=== PATIENT | male | born 1980 | race Caucasian/White ===

== ENCOUNTER → 2017-09-03 | Outpatient (CLI) | payer OTHER ==
[~2017-09-03] MED LIST: FEXO1TAB46 PO; FIBE1CHW PO; FLUO10CA48 PO; FLUO20CA35 PO; FLUT0.15 NAE; MULT-506 PO; PRLSR20 PO; PROB1CAP41 PO
--- NOTE | 2017-09-03 11:32 | DIAGNOSTIC IMAGING REPORT ---
FUSION CT SINUSES W/O HISTORY: 37 years-old Male J32.9 Chronic -HYSH-SGV MALE STATUS POST ENDOSCOPIC S chronic sinusitis COMPARISON: None available TECHNIQUE: Multiple axial CT images of the paranasal sinuses were obtained without contrast. Axial Medtronic images were also obtained. A dose lowering technique was used consistent with the principals of LUCIA. FINDINGS: Imaged intracranial structures demonstrate no acute abnormality. Mastoid air cells and middle ear cavities are clear. Polypoid mucosal thickening involves the inferior left maxillary sinus measuring up to 2.0 cm. There is mild mucosal thickening of the inferior right maxillary sinus. The sphenoid and frontal sinuses are patent. There is mild mucosal thickening involving multiple ethmoid air cells bilaterally. The bilateral frontoethmoidal and sphenoethmoidal recesses are patent. The bilateral maxillary ostiomeatal units are patent. No Dav cell identified. Small bilateral patel bullosa. Mild mucosal thickening of the right nasal turbinates. Allyn baljinder appears to be within normal limits. No significant bowing of the nasal septum. No facial bone fracture or dislocation identified. The orbits and soft tissues appear unremarkable. IMPRESSION: 1. Polypoid mucosal thickening of the left maxillary sinus with mild right maxillary and bilateral ethmoid sinus disease. 2. Patency of the bilateral maxillary ostiomeatal units. 3. Small bilateral patel bullosa. The above report was generated using voice recognition software. It may contain grammatical, syntax or spelling errors. Electronically signed by: Bola Beaulieu M.D. 09/03/2017 11:31 AM Dictated Date/Time: 09/03/2017 11:26 AM
== END | disposition home or self-care (01) ==
LOC: C.CTS 11:03
DX: J32.9 Chronic sinusitis, unspecified (principal); J34.89 Other specified disorders of nose and nasal sinuses

== ENCOUNTER → 2017-09-17 | Outpatient (CLI) | payer OTHER ==
[~2017-09-17] MED LIST changes: +ASTN; +IBUP-1105 PO; +MONT1TAB3 PO
[2017-09-17 12:10] LABS: BASO % 0.4 %; BASO ABS # 0.02 K/uL (0-0.2); EOS % 1.8 %; HEMATOCRIT 45.2 % (42-52); HEMOGLOBIN 15.8 g/dL (14.0-18.0); IG# 0.01 K/uL (0.00-0.02); LYMPH % 23.8 %; LYMPH ABS # 1.31 K/uL (1.2-3.4); MEAN CELL VOLUME 86.9 fL (80-100); MEAN CORPUSCULAR HEMOGLOBIN 30.4 pg (25-34); MONO % 7.6 %; MONO ABS # 0.42 K/uL (0.11-0.59); NEUT % 66.2 %; NEUT ABS # 3.64 K/uL (1.4-6.5); PLATELET COUNT 223 K/uL (130-400); RED CELL DISTRIBUTION WIDTH CV 12.4 % (11.5-14.5); RED CELL DISTRIBUTION WIDTH SD 39.7 fL (36.4-46.3)
[2017-09-17 12:16] LABS: POTASSIUM 3.8 mmol/L (3.5-5.1)
[2017-09-17 12:18] LABS: PTT PATIENT 28.5 SECONDS (21.0-31.0)
== END | disposition home or self-care (01) ==
LOC: C.LAB 11:14
DX: Z01.818 Encounter for other preprocedural examination (principal)

== ENCOUNTER → 2017-10-11 | Day surgery (SDC) | payer OTHER ==
[2017-09-23 09:07] VITALS: Ht 172.7 cm; Wt 86.4 kg
[~2017-10-11] VITALS: Ht 172.7 cm; Wt 86.4 kg
[~2017-10-11] MED LIST changes: +ACETAMINOPHEN 1000 MG/100 ML IV IV ONE; +ACETAMINOPHEN 500 MG TAB PO PRN; +ATROPINE SULFATE 0.1 MG/ML 5ML SYR IV PRN; +CEFAZOLIN 2000MG IV PUSH 15 ML IV SCH; +DEXAMETHASONE SOD INJ 4 MG/ML VIAL ONE; +EpHEDrine SULFATE INJ 50 MG/ML AMP IV PRN; +EpINEphrine INJ 1MG/ML AMP 1 MG/ML AMP ONE; +FENTANYL CITRATE INJ 50 MCG/1 ML 2 ML VIAL IV PRN; +FENTANYL CITRATE INJ 50 MCG/1 ML 2 ML VIAL ONE; -FLUT0.15 NAE; +GLYCOPYRROLATE INJ 0.2 MG/ML VIAL ONE; +LACTATED RINGER'S 1000ML 1,000 ML IV SCH; +LIDOCAINE 4% MPF SOAK 5 ML = 1 DOSE TOP ONE; +LIDOCAINE HCL 2% 2 ML VIAL (20MG/ML) ONE; +LIDOCAINE HCL 4% TOP 50 ML VIAL EXT ONE; +LIDOCAINE/EPINEPHRINE 1% 20 ML VIAL ONE; +NEOSTIGMINE METHYLSULFATE 5 MG/5 ML SYR ONE; +ONDANSETRON INJ 2 MG/ML 2 ML VIAL IV PRN; +ONDANSETRON INJ 2 MG/ML 2 ML VIAL ONE; +OXYMETAZOLINE HCL 0.05% NA SPR 15 ML BTL PRN; +OXYMETAZOLINE HCL 0.05% NA SPR 15 ML BTL SCH; +PROPOFOL IV EMULSION 10 MG/ML 20 ML VIAL IV ONE; +ROCURONIUM BROMIDE 10 MG/ML 5 ML VIAL IV ONE
--- NOTE | 2017-10-11 10:37 | History and Physical: Surg Cnt ---
History & Physical Date Oct 11, 2017. Chief Complaint CHRONIC SINUSITIS History of Present Illness The patient is a 37 year old male with complaints of CHRONIC SINUSITIS WITH SYMPTOMS DESPITE MAXIMAL MEDICAL RX AND PREVIOUS B FESS BY ANOTHER ENT DOC. Past Medical/Surgical History Medical Problems: (1) Opioid withdrawal CRS, AR PSH: S/P B FESS, S/P T&A Additional History Hepatic Disease: No Endocrine Disorder: No Kidney Disease: No Hypertension: No Heart Disease: No Bleeding Tendencies: No Infectious Diseases: No Allergies Coded Allergies: No Known Allergies (Unverified , 10/11/17) Home Medications Scheduled Fexofenadine Hcl (Susie), 180 MG PO QAM Fiber (Fiber Select Gummies), 1 TAB PO DAILY Fluoxetine (Prozac), 20 MG PO HS Fluoxetine (Prozac), 10 MG PO HS Montelukast Sodium (Singulair), 10 MG PO HS Multivitamin (Multivitamin), 1 TAB PO DAILY Omeprazole (Prilosec), 20 MG PO QAM Probiotic Product (Probiotic Daily), 1 CAP PO DAILY Scheduled PRN Azelastine Hcl (Astelin Nasal [place]), 1-2 SPRAYS NA BID PRN for Seasonal Allergies Ibuprofen (Ibuprofen), 2-3 TABS PO Q4H PRN for Pain Physical Examination Skin: warm/dry, no rash Eyes: normal inspection, EOMI, sclerae normal ENT: + pertinent finding (B ITH AND MIDDLE MEATUS INFLAMMATION WITH B MTH WELL) Head: normocephalic, atraumatic Neck: supple, no adenopathy, trachea midline Respiratory/Chest: lungs clear, normal breath sounds, no respiratory distress Cardiovascular: regular rate, rhythm, no edema, no murmur Neurologic/Psych: no motor/sensory deficits, alert, normal reflexes, oriented x 3 Diagnosis CHRONIC SINUSITIS AND BILATERAL INFERIOR TURBINATE HYPERTROPHY Plan of Treatment REVISION IMAGE-GUIDED B FESS AND INF TURB REDUCTION
--- NOTE | 2017-10-11 11:56 | [facility] Operative Report ---
Operative Report Operative Date Oct 11, 2017. Pre-Operative Diagnosis CHRONIC SINUSITIS AND BILATERAL INFERIOR TURBINATE HYPERTROPHY Post-Operative Diagnosis SAME ABOVE Procedure(s) Performed IMAGE-GUIDED REVISION BILATERAL ENDOSCOPIC SINUS SURGERY AND BILATERAL INFERIOR TURBINATE REDUCTION Surgeon KARLA Estimated Blood Loss 25ML Findings 1. BILATERAL DRAKE BULLOSA 2. MILD BILATERAL MAXILLARY POLYPOID MUCOSAL THICKENING 3. MODERATE BILATERAL INFERIOR TURBINATE HYPERTROPHY 4.MILD RIGHT FRONTAL SINUS MUCOSAL THICKENING I attest to the content of the Intraoperative Record and any orders documented therein. Any exceptions are noted below.
--- NOTE | 2017-10-11 11:59 | Discharge Instructions ---
Discharge Instructions Date of Service Oct 11, 2017. Admission Reason for Admission: Chronic Sinusitis, Hypertrophy Of Both Inferior Na Discharge Discharge Diagnosis / Problem: SAME Discharge Goals Goal(s): Therapeutic intervention Activity Recommendations Activity Limitations: as noted below LIGHT ACTIVITY AND NO NOSE BLOWING FOR 2 WEEKS . Current Hospital Diet Patient's current hospital diet: Discharge Diet Recommended Diet: Regular Diet Procedures Procedures Performed: IMAGE-GUIDED REVISION BILATERAL ENDOSCOPIC SINUS SURGERY AND BILATERAL INFERIOR TURBINATE REDUCTION Pending Studies Studies pending at discharge: no Medical Emergencies . Who to Call and When: Medical Emergencies: If at any time you feel your situation is an emergency, please call 911 immediately. . Non-Emergent Contact Non-Emergency issues call your: Surgeon . . "Provider Documentation" section prepared by Kalia Sr. .
[2017-10-11 12:47] VITALS: TEMP 36.9
--- NOTE | 2017-10-11 13:07 | Anesthesia Progress Nt - [facility] ---
Anesthesia Post Op Note Date & Time Oct 11, 2017 at 13:07 Vital Signs Pain Intensity: 4 Vital Signs Past 12 Hours Date Time Temp Pulse Resp B/P (MAP) Pulse Ox O2 Delivery O2 Flow Rate FiO2 10/11/17 12:47 36.9 83 16 135/91 (106) 93 Room Air 10/11/17 12:41 132/67 10/11/17 12:39 85 15 95 10/11/17 12:39 86 15 10/11/17 12:38 72 22 92 10/11/17 12:38 72 22 10/11/17 12:37 36.8 66 14 138/88 95 Room Air 10/11/17 12:37 73 19 10/11/17 12:37 74 19 92 10/11/17 12:36 138/88 10/11/17 12:32 68 19 10/11/17 12:32 67 19 94 10/11/17 12:31 129/86 10/11/17 12:29 69 16 95 10/11/17 12:29 69 16 10/11/17 12:26 136/88 10/11/17 12:24 69 16 10/11/17 12:24 65 16 99 10/11/17 12:23 66 17 99 10/11/17 12:23 66 17 10/11/17 12:21 142/86 10/11/17 12:18 72 18 99 10/11/17 12:18 72 18 10/11/17 12:16 133/102 10/11/17 12:14 142/82 10/11/17 12:13 71 95 10/11/17 12:13 36.6 74 16 142/82 97 Mask 8 10/11/17 12:13 71 10/11/17 09:32 37.1 88 18 146/81 (102) 97 Room Air Notes Mental Status: alert / awake / arousable, participated in evaluation Pt Amnestic to Procedure: Yes Nausea / Vomiting: adequately controlled Pain: adequately controlled Airway Patency, RR, SpO2: stable & adequate BP & HR: stable & adequate Hydration State: stable & adequate Anesthetic Complications: no major complications apparent
[2017-10-11 13:25] VITALS: BP 121/84; PULSE 76; O2SAT 95
--- NOTE | 2017-10-11 13:33 | OPERATIVE REPORT ---
DATE OF OPERATION: 10/11/2017 PREOPERATIVE DIAGNOSES: 1. Chronic sinusitis. 2. Bilateral patel bullosa. 3. Bilateral inferior turbinate hypertrophy. POSTOPERATIVE DIAGNOSES: 1. Chronic sinusitis. 2. Bilateral patel bullosa. 3. Bilateral inferior turbinate hypertrophy. PROCEDURES: Revision image guided bilateral endoscopic sinus surgery consisting of: 1. Bilateral maxillary antrostomies. 2. Bilateral endoscopic patel bullosa resection. 3. Balloon sinuplasty assisted right frontal sinusotomy. 4. Bilateral inferior turbinate outfracture and turbinoplasties. SURGEON: Kalia rS MD ANESTHESIA: General endotracheal. ESTIMATED BLOOD LOSS: 25 mL. FINDINGS: 1. Bilateral patel bullosa. 2. Bilateral inferior turbinate hypertrophy. 3. Polypoid mucosal thickening involving the bilateral maxillary sinuses and right maxillary antrostomy and right frontal sinuses. SPECIMENS: None. COMPLICATIONS: None. INDICATIONS FOR THE PROCEDURE: The patient is a 37-year-old male with a history of chronic rhinosinusitis, who has undergone endoscopic sinus surgery by Dr. Abe Kirkpatrick in the past, which consisted of balloon sinuplasty of the maxillary sinuses bilaterally and bilateral complete ethmoidectomies. The patient had an excellent result from the bilateral ethmoidectomies, but continues to have problems with bilateral maxillary sinusitis and he has ostiomeatal complex obstruction on the CT scan with mild mucosal thickening involving the bilateral maxillary sinuses. He also has right frontal sinus mucosal thickening, bilateral patel bullosa, and bilateral inferior turbinate hypertrophy. He presents for the above-mentioned procedures on an outpatient elective basis. DESCRIPTION OF PROCEDURE: After informed consent had been obtained from the patient, the patient was wheeled to the operating room and placed on the operating table in the supine position. Monitors were placed. After induction of general endotracheal anesthesia, the patient was prepped in the usual fashion for image guided bilateral endoscopic sinus surgery. The Glow headset was placed over the forehead and was registered, calibrated, and verified and used throughout the case, but especially with the right frontal sinus portion of the procedure. Lidocaine and epinephrine pledgets were placed in the bilateral nasal cavities and pressure applied. The left-sided pledgets were first removed. 1% lidocaine with 1:100,000 epinephrine was used to inject the left middle turbinate and uncinate process. A freer elevator was used to medialize the middle turbinate and a lidocaine and epinephrine pledget was then placed in the left middle meatus. The right side was then addressed in a similar fashion. The left-sided pledget was removed. A sickle knife was used to incise the left middle turbinate longitudinally and the lateral half of the middle turbinate was removed using straight Kirt-Cut forceps and powered instrumentation in order to perform an endoscopic patel bullosa resection. A freer elevator, straight Kirt-Cut forceps, and powered instrumentation were then used to perform an uncinectomy. The natural ostia of the left maxillary sinus was identified and this was enlarged anteriorly, inferiorly, and posteriorly using backbiting forceps and powered instrumentation. The patient's previous ethmoid cavity was inspected and this was found to be widely patent with an excellent postoperative result. Lidocaine and epinephrine pledget was then placed in the left ethmoid sinus. The right side was then addressed. This was addressed in a similar fashion as depicted on the left hand side. In addition, a frontal sinus suction using image guidance was used to cannulate the right frontal sinus. This was removed. A #6 frontal sinus balloon was inserted and inflated to 12 atmospheres of pressure in 2 different locations to dilate the right frontal recess tract. Polypoid mucosal thickening was then removed using powered instrumentation. A Castro elevator was then used to infracture and subsequently outfracture the inferior turbinates bilaterally. These were injected with 1% lidocaine with 1:100,000 epinephrine. A 2.0-mm turbinate blade using powered instrumentation was then used to perform bilateral inferior turbinoplasties in a submucosal fashion. The sinonasal cavities and nasopharynx were then suctioned. Merogel was then placed in the bilateral ethmoid sinuses/middle meati. An orogastric tube was placed and the stomach was suctioned free of air and stomach contents. This marked the end of the case. The patient tolerated the procedure well. There were no apparent complications. The patient was extubated and transferred to the recovery room in stable condition. I attest to the content of the Intraoperative Record and any orders documented therein. Any exception s are noted below.
== END | disposition home or self-care (01) ==
LOC: X.SURG 09:12
DX: J32.9 Chronic sinusitis, unspecified (principal); J34.3 Hypertrophy of nasal turbinates; J34.89 Other specified disorders of nose and nasal sinuses; Z79.899 Other long term (current) drug therapy; Z90.89 Acquired absence of other organs; E66.9 Obesity, unspecified; Z68.29 Body mass index [BMI] 29.0-29.9, adult

== ENCOUNTER 2020-03-13 14:19 | Inpatient (IN) ==
[2020-03-13] MEDS ORDERED: PIPERACILL/TAZOBAC CONSULT ACTIVE PRN ×2 (14:48→16:57)
[2020-03-13] MEDS ORDERED: PIPERACILLIN/TAZOBACTAM 4.5 GM/120 ML BAG IV ONE (14:48)
[2020-03-13] MEDS ORDERED: SODIUM CHLORIDE 0.9% 1000ML 2,000 ML IV ONE (14:48)
--- NOTE | 2020-03-13 15:08 | Emergency Department Note ---
Impression & Plan Hypoxia, Aspiration pneumonia, Acute urinary retention, Drug abuse ED Provider Note NAME: JHON MARIN AGE: 39 SEX: M : 1980 ARRIVES VIA: Walk-In INFORMANT: Patient ED PROVIDER(S): Shamir Ronquillo DO CHIEF COMPLAINT: Shortness of breath and cough HPI: Patient is a 39-year-old male who presents the ER with a past medical history of drug abuse which includes cocaine. He notes that last night he was using cocaine and some benzos. He does not remember what kind of benzodiazepines he used. Following this he woke up in the morning with vomit covering his face. He believes he aspirated. He has been having a cough and shortness of breath since then. He denies any loss of taste or smell. No runny nose. No chest pain. He admits to some nausea. No dysuria urgency or frequency. No other exacerbating or remitting factors. No exposure to anyone with known COVID but his does work here. Denies any belly pain. ROS: See above HPI for pertinent positives & negatives. A total of 10 systems reviewed and were otherwise negative. PAST MEDICAL HISTORY:See Below PAST SURGICAL HISTORY:See Below FAMILY HISTORY:See Below SOCIAL HISTORY:See Below HOME MEDICATIONS:See Below ALLERGIES:See Below VITALS:See Below PHYSICAL EXAMINATION: GENERAL: Sitting up in bed, alert, ill-appearing, disheveled, moderate distress, diaphoretic EYE EXAM: normal conjunctiva. PERRL and EOM's grossly intact. OROPHARYNX: membranes are dry NECK: supple, no nuchal rigidity, no adenopathy, non-tender LUNGS: Clear to auscultation. Normal chest wall mechanics HEART: no murmurs, S1 normal and S2 normal ABDOMEN: abdomen soft, non-tender, normo-active bowel sounds, no masses, no rebound or guarding. BACK: Back is symmetrical on inspection and there is no deformity, no midline tenderness, no CVA tenderness. SKIN: no rashes and no bruising UPPER EXTREMITIES: upper extremities are grossly normal. LOWER EXTREMITIES: No pitting edema. NEURO EXAM: Normal sensorium, cranial nerves II-XII grossly intact, normal speech, no gross weakness of arms, no gross weakness of legs. MEDICAL DECISION MAKING: Patient is a 39-year-old male who presents to the ER for shortness of breath. He notes he was using cocaine last night in combination with benzos. He woke up with vomit around his face. He does believe that he aspirated. Since then he h as been very short of breath. Upon presentation he is found to be tachycardic with a heart rate in the 120s. He is found to be hypoxic with a pulse ox of 75% on room air. I evaluated him at bedside. Placed on nonrebreather. Labs show leukocytosis of 15,000. No significant anemia. INR unremarkable. BMP with a potassium of 3.0. He was given IV potassium x20 mEq. Creatinine at 1.7 off of baseline of 1. Lactate was elevated 2.2. Bilirubin LFTs and troponin was negative. Lipase was unremarkable. Alcohol was negative. Chest x-ray does support aspiration pneumonia. Due to fever this is the cause of his hypoxia and tachycardia. With this he was given IV Zosyn. He was COVID tested which came back negative. He does appear to be still under the influence of drugs as he is slightly groggy. He was removed from a nonrebreather and placed on oxygen mask. He started become more short of breath and was placed on high flow nasal cannula. He remained on high flow throughout the ER. He felt significantly better. He was unable to urinate and consequently a Brewer was placed. He was given IV fluids as well. was updated at bedside. He was discussed with the hospitalist as well. Did consider PE but he denied any recent trips or travel or history of clotting disorder and with his history and chest x-ray does appear to be consistent with aspiration causing hypoxia. Triage Nursing notes reviewed. Prior medical records reviewed Vital Signs: reviewed and remarkable for tachycardia and hypoxic Differential diagnosis: Differential diagnosis includes etiologies such as sepsis, UTI, pneumonia, metabolic, electrolyte abnormalities, cardiac sources, intracerebral event, toxicologic, neurological, as well as others were entertained. ER treatment provided: See below Diagnostics interpreted by me: ECG: Sinus tachycardia rate of 125 Normal axis No PVCs Normal QTC Cardiac Monitoring: An order was placed for continuous cardiac monitoring. The monitor shows a rate of 122 with sinus rhythm. Laboratory studies: As stated above and show below. Imaging studies: Portable AP upright 1 view of the chest shows large infiltrate at the right base with spotty infiltrates throughout entire chest Consultation(s): Discussed with Dr. Armin Solorzano for admission Discussed with Dr. Todd Acosta from the research quality assurance analyst ED COURSE: Procedures: none Critical Care: I have personally spent 78 minutes of critical care time in the direct management of this patient. This includes bedside care, interpretation of diagnostic studies, and testing, discussion with consultants, patient, and family members, and other required patient management activities. This 78 minutes is in excess of all separately billable procedures. Past Med/Surg History Medical History (Updated 03/13/20 @ 17:57 by Shamir Ronquillo DO) Abdominal pain, acute, right lower quadrant Allergic rhinitis Blood in stool Change in bowel habits Chronic sinusitis Depression GERD (gastroesophageal reflux disease) Hypertrophy of both inferior nasal turbinates Kidney stones Mucous in stools Surgical History History of adenoidectomy History of carpal tunnel release B/L History of endoscopic sinus surgery 2010 AND 2017 History of tonsillectomy Family History (Updated 06/10/19 @ 11:08 by Kate Grace) Father Allergies Mother Sinus disorder Other No family history of bleeding disorder Social History (Updated 06/10/19 @ 11:11 by Kate Grace) Smoking Status: Former smoker Cigarettes Per Day: PT QUIT TOBACCO SEVERAL YEARS AGO BUT OCC. 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 Feels Safe at Home: Yes Allergies Allergies Allergy/AdvReac Type Severity Reaction Status Date / Time grass pollen Allergy Severe CONGESTION-SINUS Verified 03/13/20 15:27 INFECTIONS, COUGH, SOB tree and shrub pollen Allergy Severe CONGESTION, Verified 03/13/20 15:27 COUGH, SOB weed pollen Allergy Severe CONGESTION, Verified 03/13/20 15:27 COUGH, SOB dog dander Allergy Intermediate SNEEZING, Verified 03/13/20 15:27 CONGESTION house dust mite Allergy Intermediate SNEEZING, Verified 03/13/20 15:27 CONGESTION, SINUS INFECTION, SOB Home Meds Home Medications Medication Instructions Recorded Confirmed fexofenadine 180 mg PO QAM 08/21/18 03/13/20 fluoxetine 20 mg PO QPM 08/21/18 03/13/20 multivitamin 1 cap PO QAM 08/21/18 03/13/20 omeprazole 20 mg PO QAM 08/21/18 03/13/20 epinephrine 0.3 mg/0.3 mL 0.3 mg IM .INJECT 0.3ML INTRAMU ea 10/20/19 03/13/20 injection, auto-injector azelastine 2 sprays INTRANASAL BID PRN 03/13/20 03/13/20 fluoxetine 40 mg PO QPM 03/13/20 03/13/20 Results & Data (ED) Vital Signs Vital Signs - 24 hr 03/13/20 14:27 03/13/20 14:55 03/13/20 15:02 Pulse Rate 130 H 128 H Pulse Rate [Apical] Pulse Rate from SpO2 Sensor 128 H Respiratory Rate 16 16 Respiratory Effort / Characteristics Blood Pressure Blood Pressure Mean Pulse Oximetry 86 L 97 97 Oxygen Delivery Method Room Air Non-rebreather Oxygen Flow Rate 15 Fraction of Inspired Oxygen Sepsis Recent Fever Within 48 Hours No Sepsis New/Unexplained Change in Mental Status No Sepsis Action Taken by Nursing No Action Required Oxygen Flow Rate - Titration Pulse Oximetry Post Tiitration 03/13/20 15:09 03/13/20 15:30 03/13/20 15:31 Pulse Rate 124 H 130 H 126 H Pulse Rate [Apical] Pulse Rate from SpO2 Sensor 125 H 129 H Respiratory Rate 23 16 20 Respiratory Effort / Characteristics Blood Pressure 123/86 150/110 H Blood Pressure Mean 104 122 Pulse Oximetry 97 97 Oxygen Delivery Method Oxygen Flow Rate Fraction of Inspired Oxygen Sepsis Recent Fever Within 48 Hours Sepsis New/Unexplained Change in Mental Status Sepsis Action Taken by Nursing Oxygen Flow Rate - Titration Pulse Oximetry Post Tiitration 03/13/20 15:49 03/13/20 15:56 03/13/20 16:00 Pulse Rate 130 H 125 H Pulse Rate [Apical] Pulse Rate from SpO2 Sensor 130 H 126 H Respiratory Rate 20 14 Respiratory Effort / Characteristics Blood Pressure 122/86 133/89 Blood Pressure Mean 93 98 Pulse Oximetry 93 98 92 Oxygen Delivery Method Oxymask Non-rebreather Oxygen Flow Rate 15 Fraction of Inspired Oxygen Sepsis Recent Fever Within 48 Hours Sepsis New/Unexplained Change in Mental Status Sepsis Action Taken by Nursing Oxygen Flow Rate - Titration 6 Pulse Oximetry Post Tiitration 93 03/13/20 16:17 Pulse Rate Pulse Rate [Apical] 128 H Pulse Rate from SpO2 Sensor Respiratory Rate 22 Respiratory Effort / Characteristics Spontaneous Blood Pressure Blood Pressure Mean Pulse Oximetry 94 Oxygen Delivery Method High Flow Nasal Cannula Oxygen Flow Rate 35 Fraction of Inspired Oxygen 60 Sepsis Recent Fever Within 48 Hours Sepsis New/Unexplained Change in Mental Status Sepsis Action Taken by Nursing Oxygen Flow Rate - Titration Pulse Oximetry Post Tiitration Laboratory Data Result diagrams: 03/13/20 14:50 03/13/20 14:50 Lab Results 03/13/20 03/13/20 03/13/20 Range/Units 14:50 14:50 14:50 WBC 15.33 H (4.8-10.8) K/uL RBC 4.72 (4.7-6.1) M/uL Hgb 14.8 (14.0-18.0) g/dL POC Hgb (14.0-18.0) g/dl Hct 42.0 (42-52) % POC Hct (42-52) % MCV 89.0 (80-100) fL MCH 31.4 (25-34) pg MCHC 35.2 (32-36) g/dL RDW Std Deviation 42.2 (36.4-46.3) fL RDW Coeff of Carlos 13.0 (11.5-14.5) % Plt Count 240 (130-400) K/uL MPV 10.6 H (7.4-10.4) fL Immature Gran % (Auto) 0.2 % Neut % (Auto) 94.0 % Lymph % (Auto) 2.2 % [place] % (Auto) 3.5 % Eos % (Auto) 0.1 % Baso % (Auto) 0.0 % Neut # (Auto) 14.43 H (1.4-6.5) K/uL Lymph # (Auto) 0.33 L (1.2-3.4) K/uL [place] # (Auto) 0.53 (0.11-0.59) K/uL Eos # (Auto) 0.01 (0-0.5) K/uL Baso # (Auto) 0.00 (0-0.2) K/uL Immature Gran # (Auto) 0.03 H (0.00-0.02) K/uL PT 11.4 (9.0-12.0) Seconds INR 1.1 (0.9-1.1) APTT 30.6 (21.0-31.0) Seconds PTT Ratio 1.1 POC Sodium (135-144) mmol/L Sodium 138 (136-145) mmol/L POC Potassium (3.3-5.0) mmol/L Potassium 3.0 L (3.5-5.1) mmol/L POC Chloride (101-112) mmol/L Chloride 100 (98-107) mmol/L Carbon Dioxide 28 (21-32) mmol/L POC Total CO2 (24-31) mmol/L Anion Gap 10.0 (3-11) POC Anion Gap (16-25) mmol/L POC BUN (7-18) mg/dl BUN 17 (7-18) mg/dl Creatinine 1.79 H (0.6-1.4) mg/dl POC Creatinine (0.6-1.3) mg/dl Est Cr Clr Drug Dosing 53.6 ml/min Est GFR ( Amer) 54.1 Est GFR (Non-Af Amer) 46.7 BUN/Creatinine Ratio 9.6 L (10-20) Glucose 83 (70-99) mg/dl POC Glucose (other) (70-99) mg/dl Lactate (0.4-2.0) mmol/L Calcium 9.3 (8.5-10.1) mg/dl POC Ioniz Calcium Debbi (1.12-1.32) mmol/l Magnesium 1.8 (1.8-2.4) mg/dl Total Bilirubin 0.8 (0.2-1) mg/dl AST 40 H (15-37) U/L ALT 26 (12-78) U/L Alkaline Phosphatase 91 (45-117) U/L Troponin I < 0.015 (0-0.045) ng/ml Total Protein 7.6 (6.4-8.2) gm/dl Albumin 3.5 (3.4-5.0) gm/dl Globulin 4.1 H (2.5-4.0) gm/dl Albumin/Globulin Ratio 0.9 (0.9-2) Lipase 77 (73-393) U/L Procalcitonin (0-0.5) ng/ml Ethyl Alcohol mg/dL (0-3) mg/dl COVID-19 Eval Order COVID-19 PCR (Negative) 03/13/20 03/13/20 03/13/20 Range/Units 14:50 14:50 14:50 WBC (4.8-10.8) K/uL RBC (4.7-6.1) M/uL Hgb (14.0-18.0) g/dL POC Hgb (14.0-18.0) g/dl Hct (42-52) % POC Hct (42-52) % MCV (80-100) fL MCH (25-34) pg MCHC (32-36) g/dL RDW Std Deviation (36.4-46.3) fL RDW Coeff of Carlos (11.5-14.5) % Plt Count (130-400) K/uL MPV (7.4-10.4) fL Immature Gran % (Auto) % Neut % (Auto) % Lymph % (Auto) % [place] % (Auto) % Eos % (Auto) % Baso % (Auto) % Neut # (Auto) (1.4-6.5) K/uL Lymph # (Auto) (1.2-3.4) K/uL [place] # (Auto) (0.11-0.59) K/uL Eos # (Auto) (0-0.5) K/uL Baso # (Auto) (0-0.2) K/uL Immature Gran # (Auto) (0.00-0.02) K/uL PT (9.0-12.0) Seconds INR (0.9-1.1) APTT (21.0-31.0) Seconds PTT Ratio POC Sodium (135-144) mmol/L Sodium (136-145) mmol/L POC Potassium (3.3-5.0) mmol/L Potassium (3.5-5.1) mmol/L POC Chloride (101-112) mmol/L Chloride (98-107) mmol/L Carbon Dioxide (21-32) mmol/L POC Total CO2 (24-31) mmol/L Anion Gap (3-11) POC Anion Gap (16-25) mmol/L POC BUN (7-18) mg/dl BUN (7-18) mg/dl Creatinine (0.6-1.4) mg/dl POC Creatinine (0.6-1.3) mg/dl Est Cr Clr Drug Dosing ml/min Est GFR ( Amer) Est GFR (Non-Af Amer) BUN/Creatinine Ratio (10-20) Glucose (70-99) mg/dl POC Glucose (other) (70-99) mg/dl Lactate (0.4-2.0) mmol/L Calcium (8.5-10.1) mg/dl POC Ioniz Calcium Debbi (1.12-1.32) mmol/l Magnesium (1.8-2.4) mg/dl Total Bilirubin (0.2-1) mg/dl AST (15-37) U/L ALT (12-78) U/L Alkaline Phosphatase (45-117) U/L Troponin I (0-0.045) ng/ml Total Protein (6.4-8.2) gm/dl Albumin (3.4-5.0) gm/dl Globulin (2.5-4.0) gm/dl Albumin/Globulin Ratio (0.9-2) Lipase (73-393) U/L Procalcitonin 31.93 H (0-0.5) ng/ml Ethyl Alcohol mg/dL (0-3) mg/dl COVID-19 Eval Order Covid19 Done at [facility] COVID-19 PCR NEGATIVE (Negative) 03/13/20 03/13/20 03/13/20 Range/Units 15:03 15:56 15:56 WBC (4.8-10.8) K/uL RBC (4.7-6.1) M/uL Hgb (14.0-18.0) g/dL POC Hgb 14.3 (14.0-18.0) g/dl Hct (42-52) % POC Hct 42 (42-52) % MCV (80-100) fL MCH (25-34) pg MCHC (32-36) g/dL RDW Std Deviation (36.4-46.3) fL RDW Coeff of Carlos (11.5-14.5) % Plt Count (130-400) K/uL MPV (7.4-10.4) fL Immature Gran % (Auto) % Neut % (Auto) % Lymph % (Auto) % [place] % (Auto) % Eos % (Auto) % Baso % (Auto) % Neut # (Auto) (1.4-6.5) K/uL Lymph # (Auto) (1.2-3.4) K/uL [place] # (Auto) (0.11-0.59) K/uL Eos # (Auto) (0-0.5) K/uL Baso # (Auto) (0-0.2) K/uL Immature Gran # (Auto) (0.00-0.02) K/uL PT (9.0-12.0) Seconds INR (0.9-1.1) APTT (21.0-31.0) Seconds PTT Ratio POC Sodium 137 (135-144) mmol/L Sodium (136-145) mmol/L POC Potassium 3.0 L (3.3-5.0) mmol/L Potassium (3.5-5.1) mmol/L POC Chloride 98 L (101-112) mmol/L Chloride (98-107) mmol/L Carbon Dioxide (21-32) mmol/L POC Total CO2 29 (24-31) mmol/L Anion Gap (3-11) POC Anion Gap 15.0 L (16-25) mmol/L POC BUN 17 (7-18) mg/dl BUN (7-18) mg/dl Creatinine (0.6-1.4) mg/dl POC Creatinine 1.6 H (0.6-1.3) mg/dl Est Cr Clr Drug Dosing ml/min Est GFR ( Amer) Est GFR (Non-Af Amer) BUN/Creatinine Ratio (10-20) Glucose (70-99) mg/dl POC Glucose (other) 87 (70-99) mg/dl Lactate 2.2 H* (0.4-2.0) mmol/L Calcium (8.5-10.1) mg/dl POC Ioniz Calcium Debbi 1.24 (1.12-1.32) mmol/l Magnesium (1.8-2.4) mg/dl Total Bilirubin (0.2-1) mg/dl AST (15-37) U/L ALT (12-78) U/L Alkaline Phosphatase (45-117) U/L Troponin I (0-0.045) ng/ml Total Protein (6.4-8.2) gm/dl Albumin (3.4-5.0) gm/dl Globulin (2.5-4.0) gm/dl Albumin/Globulin Ratio (0.9-2) Lipase (73-393) U/L Procalcitonin (0-0.5) ng/ml Ethyl Alcohol mg/dL < 3.0 (0-3) mg/dl COVID-19 Eval Order COVID-19 PCR (Negative) Administered Medications Potassium Chloride (K Man / Wtr) 10 meq in 100 mls @ 100 mls/hr IV Q1H GOLDIE Stop: 03/13/20 18:14 Last Admin: 03/13/20 16:30 Dose: 100 mls/hr Documented by: [id number] Discontinued Medications Piperacillin Sod/Tazobactam Sod (Zosyn) 4.5 gm in 120 mls @ 240 mls/hr IV NOW ONE Stop: 03/13/20 15:17 Last Infusion: 03/13/20 16:30 Dose: 0 mls/hr Documented by: [id number] Admin: 03/13/20 15:45 Dose: 240 mls/hr Documented by: [id number] Sodium Chloride (Nss 1000ml) 2,000 mls @ 999 mls/hr IV .Q2H1M ONE Stop: 03/13/20 16:48 Last Admin: 03/13/20 15:52 Dose: 999 mls/hr Documented by: [id number] Discharge Plan Visit Data Chief Complaint: Cough Stated Complaint: VOMITING,SOB,SWEATING, TEMP 99, COUGH ED Provider: Shamir Ronquillo Discharge Problem: Hypoxia, Aspiration pneumonia, Acute urinary retention, Drug abuse Forms Stand Alone Forms: [facility] Prescriptions Prescriptions: No Action epinephrine 0.3 mg/0.3 mL auto-injector 0.3 mg IM .INJECT 0.3ML INTRAMU RF: 0 fluoxetine 40 mg capsule 40 mg PO QPM RF: 0 azelastine 0.15 % (205.5 mcg) spray,non-aerosol 2 sprays INTRANASAL BID PRN (Reason: Congestion) RF: 0 fexofenadine 180 mg Tablet 180 mg PO QAM RF: 0 multivitamin Capsule 1 cap PO QAM RF: 0 fluoxetine 20 mg Capsule 20 mg PO QPM RF: 0 omeprazole 20 mg Tablet,Delayed Release (Dr/Ec) 20 mg PO QAM RF: 0 Discharge Problem: Aspiration pneumonia Qualifiers: Aspiration pneumonia type: unspecified Laterality: right Lung location: lower lobe of lung Qualified Code(s): J69.0 - Pneumonitis due to inhalation of food and vomit
[2020-03-13 15:22] LABS: Eosinophils # (auto) 0.01 K/uL (0-0.5); Eosinophils % (auto) 0.1 %; Hemoglobin 14.8 g/dL (14.0-18.0); Immature Granulocytes # (auto) 0.03 K/uL (0.00-0.02); Immature Granulocytes % (auto) 0.2 %; Lymphocytes # (auto) 0.33 K/uL (1.2-3.4); Lymphocytes % (auto) 2.2 %; Mean Corpuscular Hemoglobin 31.4 pg (25-34); Mean Corpuscular Hgb Conc 35.2 g/dL (32-36); Mean Platelet Volume 10.6 fL (7.4-10.4); Monocytes # (auto) 0.53 K/uL (0.11-0.59); Monocytes % (auto) 3.5 %; Neutrophils # (auto) 14.43 K/uL (1.4-6.5); Platelet Count 240 K/uL (130-400); RDW Standard Deviation 42.2 fL (36.4-46.3); Red Blood Count 4.72 M/uL (4.7-6.1); White Blood Count 15.33 K/uL (4.8-10.8)
[2020-03-13 15:28] LABS: iSTAT Creatinine 1.6 mg/dl (0.6-1.3); iSTAT Hemoglobin 14.3 g/dl (14.0-18.0); iSTAT Ionized Calcium 1.24 mmol/l (1.12-1.32)
[2020-03-13 15:31] LABS: INR 1.1 (0.9-1.1); Partial Thromboplastin Ratio 1.1; Partial Thromboplastin Time 30.6 Seconds (21.0-31.0); Prothrombin Time 11.4 Seconds (9.0-12.0)
--- NOTE | 2020-03-13 15:32 | XRay Report ---
XR chest 1V portable HISTORY: 39 years-old Male SEPSIS acute sepsis COMPARISON: Chest radiograph 08/17/2013 TECHNIQUE: Portable AP view of the chest FINDINGS: Patchy mixed interstitial and alveolar opacities of the right midlung and right lung base. Cardiac si lhouette is normal. Mild bilateral interstitial coarsening. No pneumothorax, or large pleural effusio n. Bones appear grossly intact. IMPRESSION: Mild diffuse interstitial coarsening with mixed right midlung and right lung base opaciti es suggestive of pneumonia. ACT 112: Negative or not required by law. The above report was generated using voice recognition software. It may contain grammatical, syntax o r spelling errors. Electronically signed by: Bola Beaulieu M.D. 03/13/2020 3:31 PM
[2020-03-13 15:39] LABS: Alanine Aminotransferase 26 U/L (12-78); Albumin Level 3.5 gm/dl (3.4-5.0); Aspartate Aminotransferase 40 U/L (15-37); BUN Creatinine Ratio 9.6 (10-20); Blood Urea Nitrogen 17 mg/dl (7-18); Calcium 9.3 mg/dl (8.5-10.1); Carbon Dioxide 28 mmol/L (21-32); Chloride 100 mmol/L (98-107); Creatinine Clr Calc Pharmacy 53.6 ml/min; Est GFR (African American) 54.1; Est GFR (Non-African American) 46.7; Glucose 83 mg/dl (70-99); Lipase 77 U/L (73-393); Magnesium 1.8 mg/dl (1.8-2.4); Sodium 138 mmol/L (136-145)
[2020-03-13 15:43] LABS: Albumin Globulin Ratio 0.9 (0.9-2); Alkaline Phosphatase 91 U/L (45-117); Bilirubin,Total 0.8 mg/dl (0.2-1); Globulin 4.1 gm/dl (2.5-4.0); Total Protein 7.6 gm/dl (6.4-8.2); Troponin I < 0.015 ng/ml (0-0.045)
[2020-03-13] MEDS: POTASSIUM CHLORIDE / WTR 10 MEQ/100 ML PLCT IV SCH ×2 (16:30→18:17)
--- NOTE | 2020-03-13 16:58 | History & Physical Report ---
Date of Service March 13, 2020 Assessment & Plan (1) Aspiration pneumonia: Acute Respiratory Failure with hypoxia -Patient has been living separately away from his for about 1 week in a hotel because of history of his drug use. Patient reports that his choice of drug is cocaine but he does not know what can be mixed into the cocaine. Patient's corroborates that when patient takes excessive amounts of uppers he would then try to balance with downers such as Benzodiazepines . When patient's called him at the hotel, he sounded short of breath and when he returned to the house, he had vomit stains smeared to side of his face, and his recognized signs of hypoxia and brought him to emergency room. Patient denied mixing alcohol with recreational drugs. -admission Chest X ray: Mild diffuse interstitial coarsening with mixed right midlung and right lung base opacities suggestive of pneumonia -In the emergency room, patient was started on high flow oxygen for the hypoxia. In the sign out to hospitalist medicine, emergency physician Dr. Ronquillo was c oncerned that patient may need to be intubated but upon further evaluation that he though patient's respiratory efforts improved and did not need to be intubated -Patient also has been tachycardic -Family History of cardiomyopathy -no bacteria in urine, drug toxicology pending -Hospitalist Discussed with patient and his the plan is to give IV antibiotics (Zosyn) for aspiration pneumonia, oxygen as needed, monitor on telemetry and give IV fluids and withdrawal protocol, and prn metoprolol for the heart rate -aspiration precautions, dsyphagia screening, if pass dysphagia screening then can advance to full liquid diet as tolerated, formal speech and swallow evaluation (2) Drug intoxication: -primarily to be treated with IV fluids to wash out toxic metabolites -hold off home dose Prozac for now, can resume in near future. 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 Patient's Radha is a advanced practice rn/dieticain at [facility]. Patient's can be updated with [phone] History of Present Illness -Patient has been living separately away from his for about 1 week in a hotel because of history of his drug use. Patient reports that his choice of drug is cocaine but he does not know what can be mixed into the cocaine. Patient's corroborates that when patient takes excessive amounts of uppers he would then try to balance with downers such as Benzodiazepines . When patient's called him at the hotel, he sounded short of breath and when he returned to the house, he had vomit stains smeared to side of his face, and his recognized signs of hypoxia and brought him to emergency room. Patient denied mixing alcohol with recreational drugs. -admission Chest X ray: Mild diffuse interstitial coarsening with mixed right midlung and right lung base opacities suggestive of pneumonia -In the emergency room, patient was started on high flow oxygen for the hypoxia. In the sign out to hospitalist medicine, emergency physician Dr. Ronquillo was concerned that patient may need to be intubated but upon further evaluation that he though patient's respiratory efforts improved and did not need to be intubated -Patient also has been tachycardic -Hospitalist Discussed with patient and his the plan is to give IV antibiotics (Zosyn) for aspiration pneumonia, oxygen as needed, monitor on telemetry and give IV fluids and withdrawal protocol, and prn metoprolol for the heart rate on review of systems, patient denied chest pain or abdominal pain or flank pain. he has been able to make urine and bowel movements. denies fevers. Family History of cardiomyopathy Primary Care Provider: Brandon Aguilar MD Allergies Allergy/AdvReac Type Severity Reaction Status Date / Time grass pollen Allergy Severe CONGESTION-SINUS Verified 03/13/20 15:27 INFECTIONS, COUGH, SOB tree and shrub pollen Allergy Severe CONGESTION, Verified 03/13/20 15:27 COUGH, SOB weed pollen Allergy Severe CONGESTION, Verified 03/13/20 15:27 COUGH, SOB dog dander Allergy Intermediate SNEEZING, Verified 03/13/20 15:27 CONGESTION house dust mite Allergy Intermediate SNEEZING, Verified 03/13/20 15:27 CONGESTION, SINUS INFECTION, SOB Home Medications Home Medications Medication Instructions Recorded Confirmed Type fexofenadine 180 mg PO QAM 08/21/18 03/13/20 History fluoxetine 20 mg PO QPM 08/21/18 03/13/20 History multivitamin 1 cap PO QAM 08/21/18 03/13/20 History omeprazole 20 mg PO QAM 08/21/18 03/13/20 History epinephrine 0.3 mg/0.3 mL 0.3 mg IM .INJECT 0.3ML INTRAMU ea 10/20/19 03/13/20 History injection, auto-injector azelastine 2 sprays INTRANASAL BID PRN 03/13/20 03/13/20 History fluoxetine 40 mg PO QPM 03/13/20 03/13/20 History Past Med/Surg History Medical History (Updated 03/13/20 @ 17:10 by Armin Solorzano MD) Abdominal pain, acute, right lower quadrant Allergic rhinitis Blood in stool Change in bowel habits Chronic sinusitis Depression GERD (gastroesophageal reflux disease) Hypertrophy of both inferior nasal turbinates Kidney stones Mucous in stools Surgical History History of adenoidectomy History of carpal tunnel release B/L History of endoscopic sinus surgery 2010 AND 2017 History of tonsillectomy Family History (Updated 06/10/19 @ 11:08 by Kate Grace) Father Allergies Mother Sinus disorder Other No family history of bleeding disorder Social History (Updated 06/10/19 @ 11:11 by Kate Grace) Smoking Status: Former smoker Cigarettes Per Day: PT QUIT TOBACCO SEVERAL YEARS AGO BUT OCC. 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 Feels Safe at Home: Yes Review of Systems Review of Systems: All systems reviewed & are unremarkable except as noted in Subjective Physical Exam Constitutional: cooperative Eyes: PERRL, conjunctivae normal, anicteric sclerae EOM intact bilaterally ENMT: external ear and nose normal, oropharynx normal Neck: trachea midline, no thyromegaly normal visual inspection Respiratory: normal respiratory effort, lungs clear to auscultation Patient with expectorated sputum Cardiovascular: Rate/Rhythm: + tachycardic Gastrointestinal (Abdomen): normal bowel sounds, soft, nontender, no hepatosplenomegaly Musculoskeletal: Head/Neck/Chest: normocephalic and head atraumatic Neurologic: PERRL, EOMI, accommodation nl, no face palsy, no dysarthria CN's II-XI intact bilaterally and moves all extremities Psychiatric: A+Ox3, euthymic affect Results & Data Results & Data ([facility]) Vital Signs (Past 12 Hours) Vital Signs Pulse Pulse Resp BP Pulse Ox 03/13/20 16:17 128 H 22 94 03/13/20 16:00 125 H 14 133/89 92 03/13/20 15:56 98 03/13/20 15:49 130 H 20 122/86 93 03/13/20 15:31 126 H 20 97 03/13/20 15:30 130 H 16 150/110 H 03/13/20 15:09 124 H 23 123/86 97 03/13/20 15:02 128 H 16 97 03/13/20 14:55 97 03/13/20 14:27 130 H 16 86 L
[2020-03-13] MEDS ORDERED: chlordiazePOXIDE HCl 25 MG CAP PO SCH ×2 (17:00→20:15)
[2020-03-13] MEDS ORDERED: chlordiazePOXIDE ALCOHOL WITHDRAWL 50MG PO STA (17:00)
[2020-03-13] MEDS ORDERED: MULTI-VITAMIN INFUSION 10 ML, THIAMINE HCL 100 MG, FOLIC ACID 1 MG in SODIUM CHLORIDE 0... IV ONE (17:30)
[2020-03-13 18:25] LABS: Appearance Urine Cloudy (Clear); Bacteria Urine Automated Negative (Negative); Bilirubin Urine Negative (Negative); Blood Urine 3+ (Negative); Color Urine Dark Yellow; Epithelial Cell Urine Auto >30 /lpf (0-5); Glucose Urine UA Negative (Negative); Ketones Urine Negative (Negative); Leukocyte Esterase Urine Trace (Negative); Nitrite Urine Negative (Negative); Protein Urine 2+ (Negative); Specific Gravity Urine 1.025 (1.000-1.030); Urobilinogen Urine Negative (Negative); WBC Urine Automated >30 /hpf (0-5)
[2020-03-13 18:35] LABS: Cast Urine Automated >30 /lpf (0-5)
[2020-03-13 18:36] LABS: Mucus Urine Present (None Prsent)
[2020-03-13] MEDS ORDERED: chlordiazePOXIDE HCl 25 MG CAP PO ONE (18:39)
[2020-03-13 18:49] LABS: Amphetamines+Metham, Urine Pos (Neg); Barbiturates, Urine Neg (Neg); Benzodiazepine, Urine Pos (Neg); Cocaine, Urine Pos (Neg); MDMA (Ecstacy), Urine Pos (Neg); Methadone, Urine Neg (Neg); Opiate, Urine Pos (Neg); Phencyclidine, Urine Neg (Neg)
[2020-03-13] MEDS ORDERED: SODIUM CHLORIDE 0.9% 1000ML 1,000 ML IV SCH (20:00)
[2020-03-13] MEDS ORDERED: METOPROLOL TARTRATE 1 MG/ML VIAL IV PRN (20:00)
[2020-03-13] MEDS: THIAMINE HCL 100 MG in SYRINGE 9 ML IV SCH (21:12)
[2020-03-13] MEDS: FOLIC ACID 1 MG in SYRINGE 9.8 ML IV SCH (21:12)
[2020-03-13] MEDS: PIPERACILLIN/TAZOBACTAM 3.375 GM in DEXTROSE 5% 100 ML IV SCH (21:12)
[2020-03-14] MEDS: chlordiazePOXIDE HCl 25 MG CAP PO SCH ×5 (00:15→22:59)
[2020-03-14] MEDS: PIPERACILLIN/TAZOBACTAM 3.375 GM in DEXTROSE 5% 100 ML IV SCH ×3 (03:23→19:24)
[2020-03-14] MEDS: LORazepam 1 MG/2 ML VIAL IV PRN ×2 (03:23→19:36)
--- NOTE | 2020-03-14 07:02 | Electrocardiogram Report ---
Test Reason : Blood Pressure : / mmHG Vent. Rate : 125 BPM Atrial Rate : 125 BPM P-R Int : 134 ms QRS Dur : 090 ms QT Int : 312 ms P-R-T Axes : 070 010 039 degrees QTc Int : 450 ms Sinus tachycardia Cannot rule out Inferior infarct , age undetermined Abnormal ECG When compared with ECG of 16-DEC-2018 01:16, Vent. rate has increased BY 57 BPM T wave inversion no longer evident in Inferior leads Confirmed by Mike Shore ([id number]) on 03/14/2020 7:02:21 AM Referred By: REFERRED SELF Confirmed By:Mike Shore
[2020-03-14] MEDS ORDERED: SODIUM CHLORIDE 0.9% 1000ML 1,000 ML IV SCH (08:00)
[2020-03-14 08:19] LABS: Basophils # (auto) 0.01 K/uL (0-0.2); Basophils % (auto) 0.1 %; Eosinophils # (auto) 0.78 K/uL (0-0.5); Eosinophils % (auto) 5.5 %; Hematocrit (blood only) 35.3 % (42-52); Immature Granulocytes # (auto) 0.08 K/uL (0.00-0.02); Immature Granulocytes % (auto) 0.6 %; Lymphocytes # (auto) 0.46 K/uL (1.2-3.4); Lymphocytes % (auto) 3.3 %; Mean Corpuscular Hemoglobin 30.2 pg (25-34); Mean Corpuscular Volume 88.9 fL (80-100); Mean Platelet Volume 10.5 fL (7.4-10.4); Monocytes # (auto) 0.39 K/uL (0.11-0.59); Monocytes % (auto) 2.8 %; Neutrophils # (auto) 12.42 K/uL (1.4-6.5); Neutrophils % (auto) 87.7 %; Platelet Count 175 K/uL (130-400); RDW Coefficient of Variation 13.2 % (11.5-14.5); RDW Standard Deviation 43.1 fL (36.4-46.3); Red Blood Count 3.97 M/uL (4.7-6.1); White Blood Count 14.14 K/uL (4.8-10.8)
[2020-03-14] MEDS: ACETAMINOPHEN 1,000 MG/100 ML VIAL IV PRN ×2 (08:22→16:26)
[2020-03-14] MEDS: FOLIC ACID 1 MG in SYRINGE 9.8 ML IV SCH (08:23)
[2020-03-14] MEDS: THIAMINE HCL 100 MG in SYRINGE 9 ML IV SCH (08:23)
[2020-03-14 08:48] LABS: Albumin Globulin Ratio 0.7 (0.9-2); Albumin Level 2.6 gm/dl (3.4-5.0); BUN Creatinine Ratio 20.1 (10-20); Bilirubin,Total 0.8 mg/dl (0.2-1); Calcium 8.6 mg/dl (8.5-10.1); Creatinine Clr Calc Pharmacy 141.1 ml/min; Est GFR (African American) 139.4; Est GFR (Non-African American) 120.3; Globulin 3.7 gm/dl (2.5-4.0); Magnesium 1.7 mg/dl (1.8-2.4); Potassium 3.3 mmol/L (3.5-5.1); Total Protein 6.3 gm/dl (6.4-8.2)
[2020-03-14] MEDS ORDERED: MAGNESIUM SULFATE / D5W 1 GM/100 ML BAG IV ONE (10:06)
[2020-03-14] MEDS: POTASSIUM CHLORIDE / WTR 10 MEQ/100 ML PLCT IV SCH ×2 (11:16→12:20)
[2020-03-14] MEDS: POTASSIUM CHLORIDE 20 MEQ in SODIUM CHLORIDE 0.9% 1000ML 1,000 ML IV SCH ×2 (11:17→19:24)
[2020-03-14] MEDS: PANTOprazole 40 MG in SYRINGE 0 ML IV SCH (11:17)
--- NOTE | 2020-03-14 17:52 | Hospitalist Progress Note ---
Date of Service March 14, 2020 Assessment & Plan (1) Drug abuse: hx of multi drug abuse -cocaine /prescription meds _BDZ admitted with concern for possible overdose leading to obtundation , aspiration penumonitis (2) Aspiration pneumonia: Acute Respiratory Failure with hypoxia Due to aspiration pneumonitis in setting of Drug abuse /drug intoxication was requiring high flow 02 on admission wean off 02 /transition to nasal canula keep 02 > 95% -Patient has been living separately away from his for about 1 week in a hotel because of history of his drug use. Patient reports that his choice of drug is cocaine but he does not know what can be mixed into the cocaine. -admission Chest X ray: Mild diffuse interstitial coarsening with mixed right midlung and right lung base opacities suggestive of pneumonia speech eval appreciated , no evidence of dysphagia noted possible aspiration due to vomiting while be intoxicated ordered regular diet with aspiration precuation -In the emergency room, patient was started on high flow oxygen for the hypoxia. wean down 02 on Zosyn for Aspiration pneumonitis -appreciate swallow evaluation (3) Drug intoxication: -as outlined above -hold off home dose Prozac for now, can resume in near future. Patient denies overdosing on home medications (4) Drug withdrawal: -monitor on telemetry, because of reported misuse of Benzodiazepines, started on Benzodiazepines protocol with scheduled Librium, also give prn Ativan as needed if more agitation -Case management consult for drug rehab after this hospital stay DVT prophylaxis: SCDs Full Code Disposition : pt will need referral to inpatient drug rehab when medically stable present at bedside , updated Admission and Anticipated Discharge Date Admission Date: March 13, 2020 Subjective remains sedated mumbling words , able to open eyes with voice , unable to have a conversation afebrile , no sign of respiratory distress will wean off High flow 02 transition to nasal canula , keep Spo2 > 95 Review of Systems Review of Systems: Unobtainable due to reduced consciousness Physical Exam Constitutional: + intoxicated appearing; no acute distress sedated Eyes: + anicteric sclerae ENMT: external ear and nose normal, oropharynx normal Neck: trachea midline, no thyromegaly Respiratory: normal respiratory effort; no respiratory distress Auscultation: + diminished lung sounds Cardiovascular: RRR, no murmur, no edema Rate/Rhythm: + tachycardic Gastrointestinal (Abdomen): Percussion/Palpation: abdomen soft; abdomen nontender Musculoskeletal: sedated , moving all extremities Neurologic: moves all extremities; no focal motor deficits Motor/Sensory: no tremor sedated , moving all extremities Psychiatric: Orientation: + not oriented x 3 sedated Results & Data Results & Data ([facility]) Vital Signs (Past 12 Hours) Vital Signs Temp Pulse Pulse Resp BP Pulse Ox Pulse Ox 03/14/20 16:00 106 H 95 03/14/20 15:31 107 H 16 98 03/14/20 15:03 37.0 C 105 H 23 137/93 99 03/14/20 12:00 95 03/14/20 11:05 100 H 18 98 03/14/20 11:02 36.8 C 102 H 24 131/82 97 03/14/20 08:02 37.3 C 107 H 22 133/87 96 03/14/20 08:00 107 H 96 03/14/20 07:11 108 H 26 H 97
[2020-03-15] MEDS: LORazepam 1 MG/2 ML VIAL IV PRN (00:21)
[2020-03-15] MEDS ORDERED: LORazepam 1 MG/2 ML VIAL IV PRN (02:08)
[2020-03-15] MEDS ORDERED: ATIVAN IV ALCOHOL WITHDRAWL IV PRN (02:08)
[2020-03-15] MEDS ORDERED: LORazepam 2 MG/4 ML VIAL IV PRN (02:08)
[2020-03-15] MEDS ORDERED: LORazepam 2 MG/4 ML VIAL IV STA (02:49)
[2020-03-15] MEDS: POTASSIUM CHLORIDE 20 MEQ in SODIUM CHLORIDE 0.9% 1000ML 1,000 ML IV SCH (02:56)
[2020-03-15] MEDS: LORazepam 3 MG/6 ML VIAL IV PRN ×4 (03:21→04:26)
[2020-03-15] MEDS: PIPERACILLIN/TAZOBACTAM 3.375 GM in DEXTROSE 5% 100 ML IV SCH ×3 (03:41→19:44)
[2020-03-15] MEDS ORDERED: LORazepam 3 MG/6 ML VIAL IV PRN (04:42)
[2020-03-15] MEDS ORDERED: RAPID SEQUENCE INDUCTION BAG ONE (04:47)
[2020-03-15] MEDS ORDERED: DEXMEDETOMIDINE HCL 200 MCG in SODIUM CHLORIDE 0.9% 48 ML IV SCH (05:00)
[2020-03-15] MEDS ORDERED: STAT IV Infusion **Titration per Protocol STA ×2 (05:00→05:29)
[2020-03-15 05:09] LABS: iSTAT Allen Test Pass; iSTAT Art Bld Gas pCO2 Correct 40 mmHg (35-46); iSTAT Arterial Blood Gas HCO3 26 meg/L (19-24); iSTAT Arterial Blood Gas pCO2 40 mmHg (35-46); iSTAT Arterial Blood Gas pH 7.41 (7.35-7.45); iSTAT Arterial Blood Gas pO2 58 mmHg (80-95); iSTAT Arterial Blood Gas pO2 C 58; iSTAT Carbon Dioxide 27 mmol/L (24-31); iSTAT Hematocrit 31 % (42-52); iSTAT Hemoglobin 10.5 g/dl (14.0-18.0); iSTAT Potassium 3.4 mmol/L (3.3-5.0); iSTAT Site R Radial; iSTAT Sodium 137 mmol/L (135-144)
[2020-03-15 05:10] LABS: Hematocrit (blood only) 34.2 % (42-52); Hemoglobin 11.8 g/dL (14.0-18.0); Mean Corpuscular Hemoglobin 30.7 pg (25-34); Mean Corpuscular Hgb Conc 34.5 g/dL (32-36); Mean Corpuscular Volume 89.1 fL (80-100); Mean Platelet Volume 10.6 fL (7.4-10.4); Platelet Count 179 K/uL (130-400); RDW Standard Deviation 42.3 fL (36.4-46.3); Red Blood Count 3.84 M/uL (4.7-6.1); White Blood Count 13.96 K/uL (4.8-10.8)
--- NOTE | 2020-03-15 05:39 | Critical Care Consultation ---
Date of Consultation March 15, 2020 Assessment & Plan (1) Admitted to intensive care unit: Reason Critically Ill: 39-year-old male with worsening agitation and suspicion of withdrawal from drugs as well as acute aspiration pneumonia with worsening tachypnea and hypoxia requiring emergent endotracheal intubation. NEURO - * CAM ICU: Positive * Sedation: Propofol * Pain: Fentanyl * Agitation: * Requiring escalating doses of Ativan for agitation on the floor. * No focal neurological deficits on limited exam. * Likely secondary to combination of acute of illness as well as substance abuse and withdrawal of current concoction of medications. CARDIAC/VASCULAR - * Tachycardic: * Multifactorial in the setting of demand with moderate hypoxia. Also in the setting of substance abuse withdrawal. * Monitor closely with addition of sedation medications. * Monitor on telemetry. RESPIRATORY - * Respiratory distress: * Secondary to aspiration pneumonia. * Initially on high flow. Patient did not tolerate well secondary to altered mental status and agitation. * Did attempt Precedex and positive pressure ventilatory techniques without success. * Emergent endotracheal intubation required. * Coarse breath sounds with mild wheezing appreciated. Will add nebulizer treatments. GI/NUTRITION - * N.p.o. * Prophylaxis: Protonix RENAL/LYTES - * Hypokalemia: * Replace appropriately. * IVF: NSS w/ 20K @ 125mL/hr - * Initially with urinary retention on presentation. * Question if this is related to any additional substance use? * Brewer in place - Strict I&Os. ENDO - * No h/o DM or Thyroid Dz * BSGs per unit protocol. ISS --> gtt per unit policy. HEME - * Stable H&H ID - * Aspiration Pneumonia: * Currently on Zosyn. Agree with continuing. * PCT initially greater than 30. * Blood cultures negative. * Will recheck Lactate in the setting of worsening hypoxia, tachycardia, etc. LINES/IV ACCESS - * PIVs x2 * ET Tube * Brewer * RIGHT Radial Art Line DVT PROPHYLAXIS - * Heparin * SCDs I have personally spent 45 minutes of critical care time in the direct management of this patient. This is a life/limb threatening event. This includes time spent evaluating patient, direct bedside care, chart review, placing orders, interpretation of diagnostic studies, discussion with consultants, patient, and family members, as well as other required patient management activities. This time is exclusive of all separately billable procedures, and teaching time and separate from and in addition to any other critical care service time. Thank you for allowing us to participate in the care of this patient. Please refer to my attending physician's documentation for any further recommendations. (2) Respiratory distress: (3) Aspiration pneumonia: (4) Drug abuse: (5) Acute urinary retention: (6) Hypoxia: (7) Drug withdrawal: (8) Delirium: (9) Agitation: History of Present Illness Attending Physician: Shamika Lopez MD History of Present Illness Patient is a 39-year-old male with what appears to be a significant past medical history of kidney stones and multiple allergies as well as significant history of drug abuse who initially presented to the emergency department on 03/13 with complaints of shortness of breath and possible aspiration pneumonia. Per records, the patient is living in a hotel separate from his secondary to his drug abuse. He admits to using cocaine as well as benzodiazepines. He did present to his 's dwelling and she noted that he had vomit on his face and was appearing short of breath. Upon arrival in the emergency department, the patient was found to be moderately hypoxic. He was placed on high flow. COVID testing was negative. Chest x-ray concerning for multifocal pneumonia. The patient has been placed on Zosyn as well as Ativan for agitation. Throughout the night, the patient had increasing agitation as well as persistent tachypnea. Patient had escalating doses of Ativan totaling approximately 26 mg of Ativan throughout the night. Patient did have an episode where his heart rate went from the consistent 120s and dropped precipitously into the 70s. A code purple was called. Patient became increasingly agitated and subsequently was transferred to the ICU for further evaluation and management Allergies Allergy/AdvReac Type Severity Reaction Status Date / Time grass pollen Allergy Severe CONGESTION-SINUS Verified 03/13/20 15:27 INFECTIONS, COUGH, SOB tree and shrub pollen Allergy Severe CONGESTION, Verified 03/13/20 15:27 COUGH, SOB weed pollen Allergy Severe CONGESTION, Verified 03/13/20 15:27 COUGH, SOB dog dander Allergy Intermediate SNEEZING, Verified 03/13/20 15:27 CONGESTION house dust mite Allergy Intermediate SNEEZING, Verified 03/13/20 15:27 CONGESTION, SINUS INFECTION, SOB Home Medications Home Medications Medication Instructions Recorded Confirmed Type fexofenadine 180 mg PO QAM 08/21/18 03/13/20 History fluoxetine 20 mg PO QPM 08/21/18 03/13/20 History multivitamin 1 cap PO QAM 08/21/18 03/13/20 History omeprazole 20 mg PO QAM 08/21/18 03/13/20 History epinephrine 0.3 mg/0.3 mL 0.3 mg IM .INJECT 0.3ML INTRAMU ea 10/20/19 03/13/20 History injection, auto-injector azelastine 2 sprays INTRANASAL BID PRN 03/13/20 03/13/20 History fluoxetine 40 mg PO QPM 03/13/20 03/13/20 History Patient History Medical History Abdominal pain, acute, right lower quadrant Allergic rhinitis Blood in stool Change in bowel habits Chronic sinusitis Depression GERD (gastroesophageal reflux disease) Hypertrophy of both inferior nasal turbinates Kidney stones Mucous in stools Surgical History History of adenoidectomy History of carpal tunnel release B/L History of endoscopic sinus surgery 2010 AND 2017 History of tonsillectomy Family History Father Allergies Mother Sinus disorder Other No family history of bleeding disorder Social History Smoking Status: Former smoker Cigarettes Per Day: PT QUIT TOBACCO SEVERAL YEARS AGO BUT OCC. 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 GENERAL - 39-year-old male appearing older than his stated age who is in no acute distress. Agitated. Diaphoretic. Comative. SKIN - Without rashes. Diaphoretic. HEAD - NC/AT. EYES - PERRL with EOMI bilaterally. Sclera anicteric. Palpebral conjunctiva pink and moist with no injection noted. EARS - No deformities of external structures noted on gross examination bilaterally. NOSE - Midline and without cyanosis. No epistaxis or purulent drainage noted. MOUTH/OROPHARYNX - Without perioral cyanosis. Buccal mucosa pink and moist and without leukoplakia. Poor dentition noted. NECK - Neck with FROM. Supple to palpation. No nuchal rigidity. LUNGS - Chest wall symmetric without accessory muscle use, intercostals retractions, or central cyanosis. Normal vesicular breath sounds CTA B/L. No wheezes, rales, or rhonchi appreciated. CARDIAC - RRR with S1/S2. No murmur, rubs, or gallops appreciated. ABDOMEN - Abdominal contour flat without pulsations or visible masses. BS normoactive all four quadrants. No tenderness, palpable masses, hepatosplenomegaly, or ascites noted. EXTREMITIES - No clubbing or peripheral cyanosis. No pretibial edema present. +3/5 radial and dorsalis pedis pulses palpated throughout. +5/5 strength noted in UE/LE bilaterally. NEUROLOGIC -no focal neurological deficits appreciated. Unable to fully assess secondary to patient's mental status. PSYCH -increasingly aggressive and agitated towards staff. Fighting staff and attempting to pull medical equipment and injure other staff. Nonsensical. Diaphoretic and tachycardic. Results & Data Results & Data ([facility]) Vital Signs (Past 12 Hours) Vital Signs Temp Pulse Pulse Resp BP BP Pulse Ox 03/15/20 04:02 120 H 56 H 145/101 H 92 03/15/20 03:17 118 H 28 H 93 03/15/20 03:00 37.1 C 113 H 26 H 117/74 93 03/14/20 23:20 37.2 C 114 H 28 H 144/93 H 95 03/14/20 23:14 116 H 03/14/20 23:07 120 H 30 H 95 03/14/20 19:25 37.7 C H 108 H 32 H 125/86 95 03/14/20 18:44 107 H 30 H 96 Coding Level of Care Code Critical Care 1st 30-74 mins Diagnoses Admitted to intensive care unit Z78.9 Respiratory distress R06.03 Aspiration pneumonia J69.0 Aspiration pneumonia type: unspecified Laterality: right Lung location: lower lobe of lung Drug abuse F19.10 Acute urinary retention R33.8 Hypoxia R09.02 Drug withdrawal F19.239 Delirium R41.0 Agitation R45.1 Time Spent (min) 45 (1) Aspiration pneumonia Aspiration pneumonia type: unspecified Laterality: right Lung location: lower lobe of lung Qualified Code(s): J69.0 - Pneumonitis due to inhalation of food and vomit
[2020-03-15] MEDS: propofoL 1,000 MG/100 ML VIAL IV SCH ×3 (05:52→19:24)
[2020-03-15] MEDS: fentaNYL DRIP 1,250 MCG/250 ML BAG IV PRN ×2 (05:53→19:37)
--- NOTE | 2020-03-15 06:06 | Hospitalist Progress Note ---
Date of Service March 15, 2020 Assessment & Plan Admission and Anticipated Discharge Date Admission Date: March 13, 2020 Subjective Patient is withdrawing from cocaine. code purple was called as patient was having worsening tachyapnea. Requiring high doses of iv ativan for his agitation. Transferred to ICU. S/p intubation. Started on precedex drip. Notified . Results & Data Results & Data ([facility]) Vital Signs (Past 12 Hours) Vital Signs Temp Pulse Pulse Resp BP BP Pulse Ox 03/15/20 04:02 120 H 56 H 145/101 H 92 03/15/20 03:17 118 H 28 H 93 03/15/20 03:00 37.1 C 113 H 26 H 117/74 93 03/14/20 23:20 37.2 C 114 H 28 H 144/93 H 95 03/14/20 23:14 116 H 03/14/20 23:07 120 H 30 H 95 03/14/20 19:25 37.7 C H 108 H 32 H 125/86 95 03/14/20 18:44 107 H 30 H 96
--- NOTE | 2020-03-15 06:14 | Procedure Note ---
Procedure Note Date of Service March 15, 2020 Procedure: Arterial Line Placement Attending: Dr. Frazier APC: Jason Black PA-C Indication: Monitoring on Pressors Anesthesia: None Emergent consent implied in the setting of respiratory failure requiring endotracheal division with need for serial ABGs and close blood pressure monitoring. A time-out was completed verifying correct patient, procedure, site, positioning, and implant(s) or special equipment if applicable. Allens test was performed to ensure adequate perfusion. Patients RIGHT wrist was prepped and draped in the usual sterile fashion. Ultrasound guidance was used to aid needle placement. A 20g Arrow arterial line was introduced into the RIGHT radial artery. Catheter was threaded, and the needle was removed with appropriate blood return. Good waveform was observed. The patient tolerated the procedure well. Confirmation of placement with ultrasound. Blood Loss: Minimal Complications: None Procedural Ultrasound Guidance: Procedure Date: 03/15/2020 Indication: ABGs, Frequent labs Attending: Dr. Frazier APC: Jason Black PA-C Artery Identified: YES Line confirmed in Artery with ultrasound: YES Complications: NONE Patient tolerated procedure: WELL Coding CPT Codes Tubes, Drains, and Vasc Access - Tubes, Drains, and Vasc Access: [id number] Place Catheter In Artery ([id number]) [facility] Procedure Codes (Charges) Tubes, Drains, and Vasc Access Procedure 1: Tubes, Drains, and Vasc Access: [id number] Place Catheter In Artery
--- NOTE | 2020-03-15 06:15 | Procedure Note ---
Procedure Note Date of Service March 15, 2020 PROCEDURE NOTE - Endotracheal Intubation PROCEDURE NOTE: Informed consent was not obtained by the patient due to altered mental status. Verify Correct Patient: yes Procedure: Endotracheal intubation Indication: Altered mental status and respiratory distress with concern for impending respiratory failure The procedure was done emergently. Description of the Procedure: The patient was seen and properly identified. The patient was pre-oxygenated and intubated after rapid sequence induction with meds: Etomidate and succinylcholine. Patient had already been given 2 doses of Ativan. Intubation was performed using a video laryngoscopy with glide scope and a 8.0 cuffed endotracheal tube. The tube was visualized going through the cords and secured with the 24 cm ramon at the lips. The patient had good bilateral breath sounds in the axillae with good chest rise. Proper ET tube placement was also confirmed by end tidal CO2 detector. The patient tolerated the procedure well. Postprocedure chest x-ray ordered by the ICU PA. Patient had already been started on a Precedex drip. Coding
[2020-03-15 06:24] LABS: BUN Creatinine Ratio 13.5 (10-20); Blood Urea Nitrogen 7 mg/dl (7-18); Calcium 8.4 mg/dl (8.5-10.1); Carbon Dioxide 26 mmol/L (21-32); Chloride 106 mmol/L (98-107); Creatinine Clr Calc Pharmacy 184.5 ml/min; Est GFR (African American) > 150.0; Est GFR (Non-African American) 134.3; Glucose 97 mg/dl (70-99); Potassium 3.4 mmol/L (3.5-5.1); Sodium 138 mmol/L (136-145)
[2020-03-15 06:24] LABS: iSTAT Art Bld Gas pCO2 Correct 37 mmHg (35-46); iSTAT Arterial Blood Gas HCO3 24 meg/L (19-24); iSTAT Arterial Blood Gas pCO2 35 mmHg (35-46); iSTAT Arterial Blood Gas pH 7.45 (7.35-7.45); iSTAT Arterial Blood Gas pO2 88 mmHg (80-95); iSTAT Arterial Blood Gas pO2 C 94; iSTAT Carbon Dioxide 25 mmol/L (24-31); iSTAT FiO2 40 %; iSTAT Hematocrit 29 % (42-52); iSTAT Hemoglobin 9.9 g/dl (14.0-18.0); iSTAT Potassium 3.2 mmol/L (3.3-5.0); iSTAT Site Art Line; iSTAT Sodium 137 mmol/L (135-144)
[2020-03-15] MEDS ORDERED: MIDAZOLAM HCL 5 MG/ML VIAL IV ONE (07:13)
[2020-03-15] MEDS ORDERED: SUCCINYLCHOLINE CHLORIDE 20 MG/ML 10 ML VIAL IV ONE (07:13)
[2020-03-15] MEDS ORDERED: fentaNYL citrate 100 MCG/2 ML VIAL IV ONE (07:13)
[2020-03-15] MEDS ORDERED: LORazepam 2 MG/ML VIAL IV ONE (07:13)
[2020-03-15] MEDS ORDERED: ETOMIDATE 2 MG/ML 20 ML VIAL IV ONE (07:13)
[2020-03-15] MEDS: POTASSIUM CHLORIDE / WTR 10 MEQ/100 ML PLCT IV SCH ×3 (07:43→09:57)
[2020-03-15] MEDS ORDERED: POTASSIUM PHOS 3 MMOL/1 ML INFUSION IV STA (08:04)
--- NOTE | 2020-03-15 08:08 | XRay Report ---
XR chest 1V portable HISTORY: Status post intubation. COMPARISON: Chest 03/13/2020. FINDINGS: Endotracheal tube terminates 5 cm of the solange. Nasogastric tube terminates in the body th e stomach. Perihilar interstitial thickening and a right basilar airspace opacity persists. No pleura l effusions. No pneumothorax. IMPRESSION: 1. Status post support line placement. 2. No change in the interstitial thickening and right basilar airspace opacity. ACT 112: Negative or not required by law. Electronically signed by: Dewayne Pratt M.D. 03/15/2020 8:06 AM
[2020-03-15] MEDS: FOLIC ACID 1 MG in SYRINGE 9.8 ML IV SCH (08:23)
[2020-03-15] MEDS: THIAMINE HCL 100 MG in SYRINGE 9 ML IV SCH (08:23)
[2020-03-15] MEDS: HEPARIN SOD 5,000 UNIT/0.5 ML VIAL SQ SCH ×2 (08:23→19:45)
[2020-03-15] MEDS ORDERED: POTASSIUM PHOSPHATE 30 MMOL in SODIUM CHLORIDE 0.9% 500 ML IV ONE (08:30)
[2020-03-15 08:57] LABS: iSTAT Arterial Blood Gas HCO3 25 meg/L (19-24); iSTAT Arterial Blood Gas pCO2 40 mmHg (35-46); iSTAT Arterial Blood Gas pH 7.41 (7.35-7.45); iSTAT Arterial Blood Gas pO2 99 mmHg (80-95); iSTAT Carbon Dioxide 26 mmol/L (24-31); iSTAT FiO2 40 %; iSTAT Site R Radial
[2020-03-15] MEDS: chlordiazePOXIDE HCl 25 MG CAP PO SCH (09:09)
--- NOTE | 2020-03-15 09:09 | Communication Note ---
Date of Service: March 15, 2020 Critical care addendum: Patient seen and examined at bedside. Patient's is also bedside present. Patient was on propofol 20 and fentanyl 100 at the time of examination. Respiratory rate on the vent was 28 and patient was breathing at 28. Patient RASS was -2/-3. Patient was a bit alkalotic on the ABG. Went down on respiratory rate to 20 and repeated an ABG which showed a pH of 7.41. Patient's procalcitonin is 38 most likely aspiration pneumonia multi lobar involving the right lung. Continue with antibiotics to cover for Pseudomonas and anaerobes. Nasal MRSA has been ordered if that is positive we will add MRSA coverage. Patient's UDS was positive for opioids, cocaine, ecstasy. Patient was actively withdrawing as well that is 1 of the reason that he was intubated. Continue to keep the patient RASS -1/-2. Patient's blood pressure is a bit on the higher side mildly because of withdrawal likely patient has very high threshold to fentanyl. Discontinue chlordiazepoxide while the patient is on propofol. Give Ativan as needed 2 mg every 4 hours on top of propofol and fentanyl which he is on. Continue with folic acid and thiamine. Start patient on feeding. Advance ET tube by 2 cm as it is 6 cm above the solange. I have personally spent additional 27 minutes of critical care time in the direct management of this patient. This is a life/limb threatening event. This includes time spent evaluating patient, direct bedside care, chart review, placing orders, interpretation of diagnostic studies, discussion with consultants, patient, and family members, as well as other required patient management activities. This time is exclusive of all separately billable procedures, and teaching time and separate from and in addition to any other critical care service time. Please note the above document was generated using voice recognition software. It may contain grammatical, syntax or spelling errors. Coding Level of Care Code Critical Care thai kramert'l 30 min Time Spent (min) 27
[2020-03-15 12:24] LABS: iSTAT FiO2 0 %
[2020-03-15] MEDS: PANTOprazole 40 MG in SYRINGE 0 ML IV SCH (12:30)
[2020-03-15] MEDS: NSS + 20MEQ KCL 20 MEQ/1,000 ML BAG IV SCH ×2 (12:43→19:38)
[2020-03-15] MEDS: LORazepam 2 MG/4 ML VIAL IV PRN (14:48)
[2020-03-15] MEDS: ACETAMINOPHEN 1,000 MG/100 ML VIAL IV PRN ×2 (14:58→23:25)
--- NOTE | 2020-03-15 18:17 | Electrocardiogram Report ---
Test Reason : Blood Pressure : / mmHG Vent. Rate : 104 BPM Atrial Rate : 104 BPM P-R Int : 124 ms QRS Dur : 092 ms QT Int : 344 ms P-R-T Axes : 032 026 046 degrees QTc Int : 452 ms Sinus tachycardia Otherwise normal ECG When compared with ECG of 13-MAR-2020 15:01, No significant change was found Confirmed by Williams Vargas ([id number]) on 03/15/2020 6:17:43 PM Referred By: REFERRED SELF Confirmed By:Jose Carlos Vargas
--- NOTE | 2020-03-15 18:25 | Hospitalist Progress Note ---
Date of Service March 15, 2020 Assessment & Plan (1) Drug abuse: hx of multi drug abuse -cocaine /prescription meds _BDZ admitted with concern for possible overdose leading to obtundation , aspiration penumonitis Urine tox screen positive for opiates, meth amphetamine, ecstasy, benzodiazepine -Patient has been living separately away from his for about 1 week in a hotel because of history of his drug use. Patient reports that his choice of drug is cocaine but he does not know what can be mixed into the cocaine. (2) Aspiration pneumonia: Acute Respiratory Failure with hypoxia Due to severe drug withdrawal, aspiration pneumonitis /patient vomited while intoxicated -admission Chest X ray: Mild diffuse interstitial coarsening with mixed right midlung and right lung base opacities suggestive of pneumonia On admission patient was hypoxic requiring high flow oxygen Patient became severely agitated worsening respiratory distress due to withdrawal, transferred to ICU /debated for airway protection Appreciate input from rental car deliverer, noy Bhatt (3) Drug intoxication: Long-term history of drug abuse, Patient will benefit with inpatient drug rehab when medically stable (4) Drug withdrawal: Developed severe withdrawal symptoms, currently in ICU intubated requiring high dose of sedative DVT prophylaxis: SCDs Full Code Disposition : Continue monitor in ICU Admission and Anticipated Discharge Date Admission Date: March 13, 2020 Subjective Patient developed severe drug withdrawal: Agitation , respiratory failure Was transferred to ICU, intubated for airway protection Requiring large amount of sedation, present at bedside, update given, Review of Systems Review of Systems: Unobtainable due to reduced consciousness (Sedated on ventilator) Physical Exam Constitutional: WD/WN, vitals as above Unresponsive on vent Eyes: Point people ENMT: ET tube present Respiratory: Auscultation: + crackles Right side On mechanical ventilation Cardiovascular: Rate/Rhythm: regular rate and + tachycardic Extremities: no edema Gastrointestinal (Abdomen): Percussion/Palpation: abdomen soft Neurologic: On sedation for drug withdrawal on mechanical ventilation Results & Data Results & Data ([facility]) Vital Signs (Past 12 Hours) Vital Signs Temp Temp Pulse Pulse Resp BP BP 03/15/20 17:18 38.2 C H 104 H 26 H 113/51 L 03/15/20 17:17 38.2 C H 03/15/20 16:43 38.8 C H 106 H 32 H 104/72 03/15/20 16:30 119 H 26 H 09/08/20 16:27 121 H 104/71 03/15/20 16:00 38.8 C H 121 H 102 H 20 03/15/20 15:33 37.9 C H 03/15/20 15:30 118 H 03/15/20 15:27 119 H 100/69 03/15/20 15:21 38.9 C H 03/15/20 15:00 39.1 C H 115 H 03/15/20 14:30 118 H 03/15/20 14:27 117 H 121/72 03/15/20 14:00 117 H 03/15/20 13:42 115 H 28 H 03/15/20 13:30 114 H 03/15/20 13:27 114 H 115/70 03/15/20 13:01 115 H 03/15/20 12:31 106 H 03/15/20 12:27 105 H 116/72 03/15/20 12:01 36.7 C 105 H 03/15/20 12:00 36.6 C 03/15/20 11:31 105 H 03/15/20 11:27 107 H 121/74 03/15/20 11:26 108 H 119/77 03/15/20 11:01 106 H 03/15/20 10:30 104 H 03/15/20 10:27 104 H 114/77 03/15/20 10:18 105 H 29 H 03/15/20 10:00 36.9 C 103 H 03/15/20 09:30 105 H 03/15/20 09:27 106 H 122/79 03/15/20 09:00 107 H 03/15/20 08:30 105 H 03/15/20 08:27 101 H 122/81 03/15/20 08:15 20 03/15/20 08:00 97 H 03/15/20 07:30 97 H 03/15/20 07:27 96 H 129/89 03/15/20 07:00 36.6 C 97 H 96 H 18 109/72 03/15/20 06:30 100 H 03/15/20 06:27 101 H 109/71 03/15/20 06:26 94 H 29 H 03/15/20 06:24 101 H 113/70 03/15/20 06:22 101 H 116/70 03/15/20 06:19 103 H 113/69 BP Pulse Ox Pulse Ox 03/15/20 17:18 104/71 96 03/15/20 17:17 03/15/20 16:43 104/53 L 96 03/15/20 16:30 96 03/15/20 16:27 96 03/15/20 16:00 108/52 L 97 96 03/15/20 15:33 03/15/20 15:30 97 03/15/20 15:27 97 03/15/20 15:21 03/15/20 15:00 100 03/15/20 14:30 100 03/15/20 14:27 100 03/15/20 14:00 100 03/15/20 13:42 100 03/15/20 13:30 100 03/15/20 13:27 100 03/15/20 13:01 100 03/15/20 12:31 100 03/15/20 12:27 100 03/15/20 12:01 100 03/15/20 12:00 95 03/15/20 11:31 100 03/15/20 11:27 99 03/15/20 11:26 99 03/15/20 11:01 100 03/15/20 10:30 100 03/15/20 10:27 100 03/15/20 10:18 100 03/15/20 10:00 100 03/15/20 09:30 100 03/15/20 09:27 100 03/15/20 09:00 100 03/15/20 08:30 100 03/15/20 08:27 100 03/15/20 08:15 03/15/20 08:00 100 95 03/15/20 07:30 100 03/15/20 07:27 100 03/15/20 07:00 151/79 H 100 03/15/20 06:30 100 03/15/20 06:27 100 03/15/20 06:26 100 03/15/20 06:24 100 03/15/20 06:22 100 03/15/20 06:19 99
[2020-03-15] MEDS: ALBUT/IPRATROP 3MG/0.5MG NEB 3 ML VIAL NEB PRN ×2 (19:55→22:36)
[2020-03-15] MEDS: PROPOFOL BOLUS FROM BAG IV PRN (22:40)
[2020-03-15] MEDS: FENTANYL BOLUS FROM BAG IV PRN (22:41)
[2020-03-16] MEDS: propofoL 1,000 MG/100 ML VIAL IV SCH ×5 (00:43→20:09)
[2020-03-16] MEDS: ALBUT/IPRATROP 3MG/0.5MG NEB 3 ML VIAL NEB PRN ×2 (02:20→05:12)
[2020-03-16] MEDS: FENTANYL BOLUS FROM BAG IV PRN (02:53)
[2020-03-16] MEDS: NSS + 20MEQ KCL 20 MEQ/1,000 ML BAG IV SCH ×2 (04:00→09:49)
[2020-03-16] MEDS: PIPERACILLIN/TAZOBACTAM 3.375 GM in DEXTROSE 5% 100 ML IV SCH ×3 (04:00→20:10)
[2020-03-16] MEDS: fentaNYL DRIP 1,250 MCG/250 ML BAG IV PRN ×3 (04:01→21:25)
[2020-03-16 05:32] LABS: iSTAT Allen Test Pass; iSTAT Art Bld Gas pCO2 Correct 55 mmHg (35-46); iSTAT Arterial Blood Gas HCO3 25 meg/L (19-24); iSTAT Arterial Blood Gas pCO2 50 mmHg (35-46); iSTAT Arterial Blood Gas pO2 78 mmHg (80-95); iSTAT Arterial Blood Gas pO2 C 89; iSTAT Carbon Dioxide 26 mmol/L (24-31); iSTAT FiO2 40 %; iSTAT Hematocrit 33 % (42-52); iSTAT Hemoglobin 11.2 g/dl (14.0-18.0); iSTAT Potassium 3.6 mmol/L (3.3-5.0); iSTAT Site Art Line; iSTAT Sodium 140 mmol/L (135-144)
[2020-03-16 05:40] LABS: Hematocrit (blood only) 34.8 % (42-52); Hemoglobin 11.8 g/dL (14.0-18.0); Mean Corpuscular Hemoglobin 30.2 pg (25-34); Mean Corpuscular Hgb Conc 33.9 g/dL (32-36); Mean Platelet Volume 10.4 fL (7.4-10.4); Platelet Count 209 K/uL (130-400); RDW Coefficient of Variation 13.5 % (11.5-14.5); RDW Standard Deviation 43.7 fL (36.4-46.3); Red Blood Count 3.91 M/uL (4.7-6.1); White Blood Count 11.97 K/uL (4.8-10.8)
[2020-03-16 06:10] LABS: BUN Creatinine Ratio 14.4 (10-20); Blood Urea Nitrogen 6 mg/dl (7-18); Calcium 8.1 mg/dl (8.5-10.1); Carbon Dioxide 24 mmol/L (21-32); Chloride 109 mmol/L (98-107); Est GFR (African American) > 150.0; Est GFR (Non-African American) 148.1; Glucose 78 mg/dl (70-99); Magnesium 2.2 mg/dl (1.8-2.4); Potassium 3.5 mmol/L (3.5-5.1); Sodium 140 mmol/L (136-145)
[2020-03-16 06:18] LABS: Phosphorus 2.9 mg/dl (2.5-4.9)
[2020-03-16] MEDS ORDERED: chlordiazePOXIDE HCl 25 MG CAP PO SCH (07:00)
[2020-03-16] MEDS: LORazepam 2 MG/4 ML VIAL IV PRN (07:10)
[2020-03-16] MEDS ORDERED: FUROSEMIDE 20 MG in SYRINGE 0 ML IV ONE ×2 (07:45→20:30)
[2020-03-16] MEDS: FOLIC ACID 1 MG in SYRINGE 9.8 ML IV SCH (07:50)
[2020-03-16] MEDS: THIAMINE HCL 100 MG in SYRINGE 9 ML IV SCH (07:50)
--- NOTE | 2020-03-16 08:06 | XRay Report ---
XR chest 1V portable HISTORY: Intubation. Shortness of breath. Follow-up. COMPARISON: Chest 03/15/2020. FINDINGS: Endotracheal tube terminates impression 1.5 cm from the solange. Nasogastric tube terminates below the diaphragm. The tip is not included on this study. Mild diffuse interstitial thickening and patchy bibasilar airspace opacities, right greater than left have slightly progressed. The heart is normal in size. No pleural effusions. No pneumothorax. IMPRESSION: 1. Endotracheal tube terminates 1.5 cm from the solange. This could be retracted by approximately 1 cm . 2. Bilateral airspace opacities have slightly progressed. ACT 112: Negative or not required by law. Electronically signed by: Dewayne Pratt M.D. 03/16/2020 8:05 AM
[2020-03-16] MEDS: ACETAMINOPHEN 1,000 MG/100 ML VIAL IV PRN (08:31)
[2020-03-16] MEDS ORDERED: STAT IV Infusion **Titration per Protocol STA (08:33)
[2020-03-16] MEDS: MIDAZOLAM HCL 125 MG/250 ML BAG IV PRN (09:29)
[2020-03-16] MEDS: MIDAZOLAM BOLUS FROM BAG IV PRN (09:30)
[2020-03-16] MEDS: HEPARIN SOD 5,000 UNIT/0.5 ML VIAL SQ SCH ×2 (09:51→20:12)
--- NOTE | 2020-03-16 10:21 | Critical Care Progress Note ---
Date of Service March 16, 2020 Assessment & Plan (1) Admitted to intensive care unit: -- VDRF Likely secondary to withdrawal leading to right-sided aspiration pneumonia Continue with ventilatory support Daily sedation holidays and SBT's Chlorhexidine mouthwash Given the patient a significant history of opioid abuse he needs high sedation. Keep RASS -1 --Sepsis Secondary to above Continue with broad-spectrum antibiotics Follow-up septic work-up Procalcitonin is trending down Nasal MRSA was negative. --Multiple drug abuse UDS was positive for cocaine, opioids, ecstasy, benzodiazepines. This is 1 of the etiology the patient is very hard to sedate. --Prophylaxis VTE: Heparin GI: Protonix Lines: Peripheral Diet: NGT feedings Plan: In/out: +2560, urine output 2528 Currently on PRVC. ABG from today showed pH of 7.3 with PCO2 of 50 Chest x-ray from today shows worsening of the infiltrate this could be secondary to a component of volume overload as well. We will give 1 dose of Lasix 20 mg to keep the patient euvolemic to negative balance. Patient is actively wheezing and double triggering the vent. For bucking the vent I will start the patient on midazolam on top of propofol and fentanyl given he is very hard to sedate from the history of abuse. Keep an eye on patient's blood pressure as the patient will be on high doses of sedative medications. Will think about restarting patient's fluoxetine to go down on sedation. DuoNebs every 4 hours [id number]. If the patient is still having active wheezing and the peak pressures are high we will start the patient on Solu- Medrol 40 mg on a daily basis. Start feeding today. I have personally spent 42 minutes of critical care time in the direct management of this patient. This is a life/limb threatening event. This includes time spent evaluating patient, direct bedside care, chart review, placing orders, interpretation of diagnostic studies, discussion with consultants, patient, and family members, as well as other required patient management activities. This time is exclusive of all separately billable procedures, and teaching time and separate from and in addition to any other critical care service time. Please note the above document was generated using voice recognition software. It may contain grammatical, syntax or spelling errors. (2) Respiratory distress: (3) Aspiration pneumonia: (4) Drug abuse: (5) Acute urinary retention: (6) Hypoxia: (7) Drug withdrawal: (8) Delirium: (9) Agitation: Admission and Anticipated Discharge Date Admission Date: March 13, 2020 Subjective Patient seen and examined at bedside. No acute distress. Patient still spiking fever. T-max of 38.8 in the last 24 hours. Patient was on 150 of fentanyl and 40 of propofol at the time of examination. He was still bucking the vent. He got 2 mg of Ativan in the morning today. Thick secretions are still appreciated from the ETT Review of Systems Review of Systems: Unobtainable due to endotracheal tube Physical Exam Physical Exam: Constitutional: No acute distress HEENT: PERRLA, pupils are constricted but they are responsive to light, positive ETT Respiratory system: Decreased air entry bilaterally, positive crackles bilateral lower lobes more on the right side, diffuse expiratory wheeze CVS: S1-S2 positive, no murmurs or gallops Abdomen: Soft, nontender, nondistended, positive bowel sounds x4 Extremities: +2 pulses bilaterally radialis/ dorsalis pedis, no cyanosis, no edema Neuro: Unable to assess Psych: Unable to assess G/U: Positive Brewer Skin: no rashes, warm and dry Lymphatic: no cervical or axillary lymphadenopathy Results & Data Results & Data ([facility]) Vital Signs (Past 12 Hours) Vital Signs Temp Temp Pulse Pulse Resp BP BP 03/16/20 08:10 38.4 C H 03/16/20 08:00 38.5 C H 03/16/20 07:24 111 H 31 H 03/16/20 07:00 37.4 C 84 32 H 119/91 03/16/20 06:27 37.6 C H 119 H 03/16/20 05:50 27 H 03/16/20 05:27 122 H 147/103 H 03/16/20 05:13 113 H 28 H 03/16/20 05:02 118 H 27 H 03/16/20 04:28 38.1 C H 121 H 132/80 03/16/20 03:28 37.4 C 104 H 120/81 03/16/20 02:28 36.9 C 101 H 135/97 03/16/20 02:20 98 H 25 H 03/16/20 01:33 37.0 C 102 H 03/16/20 00:27 38.6 C H 98 H 140/100 03/16/20 00:00 03/15/20 23:28 111 H 141/81 H 03/15/20 22:37 101 H 30 H 03/15/20 22:36 101 H 30 H 03/15/20 22:27 100 H 121/80 BP Pulse Ox Pulse Ox Pulse Ox 03/16/20 08:10 03/16/20 08:00 100 100 03/16/20 07:24 99 03/16/20 07:00 142/74 H 97 03/16/20 06:27 97 03/16/20 05:50 96 03/16/20 05:27 98 03/16/20 05:13 95 03/16/20 05:02 96 03/16/20 04:28 93 03/16/20 03:28 99 03/16/20 02:28 99 03/16/20 02:20 98 03/16/20 01:33 95 03/16/20 00:27 100 03/16/20 00:00 100 03/15/20 23:28 99 03/15/20 22:37 100 03/15/20 22:36 100 03/15/20 22:27 100 03/16/20 04:43 03/16/20 04:43 Coding Level of Care Code Critical Care 1st 30-74 mins Diagnoses Admitted to intensive care unit Z78.9 Respiratory distress R06.03 Aspiration pneumonia J69.0 Aspiration pneumonia type: unspecified Laterality: right Lung location: lower lobe of lung Drug abuse F19.10 Acute urinary retention R33.8 Hypoxia R09.02 Drug withdrawal F19.239 Delirium R41.0 Agitation R45.1 Time Spent (min) 42 (1) Aspiration pneumonia Aspiration pneumonia type: unspecified Laterality: right Lung location: lower lobe of lung Qualified Code(s): J69.0 - Pneumonitis due to inhalation of food and vomit
[2020-03-16] MEDS: ALBUT/IPRATROP 3MG/0.5MG NEB 3 ML VIAL NEB SCH ×4 (10:50→22:43)
[2020-03-16] MEDS: PANTOprazole 40 MG in SYRINGE 0 ML IV SCH (11:42)
[2020-03-16] MEDS: PEPTAMEN INTENSE VHP 1.0 CAL 1,000 ML BAG OG SCH (14:25)
[2020-03-16 14:38] LABS: iSTAT Allen Test Pass; iSTAT Art Bld Gas pCO2 Correct 45 mmHg (35-46); iSTAT Art Bld Gas pH Corrected 7.386 (7.35-7.45); iSTAT Arterial Blood Gas HCO3 27 meg/L (19-24); iSTAT Arterial Blood Gas pCO2 44 mmHg (35-46); iSTAT Arterial Blood Gas pH 7.39 (7.35-7.45); iSTAT Arterial Blood Gas pO2 94 mmHg (80-95); iSTAT Arterial Blood Gas pO2 C 98; iSTAT Carbon Dioxide 28 mmol/L (24-31); iSTAT FiO2 40 %; iSTAT Hematocrit 31 % (42-52); iSTAT Hemoglobin 10.5 g/dl (14.0-18.0); iSTAT Potassium 3.2 mmol/L (3.3-5.0); iSTAT Site Art Line; iSTAT Sodium 139 mmol/L (135-144)
[2020-03-16] MEDS ORDERED: POTASSIUM PHOS 3 MMOL/1 ML INFUSION IV STA ×2 (16:55→17:54)
[2020-03-16] MEDS ORDERED: POTASSIUM PHOSPHATE 40 MMOL in SODIUM CHLORIDE 0.9% 1000ML 1,000 ML IV ONE (17:15)
[2020-03-16] MEDS ORDERED: MAGNESIUM SULFATE / D5W 1 GM/100 ML BAG IV ONE (17:54)
--- NOTE | 2020-03-16 18:47 | Hospitalist Progress Note ---
Date of Service March 16, 2020 Assessment & Plan (1) Acute respiratory failure with hypoxia: opioid and other drugs he was withdrawing from, likely had aspiration with subsequent R-sided aspiration pneumonia. Intubated in the ICU with increased sedation after some dyssynchrony with the ventilator 2/2 agitation. Improved now and appears calm. Cont Zosyn. Component of fluid overload present s/p Lasix 40mg IV which allowed him to diurese 2L. (2) Aspiration pneumonia: Zosyn as above (3) Acute urinary retention: Brewer in place. (4) Drug withdrawal: Cont sedation, thiamine, Folate daily. Cont supportive care. Would restart his fluoxetine now that OGT in place and tolerating trickle feeds to keep him from withdrawing from additional agents. Defer to ICU team to restart this. (5) Depression: restart home SSRI as above as soon as able. (6) DVT prophylaxis: Heparin Full Code Dispo-ICU Aline Knight DO [facility] Hospitalist Admission and Anticipated Discharge Date Admission Date: March 13, 2020 Subjective intubated and sedated, cannot obtain ROS Spoke with at bedside Per nurse, required more sedation today as he was agitated and bucking the vent. Currently on propofol, fentanyl and midazalam with improvement. Also was fairly swollen with some worsening infiltrates on CXR this morning. Gave 40mg Lasix with 2L off throughout the day. No SBT this morning. Review of Systems Review of Systems: Unobtainable due to endotracheal tube Physical Exam Physical Exam: CONSTITUTIONAL: WNWD, vitals as above, intubated and sedated. EYES: PERRL, normal conjunctivae, no scleral icterus ENT: external ear and nose normal, ETT in place, OGT in place at tickle feed 10cc/hr NECK: trachea midline RESPIRATORY: vented, some crackles at the bases, but mostly clear throughout CARDIOVASCULAR: regular rate and rhythm, S1 and 2 heard without murmurs, gallops or rubs, no JVD, no peripheral edema GASTROINTESTINAL: normal bowel sounds, soft, nondistended, no guarding MUSCULOSKELETAL: cannot be assess as intubated and sedated. SKIN: warm and dry NEUROLOGIC: intubated and sedated so cannot assess. Results & Data Results & Data ([facility]) Vital Signs (Past 12 Hours) Vital Signs Temp Temp Pulse Pulse Resp BP BP 03/16/20 18:01 37.8 C H 93 H 03/16/20 17:58 111 H 20 03/16/20 17:30 92 H 03/16/20 17:27 94 H 109/71 03/16/20 17:00 37.7 C H 92 H 03/16/20 16:30 92 H 03/16/20 16:27 92 H 104/69 03/16/20 16:00 37.5 C 94 H 03/16/20 15:30 96 H 03/16/20 15:28 94 H 109/62 03/16/20 15:00 37.5 C 96 H 03/16/20 14:30 97 H 106 H 20 03/16/20 14:29 104 H 20 03/16/20 14:27 96 H 119/65 03/16/20 14:00 96 H 03/16/20 13:30 37.6 C H 101 H 03/16/20 13:27 102 H 106/72 03/16/20 13:00 101 H 03/16/20 12:30 98 H 03/16/20 12:27 97 H 108/76 03/16/20 12:01 99 H 03/16/20 12:00 37.2 C 99 H 03/16/20 11:31 100 H 03/16/20 11:27 99 H 112/70 03/16/20 11:01 98 H 03/16/20 10:51 106 H 20 03/16/20 10:37 108 H 20 03/16/20 10:31 92 H 03/16/20 10:27 89 120/81 03/16/20 10:01 96 H 03/16/20 10:00 36.8 C 03/16/20 09:30 101 H 03/16/20 09:28 101 H 109/70 03/16/20 09:00 102 H 03/16/20 08:30 107 H 03/16/20 08:28 107 H 136/98 03/16/20 08:10 38.4 C H 03/16/20 08:00 38.5 C H 106 H 03/16/20 07:30 108 H 03/16/20 07:27 109 H 152/103 H 03/16/20 07:24 111 H 31 H 03/16/20 07:14 113 H 119/91 03/16/20 07:00 37.4 C 112 H 84 32 H 119/91 BP Pulse Ox Pulse Ox Pulse Ox 03/16/20 18:01 97 03/16/20 17:58 100 03/16/20 17:30 98 03/16/20 17:27 99 03/16/20 17:00 99 03/16/20 16:30 99 03/16/20 16:27 99 03/16/20 16:00 98 100 100 03/16/20 15:30 98 03/16/20 15:28 98 03/16/20 15:00 99 03/16/20 14:30 99 03/16/20 14:29 100 03/16/20 14:27 97 03/16/20 14:00 100 03/16/20 13:30 100 03/16/20 13:27 100 03/16/20 13:00 100 03/16/20 12:30 98 03/16/20 12:27 99 03/16/20 12:01 99 03/16/20 12:00 03/16/20 11:31 99 03/16/20 11:27 100 03/16/20 11:01 100 03/16/20 10:51 100 03/16/20 10:37 99 03/16/20 10:31 100 03/16/20 10:27 100 03/16/20 10:01 100 03/16/20 10:00 03/16/20 09:30 99 03/16/20 09:28 99 03/16/20 09:00 100 03/16/20 08:30 99 03/16/20 08:28 100 03/16/20 08:10 03/16/20 08:00 100 100 100 03/16/20 07:30 99 03/16/20 07:27 98 03/16/20 07:24 99 03/16/20 07:14 98 03/16/20 07:00 142/74 H 98 Laboratory Results Short CBC 03/16/20 Range/Units 04:43 WBC 11.97 H (4.8-10.8) K/uL Hgb 11.8 L (14.0-18.0) g/dL Hct 34.8 L (42-52) % Plt Count 209 (130-400) K/uL BMP 03/16/20 04:43 Sodium 140 Potassium 3.5 Chloride 109 H Carbon Dioxide 24 BUN 6 L Creatinine 0.41 L Glucose 78 Calcium 8.1 L Diagnostic Findings XR chest 1V portable HISTORY: Intubation. Shortness of breath. Follow-up. COMPARISON: Chest 03/15/2020. FINDINGS: Endotracheal tube terminates impression 1.5 cm from the solange. Nasogastric tube terminates below the diaphragm. The tip is not included on this study. Mild diffuse interstitial thickening and patchy bibasilar airspace opacities, right greater than left have slightly progressed. The heart is normal in size. No pleural effusions. No pneumothorax. IMPRESSION: 1. Endotracheal tube terminates 1.5 cm from the solange. This could be retracted by approximately 1 cm. 2. Bilateral airspace opacities have slightly progressed. Medications Administered Current Inpatient Medications Albuterol (Albut/Ipratrop 3mg/0.5mg Neb 3 Ml Vial) 3 ml NEB Q2R PRN PRN Reason: Wheezing Stop: 04/14/20 06:13 Last Admin: 03/16/20 05:12 Dose: 3 ml Documented by: Albuterol (Albut/Ipratrop 3mg/0.5mg Neb 3 Ml Vial) 3 ml NEB Q4R GOLDIE Stop: 04/15/20 10:59 Last Admin: 03/16/20 14:31 Dose: 3 ml Documented by: Docusate Sodium (Docusate Sodium Syrup 100 Mg/10 Ml Udc) 100 mg NG BID GOLDIE Stop: 04/15/20 20:59 Fentanyl Citrate (Fentanyl Bolus From Bag) 50 mcg IV Q60M PRN PRN Reason: Pain or Agitation Stop: 03/29/20 05:28 Last Admin: 03/16/20 02:53 Dose: 50 mcg Documented by: Heparin Sodium (Porcine) (Heparin Sod 5,000 Unit/0.5 Ml Vial) 5,000 units SQ Q12 GOLDIE Stop: 04/14/20 08:59 Last Admin: 03/16/20 09:51 Dose: 5,000 units Documented by: Piperacillin Sod/Tazobactam (Sod 3.375 gm/ Dextrose) 115 mls @ 28.75 mls/hr IV Q8H GOLDIE; Protocol Stop: 03/20/20 19:59 Last Infusion: 03/16/20 15:43 Dose: Infused Documented by: Folic Acid 1 mg/ Syringe 10 mls @ 5 mls/min IV QAM [facility] Stop: 04/12/20 20:14 Last Admin: 03/16/20 07:50 Dose: 5 mls/min Documented by: Pantoprazole Sodium 40 mg/ (Syringe) 10 mls @ 5 mls/min IV DAILY@1100 [facility] Stop: 04/13/20 10:59 Last Admin: 03/16/20 11:42 Dose: 5 mls/min Documented by: Acetaminophen (Ofirmev) 1,000 mg in 100 mls @ 400 mls/hr IV Q8H PRN PRN Reason: Pain or Fever Stop: 03/16/20 19:59 Last Infusion: 03/16/20 09:08 Dose: Infused Documented by: Potassium Chloride/Sodium Chloride (Normal Saline W/20 Meq Kcl) 20 meq in 1,000 mls @ 75 mls/hr IV .[id number] [facility] Stop: 04/14/20 10:44 Last Infusion: 03/16/20 09:50 Dose: 75 mls/hr Documented by: Propofol (Diprivan) 1,000 mg in 100 mls @ 16.485 mls/hr IV .Q6H4M [facility]; Protocol Stop: 03/18/20 05:29 Last Titration: 03/16/20 17:13 Dose: 35 mcg/kg/min, 16.5 mls/hr Documented by: Fentanyl Citrate (Fentanyl Drip) 1,250 mcg in 250 mls @ 25 mls/hr IV .Q10H PRN; Protocol PRN Reason: Pain Stop: 03/29/20 05:28 Last Titration: 03/16/20 18:26 Dose: 125 mcg/hr, 25 mls/hr Documented by: Midazolam HCl (Versed) 125 mg in 250 mls @ 2 mls/hr IV .Q96H PRN; Protocol PRN Reason: Agitation Stop: 04/15/20 08:44 Last Admin: 03/16/20 09:29 Dose: 1 mg/hr, 2 mls/hr Documented by: Thiamine HCl 100 mg/ Syringe 10 mls @ 2 mls/min IV BID [facility] Stop: 04/15/20 20:59 Potassium Phosphate 40 mmol/ (Sodium Chloride) 1,013.3333 mls @ 100 mls/hr IV ONE ONE Stop: 03/17/20 03:22 Last Admin: 03/16/20 17:14 Dose: 100 mls/hr Documented by: Magnesium Sulfate/Dextrose (Magnesium Sulfate / D5w) 1 gm in 100 mls @ 50 mls/hr IV ONE ONE Stop: 03/16/20 19:53 Last Admin: 03/16/20 18:24 Dose: 50 mls/hr Documented by: Midazolam HCl (Midazolam Bolus From Bag) 2 mg IV Q60M PRN PRN Reason: Sedation Stop: 04/15/20 08:44 Last Admin: 03/16/20 09:30 Dose: 2 mg Documented by: Miscellaneous Information (Piperacill/Tazobac Consult Active) 1 ea N/A UD PRN PRN Reason: Consult Stop: 04/12/20 16:56 Nutritional Formula (Peptamen Intense Vhp 1.0 [place] 1,000 Ml Bag) 1,000 ml OG UD [facility]; Protocol Stop: 04/15/20 13:29 Last Admin: 03/16/20 14:25 Dose: 1,000 ml Documented by: Propofol (Propofol Bolus From Bag) 20 mg IV Q5M PRN PRN Reason: Sedation Stop: 03/18/20 05:28 Last Admin: 03/15/20 22:40 Dose: 20 mg Documented by: Sennosides (Sennosides 8.8 Mg/5 Ml Udc) 8.8 mg GT QAM [facility] Stop: 04/16/20 08:59 (1) Aspiration pneumonia Aspiration pneumonia type: unspecified Laterality: right Lung location: lower lobe of lung Qualified Code(s): J69.0 - Pneumonitis due to inhalation of food and vomit
[2020-03-16] MEDS: DOCUSATE SODIUM SYRUP 100 MG/10 ML UDC NG SCH (20:11)
[2020-03-16] MEDS ORDERED: THIAMINE HCL 100 MG in SYRINGE 9 ML IV SCH (21:00)
[2020-03-17] MEDS: propofoL 1,000 MG/100 ML VIAL IV SCH ×7 (03:15→19:35)
[2020-03-17] MEDS: PIPERACILLIN/TAZOBACTAM 3.375 GM in DEXTROSE 5% 100 ML IV SCH ×3 (03:19→20:12)
[2020-03-17] MEDS: ALBUT/IPRATROP 3MG/0.5MG NEB 3 ML VIAL NEB SCH ×6 (03:26→22:57)
[2020-03-17 05:02] LABS: Basophils # (auto) 0.01 K/uL (0-0.2); Basophils % (auto) 0.1 %; Eosinophils # (auto) 0.53 K/uL (0-0.5); Eosinophils % (auto) 7.7 %; Hematocrit (blood only) 33.2 % (42-52); Hemoglobin 11.2 g/dL (14.0-18.0); Immature Granulocytes # (auto) 0.05 K/uL (0.00-0.02); Immature Granulocytes % (auto) 0.7 %; Lymphocytes # (auto) 0.62 K/uL (1.2-3.4); Mean Corpuscular Hemoglobin 29.9 pg (25-34); Mean Corpuscular Hgb Conc 33.7 g/dL (32-36); Mean Corpuscular Volume 88.5 fL (80-100); Mean Platelet Volume 9.8 fL (7.4-10.4); Monocytes # (auto) 0.76 K/uL (0.11-0.59); Neutrophils # (auto) 4.95 K/uL (1.4-6.5); Neutrophils % (auto) 71.5 %; Platelet Count 221 K/uL (130-400); RDW Coefficient of Variation 13.6 % (11.5-14.5); RDW Standard Deviation 44.6 fL (36.4-46.3); Red Blood Count 3.75 M/uL (4.7-6.1); White Blood Count 6.92 K/uL (4.8-10.8)
[2020-03-17 05:15] LABS: Alanine Aminotransferase 14 U/L (12-78); Albumin Level 1.8 gm/dl (3.4-5.0); Aspartate Aminotransferase 14 U/L (15-37); BUN Creatinine Ratio 13.7 (10-20); Blood Urea Nitrogen 6 mg/dl (7-18); Calcium 8.5 mg/dl (8.5-10.1); Carbon Dioxide 26 mmol/L (21-32); Chloride 105 mmol/L (98-107); Creatinine Clr Calc Pharmacy 239.9 ml/min; Est GFR (African American) > 150.0; Est GFR (Non-African American) 149.6; Glucose 91 mg/dl (70-99); Magnesium 2.1 mg/dl (1.8-2.4); Sodium 140 mmol/L (136-145)
[2020-03-17 05:29] LABS: Albumin Globulin Ratio 0.4 (0.9-2); Alkaline Phosphatase 112 U/L (45-117); Bilirubin,Total 0.7 mg/dl (0.2-1); Globulin 4.4 gm/dl (2.5-4.0); Phosphorus 2.8 mg/dl (2.5-4.9); Total Protein 6.2 gm/dl (6.4-8.2)
[2020-03-17 05:32] LABS: iSTAT Art Bld Gas pCO2 Correct 48 mmHg (35-46); iSTAT Art Bld Gas pH Corrected 7.384 (7.35-7.45); iSTAT Arterial Blood Gas HCO3 28 meg/L (19-24); iSTAT Arterial Blood Gas pCO2 47 mmHg (35-46); iSTAT Arterial Blood Gas pH 7.39 (7.35-7.45); iSTAT Arterial Blood Gas pO2 62 mmHg (80-95); iSTAT Arterial Blood Gas pO2 C 64; iSTAT Carbon Dioxide 30 mmol/L (24-31); iSTAT Hematocrit 33 % (42-52); iSTAT Hemoglobin 11.2 g/dl (14.0-18.0); iSTAT Potassium 3.2 mmol/L (3.3-5.0); iSTAT Site Art Line; iSTAT Sodium 139 mmol/L (135-144)
[2020-03-17] MEDS: POTASSIUM CHLORIDE / WTR 10 MEQ/100 ML PLCT IV SCH ×4 (06:13→09:40)
[2020-03-17] MEDS ORDERED: POTASSIUM CHLORIDE 20 MEQ TABCR PO STA (07:38)
[2020-03-17] MEDS: PROPOFOL BOLUS FROM BAG IV PRN (07:50)
[2020-03-17] MEDS: FOLIC ACID 1 MG TAB PO SCH (08:09)
[2020-03-17] MEDS: THIAMINE HCL 100 MG TAB PO SCH (08:09)
[2020-03-17] MEDS: HEPARIN SOD 5,000 UNIT/0.5 ML VIAL SQ SCH ×2 (08:09→20:11)
[2020-03-17] MEDS: DOCUSATE SODIUM SYRUP 100 MG/10 ML UDC NG SCH ×2 (08:13→20:11)
[2020-03-17] MEDS: SENNOSIDES 8.8 MG/5 ML UDC GT SCH (08:13)
[2020-03-17] MEDS: fentaNYL DRIP 1,250 MCG/250 ML BAG IV PRN ×2 (08:48→19:36)
--- NOTE | 2020-03-17 08:55 | XRay Report ---
XR chest 1V portable CLINICAL HISTORY: f/u COMPARISON STUDY: Chest radiograph March 16, 2020. FINDINGS: Tip of endotracheal tube 2.4 cm above the solange. There is no pneumothorax. No pleural effu lillian is noted. Bilateral airspace opacities have slightly improved. Cardiomediastinal silhouette is s table. Tip of nasogastric tube is below the lower aspect of this image but at least within the proxim al stomach. IMPRESSION: 1. Tip of endotracheal tube 2.4 cm above the solange. 2. Slight improvement in bilateral airspace opacities which favor pneumonia. ACT 112: Negative or not required by law. Electronically signed by: Sanya Mckeon M.D. 03/17/2020 8:54 AM
--- NOTE | 2020-03-17 09:11 | Critical Care Progress Note ---
Date of Service March 17, 2020 Assessment & Plan (1) Admitted to intensive care unit: -- VDRF Likely secondary to withdrawal leading to right-sided aspiration pneumonia Continue with ventilatory support Daily sedation holidays and SBT's Chlorhexidine mouthwash Given the patient a significant history of opioid abuse he needs high sedation. Keep RASS -1 --Sepsis Secondary to above Continue with broad-spectrum antibiotics Septic work-up negative to date Procalcitonin is trending down Nasal MRSA was negative. --Multiple drug abuse UDS was positive for cocaine, opioids, ecstasy, benzodiazepines. This is 1 of the etiology the patient is very hard to sedate. --Prophylaxis VTE: Heparin GI: Protonix --Hypokalemia Being replaced Lines: Peripheral Diet: NGT feedings Plan: In/out: -928, urine output 5.2 L ABG 01/15/2020: 7.39/47/62 on 40% FiO2 and PEEP of 5 Chest x-ray from today shows improvement compared to yesterday. Continue with antibiotics. Continue with diuresis to keep the patient euvolemic to negative balance. Patient is getting 40 mEq IV followed by 40 mEq p.o. of potassium. WBC is trending down. Repeat BMP mag Phos later today I have personally spent 32 minutes of critical care time in the direct managemen t of this patient. This is a life/limb threatening event. This includes time spent evaluating patie nt, direct bedside care, chart review, placing orders, interpretation of diagnostic studies, discussion with consultants, patient, and family members, as well as other required patient management activities. This time is exclusive of all separately billable procedures, and teaching time and separate from and in addition to any other critical care service time. Please note the above document was generated using voice recognition software. It may contain grammatical, syntax or spelling errors. (2) Respiratory distress: (3) Aspiration pneumonia: (4) Drug abuse: (5) Acute urinary retention: (6) Hypoxia: (7) Drug withdrawal: (8) Delirium: (9) Agitation: Admission and Anticipated Discharge Date Admission Date: March 13, 2020 Subjective Patient seen and examined at bedside. On fentanyl 100, propofol 15, midazolam 1 Patient is breathing over the vent. He opens his eyes but does not follow commands. T-max of 38 on cooling blanket currently. Review of Systems Review of Systems: Unobtainable due to endotracheal tube Physical Exam Physical Exam: Constitutional: No acute distress HEENT: PERRLA, positive ETT Respiratory system: Decreased air entry bilaterally, positive crackles bilateral lower lobes more on the right side, no wheeze, no rhonchi CVS: S1-S2 positive, no murmurs or gallops Abdomen: Soft, nontender, nondistended, positive bowel sounds x4 Extremities: +2 pulses bilaterally radialis/ dorsalis pedis, no cyanosis, no edema Neuro: Unable to assess, breathing over the vent, positive gag, positive corneal, positive pupillary Psych: Unable to assess G/U: Positive Brewer Skin: no rashes, warm and dry Lymphatic: no cervical or axillary lymphadenopathy Results & Data Results & Data ([facility]) Vital Signs (Past 12 Hours) Vital Signs Temp Pulse Pulse Resp BP Pulse Ox 03/17/20 07:09 107 H 23 95 03/17/20 06:28 101 H 122/80 100 03/17/20 05:29 37.3 C 109 H 25 H 149/97 H 97 03/17/20 05:04 103 H 23 94 03/17/20 04:28 38.2 C H 102 H 25 H 127/83 95 03/17/20 03:28 108 H 24 136/90 94 03/17/20 03:26 107 H 23 95 03/17/20 02:28 37.8 C H 95 H 20 127/88 95 03/17/20 01:28 37.8 C H 103 H 21 122/86 95 03/17/20 01:23 98 H 20 96 03/17/20 00:28 94 H 22 125/84 98 03/16/20 23:28 37.8 C H 104 H 142/92 H 97 03/16/20 22:44 97 H 23 96 03/16/20 22:28 96 H 142/96 H 97 03/16/20 22:17 38.3 C H 93 H 124/80 99 03/16/20 21:28 105 H 121/72 96 03/17/20 04:37 03/17/20 04:37 Coding Level of Care Code Critical Care 1st 30-74 mins Diagnoses Admitted to intensive care unit Z78.9 Respiratory distress R06.03 Aspiration pneumonia J69.0 Aspiration pneumonia type: unspecified Laterality: right Lung location: lower lobe of lung Drug abuse F19.10 Acute urinary retention R33.8 Hypoxia R09.02 Drug withdrawal F19.239 Delirium R41.0 Agitation R45.1 Time Spent (min) 32 (1) Aspiration pneumonia Aspiration pneumonia type: unspecified Laterality: right Lung location: lower lobe of lung Qualified Code(s): J69.0 - Pneumonitis due to inhalation of food and vomit
[2020-03-17] MEDS: ACETAMINOPHEN 1,000 MG/100 ML VIAL IV PRN ×2 (09:47→19:36)
[2020-03-17] MEDS ORDERED: LACTULOSE SYRUP 10 GM/15 ML BTL 960 ML PO ONE ×2 (09:59→20:00)
[2020-03-17] MEDS ORDERED: NURSING ICU ELECTROLYTE ORDER ONE (10:01)
[2020-03-17] MEDS ORDERED: ICU ELECTROLYTE REPLACEMENT PROTOCOL PRN (10:19)
[2020-03-17] MEDS: FLUOXETINE HCL 20 MG/5 ML PO SCH (10:40)
[2020-03-17] MEDS: PANTOprazole 40 MG in SYRINGE 0 ML IV SCH (12:55)
[2020-03-17] MEDS: NICOTINE 21 MG/24 HR TDSY TD SCH (14:04)
--- NOTE | 2020-03-17 14:07 | Hospitalist Progress Note ---
Date of Service March 17, 2020 Assessment & Plan (1) Acute respiratory failure with hypoxia: opioid and other drugs he was withdrawing from, likely had aspiration with subsequent R-sided aspiration pneumonia. Intubated in the ICU with increased sedation after some dyssynchrony with the ventilator 2/2 agitation. Improved now and appears calm. Cont Zosyn. (2) Aspiration pneumonia: Zosyn as above (3) Acute urinary retention: Brewer in place. (4) Drug withdrawal: Cont sedation, thiamine, Folate daily. Cont supportive care. Fluoxetine per home regimen restarted now that OGT in place and tolerating trickle feeds to keep him from withdrawing from additional agents. (5) Depression: restart home SSRI as above (6) DVT prophylaxis: Heparin Full Code [facility] Admission and Anticipated Discharge Date Admission Date: March 13, 2020 Subjective intubated and sedated. Review of Systems Review of Systems: Unobtainable due to endotracheal tube Physical Exam Physical Exam: CONSTITUTIONAL: WNWD, vitals as above, intubated and sedated. EYES: normal conjunctivae, no scleral icterus ENT: external ear and nose normal, ETT in place, OGT in place at trickle feed NECK: trachea midline RESPIRATORY: vented, some crackles at the bases, but mostly clear throughout CARDIOVASCULAR: regular rate and rhythm, S1 and 2 heard without murmurs, gallops or rubs, no JVD, no peripheral edema GASTROINTESTINAL: normal bowel sounds, soft, nondistended, no guarding MUSCULOSKELETAL: cannot be assess as intubated and sedated. SKIN: warm and dry NEUROLOGIC: intubated and sedated so cannot assess. Results & Data Results & Data ([facility]) Vital Signs (Past 12 Hours) Vital Signs Temp Pulse Pulse Resp BP Pulse Ox 03/17/20 13:33 106 H 20 94 03/17/20 11:28 37.3 C 101 H 114/67 95 03/17/20 10:28 37 C 106 H 141/90 H 99 03/17/20 10:14 100 H 25 H 98 03/17/20 09:33 20 03/17/20 09:28 106 H 165/94 H 95 03/17/20 08:28 38 C H 115 H 165/98 H 94 03/17/20 08:00 101 H 03/17/20 07:28 38 C H 111 H 158/105 H 95 03/17/20 07:09 107 H 23 95 03/17/20 06:28 101 H 122/80 100 03/17/20 05:29 37.3 C 109 H 25 H 149/97 H 97 03/17/20 05:04 103 H 23 94 03/17/20 04:28 38.2 C H 102 H 25 H 127/83 95 03/17/20 03:28 108 H 24 136/90 94 03/17/20 03:26 107 H 23 95 03/17/20 02:28 37.8 C H 95 H 20 127/88 95 Laboratory Results Short CBC 03/17/20 Range/Units 04:37 WBC 6.92 (4.8-10.8) K/uL Hgb 11.2 L (14.0-18.0) g/dL Hct 33.2 L (42-52) % Plt Count 221 (130-400) K/uL BMP 03/17/20 04:37 Sodium 140 Potassium 3.0 L Chloride 105 Carbon Dioxide 26 BUN 6 L Creatinine 0.40 L Glucose 91 Calcium 8.5 Liver Function 03/17/20 Range/Units 04:37 Total Bilirubin 0.7 (0.2-1) mg/dl AST 14 L (15-37) U/L ALT 14 (12-78) U/L Alkaline Phosphatase 112 (45-117) U/L Albumin 1.8 L (3.4-5.0) gm/dl Diagnostic Findings XR chest 1V portable CLINICAL HISTORY: f/u COMPARISON STUDY: Chest radiograph March 16, 2020. FINDINGS: Tip of endotracheal tube 2.4 cm above the solange. There is no pneumothorax. No pleural effusion is noted. Bilateral airspace opacities have slightly improved. Cardiomediastinal silhouette is stable. Tip of nasogastric tube is below the lower aspect of this image but at least within the proximal stomach. IMPRESSION: 1. Tip of endotracheal tube 2.4 cm above the solange. 2. Slight improvement in bilateral airspace opacities which favor pneumonia. Medications Administered Current Inpatient Medications Albuterol (Albut/Ipratrop 3mg/0.5mg Neb 3 Ml Vial) 3 ml NEB Q2R PRN PRN Reason: Wheezing Stop: 04/14/20 06:13 Last Admin: 03/16/20 05:12 Dose: 3 ml Documented by: Albuterol (Albut/Ipratrop 3mg/0.5mg Neb 3 Ml Vial) 3 ml NEB Q4R [facility] Stop: 04/15/20 10:59 Last Admin: 03/17/20 10:14 Dose: 3 ml Documented by: Docusate Sodium (Docusate Sodium Syrup 100 Mg/10 Ml Udc) 100 mg NG BID [facility] Stop: 04/15/20 20:59 Last Admin: 03/17/20 08:13 Dose: 100 mg Documented by: Fentanyl Citrate (Fentanyl Bolus From Bag) 50 mcg IV Q60M PRN PRN Reason: Pain or Agitation Stop: 03/29/20 05:28 Last Admin: 03/16/20 02:53 Dose: 50 mcg Documented by: Fluoxetine HCl (Fluoxetine Hcl 20 Mg/5 Ml) 60 mg PO QAM [facility] Stop: 04/16/20 09:59 Last Admin: 03/17/20 10:40 Dose: 60 mg Documented by: Folic Acid (Folic Acid 1 Mg Tab) 1 mg PO QAM [facility] Stop: 04/16/20 08:59 Last Admin: 03/17/20 08:09 Dose: 1 mg Documented by: Heparin Sodium (Porcine) (Heparin Sod 5,000 Unit/0.5 Ml Vial) 5,000 units SQ Q12 [facility] Stop: 04/14/20 08:59 Last Admin: 03/17/20 08:09 Dose: 5,000 units Documented by: Piperacillin Sod/Tazobactam (Sod 3.375 gm/ Dextrose) 115 mls @ 28.75 mls/hr IV Q8H [facility]; Protocol Stop: 03/20/20 19:59 Last Admin: 03/17/20 12:54 Dose: 30 mls/hr Documented by: Pantoprazole Sodium 40 mg/ (Syringe) 10 mls @ 5 mls/min IV DAILY@1100 [facility] Stop: 04/13/20 10:59 Last Admin: 03/17/20 12:55 Dose: 5 mls/min Documented by: Propofol (Diprivan) 1,000 mg in 100 mls @ 14.083 mls/hr IV .Q7H7M [facility]; Protocol Stop: 03/18/20 05:29 Last Titration: 03/17/20 13:41 Dose: 25 mcg/kg/min, 11.8 mls/hr Documented by: Fentanyl Citrate (Fentanyl Drip) 1,250 mcg in 250 mls @ 25 mls/hr IV .Q10H PRN; Protocol PRN Reason: Pain Stop: 03/29/20 05:28 Last Titration: 03/17/20 13:41 Dose: 100 mcg/hr, 20 mls/hr Documented by: Midazolam HCl (Versed) 125 mg in 250 mls @ 5 mls/hr IV .Q50H PRN; Protocol PRN Reason: Agitation Stop: 04/15/20 08:44 Last Titration: 03/17/20 13:42 Dose: 2 mg/hr, 4 mls/hr Documented by: Acetaminophen (Ofirmev) 1,000 mg in 100 mls @ 400 mls/hr IV Q8H PRN PRN Reason: Fever Stop: 03/20/20 02:30 Last Infusion: 03/17/20 10:03 Dose: Infused Documented by: Midazolam HCl (Midazolam Bolus From Bag) 2 mg IV Q60M PRN PRN Reason: Sedation Stop: 04/15/20 08:44 Last Admin: 03/16/20 09:30 Dose: 2 mg Documented by: Miscellaneous (Icu Electrolyte Replacement Protocol) 1 ea N/A UD PRN PRN Reason: for e-lyte repletion Stop: 03/24/20 10:18 Miscellaneous (Remove Nicoderm Patch) 1 ea N/A DAILY@0859 [facility] Stop: 04/17/20 08:58 Miscellaneous Information (Piperacill/Tazobac Consult Active) 1 ea N/A UD PRN PRN Reason: Consult Stop: 04/12/20 16:56 Nicotine (Nicotine 21 Mg/24 Hr Tdsy) 21 mg TD QAM [facility] Stop: 04/16/20 13:29 Last Admin: 03/17/20 14:04 Dose: 21 mg Documented by: Nutritional Formula (Peptamen Intense Vhp 1.0 [place] 1,000 Ml Bag) 1,000 ml OG UD [facility]; Protocol Stop: 04/15/20 13:29 Last Admin: 03/16/20 14:25 Dose: 1,000 ml Documented by: Propofol (Propofol Bolus From Bag) 20 mg IV Q5M PRN PRN Reason: Sedation Stop: 03/18/20 05:28 Last Admin: 03/17/20 07:50 Dose: 20 mg Documented by: Sennosides (Sennosides 8.8 Mg/5 Ml Udc) 8.8 mg GT [facility] Stop: 04/16/20 08:59 Last Admin: 03/17/20 08:13 Dose: 8.8 mg Documented by: Thiamine HCl (Thiamine Hcl 100 Mg Tab) [facility] [place] Stop: 04/16/20 08:59 Last Admin: 03/17/20 08:09 Dose: 100 mg Documented by: (1) Aspiration pneumonia Aspiration pneumonia type: unspecified Laterality: right Lung location: lower lobe of lung Qualified Code(s): J69.0 - Pneumonitis due to inhalation of food and vomit
[2020-03-17 14:27] LABS: BUN Creatinine Ratio 13.9 (10-20); Blood Urea Nitrogen 5 mg/dl (7-18); Calcium 8.6 mg/dl (8.5-10.1); Carbon Dioxide 26 mmol/L (21-32); Chloride 105 mmol/L (98-107); Creatinine Clr Calc Pharmacy 252.5 ml/min; Est GFR (African American) > 150.0; Est GFR (Non-African American) > 150.0; Glucose 94 mg/dl (70-99); Magnesium 2.2 mg/dl (1.8-2.4); Potassium 3.4 mmol/L (3.5-5.1); Sodium 141 mmol/L (136-145)
[2020-03-17 14:28] LABS: Phosphorus 2.6 mg/dl (2.5-4.9)
[2020-03-17] MEDS ORDERED: POTASSIUM CHLORIDE 20 MEQ/15 ML UDC PO STA (14:50)
[2020-03-17] MEDS ORDERED: POTASSIUM PHOS 3 MMOL/1 ML INFUSION IV STA (15:51)
[2020-03-17] MEDS ORDERED: FUROSEMIDE 40 MG in SYRINGE 0 ML IV ONE (16:15)
[2020-03-17] MEDS ORDERED: POTASSIUM PHOSPHATE 30 MMOL in SODIUM CHLORIDE 0.9% 500 ML IV ONE (16:15)
--- NOTE | 2020-03-17 19:05 | Electrocardiogram Report ---
Test Reason : Blood Pressure : / mmHG Vent. Rate : 096 BPM Atrial Rate : 096 BPM P-R Int : 130 ms QRS Dur : 094 ms QT Int : 364 ms P-R-T Axes : 057 024 023 degrees QTc Int : 459 ms Normal sinus rhythm Normal ECG When compared with ECG of 15-MAR-2020 12:19, No significant change was found Confirmed by Williams Vargas ([id number]) on 03/17/2020 7:04:48 PM Referred By: REFERRED SELF Confirmed By:Jose Carlos Vargas
[2020-03-18] MEDS: ALBUT/IPRATROP 3MG/0.5MG NEB 3 ML VIAL NEB SCH ×6 (02:02→22:57)
[2020-03-18] MEDS: PIPERACILLIN/TAZOBACTAM 3.375 GM in DEXTROSE 5% 100 ML IV SCH ×3 (03:34→20:39)
[2020-03-18] MEDS ORDERED: STAT IV Infusion **Titration per Protocol STA (04:52)
[2020-03-18] MEDS ORDERED: PROPOFOL BOLUS FROM BAG IV PRN (04:52)
[2020-03-18 04:53] LABS: Basophils # (auto) 0.01 K/uL (0-0.2); Basophils % (auto) 0.1 %; Eosinophils # (auto) 0.72 K/uL (0-0.5); Eosinophils % (auto) 9.1 %; Hematocrit (blood only) 34.9 % (42-52); Hemoglobin 11.5 g/dL (14.0-18.0); Immature Granulocytes # (auto) 0.09 K/uL (0.00-0.02); Immature Granulocytes % (auto) 1.1 %; Lymphocytes # (auto) 0.79 K/uL (1.2-3.4); Lymphocytes % (auto) 9.9 %; Mean Corpuscular Hemoglobin 29.7 pg (25-34); Mean Corpuscular Volume 90.2 fL (80-100); Mean Platelet Volume 9.2 fL (7.4-10.4); Monocytes # (auto) 0.65 K/uL (0.11-0.59); Monocytes % (auto) 8.2 %; Neutrophils # (auto) 5.69 K/uL (1.4-6.5); Neutrophils % (auto) 71.6 %; Platelet Count 261 K/uL (130-400); RDW Standard Deviation 46.2 fL (36.4-46.3); Red Blood Count 3.87 M/uL (4.7-6.1); White Blood Count 7.95 K/uL (4.8-10.8)
[2020-03-18] MEDS ORDERED: propofoL 1,000 MG/100 ML VIAL IV SCH (05:00)
[2020-03-18] MEDS: propofoL 1,000 MG/100 ML VIAL IV SCH ×7 (05:02→17:41)
[2020-03-18 05:18] LABS: Alanine Aminotransferase 17 U/L (12-78); Albumin Level 1.9 gm/dl (3.4-5.0); BUN Creatinine Ratio 17.5 (10-20); Blood Urea Nitrogen 7 mg/dl (7-18); Calcium 8.7 mg/dl (8.5-10.1); Carbon Dioxide 30 mmol/L (21-32); Chloride 104 mmol/L (98-107); Creatinine Clr Calc Pharmacy 239.9 ml/min; Est GFR (African American) > 150.0; Est GFR (Non-African American) 149.6; Glucose 94 mg/dl (70-99); Potassium 3.6 mmol/L (3.5-5.1); Sodium 139 mmol/L (136-145)
[2020-03-18 05:21] LABS: Albumin Globulin Ratio 0.4 (0.9-2); Alkaline Phosphatase 159 U/L (45-117); Aspartate Aminotransferase 17 U/L (15-37); Bilirubin,Total 0.7 mg/dl (0.2-1); Globulin 4.7 gm/dl (2.5-4.0); Phosphorus 3.1 mg/dl (2.5-4.9); Total Protein 6.6 gm/dl (6.4-8.2)
[2020-03-18 05:26] LABS: iSTAT Art Bld Gas pCO2 Correct 48 mmHg (35-46); iSTAT Art Bld Gas pH Corrected 7.412 (7.35-7.45); iSTAT Arterial Blood Gas HCO3 30 meg/L (19-24); iSTAT Arterial Blood Gas pCO2 46 mmHg (35-46); iSTAT Arterial Blood Gas pH 7.43 (7.35-7.45); iSTAT Arterial Blood Gas pO2 79 mmHg (80-95); iSTAT Arterial Blood Gas pO2 C 84; iSTAT Carbon Dioxide 31 mmol/L (24-31); iSTAT Hematocrit 32 % (42-52); iSTAT Hemoglobin 10.9 g/dl (14.0-18.0); iSTAT Potassium 3.5 mmol/L (3.3-5.0); iSTAT Site Art Line; iSTAT Sodium 139 mmol/L (135-144)
[2020-03-18] MEDS: fentaNYL DRIP 1,250 MCG/250 ML BAG IV PRN ×2 (06:17→16:35)
[2020-03-18] MEDS: MAGNESIUM OXIDE 400 MG TAB PO SCH ×2 (07:37→11:17)
[2020-03-18] MEDS: POTASSIUM CHLORIDE 20 MEQ/15 ML UDC PO SCH ×4 (07:38→20:48)
[2020-03-18] MEDS: NICOTINE 21 MG/24 HR TDSY TD SCH (07:40)
[2020-03-18] MEDS: FLUOXETINE HCL 20 MG/5 ML PO SCH (07:44)
[2020-03-18] MEDS: SENNOSIDES 8.8 MG/5 ML UDC GT SCH (07:44)
[2020-03-18] MEDS: DOCUSATE SODIUM SYRUP 100 MG/10 ML UDC NG SCH ×2 (07:44→20:41)
[2020-03-18] MEDS: THIAMINE HCL 100 MG TAB PO SCH (07:45)
[2020-03-18] MEDS: FOLIC ACID 1 MG TAB PO SCH (07:45)
[2020-03-18] MEDS: PROPOFOL BOLUS FROM BAG IV PRN ×4 (07:46→23:00)
[2020-03-18] MEDS: HEPARIN SOD 5,000 UNIT/0.5 ML VIAL SQ SCH ×2 (07:58→20:41)
--- NOTE | 2020-03-18 09:32 | XRay Report ---
XR chest 1V portable HISTORY: Respiratory failure. Pneumonia. COMPARISON: Chest 03/17/2020. FINDINGS: The endotracheal tube terminates approximately 1.4 cm from the solange. Nasogastric tube ter minates below the diaphragm. The tip is not included on this study. No pneumothorax. No pleural effus ions. The heart is stable in size. Patchy right lower lobe airspace opacities and diffuse interstitia l thickening persists. IMPRESSION: 1. The endotracheal tube terminates 1.4 cm from the solange. This should be pulled back by approximate ly 1 to 2 cm. 2. Nasogastric tube terminates below the diaphragm. 3. Right lower lobe airspace opacities and diffuse interstitial thickening is not significantly merchant ed. This favors a pneumonia. ACT 112: Negative or not required by law. Electronically signed by: Dewayne Pratt M.D. 03/18/2020 9:31 AM
[2020-03-18] MEDS: MIDAZOLAM BOLUS FROM BAG IV PRN (10:11)
[2020-03-18] MEDS: PEPTAMEN INTENSE VHP 1.0 CAL 1,000 ML BAG OG SCH (10:11)
[2020-03-18] MEDS: PANTOprazole 40 MG in SYRINGE 0 ML IV SCH (10:28)
--- NOTE | 2020-03-18 10:48 | Critical Care Progress Note ---
Date of Service March 18, 2020 Assessment & Plan (1) Admitted to intensive care unit: -- VDRF Likely secondary to withdrawal leading to right-sided aspiration pneumonia Continue with ventilatory support Daily sedation holidays and SBT's Chlorhexidine mouthwash Given the patient a significant history of opioid abuse he needs high sedation. Keep RASS -1 --Sepsis Secondary to above Continue with antibiotics Septic work-up negative to date Procalcitonin is trending down Nasal MRSA was negative. --Multiple drug abuse UDS was positive for cocaine, opioids, ecstasy, benzodiazepines. This is 1 of the etiology the patient is very hard to sedate. --Prophylaxis VTE: Heparin GI: Protonix --Hypokalemia Being replaced Lines: Peripheral Diet: NGT feedings Plan: In/out: - 518 mL, urine output 3.4 L ABG 01/16/2020: 7.43/46/79 on 40% FiO2 and PEEP of 5 Chest x-ray from today is an expiratory film. Right lower lobe opacities still persistent. Retract ETT by 1.5 cm Continue with antibiotics. Potassium being replaced. Repeat BMP later today. We will discontinue Brewer catheter today. The main issue with the patient is his mentation. His oxygenation requirement is not bad but he gets really agitated when the sedation is titrated down and he starts bucking the vent. His mentation is also an issue as he is not following commands and he is not tracking. We will see how he is doing in the next couple of days and will give a trial of extubation while on Precedex. Given his mental status there is high likelihood of reintubation. Patient's who visits him on a daily basis is being updated every day. I spoke with her 03/17/2020 at bedside in the evening. I have personally spent 33 minutes of critical care time in the direct management of this patient. This is a life/limb threatening event. This includes time spent evaluating patient, direct bedside care, chart review, placing orders, interpretation of diagnostic studies, discussion with consultants, patient, and family members, as well as other required patient management activities. This time is exclusive of all separately billable procedures, and teaching time and separate from and in addition to any other critical care service time. Please note the above document was generated using voice recognition software. It may contain grammatical, syntax or spelling errors. (2) Respiratory distress: (3) Aspiration pneumonia: (4) Drug abuse: (5) Acute urinary retention: (6) Hypoxia: (7) Drug withdrawal: (8) Delirium: (9) Agitation: Admission and Anticipated Discharge Date Admission Date: March 13, 2020 Subjective Patient seen and examined at bedside. On propofol 25, fentanyl 125, midazolam 2 at the time of examination. Patient is breathing over the vent. Patient was little bit restless he was moving all his extremities. He opens his eyes but he does not track still. Thick secretions are still appreciated on suctioning him. Patient is still spiking fever T-max 38 Review of Systems Review of Systems: Unobtainable due to cognitive status and Unobtainable due to endotracheal tube Physical Exam Physical Exam: Constitutional: No acute distress HEENT: PERRLA, positive ETT Respiratory system: Decreased air entry bilaterally, positive crackles bilateral lower lobes more on the right side, no wheeze, no rhonchi CVS: S1-S2 positive, no murmurs or gallops Abdomen: Soft, nontender, nondistended, positive bowel sounds x4 Extremities: +2 pulses bilaterally radialis/ dorsalis pedis, no cyanosis, no edema Neuro: Unable to assess, breathing over the vent, positive gag, positive corneal, positive pupillary Psych: Unable to assess G/U: Positive Brewer Skin: no rashes, warm and dry Lymphatic: no cervical or axillary lymphadenopathy Results & Data Results & Data ([facility]) Vital Signs (Past 12 Hours) Vital Signs Temp Pulse Resp BP Pulse Ox 03/18/20 10:16 108 H 24 96 03/18/20 08:31 106 H 142/86 H 94 03/18/20 08:01 112 H 133/80 91 03/18/20 08:00 99 H 03/18/20 07:39 117 H 24 93 03/18/20 07:31 37.9 C H 112 H 149/95 H 95 03/18/20 07:00 103 H 133/101 H 96 03/18/20 05:31 101 H 20 122/78 93 03/18/20 05:10 103 H 24 98 03/18/20 05:01 102 H 20 144/94 H 99 03/18/20 04:31 104 H 20 144/97 H 95 03/18/20 04:01 37.5 C 103 H 20 139/96 98 03/18/20 03:31 115 H 20 148/92 H 100 03/18/20 03:01 102 H 132/80 98 03/18/20 02:30 100 H 131/88 97 03/18/20 02:02 98 H 20 97 03/18/20 02:00 37.5 C 99 H 127/79 96 03/18/20 01:30 100 H 111/65 96 03/18/20 01:00 100 H 20 113/60 94 03/18/20 00:57 105 H 20 127/66 95 03/18/20 00:30 112 H 20 110/66 95 03/18/20 00:00 37.8 C H 110 H 20 109/63 94 03/17/20 23:30 107 H 20 101/63 93 03/17/20 23:00 110 H 25 H 106/70 96 03/17/20 22:57 105 H 21 93 03/18/20 04:41 03/18/20 04:41 Coding Level of Care Code Critical Care 1st 30-74 mins Diagnoses Admitted to intensive care unit Z78.9 Respiratory distress R06.03 Aspiration pneumonia J69.0 Aspiration pneumonia type: unspecified Laterality: right Lung location: lower lobe of lung Drug abuse F19.10 Acute urinary retention R33.8 Hypoxia R09.02 Drug withdrawal F19.239 Delirium R41.0 Agitation R45.1 Time Spent (min) 33 (1) Aspiration pneumonia Aspiration pneumonia type: unspecified Laterality: right Lung location: lower lobe of lung Qualified Code(s): J69.0 - Pneumonitis due to inhalation of food and vomit
[2020-03-18] MEDS: LACTULOSE SYRUP 30 GM/45 ML UDP PO SCH ×3 (10:56→20:40)
[2020-03-18] MEDS: ACETAMINOPHEN 1,000 MG/100 ML VIAL IV PRN (11:25)
--- NOTE | 2020-03-18 12:47 | Electrocardiogram Report ---
Test Reason : Blood Pressure : / mmHG Vent. Rate : 113 BPM Atrial Rate : 113 BPM P-R Int : 116 ms QRS Dur : 090 ms QT Int : 328 ms P-R-T Axes : 071 031 049 degrees QTc Int : 449 ms Sinus tachycardia Incomplete right bundle branch block Otherwise normal ECG When compared with ECG of 17-MAR-2020 12:12, No significant change was found Confirmed by Williams Vargas ([id number]) on 03/18/2020 12:47:11 PM Referred By: REFERRED SELF Confirmed By:Jose Carlos Vargas
--- NOTE | 2020-03-18 13:32 | XRay Report ---
KUB CLINICAL HISTORY: r/o impaction COMPARISON STUDY: CT of the abdomen and pelvis March 29, 2019. FINDINGS: Tip of nasogastric tube projects over the pylorus. Bilateral renal calculi are noted. The l argest is an 8 mm left renal calculus. Rectal probe is in place. There is moderate gaseous distention of the ascending colon and transverse colon. Transverse colon measures up to 7.9 cm in caliber. Ther e is a moderate amount of stool within the distal descending colon, sigmoid colon and rectum. IMPRESSION: 1. Moderate gaseous distention of the ascending colon and transverse colon which may be related to a moderate amount stool within the distal colon and rectum. This could reflect a low-grade colonic obs truction. If persistent symptoms, short-term radiographic is recommended. 2. Bilateral nephrolithiasis. ACT 112: Negative or not required by law. Electronically signed by: Sanya Mckeon M.D. 03/18/2020 1:31 PM
--- NOTE | 2020-03-18 13:40 | Hospitalist Progress Note ---
Date of Service March 18, 2020 Assessment & Plan (1) Acute respiratory failure with hypoxia: opioid and other drugs he was withdrawing from, likely had aspiration with subsequent R-sided aspiration pneumonia. Intubated in the ICU with increased sedation after some dyssynchrony with the ventilator 2/2 agitation. Improved now and appears calm on high doses of sedation. Cont Zosyn. Possible SBT trial in am on Precedex but noted high risk of reintubation. Defer to algebra teacher. (2) Aspiration pneumonia: Zosyn as above (3) Abdominal distension: New as of today-possible etiology includes but not limited to constipation but also could be something more sinister. Per ICU plan, will try to get bowels moving, however, if not successful overnight will consider CT scan of the abdomen with oral contrast in am. Suppository ordered now. (4) Acute urinary retention: Brewer removed. Cont to monitor for spontaneous voiding. (5) Drug withdrawal: Cont sedation, thiamine, Folate daily. Cont supportive care. (6) Depression: fluoxetine per home regimen. (7) DVT prophylaxis: Heparin Full Code [facility] Admission and Anticipated Discharge Date Admission Date: March 13, 2020 Subjective intubated and sedated abdominal distension concern from regarding stool retention lactose and enema tried today without success Agreed to try glycerin suppository. Review of Systems Review of Systems: All systems reviewed & are unremarkable except as noted in Subjective Physical Exam Physical Exam: CONSTITUTIONAL: WNWD, vitals as above, intubated and sedated. EYES: PERRL, normal conjunctivae, no scleral icterus ENT: external ear and nose normal, ETT in place, OGT in place at tickle feed 10cc/hr NECK: trachea midline RESPIRATORY: vented, some crackles at the bases CARDIOVASCULAR: regular rate and rhythm, S1 and 2 heard without murmurs, gallops or rubs, no JVD, no peripheral edema GASTROINTESTINAL: normal bowel sounds, soft, more distended today. no guarding MUSCULOSKELETAL: cannot be assess as intubated and sedated. SKIN: warm and dry NEUROLOGIC: intubated and sedated so cannot assess. Results & Data Results & Data ([facility]) Vital Signs (Past 12 Hours) Vital Signs Temp Pulse Resp BP Pulse Ox 03/18/20 13:19 100 H 20 93 03/18/20 12:01 102 H 123/75 92 03/18/20 12:00 37.1 C 103 H 92 03/18/20 11:31 97 H 148/84 H 95 03/18/20 11:01 103 H 158/99 H 97 03/18/20 11:00 37.8 C H 100 H 97 03/18/20 10:31 112 H 143/85 H 92 03/18/20 10:16 108 H 24 96 03/18/20 10:01 109 H 160/104 H 93 03/18/20 09:31 99 H 141/90 H 95 03/18/20 09:01 105 H 136/84 96 03/18/20 08:31 106 H 142/86 H 94 03/18/20 08:01 112 H 133/80 91 03/18/20 08:00 99 H 03/18/20 07:39 117 H 24 93 03/18/20 07:31 37.9 C H 112 H 149/95 H 95 03/18/20 07:00 103 H 133/101 H 96 03/18/20 05:31 101 H 20 122/78 93 03/18/20 05:10 103 H 24 98 03/18/20 05:01 102 H 20 144/94 H 99 03/18/20 04:31 104 H 20 144/97 H 95 03/18/20 04:01 37.5 C 103 H 20 139/96 98 03/18/20 03:31 115 H 20 148/92 H 100 03/18/20 03:01 102 H 132/80 98 03/18/20 02:30 100 H 131/88 97 03/18/20 02:02 98 H 20 97 03/18/20 02:00 37.5 C 99 H 127/79 96 Laboratory Results Short CBC 03/18/20 Range/Units 04:41 WBC 7.95 (4.8-10.8) K/uL Hgb 11.5 L (14.0-18.0) g/dL Hct 34.9 L (42-52) % Plt Count 261 (130-400) K/uL BMP 03/17/20 03/18/20 13:56 04:41 Sodium 141 139 Potassium 3.4 L 3.6 Chloride 105 104 Carbon Dioxide 26 30 BUN 5 L 7 Creatinine 0.38 L 0.40 L Glucose 94 94 Calcium 8.6 8.7 Liver Function 03/18/20 Range/Units 04:41 Total Bilirubin 0.7 (0.2-1) mg/dl AST 17 (15-37) U/L ALT 17 (12-78) U/L Alkaline Phosphatase 159 H (45-117) U/L Albumin 1.9 L (3.4-5.0) gm/dl Medications Administered Current Inpatient Medications Albuterol (Albut/Ipratrop 3mg/0.5mg Neb 3 Ml Vial) 3 ml NEB Q2R PRN PRN Reason: Wheezing Stop: 04/14/20 06:13 Last Admin: 03/16/20 05:12 Dose: 3 ml Documented by: Albuterol (Albut/Ipratrop 3mg/0.5mg Neb 3 Ml Vial) 3 ml NEB Q4R [facility] Stop: 04/15/20 10:59 Last Admin: 03/18/20 10:09 Dose: 3 ml Documented by: Docusate Sodium (Docusate Sodium Syrup 100 Mg/10 Ml Udc) 100 mg NG BID [facility] Stop: 04/15/20 20:59 Last Admin: 03/18/20 07:44 Dose: 100 mg Documented by: Fentanyl Citrate (Fentanyl Bolus From Bag) 50 mcg IV Q60M PRN PRN Reason: Pain or Agitation Stop: 03/29/20 05:28 Last Admin: 03/16/20 02:53 Dose: 50 mcg Documented by: Fluoxetine HCl (Fluoxetine Hcl 20 Mg/5 Ml) 60 mg PO QAM [facility] Stop: 04/16/20 09:59 Last Admin: 03/18/20 07:44 Dose: 60 mg Documented by: Folic Acid (Folic Acid 1 Mg Tab) 1 mg PO QAM [facility] Stop: 04/16/20 08:59 Last Admin: 03/18/20 07:45 Dose: 1 mg Documented by: Heparin Sodium (Porcine) (Heparin Sod 5,000 Unit/0.5 Ml Vial) 5,000 units SQ Q12 [facility] Stop: 04/14/20 08:59 Last Admin: 03/18/20 07:58 Dose: 5,000 units Documented by: Piperacillin Sod/Tazobactam (Sod 3.375 gm/ Dextrose) 115 mls @ 28.75 mls/hr IV Q8H [facility]; Protocol Stop: 03/20/20 19:59 Last Admin: 03/18/20 11:03 Dose: 28.8 mls/hr Documented by: Pantoprazole Sodium 40 mg/ (Syringe) 10 mls @ 5 mls/min IV DAILY@1100 [facility] Stop: 04/13/20 10:59 Last Admin: 03/18/20 10:28 Dose: 5 mls/min Documented by: Propofol (Diprivan) 1,000 mg in 100 mls @ 14.13 mls/hr IV .Q7H5M [facility]; Protocol Stop: 03/21/20 05:29 Last Admin: 03/18/20 10:24 Dose: 30 mcg/kg/min, 14.1 mls/hr Documented by: Fentanyl Citrate (Fentanyl Drip) 1,250 mcg in 250 mls @ 25 mls/hr IV .Q10H PRN; Protocol PRN Reason: Pain Stop: 03/29/20 05:28 Last Titration: 03/18/20 06:51 Dose: 125 mcg/hr, 25 mls/hr Documented by: Midazolam HCl (Versed) 125 mg in 250 mls @ 6 mls/hr IV .[id number] PRN; Protocol PRN Reason: Agitation Stop: 04/15/20 08:44 Last Titration: 03/18/20 11:16 Dose: 3 mg/hr, 6 mls/hr Documented by: Acetaminophen (Ofirmev) 1,000 mg in 100 mls @ 400 mls/hr IV Q8H PRN PRN Reason: Fever Stop: 03/20/20 02:30 Last Infusion: 03/18/20 11:42 Dose: Infused Documented by: Lactulose (Lactulose Syrup 30 Gm/45 Ml Udp) 30 gm PO BID [facility] Stop: 04/17/20 09:59 Last Admin: 03/18/20 10:56 Dose: 30 gm Documented by: Midazolam HCl (Midazolam Bolus From Bag) 2 mg IV Q60M PRN PRN Reason: Sedation Stop: 04/15/20 08:44 Last Admin: 03/18/20 10:11 Dose: 2 mg Documented by: Miscellaneous (Icu Electrolyte Replacement Protocol) 1 ea N/A UD PRN PRN Reason: for e-lyte repletion Stop: 03/24/20 10:18 Miscellaneous (Remove Nicoderm Patch) 1 ea N/A DAILY@0859 [facility] Stop: 04/17/20 08:58 Last Admin: 03/18/20 07:38 Dose: 1 ea Documented by: Miscellaneous Information (Piperacill/Tazobac Consult Active) 1 ea N/A UD PRN PRN Reason: Consult Stop: 04/12/20 16:56 Nicotine (Nicotine 21 Mg/24 Hr Tdsy) [facility] Stop: 04/16/20 13:29 Last Admin: 03/18/20 07:40 Dose: 21 mg Documented by: Nutritional Formula (Peptamen Intense Vhp 1.0 [place] 1,000 Ml Bag) 1,000 ml [facility]; Protocol Stop: 04/15/20 13:29 Last Admin: 03/18/20 10:11 Dose: 1,000 ml Documented by: Propofol (Propofol Bolus From Bag) 20 mg IV Q5M PRN PRN Reason: Sedation Stop: 03/21/20 05:28 Last Admin: 03/18/20 11:45 Dose: 20 mg Documented by: Sennosides (Sennosides 8.8 Mg/5 Ml Udc) 8.8 mg GT [facility] Stop: 04/16/20 08:59 Last Admin: 03/18/20 07:44 Dose: 8.8 mg Documented by: Thiamine HCl (Thiamine Hcl 100 Mg Tab) [facility] Stop: 04/16/20 08:59 Last Admin: 03/18/20 07:45 Dose: 100 mg Documented by: (1) Aspiration pneumonia Aspiration pneumonia type: unspecified Laterality: right Lung location: lower lobe of lung Qualified Code(s): J69.0 - Pneumonitis due to inhalation of food and vomit
[2020-03-18] MEDS ORDERED: LACTULOSE SYRUP 30 GM/45 ML UDP PO SCH (15:00)
[2020-03-18 15:25] LABS: BUN Creatinine Ratio 21.4 (10-20); Blood Urea Nitrogen 8 mg/dl (7-18); Calcium 9.5 mg/dl (8.5-10.1); Carbon Dioxide 29 mmol/L (21-32); Chloride 103 mmol/L (98-107); Creatinine Clr Calc Pharmacy 266.5 ml/min; Est GFR (African American) > 150.0; Est GFR (Non-African American) > 150.0; Glucose 100 mg/dl (70-99); Magnesium 2.1 mg/dl (1.8-2.4); Potassium 3.7 mmol/L (3.5-5.1); Sodium 138 mmol/L (136-145)
[2020-03-18 15:26] LABS: Phosphorus 3.1 mg/dl (2.5-4.9); Triglycerides 340 mg/dl (0-150)
[2020-03-18] MEDS ORDERED: SOD PHOSPHATE/SOD BIPHOSPHATE ENEMA 132 ML BTL PR STA (15:35)
[2020-03-18] MEDS: MIDAZOLAM HCL 125 MG/250 ML BAG IV PRN (15:42)
[2020-03-18 16:36] LABS: 7-Aminoclonaz, Confirm NEGATIVE ng/mL (<25); Amphetamine Urine, Confirm >15000 ng/mL (<250); Cocaine, Urine >15000 ng/mL (<100); Codeine Urine 555 ng/mL (<50); Hydro-Alp Ur, GC/MS NEGATIVE ng/mL (<25); Hydrocodone Urine NEGATIVE ng/mL (<50); Hydromor Urine NEGATIVE ng/mL (<50); Hydroxyethylflurazepam, Conf NEGATIVE ng/mL (<50); Hydroxymidazolam Ur, GC/MS NEGATIVE ng/mL (<50); Hydroxytriazolam NEGATIVE ng/mL (<50); Lorazepam, Ur GC/MS NEGATIVE ng/mL (<50); MDA negative; MDEA negative; MDMA (Ecstasy) Urine, Confirm negative; Methamphetamine, Ur Confirm >15000 ng/mL (<250); Morphine Urine >10000 ng/mL (<50); Nordiazepam, Confirm NEGATIVE ng/mL (<50); Norhydrocodone Conf Ur NEGATIVE ng/mL (<50); Noroxycodone Urine NEGATIVE ng/mL (<50); Oxazepam Ur, GC/MS NEGATIVE ng/mL (<50); Oxycodone Urine NEGATIVE ng/mL (<50); Oxymorph Urine NEGATIVE ng/mL (<50); Temazepam, Confirm NEGATIVE ng/mL (<50)
[2020-03-18] MEDS ORDERED: GLYCERIN ADULT 12 SUPP/BOX SUPP PR ONE (20:32)
[2020-03-19] MEDS ORDERED: SOD PHOSPHATE/SOD BIPHOSPHATE ENEMA 132 ML BTL PR STA (00:08)
[2020-03-19] MEDS ORDERED: SOD PHOSPHATE/SOD BIPHOSPHATE ENEMA 132 ML BTL PR ONE (00:14)
[2020-03-19] MEDS: FENTANYL BOLUS FROM BAG IV PRN (01:56)
[2020-03-19] MEDS: ALBUT/IPRATROP 3MG/0.5MG NEB 3 ML VIAL NEB SCH ×6 (02:01→22:29)
[2020-03-19] MEDS: propofoL 1,000 MG/100 ML VIAL IV SCH ×3 (03:45→17:30)
[2020-03-19] MEDS: PROPOFOL BOLUS FROM BAG IV PRN (04:00)
[2020-03-19] MEDS: fentaNYL DRIP 1,250 MCG/250 ML BAG IV PRN ×2 (04:00→13:25)
[2020-03-19] MEDS: PIPERACILLIN/TAZOBACTAM 3.375 GM in DEXTROSE 5% 100 ML IV SCH ×3 (04:50→20:10)
[2020-03-19 05:02] LABS: Basophils # (auto) 0.02 K/uL (0-0.2); Basophils % (auto) 0.2 %; Eosinophils # (auto) 0.06 K/uL (0-0.5); Eosinophils % (auto) 0.6 %; Hematocrit (blood only) 37.1 % (42-52); Hemoglobin 12.6 g/dL (14.0-18.0); Immature Granulocytes # (auto) 0.12 K/uL (0.00-0.02); Immature Granulocytes % (auto) 1.1 %; Lymphocytes # (auto) 0.76 K/uL (1.2-3.4); Lymphocytes % (auto) 7.2 %; Mean Corpuscular Hemoglobin 30.6 pg (25-34); Mean Platelet Volume 9.3 fL (7.4-10.4); Monocytes % (auto) 4.7 %; Neutrophils # (auto) 9.16 K/uL (1.4-6.5); Neutrophils % (auto) 86.2 %; Platelet Count 323 K/uL (130-400); RDW Coefficient of Variation 13.6 % (11.5-14.5); RDW Standard Deviation 45.2 fL (36.4-46.3); Red Blood Count 4.12 M/uL (4.7-6.1); White Blood Count 10.62 K/uL (4.8-10.8)
[2020-03-19 05:20] LABS: iSTAT Arterial Blood Gas HCO3 29 meg/L (19-24); iSTAT Arterial Blood Gas pCO2 41 mmHg (35-46); iSTAT Arterial Blood Gas pH 7.45 (7.35-7.45); iSTAT Arterial Blood Gas pO2 68 mmHg (80-95); iSTAT Carbon Dioxide 30 mmol/L (24-31); iSTAT Site Art Line
[2020-03-19] MEDS ORDERED: ONDANSETRON INJ 2 MG/ML 2 ML VIAL ONE (05:20)
[2020-03-19] MEDS: ONDANSETRON INJ 2 MG/ML 2 ML VIAL IV PRN (05:25)
[2020-03-19 05:28] LABS: BUN Creatinine Ratio 25.8 (10-20); Blood Urea Nitrogen 10 mg/dl (7-18); Carbon Dioxide 28 mmol/L (21-32); Chloride 103 mmol/L (98-107); Creatinine Clr Calc Pharmacy 239.9 ml/min; Est GFR (African American) > 150.0; Est GFR (Non-African American) 149.6; Glucose 112 mg/dl (70-99); Magnesium 2.4 mg/dl (1.8-2.4); Potassium 3.6 mmol/L (3.5-5.1); Sodium 139 mmol/L (136-145)
[2020-03-19 05:34] LABS: Phosphorus 4.2 mg/dl (2.5-4.9)
[2020-03-19] MEDS: POTASSIUM CHLORIDE / WTR 10 MEQ/100 ML PLCT IV SCH ×2 (07:39→08:35)
[2020-03-19] MEDS: LACTULOSE SYRUP 30 GM/45 ML UDP PO SCH ×2 (07:44→20:11)
[2020-03-19] MEDS: FOLIC ACID 1 MG TAB PO SCH (07:45)
[2020-03-19] MEDS: DOCUSATE SODIUM SYRUP 100 MG/10 ML UDC NG SCH ×2 (07:45→20:11)
[2020-03-19] MEDS: SENNOSIDES 8.8 MG/5 ML UDC GT SCH (07:46)
[2020-03-19] MEDS: NICOTINE 21 MG/24 HR TDSY TD SCH (07:46)
[2020-03-19] MEDS: HEPARIN SOD 5,000 UNIT/0.5 ML VIAL SQ SCH ×2 (07:46→20:12)
[2020-03-19] MEDS: FLUOXETINE HCL 20 MG/5 ML PO SCH (07:47)
[2020-03-19] MEDS: THIAMINE HCL 100 MG TAB PO SCH (07:47)
--- NOTE | 2020-03-19 08:13 | XRay Report ---
XR chest 1V portable CLINICAL HISTORY: Pneumonia. Respiratory failure. COMPARISON STUDY: 03/18/2020 FINDINGS: There is an endotracheal tube 4 cm above the solange. There is a nasogastric tube which pass es into the stomach. There is mild gaseous prominence of the visualized bowel loops. There are persis tent right lower lung zone airspace opacities. There is diffuse interstitial thickening. There are no significant pleural effusions. IMPRESSION: 1. Persistent right lower lung zone airspace opacity suspicious for pneumonia 2. Persistent diffuse interstitial thickening ACT 112: Negative or not required by law. Electronically signed by: Blas Abdullahi M.D. 03/19/2020 8:12 AM
--- NOTE | 2020-03-19 09:08 | CT Scan Report ---
CT OF THE ABDOMEN AND PELVIS WITHOUT CONTRAST CLINICAL HISTORY: colonic obstruction COMPARISON STUDY: KUB March 18, 2020. CT of the abdomen and pelvis March 29, 2019. TECHNIQUE: Axial images of the abdomen and pelvis were obtained without IV contrast. Images were revi ewed in the axial, sagittal, and coronal planes. Automated exposure control was utilized for the savage dy. A dose lowering technique was utilized adhering to the principles of ALARA. FINDINGS: Imaged portions of the lower chest demonstrate extensive bilateral airspace opacities, grea ter within the right middle and right lower lobes. Lungs are suboptimally assessed given respiratory motion. Tip of nasogastric tube is within the distal stomach. No pneumatosis, free air or portal veno us gas is present. Evaluation of the abdomen and pelvis is suboptimal on this unenhanced examination. The liver, spleen, adrenal glands and pancreas are unremarkable. Bilateral renal calculi measure up to 8 mm. There are no ureteral calculi. There is no hydronephrosis. The colon and small bowel are mod erately dilated and fluid-filled. There is no transition point. There is trace ascites. There is no a bscess. Brewer balloon within the bladder is noted. There are no suspicious osseous lesions. No biliar y or pancreatic ductal dilatation is noted. There is no peripancreatic or pericholecystic infiltratio n. IMPRESSION: 1. Fluid-filled and moderately dilated small and large bowel with no transition point identified. The se findings favor an ileus. Trace ascites. 2. Extensive airspace opacities within the lower lungs which favor multifocal pneumonia. 3. Bilateral nephrolithiasis. ACT 112: Negative or not required by law. Electronically signed by: Sanya Mckeon M.D. 03/19/2020 9:07 AM
--- NOTE | 2020-03-19 10:23 | Critical Care Progress Note ---
Date of Service March 19, 2020 Assessment & Plan (1) Admitted to intensive care unit: -- VDRF Likely secondary to withdrawal leading to right-sided aspiration pneumonia Continue with ventilatory support Daily sedation holidays and SBT's Chlorhexidine mouthwash Given the patient a significant history of opioid abuse he needs high sedation. Keep RASS -1 --Sepsis Secondary to above Continue with antibiotics Septic work-up negative to date Procalcitonin is trending down Nasal MRSA was negative. --Multiple drug abuse UDS was positive for cocaine, opioids, ecstasy, benzodiazepines. This is 1 of the etiology the patient is very hard to sedate. --Prophylaxis VTE: Heparin GI: Protonix Lines: Peripheral Diet: NGT feedings Plan: In/out: Positive 297, urine output 1.5 L ABG 01/17/2020: 7.45/41/68 on 40% FiO2 and PEEP of 5 CT abdomen pelvis without contrast done 03/19/2020 showed fluid-filled moderately dilated small and large bowel with no transition point. Likely representing ileus For ileus replacing electrolytes and keeping him optimal. Bilateral lower lobe infiltrate appreciated from the pneumonia that the patient has. Patient with 20 of KCl IV today. Give a dose of Lasix. Discontinue Brewer today. Patient's sister was present at bedside at time of examination. Current status of the patient and prognosis explained to the patient and sister. I have personally spent 33 minutes of critical care time in the direct management of this patient. This is a life/limb threatening event. This includes time spent evaluating patient, direct bedside care, chart review, placing orders, interpretation of diagnostic studies, discussion with consultants, patient, and family members, as well as other required patient management activities. This time is exclusive of all separately billable procedures, and teaching time and separate from and in addition to any other critical care service time. Please note the above document was generated using voice recognition software. It may contain grammatical, syntax or spelling errors. (2) Respiratory distress: (3) Aspiration pneumonia: (4) Drug abuse: (5) Acute urinary retention: (6) Hypoxia: (7) Drug withdrawal: (8) Delirium: (9) Agitation: Admission and Anticipated Discharge Date Admission Date: March 13, 2020 Subjective Patient seen and examined at bedside. On midazolam 6, fentanyl 125, propofol 25 the time of examination Patient opens his eyes to voice but does not track. Does not follow commands. Patient had 2 very small liquid stools this is after patient was given lactulose 30 g 3 times daily as well as enema. Patient did throw up once in his feedings has been home since yesterday afternoon. KUB showed distention of the colon 03/18/2020 T-max 37.9 C Review of Systems Review of Systems: Unobtainable due to endotracheal tube Physical Exam Physical Exam: Constitutional: No acute distress HEENT: PERRLA, positive ETT Respiratory system: Decreased air entry bilaterally, positive crackles bilateral lower lobes more on the right side, no wheeze, no rhonchi CVS: S1-S2 positive, no murmurs or gallops Abdomen: Soft, nontender, nondistended, positive bowel sounds x4 Extremities: +2 pulses bilaterally radialis/ dorsalis pedis, no cyanosis, no edema Neuro: Unable to assess, breathing over the vent, positive gag, positive corneal, positive pupillary Psych: Unable to assess G/U: Positive Brewer Skin: no rashes, warm and dry Lymphatic: no cervical or axillary lymphadenopathy Results & Data Results & Data ([facility]) Vital Signs (Past 12 Hours) Vital Signs Temp Pulse Pulse Resp BP Pulse Ox 03/19/20 07:18 118 H 20 96 03/19/20 07:16 118 H 21 96 03/19/20 05:24 36.9 C 120 H 140/85 90 03/19/20 05:00 112 H 21 92 03/19/20 04:24 36.9 C 112 H 130/80 92 03/19/20 04:00 108 H 129/72 03/19/20 03:24 115 H 131/76 90 03/19/20 02:24 36.9 C 119 H 132/80 90 03/19/20 02:01 112 H 22 92 03/19/20 01:24 113 H 124/74 91 03/19/20 00:24 37.4 C 113 H 129/80 92 03/19/20 00:00 117 H 134/79 03/18/20 23:24 117 H 120/74 92 03/18/20 23:00 110 H 25 H 91 03/18/20 22:24 115 H 128/70 92 03/19/20 04:41 03/19/20 04:41 Coding Level of Care Code Critical Care 1st 30-74 mins Diagnoses Admitted to intensive care unit Z78.9 Respiratory distress R06.03 Aspiration pneumonia J69.0 Aspiration pneumonia type: unspecified Laterality: right Lung location: lower lobe of lung Drug abuse F19.10 Acute urinary retention R33.8 Hypoxia R09.02 Drug withdrawal F19.239 Delirium R41.0 Agitation R45.1 Time Spent (min) 33 (1) Aspiration pneumonia Aspiration pneumonia type: unspecified Laterality: right Lung location: lower lobe of lung Qualified Code(s): J69.0 - Pneumonitis due to inhalation of food and vomit
[2020-03-19] MEDS ORDERED: FUROSEMIDE 40 MG in SYRINGE 0 ML IV ONE (10:30)
[2020-03-19] MEDS: PANTOprazole 40 MG in SYRINGE 0 ML IV SCH (11:19)
--- NOTE | 2020-03-19 13:32 | Hospitalist Progress Note ---
Date of Service March 19, 2020 Assessment & Plan (1) Acute respiratory failure with hypoxia: opioid and other drugs he was withdrawing from, likely had aspiration with subsequent R-sided aspiration pneumonia. Intubated in the ICU with increased sedation after some dyssynchrony with the ventilator 2/2 agitation. [employer] another aspiration event overnight, poss 2/2 ileus with abdominal distention. Cont Zosyn. Possible SBT trial in am on Precedex but noted high risk of reintubation. Defer to customer account representative. (2) Aspiration pneumonia: Zosyn as above (3) Abdominal distension: Likely 2/2 Ileus-two BMs today. CT findings as above. Abdomen still distended. Holding PO feeds. (4) Acute urinary retention: Brewer removed. (5) Drug withdrawal: Cont sedation, thiamine, Folate daily. Cont supportive care. (6) Depression: fluoxetine per home regimen. Held while not receiving PO feeds. (7) DVT prophylaxis: Heparin Full Code Dispo-ICU [facility] and Anticipated Discharge Date Admission Date: March 13, 2020 Subjective abdominal distension overnight ?ileus vomiting with aspiration event overnight vent settings increased to titrate new support needs Lasix given today at bedside-concerned about dehydration currently holding tube feeds, likley 2/2/ ileus pt sedated and intubated. Unable to obtain a history from him Review of Systems Review of Systems: Unobtainable due to endotracheal tube Physical Exam Physical Exam: CONSTITUTIONAL: WNWD, vitals as above, intubated and sedated. EYES: eyes are open but patient is still sedated, pupils are equal and round bilaterally, normal conjunctivae, no scleral icterus ENT: external ear and nose normal, ETT in place, OG feeds are off NECK: trachea midline RESPIRATORY: vented, bases sound more clear but hear some coarse rhonchi in anterior lung trivedi. CARDIOVASCULAR: regular rate and rhythm, S1 and 2 heard without murmurs, gallops or rubs, no JVD, no peripheral edema GASTROINTESTINAL: normal bowel sounds, soft, persistent distention MUSCULOSKELETAL: cannot be assess as intubated and sedated. SKIN: warm and dry NEUROLOGIC: intubated and sedated so cannot assess. Results & Data Results & Data ([facility]) Vital Signs (Past 12 Hours) Vital Signs Temp Pulse Pulse Resp BP Pulse Ox 03/19/20 13:29 107 H 25 H 94 03/19/20 11:15 107 H 20 92 03/19/20 11:14 107 H 20 92 03/19/20 07:18 118 H 20 96 03/19/20 07:16 118 H 21 96 03/19/20 05:24 36.9 C 120 H 140/85 90 03/19/20 05:00 112 H 21 92 03/19/20 04:24 36.9 C 112 H 130/80 92 03/19/20 04:00 108 H 129/72 03/19/20 03:24 115 H 131/76 90 03/19/20 02:24 36.9 C 119 H 132/80 90 03/19/20 02:01 112 H 22 92 Laboratory Results Short CBC 03/19/20 Range/Units 04:41 WBC 10.62 (4.8-10.8) K/uL Hgb 12.6 L (14.0-18.0) g/dL Hct 37.1 L (42-52) % Plt Count 323 (130-400) K/uL [facility] 03/18/20 03/19/20 14:55 04:41 Sodium 138 139 Potassium 3.7 3.6 Chloride 103 103 Carbon Dioxide 29 28 BUN 8 10 Creatinine 0.36 L 0.40 L Glucose 100 H 112 H Calcium 9.5 9.0 Medications Administered Current Inpatient Medications Albuterol (Albut/Ipratrop 3mg/0.5mg Neb 3 Ml Vial) 3 ml NEB Q2R PRN PRN Reason: Wheezing Stop: 04/14/20 06:13 Last Admin: 03/16/20 05:12 Dose: 3 ml Documented by: Albuterol (Albut/Ipratrop 3mg/0.5mg Neb 3 Ml Vial) 3 ml NEB Q4R [facility] Stop: 04/15/20 10:59 Last Admin: 03/19/20 11:17 Dose: 3 ml Documented by: Docusate Sodium (Docusate Sodium Syrup 100 Mg/10 Ml Udc) 100 mg NG BID [facility] Stop: 04/15/20 20:59 Last Admin: 03/19/20 07:45 Dose: 100 mg Documented by: Fentanyl Citrate (Fentanyl Bolus From Bag) 50 mcg IV Q60M PRN PRN Reason: Pain or Agitation Stop: 03/29/20 05:28 Last Admin: 03/19/20 01:56 Dose: 50 mcg Documented by: Fluoxetine HCl (Fluoxetine Hcl 20 Mg/5 Ml) 60 mg PO QAM [facility] Stop: 04/16/20 09:59 Last Admin: 03/19/20 07:47 Dose: 60 mg Documented by: Folic Acid (Folic Acid 1 Mg Tab) 1 mg PO QAM [facility] Stop: 04/16/20 08:59 Last Admin: 03/19/20 07:45 Dose: 1 mg Documented by: Heparin Sodium (Porcine) (Heparin Sod 5,000 Unit/0.5 Ml Vial) 5,000 units SQ Q12 [facility] Stop: 04/14/20 08:59 Last Admin: 03/19/20 07:46 Dose: 5,000 units Documented by: Piperacillin Sod/Tazobactam (Sod 3.375 gm/ Dextrose) 115 mls @ 28.75 mls/hr IV Q8H [facility]; Protocol Stop: 03/20/20 19:59 Last Admin: 03/19/20 11:19 Dose: 28.8 mls/hr Documented by: Pantoprazole Sodium 40 mg/ (Syringe) 10 mls @ 5 mls/min IV DAILY@1100 [facility] Stop: 04/13/20 10:59 Last Admin: 03/19/20 11:19 Dose: 5 mls/min Documented by: Propofol (Diprivan) 1,000 mg in 100 mls @ 11.775 mls/hr IV .Q8H30M [facility]; Protocol Stop: 03/21/20 05:29 Last Admin: 03/19/20 11:14 Dose: 25 mcg/kg/min, 11.8 mls/hr Documented by: Fentanyl Citrate (Fentanyl Drip) 1,250 mcg in 250 mls @ 25 mls/hr IV .Q10H PRN; Protocol PRN Reason: Pain Stop: 03/29/20 05:28 Last Admin: 03/19/20 13:25 Dose: 125 mcg/hr, 25 mls/hr Documented by: Midazolam HCl (Versed) 125 mg in 250 mls @ 10 mls/hr IV .Q25H PRN; Protocol PRN Reason: Agitation Stop: 04/15/20 08:44 Last Titration: 03/19/20 11:41 Dose: 5 mg/hr, 10 mls/hr Documented by: Acetaminophen (Ofirmev) 1,000 mg in 100 mls @ 400 mls/hr IV Q8H PRN PRN Reason: Fever Stop: 03/20/20 02:30 Last Infusion: 03/18/20 11:42 Dose: Infused Documented by: Lactulose (Lactulose Syrup 30 Gm/45 Ml Udp) 30 gm PO BID [facility] Stop: 04/17/20 09:59 Last Admin: 03/19/20 07:44 Dose: 30 gm Documented by: Midazolam HCl (Midazolam Bolus From Bag) 2 mg IV Q60M PRN PRN Reason: Sedation Stop: 04/15/20 08:44 Last Admin: 03/18/20 10:11 Dose: 2 mg Documented by: Miscellaneous (Icu Electrolyte Replacement Protocol) 1 ea N/A UD PRN PRN Reason: for e-lyte repletion Stop: 03/24/20 10:18 Miscellaneous (Remove Nicoderm Patch) 1 ea N/A DAILY@0859 [facility] Stop: 04/17/20 08:58 Last Admin: 03/19/20 07:40 Dose: 1 ea Documented by: Miscellaneous Information (Piperacill/Tazobac Consult Active) 1 ea N/A UD PRN PRN Reason: Consult Stop: 04/12/20 16:56 Nicotine (Nicotine 21 Mg/24 Hr Tdsy) 21 mg TD QAM [facility] Stop: 04/16/20 13:29 Last Admin: 03/19/20 07:46 Dose: 21 mg Documented by: Nutritional Formula (Peptamen Intense Vhp 1.0 [place] 1,000 Ml Bag) 1,000 ml OG UD [facility]; Protocol Stop: 04/15/20 13:29 Last Admin: 03/18/20 10:11 Dose: 1,000 ml Documented by: Ondansetron HCl (Ondansetron Inj 2 Mg/Ml 2 Ml Vial) 4 mg IV Q4H PRN PRN Reason: Nausea Stop: 04/18/20 05:07 Last Admin: 03/19/20 05:25 Dose: 4 mg Documented by: Propofol (Propofol Bolus From Bag) 20 mg IV Q5M PRN PRN Reason: Sedation Stop: 03/21/20 05:28 Last Admin: 03/19/20 04:00 Dose: 20 mg Documented by: Sennosides (Sennosides 8.8 Mg/5 Ml Udc) 8.8 mg GT QAM [facility] Stop: 04/16/20 08:59 Last Admin: 03/19/20 07:46 Dose: 8.8 mg Documented by: Thiamine HCl (Thiamine Hcl 100 Mg Tab) 100 mg PO QAM [facility] Stop: 04/16/20 08:59 Last Admin: 03/19/20 07:47 Dose: 100 mg Documented by: (1) Aspiration pneumonia Aspiration pneumonia type: unspecified Laterality: right Lung location: lower lobe of lung Qualified Code(s): J69.0 - Pneumonitis due to inhalation of food and vomit
[2020-03-19 15:30] LABS: BUN Creatinine Ratio 19.4 (10-20); Calcium 9.3 mg/dl (8.5-10.1); Creatinine Clr Calc Pharmacy 152.3 ml/min; Est GFR (African American) 143.9; Est GFR (Non-African American) 124.1; Magnesium 2.4 mg/dl (1.8-2.4); Potassium 3.5 mmol/L (3.5-5.1)
[2020-03-19 15:41] LABS: Phosphorus 3.2 mg/dl (2.5-4.9)
[2020-03-19] MEDS ORDERED: Nursing to Pharmacy Communication SCH (16:15)
[2020-03-19] MEDS ORDERED: POTASSIUM PHOSPHATE 30 MMOL in SODIUM CHLORIDE 0.9% 500 ML IV ONE (16:45)
[2020-03-19] MEDS: MIDAZOLAM HCL 125 MG/250 ML BAG IV PRN (17:30)
[2020-03-19] MEDS: PEPTAMEN INTENSE VHP 1.0 CAL 1,000 ML BAG OG SCH (20:10)
[2020-03-20] MEDS: fentaNYL DRIP 1,250 MCG/250 ML BAG IV PRN (00:02)
[2020-03-20] MEDS: ALBUT/IPRATROP 3MG/0.5MG NEB 3 ML VIAL NEB SCH ×6 (02:06→23:28)
[2020-03-20] MEDS: propofoL 1,000 MG/100 ML VIAL IV SCH ×2 (03:52→20:31)
[2020-03-20] MEDS: PIPERACILLIN/TAZOBACTAM 3.375 GM in DEXTROSE 5% 100 ML IV SCH (04:01)
[2020-03-20 04:57] LABS: Basophils # (auto) 0.02 K/uL (0-0.2); Basophils % (auto) 0.2 %; Eosinophils # (auto) 0.33 K/uL (0-0.5); Eosinophils % (auto) 2.8 %; Hematocrit (blood only) 38.7 % (42-52); Hemoglobin 12.6 g/dL (14.0-18.0); Immature Granulocytes # (auto) 0.16 K/uL (0.00-0.02); Immature Granulocytes % (auto) 1.4 %; Lymphocytes # (auto) 1.39 K/uL (1.2-3.4); Lymphocytes % (auto) 11.8 %; Mean Corpuscular Hemoglobin 30.1 pg (25-34); Mean Corpuscular Hgb Conc 32.6 g/dL (32-36); Mean Corpuscular Volume 92.4 fL (80-100); Mean Platelet Volume 9.1 fL (7.4-10.4); Monocytes # (auto) 0.69 K/uL (0.11-0.59); Monocytes % (auto) 5.8 %; Neutrophils # (auto) 9.21 K/uL (1.4-6.5); Platelet Count 410 K/uL (130-400); RDW Standard Deviation 47.4 fL (36.4-46.3); Red Blood Count 4.19 M/uL (4.7-6.1)
[2020-03-20 05:12] LABS: iSTAT Art Bld Gas pCO2 Correct 49 mmHg (35-46); iSTAT Arterial Blood Gas HCO3 33 meg/L (19-24); iSTAT Arterial Blood Gas pCO2 46 mmHg (35-46); iSTAT Arterial Blood Gas pH 7.46 (7.35-7.45); iSTAT Arterial Blood Gas pO2 69 mmHg (80-95); iSTAT Arterial Blood Gas pO2 C 75; iSTAT Carbon Dioxide 34 mmol/L (24-31); iSTAT Hematocrit 37 % (42-52); iSTAT Hemoglobin 12.6 g/dl (14.0-18.0); iSTAT Potassium 3.8 mmol/L (3.3-5.0); iSTAT Site Art Line; iSTAT Sodium 140 mmol/L (135-144)
[2020-03-20 05:48] LABS: BUN Creatinine Ratio 21.2 (10-20); Calcium 9.7 mg/dl (8.5-10.1); Creatinine Clr Calc Pharmacy 147.6 ml/min; Est GFR (Non-African American) 122.6; Magnesium 2.3 mg/dl (1.8-2.4); Phosphorus 2.9 mg/dl (2.5-4.9); Potassium 3.6 mmol/L (3.5-5.1)
[2020-03-20] MEDS: POTASSIUM CHLORIDE / WTR 10 MEQ/100 ML PLCT IV SCH ×2 (06:20→07:31)
--- NOTE | 2020-03-20 07:17 | XRay Report ---
XR chest 1V portable CLINICAL HISTORY: Respiratory failure. COMPARISON STUDY: Chest radiograph March 19, 2020. FINDINGS: Tip of endotracheal tube is 4.4 cm above sol[place]. Tip of nasogastric tube is within the michael elaina antrum. There is no pneumothorax or pleural effusion. Lung volumes are mildly diminished. Reticul onodular interstitial thickening persists. Right lower lung airspace opacity persists. This has sligh tly improved. Gaseous distention of visualized portions of the colon appears similar. IMPRESSION: 1. Persistent but slightly improved right lower lung airspace opacity which favors pneumonia. Persist ent reticulonodular interstitial thickening also suggestive of pneumonia. 2. Tip of endotracheal tube 4.4 cm above the solange. 3. Redemonstration of gaseous distention of the colon, partially imaged on this exam. Visualized port ions similar to prior study. ACT 112: Negative or not required by law. Electronically signed by: Sanya Mckeon M.D. 03/20/2020 7:15 AM
[2020-03-20] MEDS: HEPARIN SOD 5,000 UNIT/0.5 ML VIAL SQ SCH ×2 (07:45→20:36)
[2020-03-20] MEDS: DOCUSATE SODIUM SYRUP 100 MG/10 ML UDC NG SCH ×2 (07:45→20:36)
[2020-03-20] MEDS: SENNOSIDES 8.8 MG/5 ML UDC GT SCH (07:46)
[2020-03-20] MEDS: THIAMINE HCL 100 MG TAB PO SCH (07:46)
[2020-03-20] MEDS: FLUOXETINE HCL 20 MG/5 ML PO SCH (07:46)
[2020-03-20] MEDS: FOLIC ACID 1 MG TAB PO SCH (07:46)
[2020-03-20] MEDS: NICOTINE 21 MG/24 HR TDSY TD SCH (07:46)
[2020-03-20] MEDS: LACTULOSE SYRUP 30 GM/45 ML UDP PO SCH (07:49)
[2020-03-20] MEDS ORDERED: Nursing to Pharmacy Communication SCH ×4 (08:15→12:45)
[2020-03-20] MEDS: ACETAMINOPHEN 1,000 MG/100 ML VIAL IV PRN (08:40)
--- NOTE | 2020-03-20 09:45 | Critical Care Progress Note ---
Date of Service March 20, 2020 Assessment & Plan (1) Admitted to intensive care unit: -- VDRF Likely secondary to withdrawal leading to right-sided aspiration pneumonia Continue with ventilatory support Daily sedation holidays and SBT's Chlorhexidine mouthwash Given the patient a significant history of opioid abuse he needs high sedation. Keep RASS -1 --Sepsis Secondary to above Continue with antibiotics Septic work-up negative to date Procalcitonin is trending down Nasal MRSA was negative. 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 Keep electrolytes at the optimal level and replace as needed. --Multiple drug abuse UDS was positive for cocaine, opioids, ecstasy, benzodiazepines. This is 1 of the etiology the patient is very hard to sedate. --Prophylaxis VTE: Heparin GI: Protonix Lines: Peripheral, Brewer discontinued 03/19/2020, NGT Diet: NGT feedings on hold today. Plan: In/out: +1363, urine output 1051 ABG 01/18/2020: 7.46/46/69 on 40% FiO2 and PEEP of 5 At the time of examination patient was on pressure support 8/6 getting tidal volume 650-700. Patient was following simple commands and he was tracking today for the first time with me. Trial of extubation today. I will DC all the sedation. Will think about adding Precedex if the patient is still withdrawing/agitated. Will need very close monitoring after extubation given the patient did not have good mental status. Electrolytes are being replaced. WBC went up a little bit compared to yesterday. Patient is spiking fever up to 39.3 Celsius. I will repeat blood cultures today. Brewer has already been removed and patient has only peripheral lines. I have personally spent 39 minutes of critical care time in the direct management of this patient. This is a life/limb threatening event. This includes time spent evaluating patient, direct bedside care, chart review, placing orders, interpretation of diagnostic studies, discussion with consultants, patient, and family members, as well as other required patient management activities. This time is exclusive of all separately billable procedures, and teaching time and separate from and in addition to any other critical care service time. Please note the above document was generated using voice recognition software. It may contain grammatical, syntax or spelling errors. (2) Respiratory distress: (3) Aspiration pneumonia: (4) Drug abuse: (5) Acute urinary retention: (6) Hypoxia: (7) Drug withdrawal: (8) Delirium: (9) Agitation: Admission and Anticipated Discharge Date Admission Date: March 13, 2020 Subjective Patient seen and examined at bedside. No acute distress. Patient is still spiking fever T-max of 39.3 Chest x-ray from today did not show any significant change in the infiltrates. Patient's belly is still distended but it is soft. Patient had 2 bowel movements early in the morning just after the CAT scan was done. Patient has bowel movements appreciated in all 4 quadrants today. Patient was on propofol 25, fentanyl 125, midazolam 6 at the time of examination He was tracking today and following commands. Review of Systems Review of Systems: All systems reviewed & are unremarkable except as noted in Subjective Physical Exam Physical Exam: Constitutional: No acute distress HEENT: PERRLA, positive ETT Respiratory system: Decreased air entry bilaterally, positive crackles bilateral lower lobes more on the right side, no wheeze, no rhonchi CVS: S1-S2 positive, no murmurs or gallops Abdomen: Soft, nontender, nondistended, positive bowel sounds x4 Extremities: +2 pulses bilaterally radialis/ dorsalis pedis, no cyanosis, no edema Neuro: Unable to assess, breathing over the vent, positive gag, positive co rneal, positive pupillary Psych: Unable to assess 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 Skin: no rashes, warm and dry Lymphatic: no cervical or axillary lymphadenopathy Results & Data Results & Data ([facility]) Vital Signs (Past 12 Hours) Vital Signs Temp Pulse Pulse Resp BP Pulse Ox 03/20/20 07:39 103 H 17 93 03/20/20 07:34 103 H 17 93 03/20/20 05:24 117 H 124/76 93 03/20/20 04:55 119 H 23 92 03/20/20 04:26 38.4 C H 126 H 134/126 H 93 03/20/20 04:00 115 H 102/64 03/20/20 03:24 118 H 113/70 92 03/20/20 02:24 38.2 C H 121 H 133/64 92 03/20/20 02:06 110 H 22 03/20/20 01:24 113 H 115/66 92 03/20/20 00:24 38 C H 114 H 117/67 93 03/20/20 00:00 116 H 135/57 L 03/19/20 23:24 38 C H 119 H 121/68 91 03/19/20 22:29 109 H 21 91 03/19/20 22:24 37.6 C H 110 H 113/67 92 03/20/20 04:39 03/20/20 04:39 Coding Level of Care Code Critical Care 1st 30-74 mins Diagnoses Admitted to intensive care unit Z78.9 Respiratory distress R06.03 Aspiration pneumonia J69.0 Aspiration pneumonia type: unspecified Laterality: right Lung location: lower lobe of lung Drug abuse F19.10 Acute urinary retention R33.8 Hypoxia R09.02 Drug withdrawal F19.239 Delirium R41.0 Agitation R45.1 Time Spent (min) 39 (1) Aspiration pneumonia Aspiration pneumonia type: unspecified Laterality: right Lung location: lower lobe of lung Qualified Code(s): J69.0 - Pneumonitis due to inhalation of food and vomit
[2020-03-20] MEDS: ONDANSETRON INJ 2 MG/ML 2 ML VIAL IV PRN (09:52)
--- NOTE | 2020-03-20 11:01 | Hospitalist Progress Note ---
Date of Service March 20, 2020 Assessment & Plan (1) Acute respiratory failure with hypoxia: polypharmacy drug withdrawal causing aspiration pneumonia and subsequent respiratory failure requiring ventilation for several days. Extubated today and doing well on facemask. No increased respiratory effort. (2) Aspiration pneumonia: Zosyn, bronchodilators scheduled (3) Abdominal distension: Likely 2/2 Ileus-Ogilve's syndrome in the differential. NG tube in place. KUB with persistent ileus this morning. Abdomen still distended and he remains NPO. All opiates off. Dignishield in place. Cont supportive care. (4) Drug withdrawal: resolved. (5) Depression: fluoxetine per home regimen. 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 currently on supportive care including no opiates and bowel rest and doing well denies pain mentating well dignishield in place. Review of Systems Review of Systems: All systems reviewed & are unremarkable except as noted in Subjective Physical Exam Physical Exam: CONSTITUTIONAL: WNWD, vitals as above, NAD EYES: pupils are equal and round bilaterally, normal conjunctivae, no scleral icterus ENT: external ear and nose normal, oxymask in place, extubated. MMM NECK: trachea midline RESPIRATORY: coarse rhonchi throughout all lung trivedi. No increased respiratory effort. CARDIOVASCULAR: regular rate and rhythm, S1 and 2 heard without murmurs, gallops or rubs, no JVD, no peripheral edema GASTROINTESTINAL: normal bowel sounds, soft, persistent distention MUSCULOSKELETAL: 5/5 throughout, can sit up in bed on his own. SKIN: warm and dry NEUROLOGIC: appears to have no gross focal deficits after recently coming off sedation this morning. Results & Data Results & Data ([facility]) Vital Signs (Past 12 Hours) Vital Signs Temp Pulse Pulse Resp BP Pulse Ox 03/20/20 09:30 104 H 03/20/20 09:24 116 H 151/90 H 03/20/20 09:01 119 H 03/20/20 08:31 118 H 03/20/20 08:24 118 H 138/75 03/20/20 08:01 39.3 C H 116 H 92 0913/20 07:39 103 H 17 93 03/20/20 07:34 103 H 17 93 03/20/20 07:31 115 H 93 03/20/20 07:24 117 H 128/73 93 03/20/20 07:01 117 H 92 03/20/20 05:24 117 H 124/76 93 03/20/20 04:55 119 H 23 92 03/20/20 04:26 38.4 C H 126 H 134/126 H 93 03/20/20 04:00 115 H 102/64 03/20/20 03:24 118 H 113/70 92 03/20/20 02:24 38.2 C H 121 H 133/64 92 03/20/20 02:06 110 H 22 93 03/20/20 01:24 113 H 115/66 92 03/20/20 00:24 38 C H 114 H 117/67 93 03/20/20 00:00 116 H 135/57 L 03/19/20 23:24 38 C H 119 H 121/68 91 Laboratory Results Short CBC 03/20/20 Range/Units 04:39 WBC 11.80 H (4.8-10.8) K/uL Hgb 12.6 L (14.0-18.0) g/dL Hct 38.7 L (42-52) % Plt Count 410 H (130-400) K/uL BMP 03/19/20 03/20/20 15:02 04:39 Sodium 140 141 Potassium 3.5 3.6 Chloride 102 103 Carbon Dioxide 31 29 BUN 12 14 Creatinine 0.63 0.65 Glucose 108 H 110 H Calcium 9.3 9.7 Medications Administered Current Inpatient Medications Albuterol (Albut/Ipratrop 3mg/0.5mg Neb 3 Ml Vial) 3 ml NEB Q2R PRN PRN Reason: Wheezing Stop: 04/14/20 06:13 Last Admin: 03/16/20 05:12 Dose: 3 ml Documented by: Albuterol (Albut/Ipratrop 3mg/0.5mg Neb 3 Ml Vial) 3 ml NEB Q4R GOLDIE Stop: 04/15/20 10:59 Last Admin: 03/20/20 07:39 Dose: 3 ml Documented by: Docusate Sodium (Docusate Sodium Syrup 100 Mg/10 Ml Udc) 100 mg NG BID GOLDIE Stop: 04/15/20 20:59 Last Admin: 03/20/20 07:45 Dose: 100 mg Documented by: Fentanyl Citrate (Fentanyl Bolus From Bag) 50 mcg IV Q60M PRN PRN Reason: Pain or Agitation Stop: 03/29/20 05:28 Last Admin: 03/19/20 01:56 Dose: 50 mcg Documented by: Fluoxetine HCl (Fluoxetine Hcl 20 Mg/5 Ml) 60 mg PO QAM [facility] Stop: 04/16/20 09:59 Last Admin: 03/20/20 07:46 Dose: 60 mg Documented by: Folic Acid (Folic Acid 1 Mg Tab) 1 mg PO QAM [facility] Stop: 04/16/20 08:59 Last Admin: 03/20/20 07:46 Dose: 1 mg Documented by: Heparin Sodium (Porcine) (Heparin Sod 5,000 Unit/0.5 Ml Vial) 5,000 units SQ Q12 [facility] Stop: 04/14/20 08:59 Last Admin: 03/20/20 07:45 Dose: 5,000 units Documented by: Piperacillin Sod/Tazobactam (Sod 3.375 gm/ Dextrose) 115 mls @ 28.75 mls/hr IV Q8H [facility]; Protocol Stop: 03/20/20 19:59 Last Infusion: 03/20/20 08:35 Dose: Infused Documented by: Pantoprazole Sodium 40 mg/ (Syringe) 10 mls @ 5 mls/min IV DAILY@1100 [facility]IE Stop: 04/13/20 10:59 Last Admin: 03/19/20 11:19 Dose: 5 mls/min Documented by: Propofol (Diprivan) 1,000 mg in 100 mls @ 11.775 mls/hr IV .Q8H30M [facility]; Protocol Stop: 03/21/20 05:29 Last Titration: 03/20/20 07:03 Dose: 25 mcg/kg/min, 11.8 mls/hr Documented by: Fentanyl Citrate (Fentanyl Drip) 1,250 mcg in 250 mls @ 25 mls/hr IV .Q10H PRN; Protocol PRN Reason: Pain Stop: 03/29/20 05:28 Last Titration: 03/20/20 07:03 Dose: 125 mcg/hr, 25 mls/hr Documented by: Midazolam HCl (Versed) 125 mg in 250 mls @ 12 mls/hr IV .[id number] PRN; Protocol PRN Reason: Agitation Stop: 04/15/20 08:44 Last Titration: 03/20/20 07:03 Dose: 6 mg/hr, 12 mls/hr Documented by: Acetaminophen ([facility]) 1,000 mg in 100 mls @ 400 mls/hr IV Q8H PRN; Protocol PRN Reason: PAIN OR FEVER Stop: 03/23/20 08:14 Last Admin: 03/20/20 08:40 Dose: 400 mls/hr Documented by: Lactulose (Lactulose Syrup 30 Gm/45 Ml Udp) 30 gm PO BID [facility] Stop: 04/17/20 09:59 Last Admin: 03/20/20 07:49 Dose: 30 gm Documented by: Midazolam HCl (Midazolam Bolus From Bag) 2 mg IV Q60M PRN PRN Reason: Sedation Stop: 04/15/20 08:44 Last Admin: 03/18/20 10:11 Dose: 2 mg Documented by: Miscellaneous (Icu Electrolyte Replacement Protocol) 1 ea N/A UD PRN PRN Reason: for e-lyte repletion Stop: 03/24/20 10:18 Miscellaneous (Remove Nicoderm Patch) 1 ea N/A DAILY@0859 [facility] Stop: 04/17/20 08:58 Last Admin: 03/20/20 07:50 Dose: 1 ea Documented by: Miscellaneous Information (Piperacill/Tazobac Consult Active) 1 ea N/A UD PRN PRN Reason: Consult Stop: 04/12/20 16:56 Nicotine (Nicotine 21 Mg/24 Hr Tdsy) 21 mg TD QAM [facility] Stop: 04/16/20 13:29 Last Admin: 03/20/20 07:46 Dose: 21 mg Documented by: Nutritional Formula (Peptamen Intense Vhp 1.0 [place] 1,000 Ml Bag) 1,000 ml OG UD [facility]; Protocol Stop: 04/15/20 13:29 Last Admin: 03/19/20 20:10 Dose: 1,000 ml Documented by: Ondansetron HCl (Ondansetron Inj 2 Mg/Ml 2 Ml Vial) 4 mg IV Q4H PRN PRN Reason: Nausea Stop: 04/18/20 05:07 Last Admin: 03/20/20 09:52 Dose: 4 mg Documented by: Propofol (Propofol Bolus From Bag) 20 mg IV Q5M PRN PRN Reason: Sedation Stop: 03/21/20 05:28 Last Admin: 03/19/20 04:00 Dose: 20 mg Documented by: Sennosides (Sennosides 8.8 Mg/5 Ml Udc) [facility]8 [facility] Stop: 04/16/20 08:59 Last Admin: 03/20/20 07:46 Dose: 8.8 mg Documented by: Thiamine HCl (Thiamine Hcl 100 Mg Tab) 100 mg PO QAM [facility] Stop: 04/16/20 08:59 Last Admin: 03/20/20 07:46 Dose: 100 mg Documented by: (1) Aspiration pneumonia Aspiration pneumonia type: unspecified Laterality: right Lung location: lower lobe of lung Qualified Code(s): J69.0 - Pneumonitis due to inhalation of food and vomit
[2020-03-20] MEDS ORDERED: METOCLOPRAMIDE HCL INJ 5 MG/ML 2 ML VIAL ONE (11:39)
--- NOTE | 2020-03-20 11:57 | XRay Report ---
XR chest 1V portable CLINICAL HISTORY: chest x ray COMPARISON STUDY: Chest radiograph March 20, 2020 at 6:45 AM. FINDINGS: Endotracheal tube has been removed. Nasogastric tube is coiled within the stomach. Tip proj ects over the gastric cardia. There is no pneumothorax or pleural effusion. Cardiomediastinal silhoue tte is unremarkable. Interstitial thickening and right basilar opacity is noted. Findings have slight ly improved since prior exam although this could be due to improved inspiration. IMPRESSION: 1. Interval removal of the endotracheal tube. 2. Reticulonodular interstitial thickening and right basilar opacity suggestive of pneumonia. Apparen t improvement since prior exam although, in part, this could be due to improved inspiration. ACT 112: Negative or not required by law. Electronically signed by: Sanya Mckeon M.D. 03/20/2020 11:55 AM
[2020-03-20] MEDS: PANTOprazole 40 MG in SYRINGE 0 ML IV SCH (11:59)
--- NOTE | 2020-03-20 11:59 | XRay Report ---
KUB CLINICAL HISTORY: vomiting COMPARISON STUDY: KUB March 18, 2020. CT of the abdomen and pelvis March 19, 2020. FINDINGS: Moderate gaseous distention of small and large bowel has mildly increased since CT of [facility] 2019. Transverse colon measures up to 8.5 cm in caliber. Small bowel measures up to 3.8 cm i n caliber. Nasogastric tube is coiled within the stomach. Tip projects over the gastric cardia. Bilat eral renal calculi are again noted. Right pelvic calcification reflects a phlebolith. IMPRESSION: 1. Mild increase in moderate gaseous distention of large and small bowel since CT of March 19. The appearance favors a persistent ileus. 2. Bilateral nephrolithiasis. ACT 112: Negative or not required by law. Electronically signed by: Sanya Mckeon M.D. 03/20/2020 11:58 AM
[2020-03-20] MEDS ORDERED: METOCLOPRAMIDE HCL INJ 5 MG/ML 2 ML VIAL IV ONE (12:00)
[2020-03-20] MEDS: PIPERACILLIN/TAZOBACTAM 4.5 GM in DEXTROSE 5% 100 ML IV SCH ×2 (12:09→20:35)
[2020-03-20] MEDS ORDERED: KETOROLAC 30 MG/ML VIAL ONE (12:27)
[2020-03-20] MEDS ORDERED: POTASSIUM PHOSPHATE 15 MMOL in SODIUM CHLORIDE 0.9% 250 ML IV ONE (13:15)
[2020-03-20] MEDS ORDERED: ACETAMINOPHEN 1,000 MG/100 ML VIAL IV STA (15:00)
--- NOTE | 2020-03-20 15:15 | Communication Note ---
Date of Service: March 20, 2020 Critical CARE addendum: Patient has been extubated. He is doing well on facemask. He still had multiple episodes of vomiting even though his NGT was on suction. Is usually bilious. Patient still has abdominal distention. KUB showed again colonic and small bowel distention most likely going towards ileus. Patient had CT abdomen pelvis yesterday which did not show any signs of obstruction. He had multiple bowel movements yesterday morning as well as today after extubation. 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 Patient electrolyte have been replaced and they are optimal. He has an NGT to decompress. We will put a rectal tube in. We will not give any opioids for the abdominal pain that the patient has been complaining of we will give him ketorolac 30 mg every 8 hours and Tylenol 1000 mg every 8 hours. If there is no improvement we will give neostigmine 1.5 mg slowly and see how he responds. If there is no response I will give him Methyl-naltrexone. Patient does have abdominal bowel sounds. His belly is distended not tense. It is tender to touch no rebound. Continue with IV fluids D5 half NS at 80 mL an hour If the above measures there is no improvement then surgery will be consulted as a last resort for decompression. Coding Level of Care Code Critical Care thai calvin'rell 30 min Time Spent (min) 20
[2020-03-20] MEDS: D5W AND 1/2NSS 1,000 ML IV SCH (15:27)
[2020-03-20] MEDS: KETOROLAC 30 MG/ML VIAL IV SCH (20:35)
[2020-03-21] MEDS: ALBUT/IPRATROP 3MG/0.5MG NEB 3 ML VIAL NEB SCH ×3 (03:01→11:35)
[2020-03-21] MEDS: PIPERACILLIN/TAZOBACTAM 4.5 GM in DEXTROSE 5% 100 ML IV SCH ×3 (04:11→19:58)
[2020-03-21] MEDS: D5W AND 1/2NSS 1,000 ML IV SCH (04:13)
[2020-03-21] MEDS: KETOROLAC 30 MG/ML VIAL IV SCH ×2 (04:14→12:12)
[2020-03-21] MEDS: propofoL 1,000 MG/100 ML VIAL IV SCH (04:14)
[2020-03-21 04:33] LABS: Basophils # (auto) 0.01 K/uL (0-0.2); Basophils % (auto) 0.1 %; Eosinophils # (auto) 0.06 K/uL (0-0.5); Eosinophils % (auto) 0.8 %; Hematocrit (blood only) 31.1 % (42-52); Hemoglobin 10.6 g/dL (14.0-18.0); Immature Granulocytes % (auto) 1.4 %; Lymphocytes # (auto) 0.97 K/uL (1.2-3.4); Lymphocytes % (auto) 13.3 %; Mean Corpuscular Hemoglobin 30.9 pg (25-34); Mean Corpuscular Hgb Conc 34.1 g/dL (32-36); Mean Corpuscular Volume 90.7 fL (80-100); Mean Platelet Volume 8.8 fL (7.4-10.4); Monocytes # (auto) 0.49 K/uL (0.11-0.59); Monocytes % (auto) 6.7 %; Neutrophils # (auto) 5.68 K/uL (1.4-6.5); Neutrophils % (auto) 77.7 %; Platelet Count 314 K/uL (130-400); RDW Coefficient of Variation 13.2 % (11.5-14.5); RDW Standard Deviation 43.8 fL (36.4-46.3); Red Blood Count 3.43 M/uL (4.7-6.1); White Blood Count 7.31 K/uL (4.8-10.8)
[2020-03-21 04:54] LABS: BUN Creatinine Ratio 41.7 (10-20); Blood Urea Nitrogen 19 mg/dl (7-18); Calcium 8.5 mg/dl (8.5-10.1); Carbon Dioxide 30 mmol/L (21-32); Chloride 105 mmol/L (98-107); Creatinine Clr Calc Pharmacy 218.1 ml/min; Est GFR (African American) > 150.0; Est GFR (Non-African American) 143.9; Glucose 104 mg/dl (70-99); Magnesium 2.1 mg/dl (1.8-2.4); Potassium 3.1 mmol/L (3.5-5.1); Sodium 140 mmol/L (136-145)
[2020-03-21 05:01] LABS: Phosphorus 1.9 mg/dl (2.5-4.9)
[2020-03-21] MEDS ORDERED: POTASSIUM PHOS 3 MMOL/1 ML INFUSION IV STA (06:01)
[2020-03-21] MEDS ORDERED: POTASSIUM PHOSPHATE 21 MMOL in SODIUM CHLORIDE 0.9% 500 ML IV STA (06:05)
[2020-03-21] MEDS: POTASSIUM CHLORIDE / WTR 10 MEQ/100 ML PLCT IV SCH ×6 (06:14→15:10)
--- NOTE | 2020-03-21 07:22 | XRay Report ---
KUB HISTORY: Acute generalized abdominal pain with ileus ileus COMPARISON: KUB 03/20/2020, CT abdomen pelvis 03/19/2020 FINDINGS: Distal tip of enteric tube projects over the abdominal left upper quadrant within the spect rum location of the mid gastric body. Bilateral nephrolithiasis. Air-filled loops of large and small bowel redemonstrated and appear stable slightly decreased from comparison. No renal calculi. No uret eral calculi. No pneumoperitoneum or pneumatosis. No fracture. IMPRESSION: 1. Stable to slightly decreased large and small bowel distention suggestive of ongoing ileus. 2. Distal tip of the enteric tube projects over the expected mid gastric body. 3. Bilateral nephrolithiasis. ACT 112: Negative or not required by law. The above report was generated using voice recognition software. It may contain grammatical, syntax o r spelling errors. Electronically signed by: Bola Beaulieu M.D. 03/21/2020 7:20 AM
[2020-03-21] MEDS ORDERED: VANCOMYCIN CONSULT ACTIVE PRN (08:25)
[2020-03-21] MEDS ORDERED: VANCOMYCIN HCL 1,500 MG in SODIUM CHLORIDE 0.9% 500 ML IV STA (08:28)
--- NOTE | 2020-03-21 09:17 | Critical Care Progress Note ---
Date of Service March 21, 2020 Assessment & Plan (1) Admitted to intensive care unit: -- VDRF: Resolved Likely secondary to withdrawal leading to right-sided aspiration pneumonia Extubated yesterday History of polysubstance abuse -Avoid narcotic medication --Sepsis: Resolved Single blood culture was positive, DNA probe negative not MRSA Zosyn day 9 Nasal MRSA was negative. --Ileus No clear signs of SBO Single dose of methyl naltrexone Converted anti-nausea medication to Reglan Keep electrolytes at the optimal level and replace as needed. --Multiple drug abuse UDS was positive for cocaine, opioids, ecstasy, benzodiazepines. This is 1 of the etiology the patient is very hard to sedate. --Prophylaxis VTE: Lovenox GI: Protonix Lines: Peripheral, Brewer discontinued 03/19/2020, NGT: Clamp today low output overnight will recheck in about 4 hours to see if there is any significant residual otherwise we will strongly consider discontinuation of the NG tube today. Diet: N.p.o. with sips and chips able to take meds Disposition: Patient stable for downgrade out of ICU (2) Respiratory distress: (3) Aspiration pneumonia: (4) Drug abuse: (5) Acute urinary retention: (6) Hypoxia: (7) Drug withdrawal: (8) Delirium: (9) Agitation: Admission and Anticipated Discharge Date Admission Date: March 13, 2020 Subjective States abdominal pain slightly improved, less distended today, reports 3 small stools overnight Review of Systems Review of Systems: All systems reviewed & are unremarkable except as noted in HPI & below Physical Exam Physical Exam: General: Alert. nontoxic. Skin: Warm, dry, Head: Atraumatic Ears, nose, mouth and throat: airway patent Cardiovascular: Normal peripheral perfusion Respiratory: no respiratory distress Gastrointestinal: Mild distention mild tympany non-tender does not represent ac [place] surgical abdomen. Musculoskeletal: No deformity Results & Data Results & Data ([facility]) Vital Signs (Past 12 Hours) Vital Signs Temp Pulse Pulse Resp BP Pulse Ox 03/21/20 06:25 36.5 C 88 28 H 117/64 95 03/21/20 05:25 90 16 116/71 96 03/21/20 04:25 36.5 C 93 H 20 117/62 89 L 03/21/20 04:00 88 154/58 H 03/21/20 03:25 99 H 23 92/50 L 96 03/21/20 03:03 91 H 16 95 03/21/20 02:25 37.2 C 78 18 132/69 98 03/21/20 01:25 37.2 C 91 H 20 115/70 97 03/21/20 00:25 37.1 C 88 19 115/62 95 03/21/20 00:00 95 H 138/58 L 03/20/20 23:31 90 18 95 03/20/20 23:25 84 23 116/73 93 03/20/20 22:24 36.7 C 87 24 124/75 96 03/20/20 21:25 90 22 121/73 94 Coding Level of Care Code 51521 Subseq Hosp Care Lvl 3 Diagnoses Admitted to intensive care unit Z78.9 Respiratory distress R06.03 Aspiration pneumonia J69.0 Aspiration pneumonia type: unspecified Laterality: right Lung location: lower lobe of lung Drug abuse F19.10 Acute urinary retention R33.8 Hypoxia R09.02 Drug withdrawal F19.239 Delirium R41.0 Agitation R45.1 (1) Aspiration pneumonia Aspiration pneumonia type: unspecified Laterality: right Lung location: lower lobe of lung Qualified Code(s): J69.0 - Pneumonitis due to inhalation of food and vomit
[2020-03-21] MEDS ORDERED: METOCLOPRAMIDE HCL INJ 5 MG/ML 2 ML VIAL IV PRN (10:18)
[2020-03-21] MEDS ORDERED: METHYLNALTREXONE BROMIDE 12 MG/0.6 ML VIAL SQ ONE (10:45)
[2020-03-21] MEDS ORDERED: NORMOSOL-R 500 ML IV ONE (10:45)
[2020-03-21] MEDS: FLUOXETINE HCL 20 MG/5 ML PO SCH (10:59)
[2020-03-21] MEDS: SENNOSIDES 8.8 MG/5 ML UDC GT SCH (10:59)
[2020-03-21] MEDS: DOCUSATE SODIUM SYRUP 100 MG/10 ML UDC NG SCH (10:59)
[2020-03-21] MEDS: HEPARIN SOD 5,000 UNIT/0.5 ML VIAL SQ SCH (10:59)
[2020-03-21] MEDS: THIAMINE HCL 100 MG TAB PO SCH (11:01)
[2020-03-21] MEDS: FLUOXETINE HCL 20 MG CAP PO SCH (11:02)
[2020-03-21] MEDS: ENOXAPARIN INJ 40 MG/0.4 ML SYR SQ SCH (11:02)
[2020-03-21] MEDS: FOLIC ACID 1 MG TAB PO SCH (11:02)
[2020-03-21] MEDS: NICOTINE 21 MG/24 HR TDSY TD SCH (11:02)
[2020-03-21] MEDS: PANTOprazole 40 MG in SYRINGE 0 ML IV SCH (11:04)
[2020-03-21 11:05] LABS: Reticulocyte % 1.7 % (0.5-2.0); Reticulocytes # 0.06 10^6/uL (0.02-0.10)
[2020-03-21 11:28] LABS: BUN Creatinine Ratio 37.2 (10-20); Blood Urea Nitrogen 16 mg/dl (7-18); Calcium 8.4 mg/dl (8.5-10.1); Carbon Dioxide 28 mmol/L (21-32); Chloride 105 mmol/L (98-107); Creatinine Clr Calc Pharmacy 218.1 ml/min; Est GFR (African American) > 150.0; Est GFR (Non-African American) 143.9; Glucose 101 mg/dl (70-99); Phosphorus 2.9 mg/dl (2.5-4.9); Potassium 3.1 mmol/L (3.5-5.1); Sodium 139 mmol/L (136-145)
[2020-03-21] MEDS: POTASSIUM CHLORIDE 40 MEQ in D5W AND 1/2NSS 1,000 ML IV SCH (11:28)
[2020-03-21] MEDS ORDERED: KETOROLAC TROMETHAMINE 10 MG TABLET PO PRN (12:15)
--- NOTE | 2020-03-21 12:33 | Ultrasound Report ---
ULTRASOUND BILATERAL LOWER EXTREMITY VENOUS CLINICAL HISTORY: Prolonged immobilization. COMPARISON STUDY: No priors. TECHNIQUE: Real-time, grayscale, and color Doppler sonography of the deep veins of the right and left lower extremity was performed from the inguinal crease to the calf. Compression and augmentation wer e utilized. FINDINGS: There is no sonographic evidence of deep venous thrombosis identified in the right or left lower extremity. The common femoral, superficial femoral, and popliteal veins are patent and normally compressible bilaterally. The greater saphenous vein and the profunda femoris vein at the junction w ith the common femoral vein are clear in both legs. The visualized calf veins are patent bilaterally. IMPRESSION: There is no sonographic evidence of deep venous thrombosis identified in the right or lef t lower extremity. ACT 112: Negative or not required by law. Electronically signed by: Juan Ortega M.D. 03/21/2020 12:31 PM
[2020-03-21 12:52] LABS: Adenovirus PCR Not Detected (NotDetected); Bordetella parapertussis PCR Not Detected (NotDetected); Bordetella pertussis PCR Not Detected (NotDetected); Chlamydia pneumoniae PCR Not Detected (NotDetected); Coronavirus 229E PCR Not Detected (NotDetected); Coronavirus CoV-2 (COVID19)PCR Not Detected (NotDetected); Coronavirus HKU1 PCR Not Detected (NotDetected); Coronavirus NL63 PCR Not Detected (NotDetected); Coronavirus OC43PCR Not Detected (NotDetected); Human Metapneumovirus PCR Not Detected (NotDetected); Influenza A PCR Not Detected (NotDetected); Influenza B PCR Not Detected (NotDetected); Mycoplasma pneumoniae PCR Not Detected (NotDetected); Parainfluenza Virus 1 PCR Not Detected (NotDetected); Parainfluenza Virus 2 PCR Not Detected (NotDetected); Parainfluenza Virus 3 PCR Not Detected (NotDetected); Parainfluenza Virus 4 PCR Not Detected (NotDetected); Respiratory Syncytial VirusPCR Not Detected (NotDetected); Rhinovirus/Enterovirus PCR Not Detected (NotDetected)
[2020-03-21 13:07] LABS: Appearance Urine Turbid (Clear); Bacteria Urine Automated Negative (Negative); Bilirubin Urine Negative (Negative); Blood Urine Negative (Negative); Color Urine Dark Yellow; Epithelial Cell Urine Auto >30 /lpf (0-5); Glucose Urine UA Negative (Negative); Ketones Urine 1+ (Negative); Leukocyte Esterase Urine Negative (Negative); Nitrite Urine Negative (Negative); Urobilinogen Urine Negative (Negative); pH Urine 8.5 (4.5-7.5)
[2020-03-21 13:25] LABS: Protein Urine Negative (Negative); Sulfosalicylic Acid Urine Negative (Negative)
[2020-03-21 13:29] LABS: Amorphous Sediment Urine Present (None Prsent)
--- NOTE | 2020-03-21 13:43 | Hospitalist Progress Note ---
Date of Service March 21, 2020 Assessment & Plan (1) Acute respiratory failure with hypoxia: polypharmacy drug withdrawal causing aspiration pneumonia and subsequent respiratory failure requiring ventilation for several days. Extubated 03/20 and doing well. Currently off supplemental oxygen. No increased respiratory effort. (2) Aspiration pneumonia: Zosyn, bronchodilators scheduled (3) Abdominal distension: Likely 2/2 Ileus-Ogilve's syndrome in the differential. NG tube in place. KUB with persistent ileus this morning, maybe slightly improved. Abdomen still distended and he remains NPO. All opiates off. rectal tube out ovenight. Cont supportive care. Minimize anything PO at this time, including excess pills and ice chips and water. (4) Drug withdrawal: resolved. (5) Anemia: Multifactorial. Developed just since admission, likely secondary to frequent phlebotomy, acute illness that was severe, and dilution 2/2 fluids. No overt blood loss. (6) Depression: fluoxetine per home regimen. (7) DVT prophylaxis: Lovenox Full Code Dispo-ICU Aline Knight DO [facility] Hospitalist Admission and Anticipated Discharge Date Admission Date: March 13, 2020 Subjective doing well today extubated yesterday breathing is better lungs are more clear and off oxygen support. abdominal distension with severe ileus still present patient pooped out his rectal tube overnight NG tube in place denies pain Still NPO Review of Systems Review of Systems: All systems reviewed & are unremarkable except as noted in Subjective Physical Exam Physical Exam: CONSTITUTIONAL: WNWD, vitals as above, NAD EYES: pupils are equal and round bilaterally, normal conjunctivae, no scleral icterus ENT: external ear and nose normal, MMM. NG tube in place. No supplemental oxygen. NECK: trachea midline RESPIRATORY: coarse rhonchi throughout all lung trivedi which has significantly improved and there are areas of clear air movement. No increased respiratory effort. CARDIOVASCULAR: regular rate and rhythm, S1 and 2 heard without murmurs, gallops or rubs, no JVD, no peripheral edema GASTROINTESTINAL: normal bowel sounds, soft, persistent distention MUSCULOSKELETAL: 5/5 throughout, can sit up in bed on his own. SKIN: warm and dry NEUROLOGIC: appears to have no gross focal deficits. Results & Data Results & Data ([facility]) Vital Signs (Past 12 Hours) Vital Signs Temp Pulse Pulse Resp BP Pulse Ox 03/21/20 11:35 80 16 92 03/21/20 06:25 36.5 C 88 28 H 117/64 95 03/21/20 05:25 90 16 116/71 96 03/21/20 04:25 36.5 C 93 H 20 117/62 89 L 03/21/20 04:00 88 154/58 H 03/21/20 03:25 99 H 23 92/50 L 96 03/21/20 03:03 91 H 16 95 03/21/20 02:25 37.2 C 78 18 132/69 98 Laboratory Results Short CBC 03/21/20 Range/Units 04:20 WBC 7.31 (4.8-10.8) K/uL Hgb 10.6 L (14.0-18.0) g/dL Hct 31.1 L (42-52) % Plt Count 314 (130-400) K/uL BMP 03/21/20 03/21/20 04:20 10:54 Sodium 140 139 Potassium 3.1 L 3.1 L Chloride 105 105 Carbon Dioxide 30 28 BUN 19 H 16 Creatinine 0.44 L 0.44 L Glucose 104 H 101 H Calcium 8.5 8.4 L Urine 03/21/20 Range/Units 12:55 Urine Color Dark Yellow Urine Appearance Turbid A (Clear) Urine pH 8.5 H (4.5-7.5) Ur Specific [place] 1.030 (1.000-1.030) Urine Protein Negative (Negative) Urine Glucose (UA) Negative (Negative) Diagnostic Findings ULTRASOUND BILATERAL LOWER EXTREMITY VENOUS CLINICAL HISTORY: Prolonged immobilization. COMPARISON STUDY: No priors. TECHNIQUE: Real-time, grayscale, and color Doppler sonography of the deep veins of the right and left lower extremity was performed from the inguinal crease to the calf. Compression and augmentation were utilized. FINDINGS: There is no sonographic evidence of deep venous thrombosis identified in the right or left lower extremity. The common femoral, superficial femoral, and popliteal veins are patent and normally compressible bilaterally. The greater saphenous vein and the profunda femoris vein at the junction with the common femoral vein are clear in both legs. The visualized calf veins are patent bilaterally. IMPRESSION: There is no sonographic evidence of deep venous thrombosis identified in the right or left lower extremity. CT ANGIOGRAM OF THE CHEST CLINICAL HISTORY: Shortness of breath. Possible pulmonary embolism COMPARISON STUDY: Chest x-ray dated 03/20/2020 TECHNIQUE: Following the IV administration of 120 mL of Optiray-320, CT angiogram of the thorax was performed from the thoracic inlet to the lung bases utilizing the pulmonary embolus protocol. Images are reviewed in the axial, sagittal, and coronal planes. IV contrast was administered without complication. MIP imaging was performed. A dose lowering technique was utilized adhering to the principles of ALARA. CT DOSE: 429.40 mGy.cm FINDINGS: Hilar lymph nodes are the upper limits of normal in size. There is an AP window lymph node the upper limits of normal in size. There was no evidence of thoracic aortic dilatation. There were no pulmonary artery filling defects to indicate acute pulmonary embolism. No pleural effusions are visualized. There is diffuse bilateral parenchymal micronodule area. Within the upper lobes, there are multifocal groundglass opacities. There is also an 8 mm solid nodule within the right upper lobe. Within the right lower lobe, there are multiple irregular pulmonary nodules measuring up to 19 mm in diameter. There is a 14 mm rounded multilocular cystic lesion likely representing focal bronchiectatic change. The lung findings are nonspecific. One month follow-up chest CT is recommended. There is a nasogastric tube which passes into the stomach. IMPRESSION: 1. No evidence of acute pulmonary embolism 2. Diffuse bilateral miliary pulmonary nodules 3. Multifocal upper lobe groundglass pulmonary opacities 4. Multiple solid pulmonary nodules, most prevalent within the right lower lobe measuring up to 19 mm in diameter. 5. While nonspecific, the above-mentioned findings are likely infectious/inflammatory. Atypical infections must be considered. A one month follow-up CT scan is recommended. ----- KUB HISTORY: Acute generalized abdominal pain with ileus ileus COMPARISON: KUB 03/20/2020, CT abdomen pelvis 03/19/2020 FINDINGS: Distal tip of enteric tube projects over the abdominal left upper quadrant within the spectrum location of the mid gastric body. Bilateral nep hrolithiasis. Air-filled loops of large and small bowel redemonstrated and appear stable slightly decreased from comparison. No renal calculi. No ureteral calculi. No pneumoperitoneum or pneumatosis. No fracture. IMPRESSION: 1. Stable to slightly decreased large and small bowel distention suggestive of ongoing ileus. 2. Distal tip of the enteric tube projects over the expected mid gastric body. 3. Bilateral nephrolithiasis. Medications Administered Current Inpatient Medications Albuterol (Albut/Ipratrop 3mg/0.5mg Neb 3 Ml Vial) 3 ml NEB Q2R PRN PRN Reason: Wheezing Stop: 04/14/20 06:13 Last Admin: 03/16/20 05:12 Dose: 3 ml Documented by: Enoxaparin Sodium (Enoxaparin Inj 40 Mg/0.4 Ml Syr) 40 mg SQ [facility] Stop: 04/20/20 10:59 Last Admin: 03/21/20 11:02 Dose: 40 mg Documented by: Fluoxetine HCl (Fluoxetine Hcl 20 Mg Cap) 60 mg PO [facility] Stop: 04/20/20 10:29 Last Admin: 03/21/20 11:02 Dose: 60 mg Documented by: Folic Acid (Folic Acid 1 Mg Tab) [facility] Stop: 04/16/20 08:59 Last Admin: 03/21/20 11:02 Dose: 1 mg Documented by: Pantoprazole Sodium 40 mg/ (Syringe) 10 mls @ 5 mls/min IV DAILY@1100 [facility] Stop: 04/13/20 10:59 Last Admin: 03/21/20 11:04 Dose: 5 mls/min Documented by: Acetaminophen (Ofirmev) 1,000 mg in 100 mls @ 400 mls/hr IV Q8H PRN; Protocol PRN Reason: PAIN OR FEVER Stop: 03/23/20 08:14 Last Infusion: 03/20/20 12:28 Dose: Infused Documented by: Piperacillin Sod/Tazobactam (Sod 4.5 gm/ Dextrose) 120 mls @ 30 mls/hr IV Q8H [facility]; Protocol Stop: 03/27/20 11:59 Last Admin: 03/21/20 12:11 Dose: 28.8 mls/hr Documented by: Potassium Chloride (K Man / Wtr) 10 meq in 100 mls @ 100 mls/hr IV Q1H [facility] Stop: 04/20/20 06:14 Last Admin: 03/21/20 12:58 Dose: 100 mls/hr Documented by: Potassium Chloride 40 meq/ (Dextrose/Sodium Chloride) 1,020 mls @ 80 mls/hr IV .[id number] [facility] Stop: 04/20/20 11:14 Last Admin: 03/21/20 11:28 Dose: 80 mls/hr Documented by: Ketorolac Tromethamine (Ketorolac Tromethamine 10 Mg Tablet) 10 mg PO Q8H PRN PRN Reason: Pain Stop: 03/26/20 12:14 Metoclopramide HCl (Metoclopramide Hcl Inj 5 Mg/Ml 2 Ml Vial) 10 mg IV Q6H PRN PRN Reason: Nausea Stop: 04/20/20 10:17 Miscellaneous (Icu Electrolyte Replacement Protocol) 1 ea N/A UD PRN PRN Reason: for e-lyte repletion Stop: 03/24/20 10:18 Miscellaneous (Remove Nicoderm Patch) 1 ea N/A DAILY@0859 [facility] Stop: 04/17/20 08:58 Last Admin: 03/21/20 11:01 Dose: 1 ea Documented by: Miscellaneous Information (Piperacill/Tazobac Consult Active) 1 ea N/A UD PRN PRN Reason: Consult Stop: 04/12/20 16:56 Nicotine (Nicotine 21 Mg/24 Hr Tdsy) 21 mg TD QAM [facility] Stop: 04/16/20 13:29 Last Admin: 03/21/20 11:02 Dose: 21 mg Documented by: Thiamine HCl (Thiamine Hcl 100 Mg Tab) 100 mg PO QAM [facility] Stop: 04/16/20 08:59 Last Admin: 03/21/20 11:01 Dose: 100 mg Documented by: (1) Aspiration pneumonia Aspiration pneumonia type: unspecified Laterality: right Lung location: lower lobe of lung Qualified Code(s): J69.0 - Pneumonitis due to inhalation of food and vomit
[2020-03-21] MEDS ORDERED: OPTIRAY 320 125ml IV ONE ×2 (15:10→15:12)
--- NOTE | 2020-03-21 15:30 | CT Scan Report ---
CT ANGIOGRAM OF THE CHEST CLINICAL HISTORY: Shortness of breath. Possible pulmonary embolism COMPARISON STUDY: Chest x-ray dated 03/20/2020 TECHNIQUE: Following the IV administration of 120 mL of Optiray-320, CT angiogram of the thorax was p erformed from the thoracic inlet to the lung bases utilizing the pulmonary embolus protocol. Images a re reviewed in the axial, sagittal, and coronal planes. IV contrast was administered without complica tion. MIP imaging was performed. A dose lowering technique was utilized adhering to the principles o f ALARA. CT DOSE: 429.40 mGy.cm FINDINGS: Hilar lymph nodes are the upper limits of normal in size. There is an AP window lymph node the upper limits of normal in size. There was no evidence of thoracic aortic dilatation. There were no pulmonary artery filling defects to indicate acute pulmonary embolism. No pleural effusions are visualized. There is diffuse bilateral parenchymal micronodule area. Within the upper lobes, there are multifocal groundglass opacities. There is also an 8 mm solid nodule within the right upper lobe. Within the ri ght lower lobe, there are multiple irregular pulmonary nodules measuring up to 19 mm in diameter. The re is a 14 mm rounded multilocular cystic lesion likely representing focal bronchiectatic change. The lung findings are nonspecific. One month follow-up chest CT is recommended. There is a nasogastric tube which passes into the stomach. IMPRESSION: 1. No evidence of acute pulmonary embolism 2. Diffuse bilateral miliary pulmonary nodules 3. Multifocal upper lobe groundglass pulmonary opacities 4. Multiple solid pulmonary nodules, most prevalent within the right lower lobe measuring up to 19 mm in diameter. 5. While nonspecific, the above-mentioned findings are likely infectious/inflammatory. Atypical infec tions must be considered. A one month follow-up CT scan is recommended. ACT 112: Negative or not required by law. Electronically signed by: Blas Abdullahi M.D. 03/21/2020 3:29 PM
[2020-03-21 20:14] LABS: BUN Creatinine Ratio 30.3 (10-20); Blood Urea Nitrogen 12 mg/dl (7-18); Calcium 8.6 mg/dl (8.5-10.1); Carbon Dioxide 23 mmol/L (21-32); Chloride 106 mmol/L (98-107); Creatinine Clr Calc Pharmacy 239.9 ml/min; Est GFR (African American) > 150.0; Est GFR (Non-African American) 149.6; Glucose 92 mg/dl (70-99); Potassium 3.4 mmol/L (3.5-5.1); Sodium 137 mmol/L (136-145)
[2020-03-22] MEDS: ACETAMINOPHEN 1,000 MG/100 ML VIAL IV PRN (01:56)
[2020-03-22 04:28] LABS: Basophils # (auto) 0.01 K/uL (0-0.2); Basophils % (auto) 0.1 %; Eosinophils % (auto) 1.2 %; Hematocrit (blood only) 32.8 % (42-52); Hemoglobin 11.1 g/dL (14.0-18.0); Immature Granulocytes # (auto) 0.14 K/uL (0.00-0.02); Immature Granulocytes % (auto) 1.7 %; Lymphocytes # (auto) 0.91 K/uL (1.2-3.4); Mean Corpuscular Hemoglobin 29.8 pg (25-34); Mean Corpuscular Hgb Conc 33.8 g/dL (32-36); Mean Corpuscular Volume 88.2 fL (80-100); Monocytes # (auto) 0.55 K/uL (0.11-0.59); Monocytes % (auto) 6.7 %; Neutrophils # (auto) 6.56 K/uL (1.4-6.5); Neutrophils % (auto) 79.3 %; Platelet Count 384 K/uL (130-400); RDW Coefficient of Variation 12.8 % (11.5-14.5); RDW Standard Deviation 41.1 fL (36.4-46.3); Red Blood Count 3.72 M/uL (4.7-6.1); White Blood Count 8.27 K/uL (4.8-10.8)
[2020-03-22] MEDS: PIPERACILLIN/TAZOBACTAM 4.5 GM in DEXTROSE 5% 100 ML IV SCH ×3 (04:29→20:46)
[2020-03-22] MEDS: POTASSIUM CHLORIDE 40 MEQ in D5W AND 1/2NSS 1,000 ML IV SCH ×2 (04:29→17:16)
[2020-03-22 04:46] LABS: BUN Creatinine Ratio 28.4 (10-20); Blood Urea Nitrogen 13 mg/dl (7-18); Calcium 8.1 mg/dl (8.5-10.1); Carbon Dioxide 23 mmol/L (21-32); Chloride 106 mmol/L (98-107); Creatinine Clr Calc Pharmacy 208.6 ml/min; Est GFR (African American) > 150.0; Est GFR (Non-African American) 141.3; Glucose 111 mg/dl (70-99); Magnesium 1.8 mg/dl (1.8-2.4); Potassium 3.5 mmol/L (3.5-5.1); Sodium 136 mmol/L (136-145)
[2020-03-22 04:47] LABS: Phosphorus 1.8 mg/dl (2.5-4.9)
[2020-03-22] MEDS: NICOTINE 21 MG/24 HR TDSY TD SCH (08:01)
[2020-03-22] MEDS: ENOXAPARIN INJ 40 MG/0.4 ML SYR SQ SCH (08:01)
[2020-03-22] MEDS: THIAMINE HCL 100 MG in SYRINGE 9 ML IV SCH (08:01)
[2020-03-22] MEDS: FOLIC ACID 1 MG in SYRINGE 9.8 ML IV SCH (08:01)
[2020-03-22] MEDS: FLUOXETINE HCL 20 MG CAP PO SCH (08:01)
--- NOTE | 2020-03-22 08:31 | XRay Report ---
XR KUB/Abdomen 1 view CLINICAL HISTORY: ileus COMPARISON STUDY: 03/21/2020, CT scan dated 03/19/2020 FINDINGS: The nasogastric tube has been removed. There are multiple dilated small bowel loops measuri ng up to 6.3 cm in diameter. There is a relative paucity of colonic gas. While the findings are suspi cious for obstruction, the recent CT scan performed 03/19/2020 reveal no evidence of small bowel obstr uction. Bilateral nephrolithiasis IMPRESSION: 1. Nonspecific bowel gas pattern with multiple dilated small bowel loops. 2. Bilateral nephrolithiasis ACT 112: Negative or not required by law. Electronically signed by: Blas Abdullahi M.D. 03/22/2020 8:30 AM
[2020-03-22] MEDS ORDERED: POTASSIUM PHOS 3 MMOL/1 ML INFUSION IV STA (09:21)
[2020-03-22] MEDS ORDERED: POTASSIUM PHOSPHATE 30 MMOL in SODIUM CHLORIDE 0.9% 500 ML IV ONE (09:30)
--- NOTE | 2020-03-22 09:51 | Hospitalist Progress Note ---
Date of Service March 22, 2020 Assessment & Plan (1) Acute respiratory failure with hypoxia: polypharmacy drug withdrawal causing aspiration pneumonia and subsequent respiratory failure requiring ventilation for several days. Extubated 03/20 and doing well. Currently off supplemental oxygen. No increased respiratory effort. Resolved. (2) Aspiration pneumonia: Zosyn, bronchodilators scheduled. Azithro added today. May stop it per ID if Legionella Ag is negative. See ID recommendations. Per coordinator integrated marketing there may be some drug-induced lung injury and he may want to perform a bronch. (3) Ileus: Resolved and tolerateing clears. Advance diet very slowly. (4) Drug withdrawal: resolved. (5) Anemia: Multifactorial. Developed just since admission, likely secondary to frequent phlebotomy, acute illness that was severe, and dilution 2/2 fluids. No overt blood loss. (6) Depression: fluoxetine per home regimen. (7) DVT prophylaxis: Lovenox Full Code Dispo-transferred to PCU. When tolerating solids reliably he can return home. [facility] and Anticipated Discharge Date Admission Date: March 13, 2020 Subjective Transferred out of ICU. NGT out yesterday GI saw patient Ileus appears resolved on KUB this am Started a trial of clears with success Continues to have multiple BMs C-diff pending. Review of Systems Review of Systems: All systems reviewed & are unremarkable except as noted in Subjective Physical Exam Physical Exam: CONSTITUTIONAL: WNWD, vitals as above, NAD EYES: pupils are equal and round bilaterally, normal conjunctivae, no scleral icterus ENT: external ear and nose normal, MMM. No supplemental oxygen. NECK: trachea midline RESPIRATORY: CTAB. No increased respiratory effort. CARDIOVASCULAR: regular rate and rhythm, S1 and 2 heard without murmurs, gallops or rubs, no JVD, no peripheral edema GASTROINTESTINAL: normal bowel sounds, soft, distension is greatly improved and abdomen is much softer. nontender. MUSCULOSKELETAL: 5/5 throughout, can sit up in bed on his own. Ambulates independently. SKIN: warm and dry NEUROLOGIC: appears to have no gross focal deficits. Results & Data Results & Data ([facility]) Vital Signs (Past 12 Hours) Vital Signs Temp Pulse Pulse Resp BP BP Pulse Ox 03/22/20 09:00 36.5 C 97 H 15 94 03/22/20 08:25 96 H 24 146/84 H 03/22/20 08:00 76 33 H 91 03/22/20 07:25 75 24 131/97 94 03/22/20 07:01 87 27 H 93 03/22/20 06:46 81 28 H 95 03/22/20 05:25 76 24 139/84 92 03/22/20 04:25 36.9 C 78 22 135/89 94 03/22/20 03:25 73 18 130/80 94 03/22/20 02:25 80 24 131/83 93 03/22/20 01:25 71 23 117/63 93 03/22/20 00:25 87 21 132/79 92 03/22/20 00:00 36.9 C 85 20 130/81 96 Laboratory Results Short CBC 03/22/20 Range/Units 04:08 WBC 8.27 (4.8-10.8) K/uL Hgb 11.1 L (14.0-18.0) g/dL Hct 32.8 L (42-52) % Plt Count 384 (130-400) K/uL BMP 03/21/20 03/21/20 03/22/20 10:54 19:07 04:08 Sodium 139 137 136 Potassium 3.1 L 3.4 L 3.5 Chloride 105 106 106 Carbon Dioxide 28 23 23 BUN 16 12 13 Creatinine 0.44 L 0.40 L 0.46 L Glucose 101 H 92 111 H Calcium 8.4 L 8.6 8.1 L Urine 03/21/20 Range/Units 12:55 Urine Color Dark Yellow Urine Appearance Turbid A (Clear) Urine pH 8.5 H (4.5-7.5) Ur Specific [place] 1.030 (1.000-1.030) Urine Protein Negative (Negative) Urine Glucose (UA) Negative (Negative) Medications Administered Current Inpatient Medications Albuterol (Albut/Ipratrop 3mg/0.5mg Neb 3 Ml Vial) 3 ml NEB Q2R PRN PRN Reason: Wheezing Stop: 04/14/20 06:13 Last Admin: 03/16/20 05:12 Dose: 3 ml Documented by: Enoxaparin Sodium (Enoxaparin Inj 40 Mg/0.4 Ml Syr) 40 mg SQ QAM [facility] Stop: 04/20/20 10:59 Last Admin: 03/22/20 08:01 Dose: 40 mg Documented by: Fluoxetine HCl (Fluoxetine Hcl 20 Mg Cap) 60 mg PO QAM [facility] Stop: 04/20/20 10:29 Last Admin: 03/22/20 08:01 Dose: 60 mg Documented by: Pantoprazole Sodium 40 mg/ (Syringe) 10 mls @ 5 mls/min IV DAILY@1100 [facility] Stop: 04/13/20 10:59 Last Admin: 03/21/20 11:04 Dose: 5 mls/min Documented by: Acetaminophen (Ofirmev) 1,000 mg in 100 mls @ 400 mls/hr IV Q8H PRN; Protocol PRN Reason: PAIN OR FEVER Stop: 03/23/20 08:14 Last Infusion: 03/22/20 02:15 Dose: Infused Documented by: Piperacillin Sod/Tazobactam (Sod 4.5 gm/ Dextrose) 120 mls @ 30 mls/hr IV Q8H [facility]; Protocol Stop: 03/27/20 11:59 Last Infusion: 03/22/20 09:02 Dose: Infused Documented by: Potassium Chloride 40 meq/ (Dextrose/Sodium Chloride) 1,020 mls @ 80 mls/hr IV .[id number] [facility] Stop: 04/20/20 11:14 Last Admin: 03/22/20 04:29 Dose: 80 mls/hr Documented by: Folic Acid 1 mg/ Syringe 10 mls @ 5 mls[facility] Stop: 04/21/20 08:59 Last Admin: 03/22/20 08:01 Dose: 5 mls/min Documented by: Thiamine HCl 100 mg/ Syringe 10 mls @ 2 mls/min IV [facility] Stop: 04/21/20 08:59 Last Admin: 03/22/20 08:01 Dose: 2 mls/min Documented by: Magnesium Sulfate/Dextrose (Magnesium Sulfate / D5w) 1 gm in 100 mls @ 50 mls/hr IV Q2H [facility] Stop: 03/22/20 13:59 Potassium Phosphate 30 mmol/ (Sodium Chloride) 510 mls @ 102 mls/hr IV ONE ONE Stop: 03/22/20 14:29 Ketorolac Tromethamine (Ketorolac Tromethamine 10 Mg Tablet) 10 mg PO Q8H PRN PRN Reason: Pain Stop: 03/26/20 12:14 Metoclopramide HCl (Metoclopramide Hcl Inj 5 Mg/Ml 2 Ml Vial) 10 mg IV Q6H PRN PRN Reason: Nausea Stop: 04/20/20 10:17 Miscellaneous (Remove Nicoderm Patch) 1 ea N/A DAILY@0859 [facility] Stop: 04/17/20 08:58 Last Admin: 03/22/20 08:02 Dose: 1 ea Documented by: Miscellaneous Information (Piperacill/Tazobac Consult Active) 1 ea N/A UD PRN PRN Reason: Consult Stop: 04/12/20 16:56 Nicotine (Nicotine 21 Mg/24 Hr Tdsy) 21 mg TD QAM [facility] Stop: 04/16/20 13:29 Last Admin: 03/22/20 08:01 Dose: 21 mg Documented by: (1) Aspiration pneumonia Aspiration pneumonia type: unspecified Laterality: right Lung location: lower lobe of lung Qualified Code(s): J69.0 - Pneumonitis due to inhalation of food and vomit
[2020-03-22] MEDS: MAGNESIUM SULFATE / D5W 1 GM/100 ML BAG IV SCH ×2 (10:08→11:08)
--- NOTE | 2020-03-22 10:15 | Critical Care Progress Note ---
Date of Service March 22, 2020 Assessment & Plan (1) Admitted to intensive care unit: -- VDRF Patient extubated and doing well at this time. Saturating well on room air. --Sepsis due to pneumonia and possible GI source CT chest yesterday with evidence of diffuse groundglass and bronchiolitis. Respiratory viral panel and COVID-19 testing negative. Possible inhalational injury from crack/cocaine or amphetamines. We will hold on steroids at this time. Started azithromycin today for atypical coverage. Should be completing course of Zosyn for abdominal source of infection. Checking a C. difficile today. --Ileus No clear signs of SBO Consulting GI. Obtaining C. difficile for evaluation. His belly is still distended but not tense. Keep electrolytes at the optimal level and replace as needed. --Multiple drug abuse UDS was positive for cocaine, opioids, ecstasy, benzodiazepines. --Prophylaxis VTE: Heparin GI: Protonix Lines: Peripheral, Brewer discontinued 03/19/2020, NGT Diet: N.p.o. for now until GI sees him. Might try clear liquid diet later today. I think he is stable to be transferred to floor with telemetry at this point. Pulmonary will continue to follow on the floor. Please keep him n.p.o. over midnight for possible bronchoscopy tomorrow. (2) Respiratory distress: (3) Aspiration pneumonia: (4) Drug abuse: (5) Acute urinary retention: (6) Hypoxia: (7) Drug withdrawal: (8) Delirium: (9) Agitation: Admission and Anticipated Discharge Date Admission Date: March 13, 2020 Subjective Patient seen and examined today. He is doing much better today he is sitting up in a chair. He notes that he has been ambulating. He has numerous small liquid bowel movements with mucus. Abdominal pain has improved substantially. He still has not had any food to eat. Denies any nausea or vomiting. No significant shortness of breath. Review of Systems Review of Systems: All systems reviewed & are unremarkable except as noted in HPI & below Physical Exam Physical Exam: General: Alert. nontoxic. Skin: Warm, dry, Head: Atraumatic Ears, nose, mouth and throat: airway patent Cardiovascular: Normal peripheral perfusion Respiratory: no respiratory distress Gastrointestinal: Mild distention mild tympany non-tender does not represent ac nikolai surgical abdomen. Musculoskeletal: No deformity Results & Data Results & Data ([facility]) Vital Signs (Past 12 Hours) Vital Signs Temp Pulse Pulse Resp BP BP Pulse Ox 03/22/20 09:00 97.7 F 97 H 15 94 03/22/20 08:25 96 H 24 146/84 H 03/22/20 08:00 76 33 H 91 03/22/20 07:25 75 24 131/97 94 03/22/20 07:01 87 27 H 93 03/22/20 06:46 81 28 H 95 03/22/20 05:25 76 24 139/84 92 03/22/20 04:25 98.4 F 78 22 135/89 94 03/22/20 03:25 73 18 130/80 94 03/22/20 02:25 80 24 131/83 93 03/22/20 01:25 71 23 117/63 93 03/22/20 00:25 87 21 132/79 92 03/22/20 00:00 98.4 F 85 20 130/81 96 I reviewed vital signs, labs and imaging Coding Level of Care Code 64460 Subseq Hosp Care Lvl 3 Diagnoses Admitted to intensive care unit Z78.9 Respiratory distress R06.03 Aspiration pneumonia J69.0 Aspiration pneumonia type: unspecified Laterality: right Lung location: lower lobe of lung Drug abuse F19.10 Acute urinary retention R33.8 Hypoxia R09.02 Drug withdrawal F19.239 Delirium R41.0 Agitation R45.1 (1) Aspiration pneumonia Aspiration pneumonia type: unspecified Laterality: right Lung location: lower lobe of lung Qualified Code(s): J69.0 - Pneumonitis due to inhalation of food and vomit
[2020-03-22] MEDS ORDERED: AZITHROMYCIN 500 MG in DEXTROSE 5% 250 ML IV SCH (11:00)
--- NOTE | 2020-03-22 11:00 | Gastrointestinal Consultation ---
Date of Consultation March 22, 2020 Assessment & Plan (1) Ileus: KUB from this morning demonstrated improved small bowel wall dilation without clear evidence of an obstruction. NG has been removed. 1. Recommend reinsertion of NG if patient starting vomiting. 2. Otherwise, can advance to clear liquids if tolerated as no abdominal pain or vomiting at this time. 3. Continue antibiotics as prescribed. 4. Await C Diff testing as ordered and input from ID in regard to coag neg staph bacteremia. 5. Continue supportive care. 6. May consider outpatient colonoscopy if clinically indicated. Thank you for allowing us to participate in the care of this patient. If you have any questions or concerns, do not hesitate to contact us. Supervising Physician Co-Signing Physician Notes I personally evaluated the patient and agree with the findings as documented by TIERRA Meng Exam: abd: soft, nt, mild distention improving, having multiple liquid bms today. will need colonoscopy in the near future to further evaluate, likely as an outpatient. History of Present Illness Reason for Consultation: Pseudoobstruction Requesting Physician: Dr. Rodriguez Attending Physician: Aline Knight DO History of Present Illness Patient is a 39 year-old male with a history of polysubstance abuse admitted to the ICU with hypoxia and suspected aspiration pneumonia in the setting of acute withdrawal requiring intubation. He was admitted to the hospital on 03/13/2020. He has since been extubated and has been maintaining his 02 saturations. GI has been consulted in regard to abdominal distention and abnormal x ray imaging suggestive of ileus with multiple dilated small bowel loops. Today's KUB, however, demonstrated improvement from previous imaging which was obtained on previous days. He did have an NG for decompression, this has since been removed. The patient is lethargic and not able to provide much history but denies any abdominal pain. Denies any passage of stool. Unclear if he is passing flatus. He did undergo a normal colonoscopy (with the exception of internal hemorrhoids) last year by Dr. Eisenberg which was ordered after a GI consult with Shonda Albert PA-C for rectal bleeding. He became lost to follow up after the procedure. Laboratory testing from today reviewed. No leukocytosis, hemoglobin 11.1, hematocrit 32.8%, platelets 384, sodium 136, potassium 3.5, BUN 12 and creatinine 0.46. He did have a positive blood culture with coag neg staph and ID evaluation is pending in this regard. A C Diff has been ordered but not collected. He is being covered with Azithromycin in addition to Zosyn. Allergies Allergy/AdvReac Type Severity Reaction Status Date / Time grass pollen Allergy Severe CONGESTION-SINUS Verified 03/13/20 15:27 INFECTIONS, COUGH, SOB tree and shrub pollen Allergy Severe CONGESTION, Verified 03/13/20 15:27 COUGH, SOB weed pollen Allergy Severe CONGESTION, Verified 03/13/20 15:27 COUGH, SOB dog dander Allergy Intermediate SNEEZING, Verified 03/13/20 15:27 CONGESTION house dust mite Allergy Intermediate SNEEZING, Verified 03/13/20 15:27 CONGESTION, SINUS INFECTION, SOB Home Medications Home Medications Medication Instructions Recorded Confirmed Type fexofenadine 180 mg PO QAM 08/21/18 03/13/20 History fluoxetine 20 mg PO QPM 08/21/18 03/13/20 History multivitamin 1 cap PO QAM 08/21/18 03/13/20 History omeprazole 20 mg PO QAM 08/21/18 03/13/20 History epinephrine 0.3 mg/0.3 mL 0.3 mg IM .INJECT 0.3ML INTRAMU ea 10/20/19 03/13/20 History injection, auto-injector azelastine 2 sprays INTRANASAL BID PRN 03/13/20 03/13/20 History fluoxetine 40 mg PO QPM 03/13/20 03/13/20 History Patient History Medical History Abdominal pain, acute, right lower quadrant Allergic rhinitis Blood in stool Change in bowel habits Chronic sinusitis Depression GERD (gastroesophageal reflux disease) Hypertrophy of both inferior nasal turbinates Kidney stones Mucous in stools Surgical History History of adenoidectomy History of carpal tunnel release B/L History of endoscopic sinus surgery 2010 AND 2017 History of tonsillectomy Family History Father Allergies Mother Sinus disorder Other No family history of bleeding disorder Social History Smoking Status: Former smoker Cigarettes Per Day: PT QUIT TOBACCO SEVERAL YEARS AGO BUT OCC. 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 Other Information That Helps Us Care for You: No Feels Safe at Home: Yes Review of Systems Review of Systems: Unobtainable due to cognitive status Physical Exam Constitutional: WD/WN, vitals as above no acute distress Eyes: EOM intact bilaterally Neck: normal visual inspection Respiratory: normal respiratory effort, lungs clear to auscultation Cardiovascular: Rate/Rhythm: regular rate and regular rhythm Heart Sounds: no murmur Gastrointestinal (Abdomen): Inspection/Auscultation: + abdomen distended and + hypoactive bowel sounds Percussion/Palpation: abdomen soft; abdomen nontender, no guarding and abdomen not rigid Musculoskeletal: Extremities: extremities normal to inspection Skin: no rashes, warm and dry Neurologic: Speech / Cognition: + abnormal speech Psychiatric: Orientation: oriented to person Eye Contact: + poor eye contact Results & Data ([facility]) Vital Signs (Past 12 Hours) Vital Signs Temp Pulse Pulse Resp BP BP Pulse Ox 03/22/20 09:00 36.5 C 97 H 15 94 03/22/20 08:25 96 H 24 146/84 H 03/22/20 08:00 76 33 H 91 03/22/20 07:25 75 24 131/97 94 03/22/20 07:01 87 27 H 93 03/22/20 06:46 81 28 H 95 03/22/20 05:25 76 24 139/84 92 03/22/20 04:25 36.9 C 78 22 135/89 94 03/22/20 03:25 73 18 130/80 94 03/22/20 02:25 80 24 131/83 93 03/22/20 01:25 71 23 117/63 93 03/22/20 00:25 87 21 132/79 92 03/22/20 00:00 36.9 C 85 20 130/81 96 Laboratory Results Abnormal lab results 09/14/20 09/14/20 09/14/20 Range/Units 10:54 12:55 19:07 RBC (4.7-6.1) M/uL Hgb (14.0-18.0) g/dL Hct (42-52) % Neut # (Auto) (1.4-6.5) K/uL Lymph # (Auto) (1.2-3.4) K/uL Immature Gran # (Auto) (0.00-0.02) K/uL Potassium 3.1 L 3.4 L (3.5-5.1) mmol/L Creatinine 0.44 L 0.40 L (0.6-1.4) mg/dl BUN/Creatinine Ratio 37.2 H 30.3 H (10-20) Glucose 101 H (70-99) mg/dl Calcium 8.4 L (8.5-10.1) mg/dl Phosphorus 2.0 L (2.5-4.9) mg/dl Urine Appearance Turbid A (Clear) Urine pH 8.5 H (4.5-7.5) Urine Ketones 1+ H (Negative) Urine RBC (Auto) 5-10 H (0-4) /hpf U Epithel Cells (Auto) >30 H (0-5) /lpf Amorphous Sediment Present A (None Prsent) 03/22/20 03/22/20 Range/Units 04:08 04:08 RBC 3.72 L (4.7-6.1) M/uL Hgb 11.1 L (14.0-18.0) g/dL Hct 32.8 L (42-52) % Neut # (Auto) 6.56 H (1.4-6.5) K/uL Lymph # (Auto) 0.91 L (1.2-3.4) K/uL Immature Gran # (Auto) 0.14 H (0.00-0.02) K/uL Potassium (3.5-5.1) mmol/L Creatinine 0.46 L (0.6-1.4) mg/dl BUN/Creatinine Ratio 28.4 H (10-20) Glucose 111 H (70-99) mg/dl Calcium 8.1 L (8.5-10.1) mg/dl Phosphorus 1.8 L (2.5-4.9) mg/dl Urine Appearance (Clear) Urine pH (4.5-7.5) Urine Ketones (Negative) Urine RBC (Auto) (0-4) /hpf U Epithel Cells (Auto) (0-5) /lpf Amorphous Sediment (None Prsent) PG Care Time/CCT Total # of Minutes Spent Total Time Spent with Patient: Total time spent is greater than 50% in coordination of care (as documented) at patient's floor/unit and/or counseling patient: Coding Level of Care Code 52864 Office/OBS Consult Lvl 4 Diagnoses Ileus K56.7
[2020-03-22] MEDS: PANTOprazole 40 MG in SYRINGE 0 ML IV SCH (11:08)
[2020-03-22] MEDS ORDERED: ACETAMINOPHEN 325 MG TAB PO PRN (17:11)
[2020-03-23] MEDS: PIPERACILLIN/TAZOBACTAM 4.5 GM in DEXTROSE 5% 100 ML IV SCH (04:49)
[2020-03-23 06:02] LABS: Hematocrit (blood only) 35.3 % (42-52); Hemoglobin 12.3 g/dL (14.0-18.0); Mean Corpuscular Hemoglobin 30.4 pg (25-34); Mean Corpuscular Hgb Conc 34.8 g/dL (32-36); Mean Corpuscular Volume 87.4 fL (80-100); Mean Platelet Volume 9.2 fL (7.4-10.4); Platelet Count 508 K/uL (130-400); RDW Coefficient of Variation 12.7 % (11.5-14.5); RDW Standard Deviation 40.7 fL (36.4-46.3); Red Blood Count 4.04 M/uL (4.7-6.1); White Blood Count 9.35 K/uL (4.8-10.8)
[2020-03-23 06:47] LABS: BUN Creatinine Ratio 11.2 (10-20); Blood Urea Nitrogen 6 mg/dl (7-18); Calcium 8.9 mg/dl (8.5-10.1); Carbon Dioxide 24 mmol/L (21-32); Chloride 105 mmol/L (98-107); Creatinine Clr Calc Pharmacy 184.5 ml/min; Est GFR (African American) > 150.0; Est GFR (Non-African American) 134.3; Glucose 86 mg/dl (70-99); Magnesium 2.1 mg/dl (1.8-2.4); Phosphorus 2.5 mg/dl (2.5-4.9); Potassium 4.1 mmol/L (3.5-5.1); Sodium 136 mmol/L (136-145)
--- NOTE | 2020-03-23 08:02 | XRay Report ---
KUB HISTORY: ileus COMPARISON: KUB 03/22/2020. FINDINGS: Mildly dilated gas-filled loops of large and small bowel are again seen throughout the abdo men. This has slightly improved in the interval. Stable bilateral nephrolithiasis. No ureteral calcu li. Calcifications in the deep pelvis likely represent phleboliths. No pneumoperitoneum or pneumatosi s. IMPRESSION: 1. Interval improvement in the mildly dilated gas-filled loops of large and small bowel. This favors a resolving ileus. 2. Stable bilateral nephrolithiasis. ACT 112: Negative or not required by law. Electronically signed by: Dewayne Pratt M.D. 03/23/2020 8:01 AM
[2020-03-23] MEDS: FOLIC ACID 1 MG in SYRINGE 9.8 ML IV SCH (08:35)
[2020-03-23] MEDS: MULTIVITAMINS W/MINERALS LIQUID PO SCH (08:35)
[2020-03-23] MEDS: THIAMINE HCL 100 MG in SYRINGE 9 ML IV SCH (08:35)
[2020-03-23] MEDS: FLUOXETINE HCL 20 MG CAP PO SCH (08:36)
[2020-03-23] MEDS: NICOTINE 21 MG/24 HR TDSY TD SCH (08:38)
[2020-03-23] MEDS: ENOXAPARIN INJ 40 MG/0.4 ML SYR SQ SCH (08:38)
[2020-03-23] MEDS ORDERED: MULTI VIT W/MINERALS LIQUID 15 ML UDP PO SCH (09:00)
--- NOTE | 2020-03-23 09:13 | Pulmonology Progress Note ---
Date of Service March 23, 2020 Assessment & Plan (1) Abnormal CT scan of lung: Impression: 39-year-old male admitted to ICU with hypoxemic respiratory failure, alcohol withdrawal, cocaine intoxication, obstruction versus ileus with possible aspiration pneumonia. Pulmonary continues to follow for an abnormal CT scan. Patient is doing well clinically and completing a course of antibiotics. His CT scan appears mildly improved compared to lung windows on a CT of the abdomen and pelvis performed on . Recommendations: 1. Abnormal CT scan: The differential is broad and would include inflammatory lung nodules due to inhalation cocaine, playful. Bronchiolitis due to aspiration, or other potential infectious or inflammatory etiologies affecting the patient's CT of the lung bases on a CT abdomen performed back in December was normal would suggest this is an acute finding. He is clinically better on antibiotics and I would favor continued antimicrobial therapy and resolving his bowel obstruction prior to consideration for any invasive procedures. Would recommend a follow-up CT scan performed in about 4 weeks. If the multiple nodules and airspace opacities show progression or fail to resolve, we could consider bronchoscopy at that point in time. He is currently day #4 Zosyn and day #2 azithromycin. Okay to transition azithromycin to PO at this point if felt to be appropriate for oral antibiotics based on his GI pathology. Zosyn can also be escalated to Unasyn or Augmentin depending on patient's ability to take oral agents. Should the patient's respiratory status change, would consider more timely reevaluation 2. Hypoxemic respiratory failure: Resolved. He is now on room air. Management of the patient's other medical issues is deferred to his primary service. Available to see if needed. Will follow peripherally until dismissed from the hospital. We will be happy to see him back in pulmonary clinic with follow-up imaging (2) Aspiration pneumonia: (3) Acute respiratory failure with hypoxia: Admission and Anticipated Discharge Date Admission Date: March 13, 2020 Subjective Patient seen and examined. He is up or walking to the restroom. He feels he is better. He is coughing or expectorating clear phlegm. He has had any hemoptysis. He denies fevers chills or night sweats. He is tolerating clear liquids. His abdomen feels better. He has been afebrile Review of Systems Review of Systems: All systems reviewed & are unremarkable except as noted in HPI & below Physical Exam Constitutional: WD/WN, vitals as above Neck: trachea midline, no thyromegaly Respiratory: normal respiratory effort, lungs clear to auscultation Cardiovascular: RRR, no murmur, no edema Gastrointestinal (Abdomen): normal bowel sounds, soft, nontender, no hepatosplenomegaly Musculoskeletal: Extremities: extremities normal to inspection Skin: no rashes, warm and dry Neurologic: Nonfocal exam Lymphatic: no cervical lymphadenopathy Results & Data Results & Data ([facility]) Vital Signs (Past 12 Hours) Vital Signs Temp Pulse Pulse Resp BP Pulse Ox 03/23/20 07:05 37.3 C 75 18 128/77 94 03/23/20 00:00 85 03/22/20 23:25 37.0 C 81 18 134/78 96 Laboratory Results 03/23/20 05:40 03/23/20 05:40 Diagnostic Findings KUB demonstrated a resolving ileus versus bowel obstruction PG Care Time/CCT Total # of Minutes Spent Total Time Spent with Patient: Total time spent is greater than 50% in coordination of care (as documented) at patient's floor/unit and/or counseling patient: Coding Level of Care Code 55119 Subseq Hosp Care Lvl [address] scan of lung R91.8 Aspiration pneumonia J69.0 Acute respiratory failure with hypoxia J96.01
[2020-03-23] MEDS ORDERED: AZITHROMYCIN 250 MG TAB PO SCH (10:00)
--- NOTE | 2020-03-23 10:13 | Gastroenterology Progress Note ---
Date of Service March 23, 2020 Assessment & Plan (1) Ileus: KUB from this morning demonstrated continued improvement in small bowel wall dilation and patient is clinically improved. Discussed with Dr. Lopez: 1. Okay to advance diet as tolerated. 2. C Diff was negative. 3. Continue supportive care. 4. Will sign off at that time. Admission and Anticipated Discharge Date Admission Date: March 13, 2020 Subjective Patient is more alert today. He has been having bowel movements and tolerating clear liquid diet. Denies any n/v or abdominal pain. Review of Systems Review of Systems: All systems reviewed & are unremarkable except as noted in HPI & below Physical Exam Constitutional: WD/WN, vitals as above well developed and well nourished Eyes: EOM intact bilaterally Neck: normal visual inspection Respiratory: normal respiratory effort, lungs clear to auscultation Cardiovascular: RRR, no murmur, no edema Gastrointestinal (Abdomen): normal bowel sounds, soft, nontender, no hepatosplenomegaly Musculoskeletal: Extremities: extremities normal to inspection Skin: no rashes, warm and dry Psychiatric: A+Ox3, euthymic affect Results & Data Results & Data ([facility]) Vital Signs (Past 12 Hours) Vital Signs Temp Pulse Pulse Resp BP Pulse Ox 03/23/20 08:00 78 03/23/20 07:05 37.3 C 75 18 128/77 94 03/23/20 00:00 85 03/22/20 23:25 37.0 C 81 18 134/78 96 PG Care Time/CCT Total # of Minutes Spent Total Time Spent with Patient: Total time spent is greater than 50% in coordination of care (as documented) at patient's floor/unit and/or counseling patient: Coding Level of Care Code 11677 Subseq Hosp Care Lvl 3 Diagnoses Ileus K56.7
[2020-03-23 10:55] LABS: Hepatitis B Surface Antigen Neg (Neg)
[2020-03-23 11:24] LABS: Hepatitis C IgG 13Yrs+Old_Rflx Neg (Neg)
[2020-03-23] MEDS: ALBUT/IPRATROP 3MG/0.5MG NEB 3 ML VIAL NEB PRN (16:32)
--- NOTE | 2020-03-23 17:09 | Hospitalist Progress Note ---
Date of Service March 23, 2020 Assessment & Plan (1) Acute respiratory failure with hypoxia: polypharmacy drug withdrawal causing aspiration pneumonia and subsequent respiratory failure requiring ventilation for several days. 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 No overt blood loss. (6) Depression: fluoxetine per home regimen. (7) DVT prophylaxis: Lovenox Full Code Dispo-t possible discharge home in next 1 to 2 days if remains medically stable Carmen given update over phone Admission and Anticipated Discharge Date Admission Date: March 13, 2020 Subjective Awake and alert, communicating well, no evidence of intoxication confusion Had multiple bowel movements this a.m., no nausea vomiting no abdominal pain NG tube discontinued 24 hours ago Requests to advance a diet to solids, has been tolerating clears. X-ray of KUB this morning shows resolution of her ileus Ordered for low residue diet, advance as tolerated Had extensive discussion with patient regarding option for inpatient rehab versus discharge home with continue with outpatient follow-ups, Patient been in inpatient drug and alcohol rehab in the past, he feels confident that he can do better as an outpatient with his counselor, Knows that he can seek help to get admitted in inpatient rehab anytime whenever outpatient therapy is not effective Review of Systems Review of Systems: All systems reviewed & are unremarkable except as noted in HPI & below Physical Exam 2 Constitutional: WD/WN, vitals as above + ill appearing; no acute distress Eyes: PERRL, conjunctivae normal, anicteric sclerae ENMT: external ear and nose normal, oropharynx normal Neck: trachea midline, no thyromegaly Respiratory: + cough Auscultation: no rales, no rhonchi and no wheezes Cardiovascular: RRR, no murmur, no edema Gastrointestinal (Abdomen): Inspection/Auscultation: normal bowel sounds Percussion/Palpation: abdomen soft; abdomen nontender Musculoskeletal: no cyanosis or clubbing, extremities motor strength 5/5 Skin: no rashes, warm and dry Neurologic: PERRL, EOMI, accommodation nl, no face palsy, no dysarthria Psychiatric: A+Ox3, euthymic affect Results & Data Results & Data ([facility]) Vital Signs (Past 12 Hours) Vital Signs Temp Pulse Pulse Pulse Resp BP Pulse Ox 03/23/20 16:32 75 14 95 03/23/20 15:12 37.0 C 81 16 146/76 H 94 03/23/20 13:00 36.1 C L 97 H 20 123/77 92 03/23/20 08:00 78 03/23/20 07:05 37.3 C 75 18 128/77 94 (1) Aspiration pneumonia Aspiration pneumonia type: unspecified Laterality: right Lung location: lower lobe of lung Qualified Code(s): J69.0 - Pneumonitis due to inhalation of food and vomit
[2020-03-24 03:41] LABS: Hepatitis A Antibody IgM NON-REACTIVE (NON-REACTIVE); Hepatitis B Core Antibody IgM NON-REACTIVE (NON-REACTIVE)
[2020-03-24] MEDS: FLUOXETINE HCL 20 MG CAP PO SCH (08:27)
[2020-03-24] MEDS: NICOTINE 21 MG/24 HR TDSY TD SCH (08:28)
[2020-03-24] MEDS: ENOXAPARIN INJ 40 MG/0.4 ML SYR SQ SCH (08:28)
[2020-03-24] MEDS ORDERED: PANTOprazole 40 MG TAB PO SCH (09:00)
[2020-03-24] MEDS: MULTIVITAMINS W/MINERALS LIQUID PO SCH (09:40)
--- NOTE | 2020-03-25 12:39 | Discharge Summary ---
Date of Service March 25, 2020 Admission HPI Per Admitting Provider History of Present Illness -Patient has been living separately away from his for about 1 week in a hotel because of history of his drug use. Patient reports that his choice of drug is cocaine but he does not know what can be mixed into the cocaine. Patient's corroborates that when patient takes excessive amounts of uppers he would then try to balance with downers such as Benzodiazepines . When patient's called him at the hotel, he sounded short of breath and when he returned to the house, he had vomit stains smeared to side of his face, and his recognized signs of hypoxia and brought him to emergency room. Patient denied mixing alcohol with recreational drugs. -admission Chest X ray: Mild diffuse interstitial coarsening with mixed right midlung and right lung base opacities suggestive of pneumonia -In the emergency room, patient was started on high flow oxygen for the hypoxia. In the sign out to hospitalist medicine, emergency physician Dr. Ronquillo was concerned that patient may need to be intubated but upon further evaluation that he though patient's respiratory efforts improved and did not need to be intubated -Patient also has been tachycardic -Hospitalist Discussed with patient and his the plan is to give IV antibiotics (Zosyn) for aspiration pneumonia, oxygen as needed, monitor on telemetry and give IV fluids and withdrawal protocol, and prn metoprolol for the heart rate on review of systems, patient denied chest pain or abdominal pain or flank pain. he has been able to make urine and bowel movements. denies fevers. Family History of cardiomyopathy Primary Care Provider: Brandon Aguilar MD Principal Diagnosis Multiple drug abuse-cocaine, methadone Severe drug withdrawal Aspiration pneumonia Lung injury secondary to inhalation drug abuse Lung nodule Discharge Exam Constitutional WD/WN, vitals as above + ill appearing and + intoxicated appearing; no acute distress Eyes PERRL, conjunctivae normal, anicteric sclerae + anicteric sclerae ENMT external ear and nose normal, oropharynx normal Neck trachea midline, no thyromegaly Respiratory normal respiratory effort and + cough; no respiratory distress Auscultation: + diminished lung sounds and + crackles; no rales, no rhonchi and no wheezes Cardiovascular RRR, no murmur, no edema Rate/Rhythm: regular rate and + tachycardic Extremities: no edema Gastrointestinal (Abdomen) Inspection/Auscultation: normal bowel sounds Percussion/Palpation: abdomen soft; abdomen nontender Musculoskeletal no cyanosis or clubbing, extremities motor strength 5/5 Skin no rashes, warm and dry Neurologic PERRL, EOMI, accommodation nl, no face palsy, no dysarthria moves all extremities; no focal motor deficits Motor/Sensory: no tremor Psychiatric A+Ox3, euthymic affect Orientation: + not oriented x 3 Discharge Data Allergies Allergy/AdvReac Type Severity Reaction Status Date / Time grass pollen Allergy Severe CONGESTION-SINUS Verified 03/13/20 15:27 INFECTIONS, COUGH, SOB tree and shrub pollen Allergy Severe CONGESTION, Verified 03/13/20 15:27 COUGH, SOB weed pollen Allergy Severe CONGESTION, Verified 03/13/20 15:27 COUGH, SOB dog dander Allergy Intermediate SNEEZING, Verified 03/13/20 15:27 CONGESTION house dust mite Allergy Intermediate SNEEZING, Verified 03/13/20 15:27 CONGESTION, SINUS INFECTION, SOB Consultations 03/13/20 16:05 ED Decision to Admit Stat 03/13/20 17:13 Consult Case Management - Discharge Planning Routine 03/15/20 05:49 Consult Vp Of Product Routine 03/22/20 09:23 Consult Gastroenterology Routine 03/22/20 10:19 Consult Infectious Diseases Routine Ordered Studies 03/19/20 05:26 CT abd pelvis wo con Routine 03/21/20 10:29 CT angio chest PE protocol Stat 03/21/20 10:33 US venous doppler LE Routine Hospital Course (1) Acute respiratory failure with hypoxia: polypharmacy drug withdrawal causing aspiration pneumonia and subsequent respiratory failure requiring ventilation for several days. Extubated in 03/20 and doing well Remains in room air Patient input from pulmonology, CT chest shows bibasilar groundglass opacity, multiple bilateral small lung nodule Palm recommends continue with pulmonary toilet, repeat CT chest in 4-6 weeks, if evidence of persistent lung infiltrate, lung nodule noted on imaging, patient will need bronchoscopy, patient understands and agreeable with the plan (2) Aspiration pneumonia: Received IV Zosyn #day 9 Zithromax added for Legionella pneumonitis Patient input from [facility] infectious disease Legionella Ag negative, Zithromax discontinued Patient will not need to continue with any antibiotics on discharge Per manager community development there may be some drug-induced lung injury -patient reports of taking for past several months Patient follow-up with pulmonology bronchoscopy indicated (3) Ileus: Resolved Diet advanced to solid/low residue having normal bowel movement No abdominal pain no nausea vomiting Recommended to continue bowel regimen even at outpatient, increase activity Multiple time counseling provided not to use illicit drugs (4) Drug withdrawal: Admitted severe drug withdrawal requiring long complicated hospital stay, mechanical ventilation required for respiratory failure Patient needs to quit using illicit drugs and vaping, verbalized understanding Patient will be followed up with his counselor at drug alcohol rehab on discharge (5) Anemia: Multifactorial. No overt blood loss. (6) Depression: fluoxetine per home regimen. (7) DVT prophylaxis: Lovenox Full Code Dispo patient is discharged home today Carmen present during discharge, questions answered, Total Time Total Time Spent Total Time Spent (In Minutes): 35 minutes Total Time Includes: Examination of the Patient, Discharge Planning and Medication Reconciliation Discharge Plan Discharge Items Patient Disposition: Home - Self-Care Reason For Visit: ASPIRATION PNEUMONIA,DRUG INTOXICATION AND WITHDRA Discharge Diagnosis: Multiple drug abuse-cocaine, methadone Severe drug withdrawal Aspiration pneumonia Lung injury secondary to inhalation drug abuse Lung nodule Activity: Resume your previous activity Non-emergency contact: Primary Care Provider Call non-emergency contact if: you have any medication questions Follow-up/Referrals: Tiago Mcmahon MD [Physician] - (Follow-up with lung specialist in 4-6 weeks Please call to schedule an appointment) Brandon Aguilar MD [Primary Care Provider] - 03/28/20 2:00 pm (Date & Time 03/28/2020 2:00 PM Provider Brandon Aguilar III, MD [facility] ) Diet: Regular Addtl Attending Provider Instructions: You had a life-threatening drug withdrawal symptoms during this hospital stay Your lung shows evidence of damage from drug inhalation/vaping Please follow-up with drug and alcohol rehab, continuing use of illicit drugs is a high risk for multiorgan failure, leading to Also due to history of smoking, incidental finding of lung nodules need to be monitored Need to have CT chest with contrast in 4 weeks-to assess disappearance of lung tissue damage, nodule as infectious process should be resolved. For persistent evidence of lung tissue damage, nodules: He will need a bronchoscopy evaluation with biopsy Lung specialist/pulmonology Dr. Mcmahon office will be able to schedule you for follow-ups and procedures as needed Pending Studies at Discharge: Yes Studies:: CT chest with contrast in 4 weeks Stand-Alone Forms: My [facility], Smoking Cessation Medications and DC Order Prescriptions: Continued epinephrine 0.3 mg/0.3 mL auto-injector 0.3 mg IM .INJECT 0.3ML INTRAMU RF: 0 fluoxetine 40 mg capsule 40 mg PO QPM RF: 0 azelastine 0.15 % (205.5 mcg) spray,non-aerosol 2 sprays INTRANASAL BID PRN (Reason: Congestion) RF: 0 fexofenadine 180 mg Tablet 180 mg PO QAM RF: 0 multivitamin Capsule 1 cap PO QAM RF: 0 fluoxetine 20 mg Capsule 20 mg PO QPM RF: 0 omeprazole 20 mg Tablet,Delayed Release (Dr/Ec) 20 mg PO QAM RF: 0 Discharge Orders: Discharge Order (Routine); Ordered 03/24/20 Ordered By: Shamika Diaz/Other Patient Handouts: Treating Drug Abuse and Addiction Admission Data Admit Date/Time: 03/13/20 17:03 Attending Provider: Shamika Lopez Admit Provider: Armin Solorzano Primary Care Provider: Brandon Aguilar Other Providers: Armin Solorzano ; Tiago Mcmahon ; Rufino Wu ; Raf Alvarez ; Alia Polanco ; Rom Ashley I. ; Mika Montes II ; Sandy Goodwin ; Neri Jonas Other Interventions: Discharge Summary Assessment (RN) Last Done: 03/24/20 13:57
== END 2020-03-24 15:24 | disposition home or self-care (01) | DRG 896 ==
LOC: ED 14:19 → 2E 17:03 → SUATTDRO 17:03 → 2E 18:52 → 1E 03-15 04:54 → 2S 03-22 14:30 → 3W 03-23 12:49

== ENCOUNTER 2021-12-20 23:19 | Inpatient (IN) ==
[2021-12-21 00:29] LABS: Hematocrit (blood only) 40.7 % (42-52); Hemoglobin 14.8 g/dL (14.0-18.0); Mean Corpuscular Hgb Conc 36.4 g/dL (32-36); Mean Corpuscular Volume 85.3 fL (80-100); Mean Platelet Volume 9.7 fL (7.4-10.4); Platelet Count 217 K/uL (130-400); RDW Coefficient of Variation 12.4 % (11.5-14.5); RDW Standard Deviation 38.8 fL (36.4-46.3); Red Blood Count 4.77 M/uL (4.7-6.1); White Blood Count 10.55 K/uL (4.8-10.8)
[2021-12-21 00:52] LABS: Alanine Aminotransferase 22 U/L (7-52); Albumin Globulin Ratio 1.6 (0.9-2); Albumin Level 4.6 gm/dl (3.4-5.0); Alkaline Phosphatase 64 U/L (34-104); Anion Gap 6 (3-11); Aspartate Aminotransferase 20 U/L (13-39); BUN Creatinine Ratio 17.6 (10-20); Bilirubin,Total 0.5 mg/dl (0.2-1.0); Blood Urea Nitrogen 13 mg/dl (6-23); Calcium 9.3 mg/dl (8.5-10.1); Carbon Dioxide 33 mmol/L (21-32); Chloride 97 mmol/L (98-107); Creatinine Clr Calc Pharmacy 127.1 ml/min; Est GFR (African American) 132.8 ml/min; Est GFR (Non-African American) 114.6 ml/min; Globulin 2.8 gm/dl (2.5-4.0); Glucose 115 mg/dl (70-99(Fasting)); Magnesium 2.1 mg/dl (1.7-2.4); Potassium 3.5 mmol/L (3.5-5.1); Sodium 136 mmol/L (136-145); Total Protein 7.4 gm/dl (6.0-8.3)
[2021-12-21 00:53] LABS: Troponin I High Sensitivity < 2.3 pg/ml (0-20)
[2021-12-21 01:34] LABS: Basophils # (auto) 0.02 K/uL (0-0.2); Basophils % (auto) 0.2 %; Eosinophils % (auto) 1.9 %; Immature Granulocytes # (auto) 0.02 K/uL (0.00-0.02); Immature Granulocytes % (auto) 0.2 %; Lymphocytes # (auto) 0.88 K/uL (1.2-3.4); Lymphocytes % (auto) 8.3 %; Monocytes # (auto) 0.49 K/uL (0.11-0.59); Monocytes % (auto) 4.6 %; Neutrophils # (auto) 8.94 K/uL (1.4-6.5); Neutrophils % (auto) 84.8 %; RBC Morphology Unremarkable
--- NOTE | 2021-12-21 01:45 | Emergency Department Note ---
Impression & Plan SOB (shortness of breath), Hypoxia, COVID-19 ED Provider Note INFORMANT: Patient ED PROVIDER(S): Brandon Longo MD CHIEF COMPLAINT: Shortness of breath PLAN: Disposition: Admitted Condition: Good Outpatient prescription management: none Referral: None MEDICAL DECISION MAKING: Patient presented and was placed in isolation due to his positive home COVID test. He was noted to be hypoxic on room air. He responded well to nasal cannula oxygen. A work-up was initiated. ECG was normal. Chest x-ray was rather unremarkable. He had an unremarkable CBC and chemistry panel. Troponin and BNP were negative. Urine testing is pending. The patient had a chest CT performed. Official read is pending however there is significant patchy infiltrates noted bilaterally throughout both upper and lower lung trivedi concerning for COVID. Interestingly enough COVID testing in the emergency department as well as flu and RSV was negative. Patient was given albuterol as well as IV Decadron. Consultation was made with the [facility]. Patient was evaluated in the ER and admitted for further management Triage Nursing notes reviewed and agree them. Vital Signs: reviewed and remarkable for hypoxia Differential diagnosis: Reactive airway disease, pneumonia, pneumothorax, COPD, CHF, infections, cardiac ischemia, pulmonary embolism, musculoskeletal, gastrointestinal, as well as other pathologies. Diagnostics interpreted by me: EC Lead ECG performed and revealed Normal sinus rhythm at 61, normal [place], QRS normal. No elevation or depression. No PACs or PVCs Cardiac Monitoring: Cardiac monitoring ordered by me: The patient was placed on continuous cardiac monitoring and observed. It revealed a normal sinus rhythm at 79 beats per minute without ectopy or evidence of dysrhythmia. Imaging studies: Chest x-ray. Findings: A chest x-ray was performed and revealed no pneumothorax, effusion, infiltrate, pulmonary edema, free air under the diaphragm, or wide mediastinum. Impression: No acute disease. HPI: The patient is a 41 year old male who presents to the Emergency Room with complaints of shortness of breath. This started today and is described as moderate. The patient states he has had cold symptoms for about 8 days. He did take a home COVID test last week and it was positive. The patient also notes the following associated symptoms, cough. Patient states he checked his oxygen saturation and it was 83% at home. On arrival in triage his oxygen was 83% on room air. The patient has tried a breathing treatment for relieving factors. Current pain is rated as 0/10. Pt denies LOC, headache, fevers, chills, diaphoresis, visual changes, neck pain, chest pain, leg swelling, nausea, vomiting, abdominal pain, back pain, melena, hematochezia, urinary symptoms, numbness, weakness, lymphadenopathy, rash, or other complaints. ROS: See above HPI for pertinent positives & negatives. A total of 10 systems reviewed and were otherwise negative. PAST MEDICAL HISTORY:See Below , kidney stone PAST SURGICAL HISTORY:See Below, FAMILY HISTORY:See Below SOCIAL HISTORY:See Below, . Former smoker. Denies drug use HOME MEDICATIONS:See Below ALLERGIES:See Below VITALS:See Below PHYSICAL EXAMINATION: GENERAL: Awake, alert, well-appearing, in no distress HENT: Normocephalic, atraumatic. Oropharynx unremarkable. EYES: Normal conjunctiva. Sclera non-icteric. NECK: Inspection normal. Non-tender. Supple. No nuchal rigidity. FROM. No masses. RESPIRATORY: Clear to auscultation. No wheezes. No rales. Mildly increased respiratory effort. CARDIAC: Normal rate. Normal rhythm. No murmurs. No rubs. Extremities warm and well perfused. Pulses equal. No JVD. GI: Soft, non-distended. No tenderness to palpation. No rebound or guarding. No masses. RECTAL: Deferred. MUSCULOSKELETAL: Atraumatic. Chest examination reveals no tenderness. The back is symmetrical on inspection without obvious abnormality. There is no CVA tenderness to palpation. No joint edema. LOWER EXTREMITIES: Calves are equal size bilaterally and non-tender. No edema. No discoloration. NEURO: Normal sensorium. No sensory or motor deficits noted. SKIN: Diaphoretic. No rash or jaundice noted. CRITICAL CARE: I have personally spent greater than 33 minutes of critical care time in the direct management of this patient. This includes bedside care, interpretation of diagnostic studies, and testing, discussion with consultants, patient, and other required patient management activities. These minutes are in excess of all separately billable procedures. Brandon Longo MD Past Med/Surg History Medical History (Updated 12/21/21 @ 01:42 by Brandon Longo MD) Allergic rhinitis Aspiration pneumonia HOSPITALIZED 03/2020 (REQUIRED INTUBATION) Chronic sinusitis GERD (gastroesophageal reflux disease) History of kidney stones Surgical History History of carpal tunnel release B/L History of colonoscopy History of endoscopic sinus surgery X 2 History of esophagogastroduodenoscopy (EGD) History of tonsillectomy and adenoidectomy [place] teeth removed Family History Father Allergies Mother Sinus disorder Other No family history of bleeding disorder Social History Smoking Status: Former smoker Cigarettes Per Day: PT QUIT TOBACCO SEVERAL YEARS AGO BUT OCC. 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 Feels Safe at Home: Yes Assistive Devices: Glasses Allergies Allergies Allergy/AdvReac Type Severity Reaction Status Date / Time grass pollen Allergy Severe CONGESTION-SINUS Verified 12/21/21 00:30 INFECTIONS, COUGH, SOB tree and shrub pollen Allergy Severe CONGESTION, Verified 12/21/21 00:30 COUGH, SOB weed pollen Allergy Severe CONGESTION, Verified 12/21/21 00:30 COUGH, SOB dog dander Allergy Intermediate SNEEZING, Verified 12/21/21 00:30 CONGESTION house dust mite Allergy Intermediate SNEEZING, Verified 12/21/21 00:30 CONGESTION, SINUS INFECTION, SOB Home Meds Home Medications Medication Instructions Recorded Confirmed fexofenadine 180 mg tablet 180 mg PO QAM 08/21/18 12/21/21 omeprazole 20 mg tablet,delayed 20 mg PO DAILY 08/21/18 12/21/21 release Lactobacillus acidophilus 10 10,000 mmu cells PO QAM 04/21/20 12/21/21 billion cell capsule (Probiotic) clindamycin phosphate 1 % lotion 1 applic TOPICAL DAILY PRN 12/21/21 12/21/21 desvenlafaxine succinate 25 mg 25 mg PO DAILY 12/21/21 12/21/21 tablet,extended release 24 hr (Pristiq) multivitamin 1 tab PO DAILY 12/21/21 12/21/21 Results & Data (ED) Vital Signs Vital Signs - 24 hr 12/20/21 23:31 12/20/21 23:35 12/20/21 23:42 Temperature 36.3 C L Temperature Source Oral Pulse Rate 76 Pulse Rate from SpO2 Sensor Respiratory Rate 18 24 Respiratory Rate [Exercises] 20 Respiratory Effort / Characteristics Non-Labored Spontaneous Respiratory Depth Normal Blood Pressure 132/84 Blood Pressure Mean 100 Pulse Oximetry 92 96 83 L Pulse Oximetry [Exercises] 83 L Oxygen Delivery Method Room Air Nasal Cannula Room Air Oxygen Flow Rate 3 Sepsis Recent Fever Within 48 Hours No Sepsis New/Unexplained Change in Mental Status No Sepsis Action Taken by Nursing No Action Required Oxygen Flow Rate - Titration 3 Pulse Oximetry Post Tiitration 92 12/20/21 23:43 12/20/21 23:44 12/20/21 23:50 Temperature Temperature Source Pulse Rate 61 71 Pulse Rate from SpO2 Sensor 65 70 Respiratory Rate 13 18 Respiratory Rate [Exercises] Respiratory Effort / Characteristics Respiratory Depth Blood Pressure Blood Pressure Mean Pulse Oximetry 94 97 100 Pulse Oximetry [Exercises] Oxygen Delivery Method Nasal Cannula Oxygen Flow Rate 3 Sepsis Recent Fever Within 48 Hours Sepsis New/Unexplained Change in Mental Status Sepsis Action Taken by Nursing Oxygen Flow Rate - Titration Pulse Oximetry Post Tiitration 12/21/21 00:00 12/21/21 00:10 12/21/21 00:20 Temperature Temperature Source Pulse Rate 67 65 71 Pulse Rate from SpO2 Sensor 69 65 70 Respiratory Rate 18 14 10 L Respiratory Rate [Exercises] Respiratory Effort / Characteristics Respiratory Depth Blood Pressure Blood Pressure Mean Pulse Oximetry 97 97 96 Pulse Oximetry [Exercises] Oxygen Delivery Method Oxygen Flow Rate Sepsis Recent Fever Within 48 Hours Sepsis New/Unexplained Change in Mental Status Sepsis Action Taken by Nursing Oxygen Flow Rate - Titration Pulse Oximetry Post Tiitration 12/21/21 00:30 12/21/21 00:40 12/21/21 00:50 Temperature Temperature Source Pulse Rate 72 72 73 Pulse Rate from SpO2 Sensor 76 73 78 Respiratory Rate 18 17 17 Respiratory Rate [Exercises] Respiratory Effort / Characteristics Respiratory Depth Blood Pressure Blood Pressure Mean Pulse Oximetry 97 97 98 Pulse Oximetry [Exercises] Oxygen Delivery Method Oxygen Flow Rate Sepsis Recent Fever Within 48 Hours Sepsis New/Unexplained Change in Mental Status Sepsis Action Taken by Nursing Oxygen Flow Rate - Titration Pulse Oximetry Post Tiitration 12/21/21 01:00 12/21/21 01:10 12/21/21 01:19 Temperature Temperature Source Pulse Rate 78 79 Pulse Rate from SpO2 Sensor 78 79 Respiratory Rate 15 19 Respiratory Rate [Exercises] Respiratory Effort / Characteristics Non-Labored Respiratory Depth Normal Blood Pressure Blood Pressure Mean Pulse Oximetry 94 92 93 Pulse Oximetry [Exercises] Oxygen Delivery Method Nasal Cannula Oxygen Flow Rate 3 Sepsis Recent Fever Within 48 Hours Sepsis New/Unexplained Change in Mental Status Sepsis Action Taken by Nursing Oxygen Flow Rate - Titration Pulse Oximetry Post Tiitration Laboratory Data Result diagrams: 12/21/21 00:05 12/21/21 00:05 Lab Results 12/21/21 12/21/21 12/21/21 Range/Units 00:05 00:05 00:05 WBC 10.55 (4.8-10.8) K/uL RBC 4.77 (4.7-6.1) M/uL Hgb 14.8 (14.0-18.0) g/dL Hct 40.7 L (42-52) % MCV 85.3 (80-100) fL MCH 31.0 (25-34) pg MCHC 36.4 H (32-36) g/dL RDW Std Deviation 38.8 (36.4-46.3) fL RDW Coeff of Carlos 12.4 (11.5-14.5) % Plt Count 217 (130-400) K/uL MPV 9.7 (7.4-10.4) fL Immature Gran % (Auto) 0.2 % Neut % (Auto) 84.8 % Lymph % (Auto) 8.3 % Nance % (Auto) 4.6 % Eos % (Auto) 1.9 % Baso % (Auto) 0.2 % Neut # (Auto) 8.94 H (1.4-6.5) K/uL Lymph # (Auto) 0.88 L (1.2-3.4) K/uL Nance # (Auto) 0.49 (0.11-0.59) K/uL Eos # (Auto) 0.20 (0-0.5) K/uL Baso # (Auto) 0.02 (0-0.2) K/uL Immature Gran # (Auto) 0.02 (0.00-0.02) K/uL RBC Morphology Unremarkable PT 11.0 (9.0-12.0) Seconds INR 1.0 (0.9-1.1) Sodium 136 (136-145) mmol/L Potassium 3.5 (3.5-5.1) mmol/L Chloride 97 L (98-107) mmol/L Carbon Dioxide 33 H (21-32) mmol/L Anion Gap 6 (3-11) BUN 13 (6-23) mg/dl Creatinine 0.74 (0.6-1.4) mg/dl Est Cr Clr Drug Dosing 127.1 ml/min Est GFR ( Amer) 132.8 ml/min Est GFR (Non-Af Amer) 114.6 ml/min BUN/Creatinine Ratio 17.6 (10-20) Glucose 115 H (70-99(Fasting)) mg/dl Lactate (0.4-2.0) mmol/L Calcium 9.3 (8.5-10.1) mg/dl Magnesium 2.1 (1.7-2.4) mg/dl Total Bilirubin 0.5 (0.2-1.0) mg/dl AST 20 (13-39) U/L ALT 22 (7-52) U/L Alkaline Phosphatase 64 (34-104) U/L Troponin I High Sens < 2.3 (0-20) pg/ml B-Natriuretic Peptide (0-100) pg/ml Total Protein 7.4 (6.0-8.3) gm/dl Albumin 4.6 (3.4-5.0) gm/dl Globulin 2.8 (2.5-4.0) gm/dl Albumin/Globulin Ratio 1.6 (0.9-2) SARS-CoV-2 (PCR) (Negative) Influenza Type A (PCR) (Neg) Influenza Type B (PCR) (Neg) RSV (RT-PCR) (Neg) 12/21/21 12/21/21 12/21/21 Range/Units 00:05 00:10 00:35 WBC (4.8-10.8) K/uL RBC (4.7-6.1) M/uL Hgb (14.0-18.0) g/dL Hct (42-52) % MCV (80-100) fL MCH (25-34) pg MCHC (32-36) g/dL RDW Std Deviation (36.4-46.3) fL RDW Coeff of Carlos (11.5-14.5) % Plt Count (130-400) K/uL MPV (7.4-10.4) fL Immature Gran % (Auto) % Neut % (Auto) % Lymph % (Auto) % Nance % (Auto) % Eos % (Auto) % Baso % (Auto) % Neut # (Auto) (1.4-6.5) K/uL Lymph # (Auto) (1.2-3.4) K/uL Nance # (Auto) (0.11-0.59) K/uL Eos # (Auto) (0-0.5) K/uL Baso # (Auto) (0-0.2) K/uL Immature Gran # (Auto) (0.00-0.02) K/uL RBC Morphology PT (9.0-12.0) Seconds INR (0.9-1.1) Sodium (136-145) mmol/L Potassium (3.5-5.1) mmol/L Chloride (98-107) mmol/L Carbon Dioxide (21-32) mmol/L Anion Gap (3-11) BUN (6-23) mg/dl Creatinine (0.6-1.4) mg/dl Est Cr Clr Drug Dosing ml/min Est GFR ( Amer) ml/min Est GFR (Non-Af Amer) ml/min BUN/Creatinine Ratio (10-20) Glucose (70-99(Fasting)) mg/dl Lactate 0.3 L (0.4-2.0) mmol/L Calcium (8.5-10.1) mg/dl Magnesium (1.7-2.4) mg/dl Total Bilirubin (0.2-1.0) mg/dl AST (13-39) U/L ALT (7-52) U/L Alkaline Phosphatase (34-104) U/L Troponin I High Sens (0-20) pg/ml B-Natriuretic Peptide 10 (0-100) pg/ml Total Protein (6.0-8.3) gm/dl Albumin (3.4-5.0) gm/dl Globulin (2.5-4.0) gm/dl Albumin/Globulin Ratio (0.9-2) SARS-CoV-2 (PCR) NEGATIVE (Negative) Influenza Type A (PCR) Negative (Neg) Influenza Type B (PCR) Negative (Neg) RSV (RT-PCR) Negative (Neg) Administered Medications Discontinued Medications Albuterol (Albuterol Hfa 8 Gm Inhaler) 4 puffs INH NOW ONE Stop: 12/21/21 01:56 Last Admin: 12/21/21 02:18 Dose: 4 puffs Documented by: [id number] Dexamethasone Sodium Phosphate (DexamethasonePf 10 Mg/Ml Vial) 6 mg IV NOW ONE Stop: 12/21/21 01:56 Last Admin: 12/21/21 02:18 Dose: 6 mg Documented by: [id number] Ioversol (Optiray 320 125ml) 125 ml IV ONCE ONE Stop: 12/21/21 02:02 Last Admin: 12/21/21 02:02 Dose: 118 ml Documented by: [id number] Discharge Plan Visit Data Chief Complaint: Shortness of Breath/Dyspnea Stated Complaint: SOB, PULSE DROPPING WHEN CHECKED AT HOME, + COVID ED Provider: Brandon Longo Discharge Problem: SOB (shortness of breath), Hypoxia, COVID-19 Forms Stand Alone Forms: My [facility] Prescriptions Prescriptions: No Action Probiotic 10 billion cell Capsule 10,000 mmu cells PO QAM RF: 0 fexofenadine 180 mg Tablet 180 mg PO QAM RF: 0 omeprazole 20 mg Tablet,Delayed Release (Dr/Ec) 20 mg PO DAILY RF: 0 multivitamin [Multiple Vitamin] Tablet 1 tab PO DAILY RF: 0 desvenlafaxine succinate [Pristiq] 25 mg Tablet Extended Release 24 Hr 25 mg PO DAILY RF: 0 clindamycin phosphate 1 % lotion 1 applic TOPICAL DAILY PRN (Reason: Skin Irritation) RF: 0 Referrals Referrals: Brandon Aguilar MD [Primary Care Provider] -
[2021-12-21] MEDS ORDERED: dexAMETHasone**PF** 10 MG/ML VIAL IV ONE (01:55)
[2021-12-21] MEDS ORDERED: ALBUTEROL HFA 8 GM INHALER INH ONE (01:55)
[2021-12-21] MEDS ORDERED: OPTIRAY 320 125ml IV ONE (02:01)
[2021-12-21 02:33] LABS: Influenza A virus by PCR Negative (Neg); Influenza B virus by PCR Negative (Neg); RSV by PCR Negative (Neg); SARS CoV2 RNA(COVID-19) InHosp NEGATIVE (Negative)
[2021-12-21] MEDS ORDERED: LEVALBUTEROL HCL 1.25 MG/3 ML NEB NEB STA (04:06)
[2021-12-21] MEDS ORDERED: ACETAMINOPHEN 325 MG TAB PO PRN (04:06)
[2021-12-21] MEDS ORDERED: SODIUM CHLORIDE 0.9% 1000ML 1,000 ML IV SCH (04:06)
[2021-12-21] MEDS ORDERED: NITROGLYCERIN SL 0.4 MG/TAB TAB SL PRN (04:06)
[2021-12-21 05:21] LABS: Appearance Urine Clear (Clear); Bacteria Urine Automated Negative (Negative); Bilirubin Urine Negative (Negative); Blood Urine 1+ (Negative); Color Urine Yellow; Glucose Urine UA Negative (Negative); Ketones Urine Trace (Negative); Leukocyte Esterase Urine Negative (Negative); Nitrite Urine Negative (Negative); Protein Urine Negative (Negative); Specific Gravity Urine 1.041 (1.000-1.030); Urobilinogen Urine Negative (Negative)
[2021-12-21 06:12] LABS: Amphetamines+Metham, Urine Neg (Neg); Barbiturates, Urine Neg (Neg); Benzodiazepine, Urine Neg (Neg); Cocaine, Urine Pos (Neg); MDMA (Ecstacy), Urine Neg (Neg); Methadone, Urine Neg (Neg); Opiate, Urine Neg (Neg); Phencyclidine, Urine Neg (Neg)
[2021-12-21 07:13] LABS: Basophils # (auto) 0.01 K/uL (0-0.2); Basophils % (auto) 0.1 %; Eosinophils # (auto) 0.02 K/uL (0-0.5); Eosinophils % (auto) 0.1 %; Hematocrit (blood only) 41.8 % (42-52); Hemoglobin 14.8 g/dL (14.0-18.0); Immature Granulocytes # (auto) 0.06 K/uL (0.00-0.02); Immature Granulocytes % (auto) 0.3 %; Lymphocytes # (auto) 0.28 K/uL (1.2-3.4); Lymphocytes % (auto) 1.5 %; Mean Corpuscular Hemoglobin 30.1 pg (25-34); Mean Corpuscular Hgb Conc 35.4 g/dL (32-36); Mean Corpuscular Volume 85.1 fL (80-100); Mean Platelet Volume 9.8 fL (7.4-10.4); Monocytes # (auto) 0.97 K/uL (0.11-0.59); Monocytes % (auto) 5.3 %; Neutrophils # (auto) 17.11 K/uL (1.4-6.5); Neutrophils % (auto) 92.7 %; Platelet Count 197 K/uL (130-400); RDW Coefficient of Variation 12.7 % (11.5-14.5); RDW Standard Deviation 38.7 fL (36.4-46.3); Red Blood Count 4.91 M/uL (4.7-6.1); White Blood Count 18.45 K/uL (4.8-10.8)
[2021-12-21 07:24] LABS: Albumin Level 4.5 gm/dl (3.4-5.0); BUN Creatinine Ratio 17.9 (10-20); Bilirubin Direct 0.1 mg/dl (0-0.2); Bilirubin,Total 0.9 mg/dl (0.2-1.0); Calcium 9.5 mg/dl (8.5-10.1); Creatinine Clr Calc Pharmacy 140.4 ml/min; Est GFR (African American) 138.3 ml/min; Est GFR (Non-African American) 119.3 ml/min; Magnesium 1.9 mg/dl (1.7-2.4); Potassium 4.1 mmol/L (3.5-5.1)
--- NOTE | 2021-12-21 08:05 | XRay Report ---
SINGLE VIEW CHEST CLINICAL HISTORY: Dyspnea FINDINGS: An AP, portable, upright chest radiograph is compared to study dated 03/20/2020. The cardiom ediastinal silhouette is unremarkable. The lungs and pleural spaces are clear. No pneumothorax is see n. The bony thorax is grossly intact. IMPRESSION: No active disease in the chest. ACT 112: Negative or not required by law. Electronically signed by: Juan Ortega M.D. 12/21/2021 8:03 AM
--- NOTE | 2021-12-21 08:11 | CT Scan Report ---
CT ANGIOGRAPHY OF THE CHEST, PULMONARY EMBOLUS PROTOCOL CLINICAL HISTORY: Dyspnea, +covid COMPARISON STUDY: Chest radiograph December 21, 2021. Chest CT July 13, 2020. TECHNIQUE: Following IV administration of 118 mL of Optiray, helical axial images of the chest were o btained utilizing the pulmonary embolus protocol. Maximal intensity projections and sagittal and cor onal reformats were viewed on an independent 3D workstation. IV contrast was administered without co mplication. Automated exposure control was utilized for the study. A dose lowering technique was ut ilized adhering to the principles of ALARA. CT DOSE: 350.23 mGy.cm FINDINGS: No pulmonary emboli are identified. The size of the heart is normal. There is no pericardi al effusion. No enlarged axillary, mediastinal or hilar lymph nodes are noted. There is a probable sm all hiatal hernia. No pneumothorax or pleural effusion is noted. Alveolar opacities are noted through out the lungs, most confluent within the left lower lobe. No cavitation is present. Central airways a re patent. Visualized portions of the upper abdomen partially visualize a right renal calculus. Mild splenomegaly is unchanged. IMPRESSION: 1. No pulmonary emboli identified. 2. Alveolar opacities throughout the lungs, most confluent within the left lower lobe. The findings r epresent an infectious process. ACT 112: Negative or not required by law. Electronically signed by: Sanya Mckeon M.D. 12/21/2021 8:08 AM
[2021-12-21] MEDS ORDERED: dexAMETHasone 6 MG in SYRINGE 0 ML IV SCH (09:00)
[2021-12-21] MEDS ORDERED: BUDESONIDE 90 MCG INH INH SCH (09:00)
[2021-12-21] MEDS ORDERED: DEXAMETHASONE SOD INJ 4 MG/ML VIAL ONE (09:51)
[2021-12-21] MEDS: FLUTICASONE FUROATE 100MCG 14 PUFFS/INHALER INH SCH (09:57)
[2021-12-21] MEDS: ENOXAPARIN INJ 40 MG/0.4 ML SYR SQ SCH (09:58)
[2021-12-21] MEDS: FEXOFENADINE HCL 180 MG TAB PO SCH (09:59)
[2021-12-21] MEDS: ADVANCED PROBIOTIC 1250 MG CAPSULE PO SCH (09:59)
[2021-12-21] MEDS: MULTIVITAMIN TAB PO SCH (09:59)
[2021-12-21] MEDS: PANTOprazole 40 MG TAB PO SCH (09:59)
--- NOTE | 2021-12-21 10:02 | History and Physical Report ---
DATE OF ADMISSION: 12/21/2021. CHIEF COMPLAINT: Shortness of breath. HISTORY OF PRESENT ILLNESS: This is a 41-year-old male with past medical history significant for chronic sinusitis, allergic rhinitis, history of GERD, history of kidney stone, allergic conjunctivitis. Former smoker, who quit in 2012, smoked 1 pack a day for 14 years. Comes because of shortness of breath. The patient says he did home COVID test about a week ago, positive, but he has symptoms for around 10 days. His son tested positive prior to that. His symptoms are sinus congestion, on and off nausea, vomiting, headaches, generalized weakness. But had no fever, no cough, no diarrhea. He seemed to get better, but tonight again he became more short of breath, again nausea and vomiting and disoriented.. At home, his gave him some inhalers and checked his pulse ox, it was 83%. He came here, in the ER he was 83% on room air. With 3 liters, he is saturating okay. Hemodynamically stable. His labs look okay. Chest x-ray was okay. CT chest showing no PE, but showing diffuse patchy infiltrates in both lung bases, has a slight interstitial haziness throughout the remainder of the lungs consistent with pneumonia. The patient is vaccinated with [employer] and was boosted with [employer]ix[employer] vaccine in July 2021. Currently denies any chest pain. Currently no abdominal pain, no diarrhea, no blurred visions, no earache. Has some sinus congestion. Appetite is okay.Somewhat drowsy. ALLERGIES: GRASS POLLEN, TREE AND SHRUB POLLEN, WHEAT POLLEN, DOG DANDER, HOUSE DUST MITE. PAST MEDICAL HISTORY: As mentioned above. PAST SURGICAL HISTORY: Carpal tunnel surgery, colonoscopy, dental surgery, nasal endoscopy, tonsillectomy, adenoidectomy, repair of nasal septum. MEDICATIONS: The patient is on clindamycin one topical daily p.r.n., Pristiq 25 mg p.o. daily, fexofenadine 180 mg p.o. daily, multivitamin one tablet p.o. daily, omeprazole 20 mg p.o. daily, probiotic 1 tablet p.o. a.m. FAMILY HISTORY: Significant for father has allergies, hypertension; mother has allergies, cardiomyopathy; paternal grandfather had lung cancer. SOCIAL HISTORY: Former smoker, quit in 2012, smoked 1 pack a day for 14 years. No alcohol use. Says used to take drugs in the past but not doing now. REVIEW OF SYSTEMS: As per HPI. Rest of the review of systems is negative. PHYSICAL EXAMINATION: GENERAL: The patient is of moderate build, not in acute distress. VITAL SIGNS: Temperature 36.3, pulse 79, respiratory rate 19, blood pressure 132/84, oxygen 93% on 3 liters, 83% on room air. HEENT: No pallor, no icterus. Pupils equal, round and reactive to light. Oral mucosa moist. NECK: No JVD, no neck masses. CARDIOVASCULAR: S1 and S2 heard. Regular rate and rhythm. No murmur, no gallop. RESPIRATORY SYSTEM: Normal AP diameter. Mild bilateral rhonchi heard. No wheezing. ABDOMEN: Soft. Bowel sounds are present, nontender, no distention. CENTRAL NERVOUS SYSTEM: Cranial nerves II through XII are grossly intact, nonfocal. EXTREMITIES: No edema, no erythema. LABORATORY DATA: WBC 10.5, hemoglobin 14.8, hematocrit 40.7, platelets 217. PT 11, INR 1, APTT ____. Sodium 136, potassium 3.5, chloride 97, bicarbonate 33, BUN 13, creatinine 0.7, serum glucose 115. Lactate 0.3, calcium 9.3, magnesium 2.1, total bilirubin 0.5, AST 20, ALT 22, alkaline phosphatase ____. Troponin I high sensitivity less than 2.3. SARS-CoV-2 PCR came back negative. Influenza A and B negative. RSV PCR negative. IMAGING DATA: CTA chest preliminary report is showing diffuse patchy infiltrates possible pneumonitis. ASSESSMENT AND PLAN: This is a 41-year-old male who presents with shortness of breath and hypoxia. 1. Shortness of breath and hypoxia: Was at 83% on room air, requiring oxygen. History of smoking, quit in 2012, prior to that smoked one pack a day for 14 years. Has some rhonchi on exam. His home test for COVID came back positive last week. He is vaccinated and boosted. His COVID PCR test was negative in the ER, but CTA chest is showing multifocal pneumonitis. The patient also has symptoms for 10 days and the patient was given Decadron in the ER, which will be continued. We will place him on nebs, inhalers. Has hx of smoking and drugs in the past. The patient is somewhat drowsy. Drug screen ordered in the ER, which will be followed. 2. The patient has history of aspiration pneumonitis in the past: Followed up with pulmonary in July 2020. At that time, it seemed completely resolved. 3. Deep venous thrombosis prophylaxis: Lovenox. DISPOSITION: Monitor in the med tele. PT/OT prior to discharge. Social service to help with discharge planning. Job ID: [id number] MTDD
[2021-12-21] MEDS: AMPICILLIN/SULBACTAM SOD 3,000 MG in 0.9 % SODIUM CHLORIDE 100 ML IV SCH ×3 (11:32→22:50)
--- NOTE | 2021-12-21 13:02 | Hospitalist Progress Note ---
Date of Service December 21, 2021 Assessment & Plan (1) Multifocal pneumonia: (2) Hypoxia: Plan: 41-year-old male who presents with shortness of breath and hypoxia. CT chest 1. No pulmonary emboli identified. 2. Alveolar opacities throughout the lungs, most confluent within the left lower lobe. The findings represent an infectious process. Multifocal PNA- CT A/P with PNA as above. Leucocytosis noted today ?from steroids vs PNA. Will start on unasyn. Follow up on WBC, blood and sputum clx. D/c steroids. Hypoxia- resolved. Cocaine abuse- UDS positive for cocaine, sniffed a week ago. Recommended quitting. DVT ppx- sc lovenox Dispo- Pending blood and sputum clx Admission and Anticipated Discharge Date Admission Date: December 21, 2021 Subjective Feels fine. No new issues. Denies any chest pain, shortness of breath, fever or chills. Has some cough with sputum expectoration. States he sniffed cocaine a w [place] ago but he did not want it to be told to his and father but he consented to provide other update. Physical Exam Physical Exam: General: Lying comfortably in bed, not in distress, on room air HEENT: EOMI, DUONG, MMM Chest: Clear breath sounds bilaterally, no wheezes or crackles CVS: Regular rate and rhythm, normal heart sounds, no murmur Abdomen: Soft, non tender, not distended, normal bowel sounds Neuro: Awake, alert, oriented, conversing well, non focal Extremities: No cyanosis, clubbing or edema Results & Data Results & Data ([facility]) Vital Signs (Past 12 Hours) Vital Signs Temp Pulse Pulse Pulse Resp BP BP 12/21/21 11:26 36.7 C 86 19 115/67 12/21/21 08:04 80 18 125/66 12/21/21 07:00 83 18 115/66 12/21/21 06:39 84 84 17 134/70 12/21/21 05:20 12/21/21 05:17 12/21/21 05:10 12/21/21 05:00 67 130/87 12/21/21 04:53 12/21/21 04:40 12/21/21 04:30 90 22 12/21/21 04:20 12/21/21 04:10 12/21/21 04:06 75 16 06/16/22 04:00 12/21/21 03:50 12/21/21 03:40 12/21/21 03:30 12/21/21 03:20 96 H 21 12/21/21 03:10 98 H 21 12/21/21 03:00 12/21/21 02:50 88 13 12/21/21 02:41 12/21/21 02:20 92 H 15 12/21/21 02:15 87 12 150/73 H 12/21/21 02:14 89 21 12/21/21 01:50 12/21/21 01:40 76 14 12/21/21 01:30 80 16 12/21/21 01:20 77 18 12/21/21 01:19 12/21/21 01:10 79 19 12/21/21 01:00 78 15 Pulse Ox 12/21/21 11:26 95 12/21/21 08:04 12/21/21 07:00 98 12/21/21 06:39 98 12/21/21 05:20 97 12/21/21 05:17 97 12/21/21 05:10 97 12/21/21 05:00 97 12/21/21 04:53 97 12/21/21 04:40 94 12/21/21 04:30 99 12/21/21 04:20 95 12/21/21 04:10 96 12/21/21 04:06 95 12/21/21 04:00 95 12/21/21 03:50 95 12/21/21 03:40 96 12/21/21 03:30 98 12/21/21 03:20 99 12/21/21 03:10 98 12/21/21 03:00 97 12/21/21 02:50 97 12/21/21 02:41 90 12/21/21 02:20 91 12/21/21 02:15 95 12/21/21 02:14 90 12/21/21 01:50 96 12/21/21 01:40 93 12/21/21 01:30 93 12/21/21 01:20 93 12/21/21 01:19 93 12/21/21 01:10 92 12/21/21 01:00 94 Laboratory Results Short CBC 12/21/21 12/21/21 Range/Units 00:05 06:50 WBC 10.55 18.45 H (4.8-10.8) K/uL Hgb 14.8 14.8 (14.0-18.0) g/dL Hct 40.7 L 41.8 L (42-52) % Plt Count 217 197 (130-400) K/uL BMP 12/21/21 12/21/21 00:05 06:50 Sodium 136 133 L Potassium 3.5 4.1 Chloride 97 L 98 Carbon Dioxide 33 H 29 BUN 13 12 Creatinine 0.74 0.67 Glucose 115 H 113 H Calcium 9.3 9.5 Liver Function 12/21/21 12/21/21 12/21/21 Range/Units 00:05 06:50 06:50 Total Bilirubin 0.5 0.9 Cancelled (0.2-1.0) mg/dl Direct Bilirubin 0.1 Cancelled (0-0.2) mg/dl AST 20 17 Cancelled (13-39) U/L ALT 22 21 Cancelled (7-52) U/L Alkaline Phosphatase 64 61 Cancelled (34-104) U/L Albumin 4.6 4.5 Cancelled (3.4-5.0) gm/dl Urine 12/21/21 Range/Units 05:10 Urine Color Yellow Urine Appearance Clear (Clear) Urine pH 7.0 (4.5-7.5) Ur Specific [place] 1.041 H (1.000-1.030) Urine Protein Negative (Negative) Urine Glucose (UA) Negative (Negative) Diagnostic Findings Chest CTA 12/20/21 23:43 CT ANGIOGRAPHY OF THE CHEST, PULMONARY EMBOLUS PROTOCOL CLINICAL HISTORY: Dyspnea, +covid COMPARISON STUDY: Chest radiograph December 21, 2021. Chest CT July 13, 2020. TECHNIQUE: Following IV administration of 118 mL of Optiray, helical axial i mages of the chest were obtained utilizing the pulmonary embolus protocol. Maximal intensity projections and sagittal and coronal reformats were viewed on an independent 3D workstation. IV contrast was administered without complication. Automated exposure control was utilized for the study. A dose lowering technique was utilized adhering to the principles of ALARA. CT DOSE: 350.23 mGy.cm FINDINGS: No pulmonary emboli are identified. The size of the heart is normal. There is no pericardial effusion. No enlarged axillary, mediastinal or hilar lymph nodes are noted. There is a probable small hiatal hernia. No pneumothorax or pleural effusion is noted. Alveolar opacities are noted throughout the lungs, most confluent within the left lower lobe. No cavitation is present. Central ai rways are patent. Visualized portions of the upper abdomen partially visualize a right renal calculus. Mild splenomegaly is unchanged. IMPRESSION: 1. No pulmonary emboli identified. 2. Alveolar opacities throughout the lungs, most confluent within the left lower lobe. The findings represent an infectious process. ACT 112: Negative or not required by law. Electronically signed by: Sanya Mckeon M.D. 12/21/2021 8:08 AM Chest X-Ray 12/20/21 23:43 SINGLE VIEW CHEST CLINICAL HISTORY: Dyspnea FINDINGS: An AP, portable, upright chest radiograph is compared to study dated 03/20/2020. The cardiomediastinal silhouette is unremarkable. The lungs and pleural spaces are clear. No pneumothorax is seen. The bony thorax is grossly intact. IMPRESSION: No active disease in the chest. ACT 112: Negative or not required by law. Electronically signed by: Juan Ortega M.D. 12/21/2021 8:03 AM Medications Administered Current Inpatient Medications Acetaminophen (Acetaminophen 325 Mg Tab) 650 mg PO Q4H PRN PRN Reason: Pain or Fever Stop: 01/20/22 04:05 Enoxaparin Sodium (Enoxaparin Inj 40 Mg/0.4 Ml Syr) 40 mg SQ Q24H [facility] Stop: 01/20/22 08:59 Last Admin: 12/21/21 09:58 Dose: 40 mg Documented by: Fexofenadine HCl (Fexofenadine Hcl 180 Mg Tab) 180 mg PO QAM [facility] Stop: 01/20/22 08:59 Last Admin: 12/21/21 09:59 Dose: 180 mg Documented by: Fluticasone Furoate (Fluticasone Furoate 100mcg 14 Puffs/Inhaler) 1 puffs INH DAILY [facility] Stop: 01/20/22 08:59 Last Admin: 12/21/21 09:57 Dose: 1 puffs Documented by: Dexamethasone 6 mg/ Syringe 1.5 mls @ 1 mls/min IV DAILY [facility] Stop: 12/31/21 08:59 Last Admin: 12/21/21 09:57 Dose: 1 mls/min Documented by: Ampicillin Sodium/Sulbactam Sodium 3,000 mg/ Sodium Chloride 108 mls @ 200 mls/hr IV Q6H [facility]; Protocol Stop: 12/28/21 10:59 Last Infusion: 12/21/21 12:49 Dose: Infused Documented by: Lactobacillus Acidophilus (Advanced Probiotic 1250 Mg Capsule) 2 cap PO QAM [facility] Stop: 01/20/22 08:59 Last Admin: 12/21/21 09:59 Dose: 2 cap Documented by: Miscellaneous (Order Awaiting Action: Clindamycin Phosphate 1 % Lotion) 1 ea N/A QS [facility] Stop: 01/20/22 07:59 Last Admin: 12/21/21 09:31 Dose: Not Given Documented by: Miscellaneous (Order Awaiting Action: Desvenlafaxine Succinate [Pristiq] 25 Mg) 1 ea N/A QS [facility] Stop: 01/20/22 07:59 Last Admin: 12/21/21 09:31 Dose: Not Given Documented by: Multivitamins (Multivitamin Tab) 1 tab PO DAILY [facility] Stop: 01/20/22 08:59 Last Admin: 12/21/21 09:59 Dose: 1 tab Documented by: Nitroglycerin (Nitroglycerin Sl 0.4 Mg/Tab Tab) 0.4 mg SL Q5M PRN PRN Reason: Chest Pain Stop: 01/20/22 04:05 Pantoprazole Sodium (Pantoprazole 40 Mg Tab) 40 mg PO DAILY [facility] Stop: 01/20/22 08:59 Last Admin: 12/21/21 09:59 Dose: 40 mg Documented by:
--- NOTE | 2021-12-21 18:31 | Electrocardiogram Report ---
Test Reason : Blood Pressure : / mmHG Vent. Rate : 061 BPM Atrial Rate : 061 BPM P-R Int : 158 ms QRS Dur : 110 ms QT Int : 448 ms P-R-T Axes : 072 021 014 degrees QTc Int : 450 ms Normal sinus rhythm Normal ECG When compared with ECG of 18-MAR-2020 10:13, Vent. rate has decreased BY 52 BPM QRS duration has increased Confirmed by Williams Vargas ([id number]) on 12/21/2021 6:30:46 PM Referred By: REFERRED SELF Confirmed By:Jose Carlos Vargas
[2021-12-22] MEDS: AMPICILLIN/SULBACTAM SOD 3,000 MG in 0.9 % SODIUM CHLORIDE 100 ML IV SCH ×2 (05:02→12:09)
[2021-12-22 07:16] LABS: Basophils # (auto) 0.01 K/uL (0-0.2); Basophils % (auto) 0.1 %; Eosinophils # (auto) 0.08 K/uL (0-0.5); Eosinophils % (auto) 0.5 %; Hematocrit (blood only) 38.7 % (42-52); Hemoglobin 13.7 g/dL (14.0-18.0); Immature Granulocytes # (auto) 0.04 K/uL (0.00-0.02); Immature Granulocytes % (auto) 0.3 %; Lymphocytes # (auto) 1.57 K/uL (1.2-3.4); Lymphocytes % (auto) 10.2 %; Mean Corpuscular Hemoglobin 30.6 pg (25-34); Mean Corpuscular Hgb Conc 35.4 g/dL (32-36); Mean Corpuscular Volume 86.6 fL (80-100); Mean Platelet Volume 9.9 fL (7.4-10.4); Monocytes # (auto) 0.76 K/uL (0.11-0.59); Monocytes % (auto) 4.9 %; Neutrophils # (auto) 12.98 K/uL (1.4-6.5); Platelet Count 219 K/uL (130-400); RDW Coefficient of Variation 12.9 % (11.5-14.5); RDW Standard Deviation 41.3 fL (36.4-46.3); Red Blood Count 4.47 M/uL (4.7-6.1); White Blood Count 15.44 K/uL (4.8-10.8)
[2021-12-22 07:26] LABS: BUN Creatinine Ratio 17.9 (10-20); Calcium 9.3 mg/dl (8.5-10.1); Creatinine Clr Calc Pharmacy 120.6 ml/min; Est GFR (African American) 129.9 ml/min; Est GFR (Non-African American) 112.1 ml/min; Potassium 4.1 mmol/L (3.5-5.1)
[2021-12-22] MEDS: FLUTICASONE FUROATE 100MCG 14 PUFFS/INHALER INH SCH (10:18)
[2021-12-22] MEDS: ENOXAPARIN INJ 40 MG/0.4 ML SYR SQ SCH (10:18)
[2021-12-22] MEDS: FEXOFENADINE HCL 180 MG TAB PO SCH (10:18)
[2021-12-22] MEDS: MULTIVITAMIN TAB PO SCH (10:19)
[2021-12-22] MEDS: ADVANCED PROBIOTIC 1250 MG CAPSULE PO SCH (10:19)
[2021-12-22] MEDS: PANTOprazole 40 MG TAB PO SCH (10:19)
--- NOTE | 2021-12-22 14:10 | Discharge Summary ---
Date of Service December 22, 2021 Admission HPI Per Admitting Provider This is a 41-year-old male with past medical history significant for chronic sinusitis, allergic rhinitis, history of GERD, history of kidney stone, allergic conjunctivitis. Former smoker, who quit in 2012, smoked 1 pack a day for 14 years. Comes because of shortness of breath. The patient says he did home COVID test about a week ago, positive, but he has symptoms for around 10 days. His son tested positive prior to that. His symptoms are sinus congestion, on and off nausea, vomiting, headaches, generalized weakness. But had no fever, no cough, no diarrhea. He seemed to get better, but tonight again he became more short of breath, again nausea and vomiting and disoriented.. At home, his gave him some inhalers and checked his pulse ox, it was 83%. He came here, in the ER he was 83% on room air. With 3 liters, he is saturating okay. Hemodynamically stable. His labs look okay. Chest x-ray was okay. CT chest showing no PE, but showing diffuse patchy infiltrates in both lung bases, has a slight interstitial haziness throughout the remainder of the lungs consistent with pneumonia. The patient is vaccinated with L-3 GCS and was boosted with [employer] vaccine in July 2021. Currently denies any chest pain. Currently no abdominal pain, no diarrhea, no blurred visions, no earache. Has some sinus congestion. Appetite is okay.Somewhat drowsy. Admission Exam Per Admitting Provider GENERAL: The patient is of moderate build, not in acute distress. VITAL SIGNS: Temperature 36.3, pulse 79, respiratory rate 19, blood pressure 132/84, oxygen 93% on 3 liters, 83% on room air. HEENT: No pallor, no icterus. Pupils equal, round and reactive to light. Oral mucosa moist. NECK: No JVD, no neck masses. CARDIOVASCULAR: S1 and S2 heard. Regular rate and rhythm. No murmur, no gallop. RESPIRATORY SYSTEM: Normal AP diameter. Mild bilateral rhonchi heard. No wheezing. ABDOMEN: Soft. Bowel sounds are present, nontender, no distention. CENTRAL NERVOUS SYSTEM: Cranial nerves II through XII are grossly intact, nonfocal. EXTREMITIES: No edema, no erythema. Principal Diagnosis Suspected aspiration pneumonia Discharge Exam General: Lying comfortably in bed, not in distress, on room air HEENT: EOMI, DUONG, MMM Chest: Clear breath sounds bilaterally, no wheezes or crackles CVS: Regular rate and rhythm, normal heart sounds, no murmur Abdomen: Soft, non tender, not distended, normal bowel sounds Neuro: Awake, alert, oriented, conversing well, non focal Extremities: No cyanosis, clubbing or edema Discharge Data Allergies Allergy/AdvReac Type Severity Reaction Status Date / Time grass pollen Allergy Severe CONGESTION-SINUS Verified 12/21/21 00:30 INFECTIONS, COUGH, SOB tree and shrub pollen Allergy Severe CONGESTION, Verified 12/21/21 00:30 COUGH, SOB weed pollen Allergy Severe CONGESTION, Verified 12/21/21 00:30 COUGH, SOB dog dander Allergy Intermediate SNEEZING, Verified 12/21/21 00:30 CONGESTION house dust mite Allergy Intermediate SNEEZING, Verified 12/21/21 00:30 CONGESTION, SINUS INFECTION, SOB Consultations 12/21/21 02:12 ED Decision to Admit Stat Ordered Studies 12/20/21 23:43 CT angio chest PE protocol Urgent Laboratory Results WBC 15.44 K/uL (4.8-10.8) H 12/22/21 06:42 RBC 4.47 M/uL (4.7-6.1) L 12/22/21 06:42 Hgb 13.7 g/dL (14.0-18.0) L 12/22/21 06:42 Hct 38.7 % (42-52) L 12/22/21 06:42 MCV 86.6 fL (80-100) 12/22/21 06:42 MCH 30.6 pg (25-34) 12/22/21 06:42 MCHC 35.4 g/dL (32-36) 12/22/21 06:42 RDW Std Deviation 41.3 fL (36.4-46.3) 12/22/21 06:42 RDW Coeff of Carlos 12.9 % (11.5-14.5) 12/22/21 06:42 Plt Count 219 K/uL (130-400) 12/22/21 06:42 MPV 9.9 fL (7.4-10.4) 12/22/21 06:42 Immature Gran % (Auto) 0.3 % 12/22/21 06:42 Neut % (Auto) 84.0 % 12/22/21 06:42 Lymph % (Auto) 10.2 % 12/22/21 06:42 Phillips % (Auto) 4.9 % 12/22/21 06:42 Eos % (Auto) 0.5 % 12/22/21 06:42 Baso % (Auto) 0.1 % 12/22/21 06:42 Neut # (Auto) 12.98 K/uL (1.4-6.5) H 12/22/21 06:42 Lymph # (Auto) 1.57 K/uL (1.2-3.4) 12/22/21 06:42 Phillips # (Auto) 0.76 K/uL (0.11-0.59) H 12/22/21 06:42 Eos # (Auto) 0.08 K/uL (0-0.5) 12/22/21 06:42 Baso # (Auto) 0.01 K/uL (0-0.2) 12/22/21 06:42 Immature Gran # (Auto) 0.04 K/uL (0.00-0.02) H 12/22/21 06:42 RBC Morphology Unremarkable 12/21/21 00:05 PT 11.0 Seconds (9.0-12.0) 12/21/21 00:05 INR 1.0 (0.9-1.1) 12/21/21 00:05 Sodium 137 mmol/L (136-145) 12/22/21 06:42 Potassium 4.1 mmol/L (3.5-5.1) 12/22/21 06:42 Chloride 101 mmol/L (98-107) 12/22/21 06:42 Carbon Dioxide 32 mmol/L (21-32) 12/22/21 06:42 Anion Gap 4 (3-11) 12/22/21 06:42 BUN 14 mg/dl (6-23) 12/22/21 06:42 Creatinine 0.78 mg/dl (0.6-1.4) 12/22/21 06:42 Est Cr Clr Drug Dosing 120.6 ml/min 12/22/21 06:42 Est GFR ( Amer) 129.9 ml/min 12/22/21 06:42 Est GFR (Non-Af Amer) 112.1 ml/min 12/22/21 06:42 BUN/Creatinine Ratio 17.9 (10-20) 12/22/21 06:42 Glucose 98 mg/dl (70-99(Fasting)) 12/22/21 06:42 Lactate 0.3 mmol/L (0.4-2.0) L 12/21/21 00:35 Calcium 9.3 mg/dl (8.5-10.1) 12/22/21 06:42 Magnesium 1.9 mg/dl (1.7-2.4) 12/21/21 06:50 Total Bilirubin 0.9 mg/dl (0.2-1.0) 12/21/21 06:50 Total Bilirubin Cancelled 12/21/21 06:50 Direct Bilirubin 0.1 mg/dl (0-0.2) 12/21/21 06:50 Direct Bilirubin Cancelled 12/21/21 06:50 AST 12 U/L (13-39) L 12/22/21 06:42 ALT 17 U/L (7-52) 12/22/21 06:42 Alkaline Phosphatase 61 U/L (34-104) 12/21/21 06:50 Alkaline Phosphatase Cancelled 12/21/21 06:50 Troponin I High Sens < 2.3 pg/ml (0-20) 12/21/21 00:05 B-Natriuretic Peptide 10 pg/ml (0-100) 12/21/21 00:05 Total Protein 7.0 gm/dl (6.0-8.3) 12/21/21 06:50 Total Protein Cancelled 12/21/21 06:50 Albumin 4.5 gm/dl (3.4-5.0) 12/21/21 06:50 Albumin Cancelled 12/21/21 06:50 Globulin 2.8 gm/dl (2.5-4.0) 12/21/21 00:05 Albumin/Globulin Ratio 1.6 (0.9-2) 12/21/21 00:05 Urine Color Yellow 12/21/21 05:10 Urine Appearance Clear (Clear) 12/21/21 05:10 Urine pH 7.0 (4.5-7.5) 12/21/21 05:10 Ur Specific [place] 1.041 (1.000-1.030) H 12/21/21 05:10 Urine Protein Negative (Negative) 12/21/21 05:10 Urine Glucose (UA) Negative (Negative) 12/21/21 05:10 Urine Ketones Trace (Negative) H 12/21/21 05:10 Urine Blood 1+ (Negative) H 12/21/21 05:10 Urine Nitrite Negative (Negative) 12/21/21 05:10 Urine Bilirubin Negative (Negative) 12/21/21 05:10 Urine Urobilinogen Negative (Negative) 12/21/21 05:10 Ur Leukocyte Esterase Negative (Negative) 12/21/21 05:10 Urine WBC (Auto) 1-5 /hpf (0-5) 12/21/21 05:10 Urine RBC (Auto) 10-30 /hpf (0-4) H 12/21/21 05:10 U Hyaline Cast (Auto) 1-5 /lpf (0-5) 12/21/21 05:10 U Epithel Cells (Auto) 10-20 /lpf (0-5) H 12/21/21 05:10 Urine Bacteria (Auto) Negative (Negative) 12/21/21 05:10 Nasal Screen MRSA (PCR) Negative (Negative) 12/21/21 10:30 Urine Opiates Screen Neg (Neg) 12/21/21 05:10 Ur Methadone, Qual Neg (Neg) 12/21/21 05:10 Urine Barbiturates Neg (Neg) 12/21/21 05:10 Ur Phencyclidine (PCP) Neg (Neg) 12/21/21 05:10 U Amphetamin/Meth Scrn Neg (Neg) 12/21/21 05:10 MDMA (Ecstasy) Screen Neg (Neg) 12/21/21 05:10 U Benzodiazepines Scrn Neg (Neg) 12/21/21 05:10 Ur Cocaine Metabolite Pos (Neg) H 12/21/21 05:10 U Marijuana (THC) Screen Neg (Neg) 12/21/21 05:10 SARS-CoV-2 (PCR) NEGATIVE (Negative) 12/21/21 00:10 Influenza Type A (PCR) Negative (Neg) 12/21/21 00:10 Influenza Type B (PCR) Negative (Neg) 12/21/21 00:10 RSV (RT-PCR) Negative (Neg) 12/21/21 00:10 Impressions Chest CTA 12/20/21 23:43 CT ANGIOGRAPHY OF THE CHEST, PULMONARY EMBOLUS PROTOCOL CLINICAL HISTORY: Dyspnea, +covid COMPARISON STUDY: Chest radiograph December 21, 2021. Chest CT July 13, 2020. TECHNIQUE: Following IV administration of 118 mL of Optiray, helical axial images of the chest were obtained utilizing the pulmonary embolus protocol. Maximal intensity projections and sagittal and coronal reformats were viewed on an independent 3D workstation. IV contrast was administered without complication. Automated exposure control was utilized for the study. A dose lowering technique was utilized adhering to the principles of ALARA. CT DOSE: 350.23 mGy.cm FINDINGS: No pulmonary emboli are identified. The size of the heart is normal. There is no pericardial effusion. No enlarged axillary, mediastinal or hilar lymph nodes are noted. There is a probable small hiatal hernia. No pneumothorax or pleural effusion is noted. Alveolar opacities are noted throughout the lungs, most confluent within the left lower lobe. No cavitation is present. Central airways are patent. Visualized portions of the upper abdomen partially visualize a right renal calculus. Mild splenomegaly is unchanged. IMPRESSION: 1. No pulmonary emboli identified. 2. Alveolar opacities throughout the lungs, most confluent within the left lower lobe. The findings represent an infectious process. ACT 112: Negative or not required by law. Electronically signed by: Sanya Mckeon M.D. 12/21/2021 8:08 AM Chest X-Ray 12/20/21 23:43 SINGLE VIEW CHEST CLINICAL HISTORY: Dyspnea FINDINGS: An AP, portable, upright chest radiograph is compared to study dated 03/20/2020. The cardiomediastinal silhouette is unremarkable. The lungs and pleural spaces are clear. No pneumothorax is seen. The bony thorax is grossly intact. IMPRESSION: No active disease in the chest. ACT 112: Negative or not required by law. Electronically signed by: Juan Ortega M.D. 12/21/2021 8:03 AM Hospital Course (1) Multifocal pneumonia: (2) Hypoxia: 41-year-old male who presents with shortness of breath and hypoxia. CT chest showed no PE but pneumonia. I spoke to his Radha who works as RD here- states he had vomiting and was lethargic before he was hypoxic. Suspected aspiration pnuemonia. He improved rapidly in the ED. He was given 1 dose of decadron in the ED. Has been saturating well in room air since admission. No wheezes or respiratory issues. Cough significantly improved. He did not produce any sputum for culture. Blood culture negative. He feels ready to go home. Leucocytosis is improving, remains afebrile and well looking. He was on unasyn D1 and was switched to augmentin at discharge to complete 7 day course. He did not want me to let his or parents know about his cocaine abuse and hence I did not tell it to them. Discussed discharged plan with Radha. CT chest 1. No pulmonary emboli identified. 2. Alveolar opacities throughout the lungs, most confluent within the left lower lobe. The findings represent an infectious process. Flu and COVID negative. Multifocal PNA, suspected aspiration PNA- CT A/P with PNA as above. Leucocytosis improved ?from steroids vs PNA. S/p unasyn D1. Continue augmentin for 6 more days. Blood clx negative Hypoxia- resolved. Cocaine abuse- UDS positive for cocaine, sniffed a week ago. Recommended quitting. Total Time Total Time Spent Total Time Spent (In Minutes): 32 Discharge Plan Discharge Items Patient Disposition: Home - Self-Care Reason For Visit: SOB Discharge Diagnosis: Pneumonia Activity: Resume your previous activity Non-emergency contact: Primary Care Provider Call non-emergency contact if: you have any medication questions, your symptoms worsen and you have a fever Follow-up/Referrals: Brandon Aguilar MD [Primary Care Provider] - (Date & Time 12/28/2021 11:00 AM Provider Brandon Aguilar III, MD Department [facility] ) Diet: Regular Addtl Attending Provider Instructions: Continue augmentin twice daily for 6 more days Please stop using cocaine or any other drugs If fever, chills, worsening respiratory symptoms or low oxygen level, please come back to the emergency Pending Studies at Discharge: No Stand-Alone Forms: My [email or web address], Smoking Cessation Medications and DC Order Prescriptions: New amoxicillin-pot clavulanate 875-125 mg tablet 1 tab PO BID 6 Days Qty: 12 RF: 0 Continued Probiotic 10 billion cell Capsule 10,000 mmu cells PO QAM RF: 0 fexofenadine 180 mg Tablet 180 mg PO QAM RF: 0 omeprazole 20 mg Tablet,Delayed Release (Dr/Ec) 20 mg PO DAILY RF: 0 multivitamin Tablet 1 tab PO DAILY RF: 0 clindamycin phosphate 1 % lotion 1 applic TOPICAL DAILY PRN (Reason: Skin Irritation) RF: 0 Discharge Orders: Discharge Order (Routine); Ordered 12/22/21 Ordered By: Randal Redding Admission Data Admit Date/Time: 12/21/21 03:25 Attending Provider: Ranadl Redding Admit Provider: Parvez Humphrey Primary Care Provider: Brandon Aguilar Other Providers: Parvez Humphrey Other Interventions: Discharge Summary Assessment (RN) Last Done: 12/22/21 12:26
[2021-12-22 21:42] LABS: Cocaine, Urine >15000 ng/mL (<100)
== END 2021-12-22 14:31 | disposition home or self-care (01) | DRG 179 ==
LOC: ED 23:19 → SUATTDRO 12-21 03:25 → EDINP 12-21 03:25 → 2N 12-21 16:51

== ENCOUNTER 2022-02-15 15:28 | Inpatient (IN) ==
[2022-02-15] MEDS ORDERED: SODIUM CHLORIDE 0.9% 500 ML IV ONE (15:54)
[2022-02-15 17:24] LABS: Basophils # (auto) 0.05 K/uL (0-0.2); Basophils % (auto) 0.4 %; Eosinophils # (auto) 0.51 K/uL (0-0.50); Eosinophils % (auto) 4.2 %; Hematocrit (blood only) 44.2 % (40.1-51.0); Hemoglobin 15.3 g/dl (14.0-18.0); Immature Granulocytes # (auto) 0.03 K/uL (0.00-0.02); Immature Granulocytes % (auto) 0.2 %; Lymphocytes # (auto) 1.74 K/uL (1.2-3.4); Lymphocytes % (auto) 14.3 %; Mean Corpuscular Hemoglobin 30.1 pg (25.0-34.0); Mean Corpuscular Hgb Conc 34.6 g/dL (32.0-36.0); Mean Corpuscular Volume 86.8 fL (80.0-100.0); Mean Platelet Volume 9.8 fL (9.4-12.4); Monocytes # (auto) 1.33 K/uL (0.24-0.82); Monocytes % (auto) 10.9 %; Neutrophils # (auto) 8.55 K/uL (1.4-6.5); Platelet Count 348 K/uL (130-400); RDW Coefficient of Variation 12.1 % (11.5-14.5); RDW Standard Deviation 38.1 fL (36.4-46.3); Red Blood Count 5.09 M/uL (4.63-6.08); White Blood Count 12.21 K/ul (4.8-10.8)
[2022-02-15 17:48] LABS: Albumin Globulin Ratio 1.3 (0.9-2); Albumin Level 4.3 gm/dl (3.4-5.0); BUN Creatinine Ratio 9.8 (10-20); Bilirubin,Total 0.5 mg/dl (0.2-1.0); C Reactive Protein 9.71 mg/dl (0-0.5); Calcium 9.5 mg/dl (8.5-10.1); Creatinine Clr Calc Pharmacy 114.7 ml/min; Est GFR (African American) 127.3 ml/min; Est GFR (Non-African American) 109.8 ml/min; Globulin 3.3 gm/dl (2.5-4.0); Potassium 3.8 mmol/L (3.5-5.1); Total Protein 7.6 gm/dl (6.0-8.3)
[2022-02-15] MEDS ORDERED: SODIUM CHLORIDE 0.9% 1000ML 2,000 ML IV ONE (18:26)
[2022-02-15] MEDS ORDERED: PIPERACILLIN/TAZOBACTAM 4.5 GM/120 ML BAG IV ONE (18:28)
[2022-02-15] MEDS ORDERED: VANCOMYCIN CONSULT ACTIVE PRN (18:28)
[2022-02-15] MEDS ORDERED: VANCOMYCIN HCL 1,500 MG in SODIUM CHLORIDE 0.9% 500 ML IV ONE (18:28)
--- NOTE | 2022-02-15 18:32 | Emergency Department Note ---
Impression & Plan Cellulitis, Abscess of deltoid region, Leukocytosis ED Provider Note NAME: JHON MARIN AGE: 41 SEX: M : 1980 ARRIVES VIA: Walk-In INFORMANT: Patient ED PROVIDER(S): Shamir Ronquillo DO CHIEF COMPLAINT: left shoulder abscess HPI: Patient is a 41-year-old male who was referred in by Ortho with a past medical history of ulcerative colitis, inflammatory bowel disease, kidney stones, drug intoxication, drug withdrawal, ileus who was found to have an absce ss in his left deltoid. He started having pain there about 3 to 4 days ago. He has redness which started about 2 days ago. He admits to chills. About a week ago he was having dental procedure and was placed on antibiotics for infected left lower screw in his mouth. ROS: See above HPI for pertinent positives & negatives. A total of 10 systems reviewed and were otherwise negative. PAST MEDICAL HISTORY:See Below PAST SURGICAL HISTORY:See Below FAMILY HISTORY:See Below SOCIAL HISTORY:See Below HOME MEDICATIONS:See Below ALLERGIES:See Below VITALS:See Below PHYSICAL EXAMINATION: GENERAL: Sitting up in bed, alert, well appearing, well nourished, no distress, non-toxic EYE EXAM: normal conjunctiva. OROPHARYNX: no exudate, no erythema, lips, buccal mucosa, and tongue normal and mucous membranes are moist NECK: supple, no nuchal rigidity, no adenopathy, non-tender LUNGS: Clear to auscultation. Normal chest wall mechanics HEART: no murmurs, S1 normal and S2 normal ABDOMEN: abdomen soft, non-tender, normo-active bowel sounds, no masses, no rebound or guarding. UPPER EXTREMITIES: Tenderness with abduction as well as flexion extension of the left shoulder. Radial pulse 2 out of 4. Redness and swelling over the left deltoid which is acutely tender to palpation. LOWER EXTREMITIES: No pitting edema. NEURO EXAM: Normal sensorium, cranial nerves II-XII grossly intact, normal speech, no gross weakness of arms, no gross weakness of legs. MEDICAL DECISION MAKING: Patient is a 41-year-old male referred in for deltoid abscess which was drained partially in the office of orthopedics. IV was established blood work was obtained. Labs show leukocytosis of 12,000. No significant anemia. Sed was elevated as well as CRP. BMP on LFTs and bilirubin was unremarkable. COVID was negative. CT of the arm confirms an abscess. Patient was given IV antibiotics updated bedside and discussed with hospitalist for further evaluation. Triage Nursing notes reviewed. Limited review of prior medical records performed Vital Signs: reviewed and remarkable for no significant abnormalities Differential diagnosis: Cellulitis, abscess, MRSA infection, DVT, necrotizing fasciitis, dermatitis, drug eruption, allergic reaction, as well as other pathologies. ER treatment provided: See below Diagnostics interpreted by me: ECG: none Cardiac Monitoring: An order was placed for continuous cardiac monitoring. The monitor shows a rate of 92 with sinus rhythm. Laboratory studies: As stated above and show below. Imaging studies: CT of the left upper extremity shows deltoid abscess Consultation(s): Discussed with Antonia from patient hospitalist for further evaluation and admission Procedures: none Critical Care: None Past Med/Surg History Medical History (Updated 02/16/22 @ 00:12 by Shamir Ronquillo DO) Allergic rhinitis Aspiration pneumonia HOSPITALIZED 03/2020 (REQUIRED INTUBATION) Chronic sinusitis GERD (gastroesophageal reflux disease) History of kidney stones Surgical History History of carpal tunnel release B/L History of colonoscopy History of endoscopic sinus surgery X 2 History of esophagogastroduodenoscopy (EGD) History of tonsillectomy and adenoidectomy [place] teeth removed Family History Father Allergies Mother Sinus disorder Other No family history of bleeding disorder Social History Smoking Status: Former smoker Tobacco Type: Cigarettes packs per day: 1; Years Smoked: 14; Cigarettes Per Day: PT QUIT TOBACCO SEVERAL YEARS AGO BUT OCC. 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 current occupation: [employer] Feels Safe at Home: Yes Assistive Devices: None Allergies Allergies Allergy/AdvReac Type Severity Reaction Status Date / Time grass pollen Allergy Severe CONGESTION-SINUS Verified 02/15/22 18:54 INFECTIONS, COUGH, SOB tree and shrub pollen Allergy Severe CONGESTION, Verified 02/15/22 18:54 COUGH, SOB weed pollen Allergy Severe CONGESTION, Verified 02/15/22 18:54 COUGH, SOB dog dander Allergy Intermediate SNEEZING, Verified 02/15/22 18:54 CONGESTION house dust mite Allergy Intermediate SNEEZING, Verified 02/15/22 18:54 CONGESTION, SINUS INFECTION, SOB Home Meds Home Medications Medication Instructions Recorded Confirmed fexofenadine 180 mg tablet 180 mg PO QAM 08/21/18 02/15/22 omeprazole 20 mg tablet,delayed 20 mg PO DAILY 08/21/18 02/15/22 release Lactobacillus acidophilus 10 10,000 mmu cells PO QAM 04/21/20 02/15/22 billion cell capsule (Probiotic) multivitamin 1 tab PO DAILY 12/21/21 02/15/22 Results & Data (ED) Vital Signs Vital Signs - 24 hr 02/15/22 15:53 02/15/22 18:17 Temperature 36.0 C L Temperature Source Temporal Artery Scan Pulse Rate 115 H Pulse Rate [Left Finger] 95 H Pulse Rhythm Regular Pulse Strength Normal Respiratory Rate 18 20 Respiratory Effort / Characteristics Non-Labored Spontaneous Respiratory Depth Normal Respiratory Pattern Regular Blood Pressure 140/75 Blood Pressure [Left Arm] 135/96 Blood Pressure Mean 96 Blood Pressure Mean [Left Arm] 109 Blood Pressure Position Sitting Blood Pressure Position [Left Arm] Sitting Pulse Oximetry 98 97 Oxygen Delivery Method Room Air Room Air Sepsis Recent Fever Within 48 Hours No Sepsis New/Unexplained Change in Mental Status No Sepsis Action Taken by Nursing No Action Required Laboratory Data Result diagrams: 02/15/22 17:03 02/15/22 17:03 Lab Results 02/15/22 02/15/22 02/15/22 Range/Units 17:03 17:03 17:03 WBC 12.21 H (4.8-10.8) K/ul RBC 5.09 (4.63-6.08) M/uL Hgb 15.3 (14.0-18.0) g/dl Hct 44.2 (40.1-51.0) % MCV 86.8 (80.0-100.0) fL MCH 30.1 (25.0-34.0) pg MCHC 34.6 (32.0-36.0) g/dL RDW Std Deviation 38.1 (36.4-46.3) fL RDW Coeff of Carlos 12.1 (11.5-14.5) % Plt Count 348 (130-400) K/uL MPV 9.8 (9.4-12.4) fL Immature Gran % (Auto) 0.2 % Neut % (Auto) 70.0 % Lymph % (Auto) 14.3 % Calloway % (Auto) 10.9 % Eos % (Auto) 4.2 % Baso % (Auto) 0.4 % Neut # (Auto) 8.55 H (1.4-6.5) K/uL Lymph # (Auto) 1.74 (1.2-3.4) K/uL Calloway # (Auto) 1.33 H (0.24-0.82) K/uL Eos # (Auto) 0.51 H (0-0.50) K/uL Baso # (Auto) 0.05 (0-0.2) K/uL Immature Gran # (Auto) 0.03 H (0.00-0.02) K/uL ESR 54 H (0-15) mm/hr Sodium 135 L (136-145) mmol/L Potassium 3.8 (3.5-5.1) mmol/L Chloride 99 (98-107) mmol/L Carbon Dioxide 29 (21-32) mmol/L Anion Gap 7 (3-11) BUN 8 (6-23) mg/dl Creatinine 0.82 (0.6-1.4) mg/dl Est Cr Clr Drug Dosing 114.7 ml/min Est GFR ( Amer) 127.3 ml/min Est GFR (Non-Af Amer) 109.8 ml/min BUN/Creatinine Ratio 9.8 L (10-20) Glucose 79 (70-99(Fasting)) mg/dl Calcium 9.5 (8.5-10.1) mg/dl Total Bilirubin 0.5 (0.2-1.0) mg/dl AST 27 (13-39) U/L ALT 26 (7-52) U/L Alkaline Phosphatase 60 (34-104) U/L C-Reactive Protein 9.71 H (0-0.5) mg/dl Total Protein 7.6 (6.0-8.3) gm/dl Albumin 4.3 (3.4-5.0) gm/dl Globulin 3.3 (2.5-4.0) gm/dl Albumin/Globulin Ratio 1.3 (0.9-2) Administered Medications Discontinued Medications Sodium Chloride (Nss) 500 mls @ 999 mls/hr IV .Q31M ONE Stop: 02/15/22 16:24 Last Infusion: 02/15/22 22:00 Dose: 0 mls/hr Documented By: Admin: 02/15/22 18:17 Dose: 999 mls/hr Documented By: JOSELYN Sodium Chloride (Nss 1000ml) 2,000 mls @ 999 mls/hr IV .Q2H1M ONE Stop: 02/15/22 20:26 Last Infusion: 02/15/22 19:53 Dose: 0 mls/hr Documented By: Admin: 02/15/22 19:19 Dose: 999 mls/hr Documented By: VIELKA Piperacillin Sod/Tazobactam Sod (Zosyn) 4.5 gm in 120 mls @ 240 mls/hr IV NOW ONE Stop: 02/15/22 18:57 Last Infusion: 02/15/22 19:53 Dose: 0 mls/hr Documented By: Admin: 02/15/22 19:19 Dose: 240 mls/hr Documented By: VIELKA Vancomycin HCl 1,500 mg/ (Sodium Chloride) 530 mls @ 200 mls/hr IV NOW ONE Stop: 02/15/22 21:06 Last Admin: 02/15/22 19:53 Dose: 200 mls/hr Documented By: VIELKA Ioversol (Optiray 300 100ml) 81 ml IV ONCE ONE Stop: 02/15/22 18:45 Last Admin: 02/15/22 18:45 Dose: 81 ml Documented By: NIKI Imaging Data Radiologist's Impression: Shoulder CT 02/15/22 15:54 CT shoulder LT w con CLINICAL HISTORY: L deltoid abscess? TECHNIQUE: Multidetector row helical CT of the left shoulder was performed with intravenous contrast. Coronal and sagittal reformations were obtained. Automated dose lowering techniques and/or adjustment according to patient size were utilized for this examination. CT DOSE: 340.54 mGycm Comparison: None available at the time of this dictation. FINDINGS: The osseous structures are without fracture or dislocation. The joint spaces are maintained. No joint effusion is seen. There is an intramuscular deltoid hypodensity with faint rim enhancement measuring approximately 18 x 14 by 17 mm in diameter. IMPRESSION: Intramuscular abscess in the deltoid muscle measuring 1.8 x 1.4 x 1.7 cm. ACT 112: Negative or not required by law. Electronically signed by: Bill Hunter M.D. 02/15/2022 7:14 PM Discharge Plan Visit Data Chief Complaint: Arm Pain Stated Complaint: REF BY , INFECTION IN SHOULDER/ARM ED Provider: Shamir Ronquillo Discharge Problem: Cellulitis, Abscess of deltoid region, Leukocytosis Patient Disposition: Admitted As Inpatient Discharge Instructions Interventions: ED Discharge Assessment Last Done: 02/15/22 22:51
[2022-02-15] MEDS ORDERED: OPTIRAY 300 100mL IV ONE (18:44)
--- NOTE | 2022-02-15 19:15 | CT Scan Report ---
CT shoulder LT w con CLINICAL HISTORY: L deltoid abscess? TECHNIQUE: Multidetector row helical CT of the left shoulder was performed with intravenous contrast. Coronal and sagittal reformations were obtained. Automated dose lowering techniques and/or adjustmen t according to patient size were utilized for this examination. CT DOSE: 340.54 mGycm Comparison: None available at the time of this dictation. FINDINGS: The osseous structures are without fracture or dislocation. The joint spaces are maintained. No joint effusion is seen. There is an intramuscular deltoid hypodensity with faint rim enhancement measurin g approximately 18 x 14 by 17 mm in diameter. IMPRESSION: Intramuscular abscess in the deltoid muscle measuring 1.8 x 1.4 x 1.7 cm. ACT 112: Negative or not required by law. Electronically signed by: Bill Hunter M.D. 02/15/2022 7:14 PM
--- NOTE | 2022-02-15 20:37 | History & Physical Report ---
Date of Service February 15, 2022 Assessment & Plan (1) Abscess of deltoid region: (2) Leukocytosis: (3) Hx of drug abuse: Plan This is a 41-year-old male who has significant past medical history of chronic sinusitis, allergic rhinitis, GERD, history of kidney stone, history of cocaine drug abuse, former smoker who presents to ED after being referred to orthopedics due to concern for left deltoid abscess. Abscess of deltoid region Leukocytosis hx of cocaine use admit to med/surg CT confirms abscess Intramuscular abscess in the deltoid muscle measuring 1.8 x 1.4 x 1.7 cm. Broad spectrum IV antibiotics with Vanco and IV cefepime gentle IVF NPO after midnight CRP 9.71, ESR 54 consult orthopedics acceptable risk for surgery, no contraindication pt admits to cocaine use ~ 3 months ago, will obtain UDS and UA pre op PO norco as needed for pain Dental abscess pt following with dental recently had implants placed, abscess to 1 implant has been on amoxicillin for 3 days, feels is improving consider facial CT if worsening Chronic medical problems of Gerd and Chronic Rhinitis: continue home meds DVT ppx: None, pt to likely undergo procedure in a.m. FULL CODE Dispo: med/surg PCP: Dr. Aguilar Pt was seen and examined in collaboration with Dr. Xie, please see addendum Pt is Radha Villegas, operations controller for [facility]. She requests updates. She is working tomorrow 02/16 and states okay to contact her on TT. History of Present Illness Chief Complaint: referred by orthopedics for IV antibiotics for deltoid abscess Primary Care Provider: Brandon Aguilar MD This is a 41-year-old male who has significant past medical history of chronic sinusitis, allergic rhinitis, GERD, history of kidney stone, history of cocaine drug abuse, former smoker who presents to ED after being referred to orthopedics due to concern for left deltoid abscess. Patient was seen in orthopedic clinic today by Dr. Castro. He complained of left shoulder pain, decreased range of motion for approximately the past week. Over the past 2 days he noticed redness and warmth over the top of his left shoulder. In clinic today ultrasound was used and found abscess to the deltoid. Purulent material was aspirated from the intramuscular abscess and sent for culture. Case was discussed with on-call orthopedic Dr. Ashley. He was referred to ER for IV antibiotics. He was diaphoretic in the ED but denied any documented fever, chills or sweats. He states he does occasionally get sweaty but this is not out of the ordinary for him. He denies any lightheadedness, dizziness, syncope, chest pain, shortness with, cough, URI symptoms, nausea, vomiting, abdominal pain, changes bowel or urinary habits. He has been dealing with a dentist for dental work and getting implants. He has been having difficulty with his teeth and pain. Approximately a week ago he was seen by the dentist and found to have a abscess of the 1 implant and was started on oral amoxicillin. Also of significance patient does have history of cocaine drug abuse. He was last admitted at our hospital on 12/21-12/22 for aspiration pneumonia and a prior COVID positive. He was treated with oral Augmentin. During that hospitalization he did test positive for cocaine and admitted use approximately 1 week prior. He denies any further relapse and does admit to cocaine use approximately 2 to 3 months ago. He denies any IV drug abuse. Allergies Allergy/AdvReac Type Severity Reaction Status Date / Time grass pollen Allergy Severe CONGESTION-SINUS Verified 02/15/22 18:54 INFECTIONS, COUGH, SOB tree and shrub pollen Allergy Severe CONGESTION, Verified 02/15/22 18:54 COUGH, SOB weed pollen Allergy Severe CONGESTION, Verified 02/15/22 18:54 COUGH, SOB dog dander Allergy Intermediate SNEEZING, Verified 02/15/22 18:54 CONGESTION house dust mite Allergy Intermediate SNEEZING, Verified 02/15/22 18:54 CONGESTION, SINUS INFECTION, SOB Home Medications Medication Instructions Recorded Confirmed Type fexofenadine 180 mg tablet 180 mg PO QAM 08/21/18 02/15/22 History omeprazole 20 mg tablet,delayed 20 mg PO DAILY 08/21/18 02/15/22 History release Lactobacillus acidophilus 10 10,000 mmu cells PO QAM 04/21/20 02/15/22 History billion cell capsule (Probiotic) multivitamin 1 tab PO DAILY 12/21/21 02/15/22 History Past Med/Surg History Medical History (Updated 02/16/22 @ 00:12 by Shamir Ronquillo DO) Allergic rhinitis Aspiration pneumonia HOSPITALIZED 03/2020 (REQUIRED INTUBATION) Chronic sinusitis GERD (gastroesophageal reflux disease) History of kidney stones Surgical History History of carpal tunnel release B/L History of colonoscopy History of endoscopic sinus surgery X 2 History of esophagogastroduodenoscopy (EGD) History of tonsillectomy and adenoidectomy [place] teeth removed Family History Father Allergies Mother Sinus disorder Other No family history of bleeding disorder Social History Smoking Status: Former smoker Tobacco Type: Cigarettes packs per day: 1; Years Smoked: 14; Cigarettes Per Day: PT QUIT TOBACCO SEVERAL YEARS AGO BUT OCC. 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: No Beliefs That Will Affect Care: None marital status: Current Living Situation: Family current occupational status: employed and student current occupation: [employer] Feels Safe at Home: Yes Assistive Devices: Denture - Upper and Glasses Review of Systems Review of Systems: All systems reviewed & are unremarkable except as noted in HPI & below Physical Exam Physical Exam: Constitutional: WD/WN, vitals as above, NAD, sitting up in bed, pleasant, conversing easily, diaphoresis Head: Normocephalic, Atraumatic Eyes: PERRL, conjunctivae normal, anicteric sclerae ENMT: external ear and nose normal, oropharynx normal Neck: trachea midline, no thyromegaly normal visual inspection Respiratory: normal respiratory effort, lungs clear to auscultation, no wheeze, rales, rhonchi. Normal insp/exp effort, no accessory muscle use Cardiovascular: RRR, no murmur, no edema Vessels: no JVD or carotid bruit Chest: normal inspection of chest Abdomen: normal bowel sounds, soft, nontender, no hepatosplenomegaly Musculoskeletal: no cyanosis or clubbing, active range of motion x4, pain to palpation to left deltoid area, decreased range of motion with left arm extension and ABduction, surrounding erythema and warmth to left shoulder Skin: no rashes, warm and dry normal turgor Neurologic: PERRL, EOMI, accommodation nl, no face palsy, no dysarthria CN's II-XI intact bilaterally and moves all extremities Psychiatric: A+Ox3, euthymic affect Lymphatic: no cervical or axillary lymphadenopathy : deferred Results & Data Results & Data ([facility]) Vital Signs (Past 12 Hours) Vital Signs Temp Pulse Pulse Resp BP BP Pulse Ox 02/15/22 20:00 18 145/74 H 97 02/15/22 18:17 95 H 20 135/96 97 02/15/22 15:53 36.0 C L 115 H 18 140/75 98 O2 Del Method 02/15/22 20:00 02/15/22 18:17 Room Air 02/15/22 15:53 Room Air Diagnostic Findings Shoulder CT 02/15/22 15:54 CT shoulder LT w con CLINICAL HISTORY: L deltoid abscess? TECHNIQUE: Multidetector row helical CT of the left shoulder was performed with intravenous contrast. Coronal and sagittal reformations were obtained. Automated dose lowering techniques and/or adjustment according to patient size were utilized for this examination. CT DOSE: 340.54 mGycm Comparison: None available at the time of this dictation. FINDINGS: The osseous structures are without fracture or dislocation. The joint spaces are maintained. No joint effusion is seen. There is an intramuscular deltoid hypodensity with faint rim enhancement measuring approximately 18 x 14 by 17 mm in diameter. IMPRESSION: Intramuscular abscess in the deltoid muscle measuring 1.8 x 1.4 x 1.7 cm. ACT 112: Negative or not required by law. Electronically signed by: Bill Hunter M.D. 02/15/2022 7:14 PM Medications Administered Medication List Vancomycin HCl 1,500 mg/ (Sodium Chloride) 530 mls @ 200 mls/hr IV NOW ONE Stop: 02/15/22 21:06 Last Admin: 02/15/22 19:53 Dose: 200 mls/hr Documented By: VIELKA Discontinued Medications Sodium Chloride (Nss) 500 mls @ 999 mls/hr IV .Q31M ONE Stop: 02/15/22 16:24 Last Admin: 02/15/22 18:17 Dose: 999 mls/hr Documented By: JOSELYN Sodium Chloride (Nss 1000ml) 2,000 mls @ 999 mls/hr IV .Q2H1M ONE Stop: 02/15/22 20:26 Last Infusion: 02/15/22 19:53 Dose: 0 mls/hr Documented By: Admin: 02/15/22 19:19 Dose: 999 mls/hr Documented By: VIELKA Piperacillin Sod/Tazobactam Sod (Zosyn) 4.5 gm in 120 mls @ 240 mls/hr IV NOW ONE Stop: 02/15/22 18:57 Last Infusion: 02/15/22 19:53 Dose: 0 mls/hr Documented By: Admin: 02/15/22 19:19 Dose: 240 mls/hr Documented By: VIELKA Ioversol (Optiray 300 100ml) 81 ml IV ONCE ONE Stop: 02/15/22 18:45 Last Admin: 02/15/22 18:45 Dose: 81 ml Documented By: NIKI COVID-19 Results Results COVID-19 Adm Lab Results: RBC 4.49 M/uL (4.63-6.08) L 02/16/22 WBC 6.99 K/ul (4.8-10.8) 02/16/22 Hgb 13.2 g/dl (14.0-18.0) L 02/16/22 Hct 39.7 % (40.1-51.0) L 02/16/22 Plt Count 271 K/uL (130-400) 02/16/22 Neutrophils (%) (Auto) 63.2 % 02/16/22 Lymphocytes (%) (Auto) 17.2 % 02/16/22 Monocytes # (Auto) 0.70 K/uL (0.24-0.82) 02/16/22 Eosinophils # (Auto) 0.61 K/uL (0-0.50) H 02/16/22 Immature Granulocyte % (Auto) 0.3 % 02/16/22 Neutrophils # (Auto) 4.42 K/uL (1.4-6.5) 02/16/22 Lymphocytes # (Auto) 1.20 K/uL (1.2-3.4) 02/16/22 Monocytes # (Auto) 0.70 K/uL (0.24-0.82) 02/16/22 Eosinophils # (Auto) 0.61 K/uL (0-0.50) H 02/16/22 Basophils # (Auto) 0.04 K/uL (0-0.2) 02/16/22 Immature Granulocyte # (Auto) 0.02 K/uL (0.00-0.02) 2 Na 138 mmol/L (136-145) 02/16/22 K 4.0 mmol/L (3.5-5.1) 02/16/22 Cl 107 mmol/L (98-107) 02/16/22 CO2 27 mmol/L (21-32) 02/16/22 Anion Gap 4 (3-11) 02/16/22 BUN 7 mg/dl (6-23) 02/16/22 Creatinine 0.75 mg/dl (0.6-1.4) 02/16/22 BUN/Creatinine Ratio 9.3 (10-20) L 02/16/22 Glucose Level 90 mg/dl (70-99(Fasting)) 02/16/22 Ca 8.6 mg/dl (8.5-10.1) 02/16/22 Total Bilirubin 0.3 mg/dl (0.2-1.0) 02/16/22 AST/SGOT 19 U/L (13-39) 02/16/22 ALT/SGPT 22 U/L (7-52) 02/16/22 Alkaline Phosphatase 45 U/L (34-104) 02/16/22 Total Protein 6.1 gm/dl (6.0-8.3) 02/16/22 Albumin 3.5 gm/dl (3.4-5.0) 02/16/22 Globulin 2.6 gm/dl (2.5-4.0) 02/16/22 Albumin/Globulin Ratio 1.3 (0.9-2) 02/16/22 CRP 9.71 mg/dl (0-0.5) H 02/15/22 SARS-CoV-2, RNA, NAAT NEGATIVE (NEGATIVE) 02/15/22 Code Status & VTE Plan Code Status FULL CODE VTE Prophylaxis Plan VTE Prophylaxis will be ordered: No Supervising Physician Co-Signing Physician Notes delayed entry date of service noted above Attending Addendum: care coordinated with MICHAELA Lyon please refer to her notes for full details, I agree with her notes patient seen and examined, records reviewed by myself as well on exam, patient seen resting in bed, sitting up, comfortable has minimal discomfort on the left deltoid area no chest pain, dyspnea, palpitations, dizziness no other symptoms VS noted and reviewed oriented x 3, not in distress, speaks in sentences with no effort nor accessory muscle use normal rate, regular rhythm, no murmurs clear breath sounds bilaterally non distended, soft, nontender Left deltoid area: (+) moderate erythema and mild warmth, tenderness no bipedal edema, erythema, warmth no neuro deficits ASSESSMENT AND PLAN LEFT DELTOID ABSCESS ff up cultures- wound and blood IV Vanco + Cefepime Ortho consulted- plan for I&D tomorrow other diagnoses and plan of care as per MICHAELA Valle's notes Ramin Xie MD
--- NOTE | 2022-02-15 22:04 | Orthopedic Consultation ---
Date of Service February 15, 2022 Assessment & Plan (1) Abscess of deltoid region: Patient's skin to be admitted by the medicine service for IV antibiotics. Based on the gross pus present this really require surgical management. It is fairly small but I do think it is best managed surgically to get rid of this pus pocket. It will respond much quicker and less risk for impending sepsis. At the risk meant I&D of a left abscess left shoulder abscess were explained the patient and he understands. We will keep him n.p.o. after midnight. Plan on no surgical irrigation debridement tomorrow. History of Present Illness Reason for Consultation: . Left shoulder abscess/deltoid abscess. Requesting Physician: . . Patient is a 41-year-old [id number] gentleman with a history of IV drug abuse in the past along with history of pneumonia, opioid withdrawal, diarrhea, inflammatory bowel disease who presents with about a 4-day history of left shoulder pain. Denies any injury. Denies any injections or puncture wound to this area. He says he was lifting weights on Saturday and then started having bit more pain after that. He presented the orthopedic clinic today where he saw Dr. James Sharma who aspirated an area under ultrasound which revealed gross pus. He was admitted and transferred to the ER for symptoms. He was diaphoretic. There was concern of impending sepsis. Allergies Allergy/AdvReac Type Severity Reaction Status Date / Time grass pollen Allergy Severe CONGESTION-SINUS Verified 02/15/22 18:54 INFECTIONS, COUGH, SOB tree and shrub pollen Allergy Severe CONGESTION, Verified 02/15/22 18:54 COUGH, SOB weed pollen Allergy Severe CONGESTION, Verified 02/15/22 18:54 COUGH, SOB dog dander Allergy Intermediate SNEEZING, Verified 02/15/22 18:54 CONGESTION house dust mite Allergy Intermediate SNEEZING, Verified 02/15/22 18:54 CONGESTION, SINUS INFECTION, SOB Home Medications Medication Instructions Recorded Confirmed Type fexofenadine 180 mg tablet 180 mg PO QAM 08/21/18 02/15/22 History omeprazole 20 mg tablet,delayed 20 mg PO DAILY 08/21/18 02/15/22 History release Lactobacillus acidophilus 10 10,000 mmu cells PO QAM 04/21/20 02/15/22 History billion cell capsule (Probiotic) multivitamin 1 tab PO DAILY 12/21/21 02/15/22 History Past Med/Surg History Medical History Allergic rhinitis Aspiration pneumonia HOSPITALIZED 03/2020 (REQUIRED INTUBATION) Chronic sinusitis GERD (gastroesophageal reflux disease) History of kidney stones Surgical History History of carpal tunnel release B/L History of colonoscopy History of endoscopic sinus surgery X 2 History of esophagogastroduodenoscopy (EGD) History of tonsillectomy and adenoidectomy [place] teeth removed Family History Father Allergies Mother Sinus disorder Other No family history of bleeding disorder Social History Smoking Status: Former smoker Tobacco Type: Cigarettes packs per day: 1; Years Smoked: 14; Cigarettes Per Day: PT QUIT TOBACCO SEVERAL YEARS AGO BUT OCC. 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 Physical Exam . Physical examination left shoulder reveals some mild diffuse swelling particularly laterally and anteriorly. There is clearly some edema in just a trace bit of redness. He can flex his arm to about 90degrees and abduct to 90 degrees with fairly mild pain. He is tender to palpate. He is neurologically intact. Results & Data Results & Data Laboratory Results . Diagnostic Findings . X-rays of the left shoulder from the clinic today were reviewed. Show some soft tissue swelling. No obvious signs of bony abnormality. CT was reviewed. Does suggest an area of an abscess over the deltoid area. Looks to be confined to the deltoid. Measures about 2 cm x 2 cm. PG Care Time/CCT Total # of Minutes Spent Total Time Spent with Patient: Total time spent is greater than 50% in coordination of care (as documented) at patient's floor/unit and/or counseling patient: Coding Level of Care Code 00748 Inpt Consult Level 5 Diagnoses Abscess of deltoid region L02.419
[2022-02-15] MEDS ORDERED: POLYETHYLENE (MIRALAX) 17 GM PACK PO PRN (23:28)
[2022-02-15] MEDS ORDERED: ALUMINUM/MAGNESIUM SUSP 30 ML UDC PO PRN (23:28)
[2022-02-15] MEDS ORDERED: SODIUM CHLORIDE 0.9% 1000ML 1,000 ML IV SCH (23:28)
[2022-02-15] MEDS ORDERED: HYDROCODONE/ACETAMOPHEN 5/325MG TAB PO PRN ×2 (23:28)
[2022-02-15] MEDS ORDERED: MAGNESIUM HYDROXIDE SUSP 30 ML UDC PO PRN (23:28)
[2022-02-15] MEDS ORDERED: ONDANSETRON INJ 2 MG/ML 2 ML VIAL IV PRN (23:28)
[2022-02-15] MEDS ORDERED: ACETAMINOPHEN 325 MG TAB PO PRN (23:28)
[2022-02-16] MEDS: CEFEPIME 2,000 MG in SYRINGE 0 ML IV SCH ×3 (00:58→15:40)
[2022-02-16] MEDS: VANCOMYCIN HCL 1,250 MG in SODIUM CHLORIDE 0.9% 250 ML IV SCH ×2 (03:04→15:47)
[2022-02-16 07:20] LABS: Basophils # (auto) 0.04 K/uL (0-0.2); Basophils % (auto) 0.6 %; Eosinophils # (auto) 0.61 K/uL (0-0.50); Eosinophils % (auto) 8.7 %; Hematocrit (blood only) 39.7 % (40.1-51.0); Hemoglobin 13.2 g/dl (14.0-18.0); Immature Granulocytes # (auto) 0.02 K/uL (0.00-0.02); Immature Granulocytes % (auto) 0.3 %; Lymphocytes % (auto) 17.2 %; Mean Corpuscular Hemoglobin 29.4 pg (25.0-34.0); Mean Corpuscular Hgb Conc 33.2 g/dL (32.0-36.0); Mean Corpuscular Volume 88.4 fL (80.0-100.0); Mean Platelet Volume 9.9 fL (9.4-12.4); Neutrophils # (auto) 4.42 K/uL (1.4-6.5); Neutrophils % (auto) 63.2 %; Platelet Count 271 K/uL (130-400); RDW Coefficient of Variation 12.2 % (11.5-14.5); RDW Standard Deviation 39.7 fL (36.4-46.3); Red Blood Count 4.49 M/uL (4.63-6.08); White Blood Count 6.99 K/ul (4.8-10.8)
[2022-02-16 07:48] LABS: Albumin Globulin Ratio 1.3 (0.9-2); Albumin Level 3.5 gm/dl (3.4-5.0); BUN Creatinine Ratio 9.3 (10-20); Bilirubin,Total 0.3 mg/dl (0.2-1.0); Calcium 8.6 mg/dl (8.5-10.1); Creatinine Clr Calc Pharmacy 125.4 ml/min; Est GFR (African American) 132.1 ml/min; Est GFR (Non-African American) 113.9 ml/min; Globulin 2.6 gm/dl (2.5-4.0); Total Protein 6.1 gm/dl (6.0-8.3)
[2022-02-16] MEDS: ADVANCED PROBIOTIC 1250 MG CAPSULE PO SCH (08:15)
[2022-02-16] MEDS: MULTIVITAMIN TAB PO SCH (08:15)
[2022-02-16] MEDS: PANTOprazole 40 MG TAB PO SCH (08:15)
[2022-02-16] MEDS: FEXOFENADINE HCL 180 MG TAB PO SCH (08:16)
--- NOTE | 2022-02-16 11:28 | Pharmacy Report ---
Pharmacy PK ABX Note - Date of Service February 16, 2022 - Assessment and Plan Assessment 41 year old M receiving Vancomycin for treatment of Deltoid abscess. Blood cultures pending. Day #2 of antimicrobial therapy. Plan Vancomycin * Loading dose: 1500 mg IV x 1 given yesterday evening. * Maintenance dose: 1250 mg IV every 12 hours started at 0200 today. * Regimen is predicted to achieve target AUC/BLADE of 400-600 mg/L.hr * Trough level ordered for: 02/17/22 before dose at 1400. Patient should have received 3 maintenance doses of Vancomycin by then. Pharmacy will continue to follow and will adjust dose/frequency as necessary. Thank you. Pharmacy has transitioned to AUC monitoring for vancomycin. AUC/BLADE is the preferred PK/PD target and is associated with decreased risk of nephrotoxicity compared to traditional trough targets.
--- NOTE | 2022-02-16 11:33 | Anesthesiology Consultation ---
Date of Service February 16, 2022 Assessment & Plan (1) Encounter for pre-operative examination: History Surgery Operation Date: 02/16/22 08:35 Proposed Procedures p Incision and Drainage Shoulder - Germán Ashley MD Height/Weight Height: 5 ft 8 in Weight: 81.4 kg Allergies Allergy/AdvReac Type Severity Reaction Status Date / Time grass pollen Allergy Severe CONGESTION-SINUS Verified 02/15/22 18:54 INFECTIONS, COUGH, SOB tree and shrub pollen Allergy Severe CONGESTION, Verified 02/15/22 18:54 COUGH, SOB weed pollen Allergy Severe CONGESTION, Verified 02/15/22 18:54 COUGH, SOB dog dander Allergy Intermediate SNEEZING, Verified 02/15/22 18:54 CONGESTION house dust mite Allergy Intermediate SNEEZING, Verified 02/15/22 18:54 CONGESTION, SINUS INFECTION, SOB Medications Home Medications Medication Instructions Recorded Confirmed Last Taken fexofenadine 180 mg tablet 180 mg PO QAM 08/21/18 02/15/22 02/15/22 omeprazole 20 mg tablet,delayed 20 mg PO DAILY 08/21/18 02/15/22 02/15/22 release Lactobacillus acidophilus 10 10,000 mmu cells PO QAM 04/21/20 02/15/22 02/15/22 billion cell capsule (Probiotic) multivitamin 1 tab PO DAILY 12/21/21 02/15/22 02/15/22 Active Medications Generic Name Dose Route Start Last Admin Trade Name Freq PRN Reason Stop Dose Admin Fexofenadine HCl 180 mg 02/16/22 09:00 02/16/22 08:16 Fexofenadine Hcl 180 Mg Tab PO 03/18/22 08:59 180 mg QAM GOLDIE Administration Cefepime HCl 2,000 mg/ Syringe 20 mls @ 5 mls/min 02/16/22 00:00 02/16/22 08:21 IV 03/30/22 00:00 5 mls/min Q8H GOLDIE Administration Protocol Sodium Chloride 1,000 mls @ 80 mls/hr 02/15/22 23:28 02/15/22 23:38 Nss 1000ml IV 02/16/22 11:57 80 mls/hr .[id number] GOLDIE Administration Vancomycin HCl 1,250 mg/ 275 mls @ 200 mls/hr 02/16/22 02:00 02/16/22 05:49 Sodium Chloride IV 02/23/22 01:59 Infused Q12H GOLDIE Infusion Lactobacillus Acidophilus 2 cap 02/16/22 09:00 02/16/22 08:15 Advanced Probiotic 1250 Mg Capsule PO 03/18/22 08:59 2 cap QAM GOLDIE Administration Multivitamins 1 tab 02/16/22 09:00 02/16/22 08:15 Multivitamin Tab PO 03/18/22 08:59 1 tab DAILY GOLDIE Administration Pantoprazole Sodium 40 mg 02/16/22 09:00 02/16/22 08:15 Pantoprazole 40 Mg Tab PO 03/18/22 08:59 40 mg DAILY GOLDIE Administration NPO Date Last Intake of Fluids: 02/15/22 Time Last Intake of Fluids: 23:59 Date Last Intake of Solids: 02/15/22 Time Last Intake of Solids: 23:59 Past Medical History Medical History (Updated 02/16/22 @ 11:32 by Geraldine Wolf MD) Allergic rhinitis Aspiration pneumonia HOSPITALIZED 03/2020 (REQUIRED INTUBATION) Chronic sinusitis GERD (gastroesophageal reflux disease) History of kidney stones Past Family History Family History Father Allergies Mother Sinus disorder Other No family history of bleeding disorder Past Surgical History Surgical History History of carpal tunnel release B/L History of colonoscopy History of endoscopic sinus surgery X 2 History of esophagogastroduodenoscopy (EGD) History of tonsillectomy and adenoidectomy [place] teeth removed Social History Smoking Status: Former smoker tobacco type: cigarettes Smoking cigarettes per day: PT QUIT TOBACCO SEVERAL YEARS AGO BUT OCC. "VAPES" Do You Dip or Chew Tobacco: No Smoking End Date: 2012 Hx Alcohol Use: No Hx Substance Use: No substance use type: crack/cocaine Last Used Substance Other:: last cocaine used a few months ago Physical Exam Vital Signs Last Vital Signs Temp 36.8 C 02/16/22 07:54 Pulse 81 02/16/22 07:54 Resp 16 02/16/22 07:54 BP 115/75 02/16/22 07:54 Pulse Ox 98 02/16/22 07:54 O2 Del Method 02/16/22 07:54 Testing Laboratory Results 02/16/22 06:48 02/16/22 06:48
[2022-02-16] MEDS ORDERED: fentaNYL citrate 100 MCG/2 ML VIAL ONE ×2 (12:02→13:47)
[2022-02-16] MEDS ORDERED: MIDAZOLAM HCL 1 MG/ML 2ML VIAL ONE (12:02)
[2022-02-16] MEDS ORDERED: DEXAMETHASONE SOD INJ 4 MG/ML VIAL ONE (12:02)
[2022-02-16] MEDS ORDERED: ONDANSETRON INJ 2 MG/ML 2 ML VIAL ONE (12:02)
[2022-02-16] MEDS ORDERED: LIDOCAINE 2% MPF LOCAL 5 ML VIAL INFIL ONE (12:02)
[2022-02-16] MEDS ORDERED: ROCURONIUM BROMIDE 10 MG/ML 5 ML VIAL IV ONE (12:02)
[2022-02-16] MEDS ORDERED: PROPOFOL IV EMULSION 10 MG/ML 20 ML VIAL IV ONE (12:02)
[2022-02-16 12:19] LABS: Appearance Urine Clear (Clear); Bilirubin Urine Negative (Negative); Blood Urine Negative (Negative); Color Urine Yellow; Glucose Urine UA Negative (Negative); Ketones Urine Negative (Negative); Leukocyte Esterase Urine Negative (Negative); Nitrite Urine Negative (Negative); Protein Urine Negative (Negative); Urobilinogen Urine Negative (Negative)
[2022-02-16] MEDS ORDERED: ePHEDrine sulfate 50 MG/ML AMP IV PRN (12:44)
[2022-02-16] MEDS ORDERED: ATROPINE SULFATE 0.1 MG/ML 10ML SYR IV PRN (12:44)
[2022-02-16] MEDS ORDERED: ONDANSETRON INJ 2 MG/ML 2 ML VIAL IV PRN ×2 (12:44→14:58)
[2022-02-16 13:04] LABS: Amphetamines+Metham, Urine Neg (Neg); Barbiturates, Urine Neg (Neg); Benzodiazepine, Urine Neg (Neg); Cocaine, Urine Pos (Neg); MDMA (Ecstacy), Urine Neg (Neg); Methadone, Urine Neg (Neg); Opiate, Urine Pos (Neg); Phencyclidine, Urine Neg (Neg)
--- NOTE | 2022-02-16 13:07 | History & Physical Bridge Note ---
Date of Service February 16, 2022 History & Physical Bridge Note I have examined the patient, reviewed the History & Physical and in the interval since the performance of the History & Physical I have noted the following changes of clinical significance: no changes noted
--- NOTE | 2022-02-16 13:23 | Progress Notes ---
DATE OF SERVICE: 02/16/2022. SUBJECTIVE: A 41-year-old gentleman admitted last evening with a left deltoid abscess. Has not real ly noticed much change. Maybe slight improvement as he has been using his arm less. No new complain ts. OBJECTIVE: VITAL SIGNS: Temperature 36.7. Vital signs are stable. EXTREMITIES: On physical examination, left arm reveals some mild diffuse swelling of his deltoid are a. He can elevate and flex, but it is painful. No palpable masses. He is neurologically intact. LABORATORY DATA: White cell count down to 6.99. Sed rate is 54. CRP is 9.71. Culture are all stil l pending. ASSESSMENT: A 41-year-old gentleman with 4-day history of arm pain, discomfort, swelling with an obv ious left deltoid intramuscular abscess. This is certainly something that our ____ plan is for I and D today. PLAN: We are going to proceed with irrigation and debridement. Risks and benefits have been explain ed to the patient, he understands, and informed consent was obtained. Job ID: [id number]
--- NOTE | 2022-02-16 14:25 | Operative Report ---
PG Post Operative Report Pre & Post Diagnosis Operation Date: 02/16/22 08:35 Pre-Op Diagnosis: Left shoulder/deltoid abscess Post-Op Diagnosis: Left shoulder/deltoid abscess I identified the patient and participated in the time-out.: Yes Procedure Operation Date: 02/16/22 08:35 Actual Procedures p Incision and Drainage Left Shoulder(Left) - Germán Ashley MD Surgeon Germán Ashley MD Component Engineer Tramaine Montiel PA-C Estimated Blood Loss 10 Findings Consistent with Post-Op Diagnosis Operative findings revealed a intramuscular deltoid abscess. Did not extend into the shoulder joint. It extended from the lateral aspect of the acromion to about 10 cm distal. Fairly well formed a fluid pocket. The muscle looked quite healthy around it. Specimens Abscess fluid sent for culture Anesthesia Type General Complications none Disposition Accompanied Patient To Recovery: No Indications Patient is a 41-year-old gentleman who has about a 4 to 5-day history of increasing left shoulder and arm pain discomfort and swelling. No known injury. He was seen in clinic and ultrasound revealed a fluid collection. This was aspirated and it showed apparent pus. He was having some 3 septic type symptoms such as diaphoresis. He was admitted by the hospitalist service, medically optimized, and indicated for surgical management. A CT scan did show a clear abscess patient indicated for irrigation debridement of this abscess. Description of Procedure The patient was taken to the operating, identified, placed in the operating table supine position protectors were properly padded. IV antibiotics have been provided preoperatively as per her regular schedule schedule on the floor. A general anesthetic was implemented. The patient was then placed in the b eachchair position using the [employer] shoulder positioner. Left shoulder and arm were then prepped and draped in usual sterile fashion. A longitudinal incision was made directly over the area of the proposed abscess. Extend from the to the lateral border the acromion and and distally and slightly anterior. Sharp dissection Through subcutaneous tissue directly down the deltoid. The deltoid was split and there was obvious purulence. We did send this the fluid off for stat gram stain and aerobic anaerobic culture. I then exposed the entire length of the abscess which was about 10 cm. We debr ided this. I irrigated extensively. I then debrided with use of a curette as well as a shaver and a rongeur. I irrigated this extensively. Once we were complete there was no signs of any residual pus. The skin was closed with 3-0 nylon suture in a simple fashion. Sterile bandage composed of Xeroform, 4 x 4's, Tegaderm dressing, and a sling were applied. Patient then brought out of general incision transferred to the recovery room in stable condition. Patient tolerated procedure well and there were no complications. Tramaine Montiel, my physician congressional assistant, was present for the entire procedure. His assistance was required for proper patient positioning, prepping and draping, surgical exposure, retraction, closure of the wound, placement of sterile bandage and the sling. I attest to the content of the Intraoperative Record and any orders documented therein. Any exceptions are noted below.
[2022-02-16] MEDS: fentaNYL citrate 100 MCG/2 ML VIAL IV PRN ×2 (14:30→14:35)
[2022-02-16] MEDS ORDERED: METOCLOPRAMIDE HCL INJ 5 MG/ML 2 ML VIAL IV PRN (14:58)
[2022-02-16] MEDS ORDERED: traMADol HCL 50 MG TABLET PO PRN (14:58)
[2022-02-16] MEDS ORDERED: NALOXONE HCL 0.4 MG/1 ML VIAL/CARP IV PRN (14:58)
[2022-02-16] MEDS ORDERED: diphenhydrAMINE Capsule 25 MG CAP PO PRN (14:58)
[2022-02-16] MEDS ORDERED: MAGNESIUM HYDROXIDE SUSP 30 ML UDC PO PRN (14:58)
[2022-02-16] MEDS ORDERED: bisacodyL 10 MG SUPP PR PRN (14:58)
[2022-02-16] MEDS ORDERED: ALUMINUM/MAGNESIUM SUSP 30 ML UDC PO PRN (14:58)
[2022-02-16] MEDS: SODIUM CHLORIDE 0.9% 1000ML 1,000 ML IV SCH (15:40)
[2022-02-16] MEDS: KETOROLAC 30 MG/ML VIAL IV SCH ×2 (15:41→21:55)
--- NOTE | 2022-02-16 17:01 | Hospitalist Progress Note ---
Date of Service February 16, 2022 Assessment & Plan (1) Abscess of deltoid region: (2) Leukocytosis: (3) Hx of drug abuse: Plan Patient is a 41 yr old male who has significant past medical history of chronic sinusitis, allergic rhinitis, GERD, history of kidney stone, history of cocaine drug abuse, former smoker who presents to ED after being referred to orthopedics due to concern for left deltoid abscess. Left shoulder/deltoid abscess --Shoulder CT: Intramuscular abscess in the deltoid muscle measuring 1.8 x 1.4 x 1.7 cm S/P Left Shoulder Incision and Drainage by on 02/16/22 Blood, wound culture pending Continue IV fluids Continue broad-spectrum antibiotics IV vancomycin, cefepime Appreciate orthopedics help Continue wound care H/O Drug Abuse Toxicology screen positive for opiates, cocaine Denies any IV drug use Monitor for withdrawal Counseled to quit illegal drug use Dental abscess Recently had implants placed, abscess to 1 implant Was on amoxicillin for 3 days On antibiotics as above Monitor GERD Continue Protonix Chronic Rhinitis continue home meds DVT Px SCDs Encouraged to ambulate Code Status FULL CODE Admission and Anticipated Discharge Date Admission Date: February 15, 2022 Subjective Patient is seen and examined at bedside Patient had I&D of left shoulder this morning States feeling groggy after the procedure Left shoulder pain is controlled Denies any chest pain, shortness of breath, dizziness, nausea, abdominal pain Offers no other complaints Review of Systems Review of Systems: All systems reviewed & are unremarkable except as noted in Subjective Physical Exam Physical Exam: Exam: Vitals signs as noted above General Appearance:Moderately built and nourished, no apparent distress Head: normocephalic, Atraumatic Eyes: normal inspection, EOMI Neck: supple, Trachea midline Respiratory/Chest: Normal breath sounds, CTA, No accessory muscle use Cardiovascular: S1, S2, No murmur Abdomen/GI:Soft, Non tender, Bowel sounds present Extremities/Musculoskeletal:normal inspection, no edema, Left Deltoid region in dressing Neurologic/Psych:AAOX3, grossly no focal neurological deficits Skin: normal color, warm Results & Data Results & Data ([facility]) Vital Signs (Past 12 Hours) Vital Signs Temp Pulse Pulse Resp BP Pulse Ox O2 Del Method 02/16/22 16:00 36.5 C 100 H 16 144/81 H 97 Room Air 02/16/22 15:30 37.1 C 93 H 16 146/87 H 98 Room Air 02/16/22 15:00 37.1 C 88 14 142/91 H 99 Room Air 02/16/22 14:35 86 19 140/95 98 Oxymask 02/16/22 14:25 93 H 14 137/87 100 Oxymask 02/16/22 14:50 87 16 137/91 98 Room Air 02/16/22 14:45 36.4 C L 84 12 148/85 H 99 Room Air 02/16/22 14:18 36.1 C L 83 14 149/92 H 98 Oxymask 02/16/22 11:57 36.7 C 85 20 135/80 97 Room Air 02/16/22 07:54 36.8 C 81 16 115/75 98 Room Air O2 Flow Rate 02/16/22 16:00 02/16/22 15:30 02/16/22 15:00 02/16/22 14:35 12 02/16/22 14:25 12 02/16/22 14:50 02/16/22 14:45 02/16/22 14:18 12 02/16/22 11:57 02/16/22 07:54 Laboratory Results Short CBC 02/15/22 02/16/22 Range/Units 17:03 06:48 WBC 12.21 H 6.99 (4.8-10.8) K/ul Hgb 15.3 13.2 L (14.0-18.0) g/dl Hct 44.2 39.7 L (40.1-51.0) % Plt Count 348 271 (130-400) K/uL BMP 02/15/22 02/16/22 17:03 06:48 Sodium 135 L 138 Potassium 3.8 4.0 Chloride 99 107 Carbon Dioxide 29 27 BUN 8 7 Creatinine 0.82 0.75 Glucose 79 90 Calcium 9.5 8.6 Liver Function 02/15/22 02/16/22 Range/Units 17:03 06:48 Total Bilirubin 0.5 0.3 (0.2-1.0) mg/dl AST 27 19 (13-39) U/L ALT 26 22 (7-52) U/L Alkaline Phosphatase 60 45 (34-104) U/L Albumin 4.3 3.5 (3.4-5.0) gm/dl Urine 02/16/22 Range/Units 11:50 Urine Color Yellow Urine Appearance Clear (Clear) Urine pH 8.0 H (4.5-7.5) Ur Specific Newell 1.010 (1.000-1.030) Urine Protein Negative (Negative) Urine Glucose (UA) Negative (Negative)
[2022-02-16 19:05] LABS: A calco-baum cmplx NotReported Not Detected (NotDetected); Bact fragilis Not Reported Not Detected (NotDetected); C auris Not Reported Not Detected (NotDetected); Calbicans Not Reported Not Detected (NotDetected); Candida glabrata Not Reported Not Detected (NotDetected); Candida krusei Not Reported Not Detected (NotDetected); Cneoformans/gatti Not Reported Not Detected (NotDetected); Cparapsilosis Not Reported Not Detected (NotDetected); Ctropicalis Not Reported Not Detected (NotDetected); E cloacae compx Not Reported Not Detected (NotDetected); Efaecalis Not Reported Not Detected (NotDetected); Efaecium Not Reported Not Detected (NotDetected); Enterobacterales Not Reported Not Detected (NotDetected); Escherichia coli Not Reported Not Detected (NotDetected); H influenzae Not Reported Not Detected (NotDetected); K aerogenes Not Reported Not Detected (NotDetected); Koxytoca Not Reported Not Detected (NotDetected); Kpneumoniae grp Not Reported Not Detected (NotDetected); Lmonocyt Not Reported Not Detected (NotDetected); N meningitidis Not Reported Not Detected (NotDetected); P aeruginosa Not Reported Not Detected (NotDetected); Proteus spp Not Reported Not Detected (NotDetected); Salmonella spp Not Reported Not Detected (NotDetected); Smarcescens Not Reported Not Detected (NotDetected); Staph lugdunensis Not Reported Not Detected (NotDetected); Staph spp. Not Reported Not Detected (NotDetected); Staphaureus Not Reported Not Detected (NotDetected); Staphepi Not Reported Not Detected (NotDetected); Stenmaltophilia Not Reported Not Detected (NotDetected); Strep agal(GrpB) Not Reported Not Detected (NotDetected); Strep pneum Not Reported Not Detected (NotDetected); Strep pyog (GrpA) Not Reported Not Detected (NotDetected); Strep spp Not Reported DETECTED (NotDetected)
[2022-02-16 19:16] LABS: Streptococcus spp DETECTED (NotDetected)
[2022-02-16] MEDS: DOCUSATE SODIUM 100 MG CAP PO SCH (21:55)
[2022-02-16] MEDS: SENNA 8.6 MG TAB PO SCH (21:56)
[2022-02-17] MEDS: CEFEPIME 2,000 MG in SYRINGE 0 ML IV SCH ×3 (00:34→17:04)
[2022-02-17] MEDS: SODIUM CHLORIDE 0.9% 1000ML 1,000 ML IV SCH (01:48)
[2022-02-17] MEDS: VANCOMYCIN HCL 1,250 MG in SODIUM CHLORIDE 0.9% 250 ML IV SCH (01:48)
[2022-02-17] MEDS: KETOROLAC 30 MG/ML VIAL IV SCH ×4 (03:34→21:58)
[2022-02-17 08:30] LABS: Hematocrit (blood only) 40.1 % (40.1-51.0); Hemoglobin 13.4 g/dl (14.0-18.0); Mean Corpuscular Hemoglobin 29.8 pg (25.0-34.0); Mean Corpuscular Hgb Conc 33.4 g/dL (32.0-36.0); Mean Corpuscular Volume 89.3 fL (80.0-100.0); Platelet Count 254 K/uL (130-400); RDW Coefficient of Variation 12.7 % (11.5-14.5); RDW Standard Deviation 41.2 fL (36.4-46.3); Red Blood Count 4.49 M/uL (4.63-6.08)
--- NOTE | 2022-02-17 08:48 | Progress Notes ---
DATE OF SERVICE: 02/17/2022. SUBJECTIVE: A 41-year-old gentleman now postoperative day 1 from I and D of a left deltoid abscess. He is doing pretty well. No particular pain this morning. OBJECTIVE: VITAL SIGNS: Temperature 36.4. Vital signs are stable. GENERAL: Shows a pleasant middle-aged male. He is sitting up in bed and looks pretty comfortable th is morning. EXTREMITIES: Examination of the left shoulder reveals the dressing to be clean, dry and intact. No significant drainage. Swelling is improved. The redness is improved. LABORATORY DATA: Shoulder culture results so far are no growth. He did have a blood culture, which is growing gram-positive cocci in chains suggestive of strep. Gram stain from the shoulder from kamryn artis also is showing gram-positive cocci. ASSESSMENT: A 41-year-old gentleman now postoperative day 1 from I and D of left deltoid abscess kayden wing out gram-positive cocci. Blood cultures also growing out gram-positive cocci in chains. PLAN: He is doing well orthopedically. He has had irrigation, debridement and just needs antibiotic management at this point. With him there have been positive blood cultures, he may need IV antibioti cs for a couple of weeks. I will leave that up to the medicine service. Orthopedically, he can be d ischarged any time on antibiotics. I would plan on leaving this bandage on for today and can take it off tomorrow. Then dressing changes daily. He is okay orthopedically for discharge any time with ou tpatient antibiotics for at least 2 weeks. I need to see him back in 2-3 weeks out from surgery date . Any orthopedic questions can be directed to me at [phone]. Job ID: [id number]
[2022-02-17 08:57] LABS: BUN Creatinine Ratio 7.7 (10-20); C Reactive Protein 3.07 mg/dl (0-0.5); Calcium 8.5 mg/dl (8.5-10.1); Creatinine Clr Calc Pharmacy 120.6 ml/min; Est GFR (African American) 129.9 ml/min; Est GFR (Non-African American) 112.1 ml/min; Potassium 3.9 mmol/L (3.5-5.1)
[2022-02-17] MEDS ORDERED: MULTIVITAMIN TAB PO SCH (09:00)
[2022-02-17] MEDS: FEXOFENADINE HCL 180 MG TAB PO SCH (09:08)
[2022-02-17] MEDS: DOCUSATE SODIUM 100 MG CAP PO SCH ×2 (09:08→21:58)
[2022-02-17] MEDS: PANTOprazole 40 MG TAB PO SCH (09:10)
[2022-02-17] MEDS: ADVANCED PROBIOTIC 1250 MG CAPSULE PO SCH (09:10)
[2022-02-17] MEDS: MULTIVITAMIN TAB PO SCH (09:10)
[2022-02-17] MEDS ORDERED: VANCOMYCIN LEVEL ONE (13:30)
--- NOTE | 2022-02-17 13:52 | Pharmacy Report ---
Pharmacy PK ABX Note - Date of Service February 17, 2022 - Assessment and Plan Assessment 41 year old M receiving Vancomycin for treatment of Deltoid abscess. Blood cultures (+) GPC in chains, BCID2 (+) Strep sp. Abscess culture pending. Renal function stable. Day #3 of antimicrobial therapy Plan Vancomycin * Vancomycin trough level 5.5mcg/mL (~11hr level) today on 1250mg IV q12h - subtherapeutic (SS AUC predicted 341mg/L.hr) * Increase dose to 2gm IV q12h starting now. Correlates with a steady state AUC/BLADE 545mg/L.hr and trough 12.2mg/mL. * Will repeat a level tomorrow afternoon to ensure clearance. Pharmacy will continue to follow and will adjust dose/frequency as necessary. Thank you. Pharmacy has transitioned to AUC monitoring for vancomycin. AUC/BLADE is the preferred PK/PD target and is associated with decreased risk of nephrotoxicity compared to traditional trough targets.
[2022-02-17] MEDS: VANCOMYCIN HCL 2,000 MG in SODIUM CHLORIDE 0.9% 500 ML IV SCH (14:15)
--- NOTE | 2022-02-17 16:06 | Hospitalist Progress Note ---
Date of Service February 17, 2022 Assessment & Plan (1) Abscess of deltoid region: (2) Leukocytosis: (3) Hx of drug abuse: Plan Patient is a 41 yr old male who has significant past medical history of chronic sinusitis, allergic rhinitis, GERD, history of kidney stone, history of cocaine drug abuse, former smoker who presents to ED after being referred to orthopedics due to concern for left deltoid abscess. Left shoulder/deltoid abscess --Shoulder CT: Intramuscular abscess in the deltoid muscle measuring 1.8 x 1.4 x 1.7 cm S/P Left Shoulder Incision and Drainage by on 02/16/22 Blood culture as below Wound culture Negative to date Continue IV fluids Continue broad-spectrum antibiotics IV vancomycin, cefepime Appreciate orthopedics help Continue wound care Needs daily dressing change starting tomorrow Needs follow up with Orthopedics in 2-3 weeks upon discharge Abnormal Blood Culture 07/11:Gamma Strep not enterococcus Likely contamination Follow up final blood cultures H/O Drug Abuse Toxicology screen positive for opiates, cocaine Denies any IV drug use Monitor for withdrawal Counseled to quit illegal drug use Dental abscess Recently had implants placed, abscess to 1 implant Was on amoxicillin for 3 days On antibiotics as above Monitor GERD Continue Protonix Chronic Rhinitis continue home meds DVT Px SCDs Encouraged to ambulate Code Status FULL CODE Admission and Anticipated Discharge Date Admission Date: February 15, 2022 Subjective Patient is seen and examined at bedside Doing well today Denies any significant pain at deltoid region Also denies any chest pain, shortness of breath, dizziness, nausea, abdominal pain Review of Systems Review of Systems: All systems reviewed & are unremarkable except as noted in Subjective Physical Exam Physical Exam: Exam: Vitals signs as noted above General Appearance:Moderately built and nourished, no apparent distress Head: normocephalic, Atraumatic Eyes: normal inspection, EOMI Neck: supple, Trachea midline Respiratory/Chest: Normal breath sounds, CTA, No accessory muscle use Cardiovascular: S1, S2, No murmur Abdomen/GI:Soft, Non tender, Bowel sounds present Extremities/Musculoskeletal:normal inspection, no edema, Left Deltoid region in dressing Neurologic/Psych:AAOX3, grossly no focal neurological deficits Skin: normal color, warm Results & Data Results & Data ([facility]) Vital Signs (Past 12 Hours) Vital Signs Temp Pulse Resp BP Pulse Ox O2 Del Method 02/17/22 14:43 37.2 C 87 16 135/76 99 Room Air 02/17/22 11:04 37.1 C 86 16 126/81 99 Room Air 02/17/22 07:52 36.4 C L 66 16 122/83 99 Room Air Laboratory Results Short CBC 02/17/22 Range/Units 08:17 WBC 6.40 (4.8-10.8) K/ul Hgb 13.4 L (14.0-18.0) g/dl Hct 40.1 (40.1-51.0) % Plt Count 254 (130-400) K/uL BMP 02/17/22 08:17 Sodium 139 Potassium 3.9 Chloride 107 Carbon Dioxide 28 BUN 6 Creatinine 0.78 Glucose 92 Calcium 8.5
[2022-02-17] MEDS: SENNA 8.6 MG TAB PO SCH (21:58)
[2022-02-18] MEDS: CEFEPIME 2,000 MG in SYRINGE 0 ML IV SCH ×2 (00:50→08:48)
[2022-02-18] MEDS: VANCOMYCIN HCL 2,000 MG in SODIUM CHLORIDE 0.9% 500 ML IV SCH ×2 (02:20→13:17)
[2022-02-18] MEDS: KETOROLAC 30 MG/ML VIAL IV SCH ×2 (03:17→08:48)
[2022-02-18 07:35] LABS: Hematocrit (blood only) 39.7 % (40.1-51.0); Hemoglobin 13.2 g/dl (14.0-18.0); Mean Corpuscular Hemoglobin 29.6 pg (25.0-34.0); Mean Corpuscular Hgb Conc 33.2 g/dL (32.0-36.0); Mean Platelet Volume 10.2 fL (9.4-12.4); Platelet Count 263 K/uL (130-400); RDW Coefficient of Variation 12.4 % (11.5-14.5); RDW Standard Deviation 40.4 fL (36.4-46.3); Red Blood Count 4.46 M/uL (4.63-6.08); White Blood Count 6.96 K/ul (4.8-10.8)
[2022-02-18 07:56] LABS: BUN Creatinine Ratio 12.5 (10-20); Calcium 8.5 mg/dl (8.5-10.1); Creatinine Clr Calc Pharmacy 130.6 ml/min; Est GFR (African American) 134.3 ml/min; Est GFR (Non-African American) 115.9 ml/min; Potassium 3.9 mmol/L (3.5-5.1)
--- NOTE | 2022-02-18 08:44 | Progress Notes ---
DATE OF SERVICE: 02/18/2022. SUBJECTIVE: A 41-year-old gentleman postoperative day 2 from I and D of a left deltoid abscess. He is doing well. Not much in the way of pain. No other complaints. Just waiting to go home. OBJECTIVE: VITAL SIGNS: Temperature 36.5. Vital signs are stable. GENERAL: Physical exam shows a pleasant middle-aged male. He is lying in bed, looks quite comfortab le. EXTREMITIES: Examination of the left arm with the dressing removed reveals wound and the incision to be well approximated. There is no significant drainage at all. Swelling is much improved. Redness is improved. LABORATORY DATA: White cell count of 6.96. His culture results so far are no growth to date. One b lood culture from 02/15/2022, growing out strep. ASSESSMENT: A 41-year-old gentleman postoperative day 2 from I and D of the left deltoid abscess. C linically, he is doing well. Cultures have been no growth to date. PLAN: From the orthopedic standpoint, he can be discharged on oral antibiotics at any time. Just ne eds broad-spectrum coverage something to cover staph strep and MRSA. Routine wound care. Dressing c hange daily. Needs orthopedic followup in 2-3 weeks. Sling for comfort. Any orthopedic questions ca n be directed to me at [phone]. Job ID: [id number]
[2022-02-18] MEDS: DOCUSATE SODIUM 100 MG CAP PO SCH (08:48)
[2022-02-18] MEDS: FEXOFENADINE HCL 180 MG TAB PO SCH (08:48)
[2022-02-18] MEDS: ADVANCED PROBIOTIC 1250 MG CAPSULE PO SCH (08:48)
[2022-02-18] MEDS: PANTOprazole 40 MG TAB PO SCH (08:48)
[2022-02-18] MEDS: MULTIVITAMIN TAB PO SCH (08:48)
--- NOTE | 2022-02-18 12:02 | Hospitalist Progress Note ---
Date of Service February 18, 2022 Assessment & Plan (1) Abscess of deltoid region: (2) Leukocytosis: (3) Hx of drug abuse: Plan: Patient is a 41 yr old male who has significant past medical history of chronic sinusitis, allergic rhinitis, GERD, history of kidney stone, history of cocaine drug abuse, former smoker who presents to ED after being referred to orthopedics due to concern for left deltoid abscess. Left shoulder/deltoid abscess --Shoulder CT: Intramuscular abscess in the deltoid muscle measuring 1.8 x 1.4 x 1.7 cm S/P Left Shoulder Incision and Drainage by on 02/16/22 Blood culture as below Wound culture Negative to date Continue IV fluids Continue broad-spectrum antibiotics IV vancomycin, cefepime Appreciate orthopedics help Continue wound care Needs daily dressing change starting tomorrow Needs follow up with Orthopedics in 2-3 weeks upon discharge Plan to transition to PO antibiotics upon discharge to complete the course Abnormal Blood Culture 07/11:Gamma Strep not enterococcus Likely contamination Follow up final blood cultures H/O Drug Abuse Toxicology screen positive for opiates, cocaine Denies any IV drug use Monitor for withdrawal Counseled to quit illegal drug use Dental abscess Recently had implants placed, abscess to 1 implant Was on amoxicillin for 3 days On antibiotics as above Monitor GERD Continue Protonix Chronic Rhinitis continue home meds DVT Px SCDs Encouraged to ambulate Code Status FULL CODE Admission and Anticipated Discharge Date Admission Date: February 15, 2022 Subjective Patient is seen and examined at bedside No new complaints Eager to get discharged No growth on cultures to date Pain is well controlled Denies any chest pain, shortness of breath, dizziness, nausea, abdominal pain Dressing was changed today Review of Systems Review of Systems: All systems reviewed & are unremarkable except as noted in Subjective Physical Exam Physical Exam: Vitals signs as noted above General Appearance:Moderately built and nourished, no apparent distress Head: normocephalic, Atraumatic Eyes: normal inspection, EOMI Neck: supple, Trachea midline Respiratory/Chest: Normal breath sounds, CTA, No accessory muscle use Cardiovascular: S1, S2, No murmur Abdomen/GI:Soft, Non tender, Bowel sounds present Extremities/Musculoskeletal:normal inspection, no edema, Left Deltoid region in dressing Neurologic/Psych:AAOX3, grossly no focal neurological deficits Skin: normal color, warm Results & Data Results & Data ([facility]) Vital Signs (Past 12 Hours) Vital Signs Temp Pulse Resp BP Pulse Ox O2 Del Method 02/18/22 08:05 36.5 C 74 16 126/84 99 Room Air Laboratory Results Short CBC 02/18/22 Range/Units 06:46 WBC 6.96 (4.8-10.8) K/ul Hgb 13.2 L (14.0-18.0) g/dl Hct 39.7 L (40.1-51.0) % Plt Count 263 (130-400) K/uL BMP 02/18/22 06:46 Sodium 139 Potassium 3.9 Chloride 108 H Carbon Dioxide 26 BUN 9 Creatinine 0.72 Glucose 95 Calcium 8.5
--- NOTE | 2022-02-18 12:12 | Discharge Summary ---
Date of Service February 18, 2022 Admission HPI Per Admitting Provider This is a 41-year-old male who has significant past medical history of chronic sinusitis, allergic rhinitis, GERD, history of kidney stone, history of cocaine drug abuse, former smoker who presents to ED after being referred to orthopedics due to concern for left deltoid abscess. Patient was seen in orthopedic clinic today by Dr. Castro. He complained of left shoulder pain, decreased range of motion for approximately the past week. Over the past 2 days he noticed redness and warmth over the top of his left shoulder. In clinic today ultrasound was used and found abscess to the deltoid. Purulent material was aspirated from the intramuscular abscess and sent for culture. Case was discussed with on-call orthopedic Dr. Ashley. He was referred to ER for IV antibiotics. He was diaphoretic in the ED but denied any documented fever, chills or sweats. He states he does occasionally get sweaty but this is not out of the ordinary for him. He denies any lightheadedness, dizziness, syncope, chest pain, shortness with, cough, URI symptoms, nausea, vomiting, abdominal pain, changes bowel or urinary habits. He has been dealing with a dentist for dental work and getting implants. He has been having difficulty with his teeth and pain. Approximately a week ago he was seen by the dentist and found to have a abscess of the 1 implant and was started on oral amoxicillin. Also of significance patient does have history of cocaine drug abuse. He was last admitted at our hospital on 12/21-12/22 for aspiration pneumonia and a prior COVID positive. He was treated with oral Augmentin. During that hospitalization he did test positive for cocaine and admitted use approximately 1 week prior. He denies any further relapse and does admit to cocaine use approximately 2 to 3 months ago. He denies any IV drug abuse. Admission Exam Per Admitting Provider Physical Exam Physical Exam: Constitutional: WD/WN, vitals as above, NAD, sitting up in bed, pleasant, conversing easily, diaphoresis Head: Normocephalic, Atraumatic Eyes: PERRL, conjunctivae normal, anicteric sclerae ENMT: external ear and nose normal, oropharynx normal Neck: trachea midline, no thyromegaly normal visual inspection Respiratory: normal respiratory effort, lungs clear to auscultation, no wheeze, rales, rhonchi. Normal insp/exp effort, no accessory muscle use Cardiovascular: RRR, no murmur, no edema Vessels: no JVD or carotid bruit Chest: normal inspection of chest Abdomen: normal bowel sounds, soft, nontender, no hepatosplenomegaly Musculoskeletal: no cyanosis or clubbing, active range of motion x4, pain to palpation to left deltoid area, decreased range of motion with left arm extension and ABduction, surrounding erythema and warmth to left shoulder Skin: no rashes, warm and dry normal turgor Neurologic: PERRL, EOMI, accommodation nl, no face palsy, no dysarthria CN's II-XI intact bilaterally and moves all extremities Psychiatric: A+Ox3, euthymic affect Lymphatic: no cervical or axillary lymphadenopathy : deferred Principal Diagnosis Left Deltoid Abscess Discharge Data Allergies Allergy/AdvReac Type Severity Reaction Status Date / Time grass pollen Allergy Severe CONGESTION-SINUS Verified 02/15/22 18:54 INFECTIONS, COUGH, SOB tree and shrub pollen Allergy Severe CONGESTION, Verified 02/15/22 18:54 COUGH, SOB weed pollen Allergy Severe CONGESTION, Verified 02/15/22 18:54 COUGH, SOB dog dander Allergy Intermediate SNEEZING, Verified 02/15/22 18:54 CONGESTION house dust mite Allergy Intermediate SNEEZING, Verified 02/15/22 18:54 CONGESTION, SINUS INFECTION, SOB Consultations 02/15/22 18:26 ED Decision to Admit Stat 02/15/22 18:39 Consult Orthopedic Surgery Routine Procedures Performed Operation Date: 02/16/22 08:35 Actual Procedures p Incision and Drainage Left Shoulder(Left) - Germán Ashley MD Ordered Studies 02/15/22 15:54 CT shoulder LT w con Stat Hospital Course (1) Abscess of deltoid region: (2) Leukocytosis: (3) Hx of drug abuse: Patient is a 41 yr old male who has significant past medical history of chronic sinusitis, allergic rhinitis, GERD, history of kidney stone, history of cocaine drug abuse, former smoker who presents to ED after being referred to orthopedics due to concern for left deltoid abscess. Left shoulder/deltoid abscess --Shoulder CT: Intramuscular abscess in the deltoid muscle measuring 1.8 x 1.4 x 1.7 cm S/P Left Shoulder Incision and Drainage by on 02/16/22 Blood culture as below Wound culture Negative to date Continue IV fluids Continue broad-spectrum antibiotics IV vancomycin, cefepime Appreciate orthopedics help Continue wound care Needs daily dressing change starting tomorrow Needs follow up with Orthopedics in 2-3 weeks upon discharge Plan to transition to PO antibiotics upon discharge to complete the course Abnormal Blood Culture 07/11:Gamma Strep not enterococcus Likely contamination Follow up final blood cultures H/O Drug Abuse Toxicology screen positive for opiates, cocaine Denies any IV drug use Monitor for withdrawal Counseled to quit illegal drug use Dental abscess Recently had implants placed, abscess to 1 implant Was on amoxicillin for 3 days On antibiotics as above Monitor GERD Continue Protonix Chronic Rhinitis continue home meds DVT Px SCDs Encouraged to ambulate Code Status FULL CODE Total Time Total Time Spent Total Time Spent (In Minutes): 47 minutes Discharge Plan Discharge Items Patient Disposition: Home - Self-Care Reason For Visit: L SHOULDER ABCESS Discharge Diagnosis: Left Deltoid Abscess Activity: Per Instructions section Activity Comment: Left Arm sling for 2 weeks Exercise/Sports: Wait until after follow-up appointment Non-emergency contact: Primary Care Provider and Surgeon Call non-emergency contact if: you have any medication questions, your symptoms worsen, your pain is concerning for you, you have a fever, your wound has increased redness, your wound has increased drainage and your wound pain has increased Follow-up/Referrals: Germán Ashley MD [Physician] - (Orthopedic follow-up 2-3 weeks from surgery date) Brandon Aguilar MD [Primary Care Provider] - Diet: Regular Addtl Attending Provider Instructions: Follow-up with your primary care physician in 1 week Follow-up with your surgeon Dr. Ashley as advised. --- Continue daily dressings as advised by your surgeon --- Complete antibiotic course as prescribed. --- Your final blood, wound cultures are pending at the time of discharge. Follow-up with your physician for results. Discuss with your physician regarding adjustment of antibiotics as needed based on your cultures. Seek immediate medical attention if your symptoms reoccur or worsen Please take all medications as instructed on discharge list below. Please call if you have any questions or problems. You can reach a [facility] hospitalist on duty at [facility] 24 hours a day by calling [phone] Addtl Spinner Cap Frame Provider Instructions: Dressing change daily to left shoulder. Sling for 2 weeks. Pending Studies at Discharge: Yes Studies:: Blood, Wound Cultures Stand-Alone Forms: My [facility], Smoking Cessation Medications and DC Order Prescriptions: New doxycycline hyclate 100 mg tablet 100 mg PO BID 7 Days Qty: 14 0RF amoxicillin-pot clavulanate 875-125 mg tablet 1 tab PO BID Qty: 14 0RF Continued Probiotic 10 billion cell Capsule 10,000 mmu cells PO QAM fexofenadine 180 mg Tablet 180 mg PO QAM omeprazole 20 mg Tablet,Delayed Release (Dr/Ec) 20 mg PO DAILY multivitamin Tablet 1 tab PO DAILY Discharge Orders: Discharge Order (Routine); Ordered 02/18/22 Ordered By: Tramaine Reyez Admission Data Admit Date/Time: 02/15/22 18:39 Attending Provider: Tramaine Reyez Admit Provider: Ramin Xie Primary Care Provider: Brandon Aguilar Other Providers: Ramin Xie ; Germán Ashley
[2022-02-18] MEDS ORDERED: VANCOMYCIN LEVEL ONE (13:00)
[2022-02-19 04:11] LABS: Cocaine, Urine 2760 ng/mL (<100); Codeine Urine NEGATIVE ng/mL (<50); Hydrocodone Urine NEGATIVE ng/mL (<50); Hydromor Urine NEGATIVE ng/mL (<50); Morphine Urine 657 ng/mL (<50); Norhydrocodone Conf Ur NEGATIVE ng/mL (<50); Noroxycodone Urine NEGATIVE ng/mL (<50); Oxycodone Urine NEGATIVE ng/mL (<50); Oxymorph Urine NEGATIVE ng/mL (<50)
== END 2022-02-18 13:55 | disposition home or self-care (01) | DRG 580 ==
LOC: ED 15:28 → SUATTDRO 18:39 → 3E 18:39